=== PATIENT | female | born 1955 | race American Indian/Alaskan Native ===

== ENCOUNTER 2017-06-10 23:21 | Emergency (ER) | payer MEDICAID ==
[2017-06-11] MEDS ORDERED: Acetaminophen/HYDROcodone 325-5 MG Tab PO ONE (00:34)
[2017-06-11] MEDS ORDERED: predniSONE 10 MG Tab PO ONE (00:34)
[2017-06-11 00:56] VITALS: BP 113/67
--- NOTE | 2017-06-11 10:37 | ER ---
DATE SEEN: 06/10/2017 The patient was seen at 2330. HISTORY OF PRESENT ILLNESS: This is a 62-year-old woman, who is known to have a problem with alcohol, and has stopped drinking 3 months ago. She has also psoriatic arthritis involving the left hip and left knee with decreased extension of the left knee. MEDICATIONS: Currently takin. Oxybutynin for bladder problems. 2. Omeprazole for GERD. 3. Vitamins with minerals. ALLERGIES: She is allergic to chocolate flavor. PAST MEDICAL HISTORY: She has chronic neck discomfort and previously documented sigmoid diverticulosis. REVIEW OF SYSTEMS: Negative except for chronic low back discomfort which has gotten worse over the last 3 weeks. She never had an MRI. She notes the back pain is probably 8/10 in intensity. Back pain is worse if she sits too long or stands too long or finds herself bending or carrying her grandchild. She notes that the back pain is not worse with coughing, sneezing, or bowel movements. There are times that the pain radiates to her left anterior thigh. She has not been on any medicines, any DMARDs, methotrexate, or steroids, or other medicines for psoriatic arthritis. She has extensive psoriasis of extensor surfaces and left knee and left hip arthritis and pain with degenerative changes in the lower back. The patient denies shortness of breath, cough, chest pain, irregular heartbeat, swelling of ankles, or dyspnea on exertion. She denies gastrointestinal symptoms, abdominal pain, ulcers, or inflammation of the stomach, but she has reflux, denies diarrhea, blood in her stools, or black/tarry stools. She denies frequency, urgency, dysuria, or urinary tract infection. She is a 5, para 3-0-0-5. PAST SURGICAL HISTORY: Status post cholecystectomy. PHYSICAL EXAMINATION: VITAL SIGNS: Blood pressure 128/68, heart rate was 92, respirations were 18, oxygen saturation 98%, heart rate was regular, and temperature was 38.6 degrees centigrade. 75.2 kilos, 10 kilos down from previous weight in November 2016. HEENT: The patient is edentulous. TMs are negative. Hearing is good. Pharynx was without abnormality. No scleral icterus. NECK: Supple. No thyromegaly or masses in neck. No cervical adenopathy. No tenderness in neck. Mild tracheal tug was noted. No tracheal deviation. LUNGS: Clear to auscultation without rales, rhonchi, or wheezes. HEART: S1 and S2. No irregular rate or rhythm. ABDOMEN: Soft. Right liver rounded edge was palpable with deep inspiration below the right lower rib. No splenomegaly. Bowel sounds are hypoactive, but present and no abdominal tenderness. EXTREMITIES/NEUROLOGICAL: Straight leg raise is negative to left and right legs. Pressure to the lumbar area causes pain in lower back and mild in sacroiliac joint and no dysesthesia in lower extremities. Deep tendon reflexes, knee jerks and ankle jerks are present. Feeling is intact to lower extremities. MUSCULOSKELETAL: Moderate wasting in the thigh muscles. ASSESSMENT: Extensive psoriatic lesions in the extensor surfaces of the elbows and the knees and also in the fingers. 1. Low back pain. 2. Low back pain, probably secondary to psoriatic arthritis. 3. Extensive psoriatic arthritis. 4. History of chemical abuse - ethanolism. "stopped drinking alcohol 3 months ago." 5. She has petechial lesions . 6. Smoker. 7. Acid peptic disease, using omeprazole for gastroesophageal reflux disease. 8. The patient does not have dactylitis. The patient has extensive DIP joint swelling and nodularities reflecting an osteoarthritis - probably secondary to psoriatic arthritis. PLAN: 1. A trial of prednisone 10 mg daily for 10 tablets. 2. A trial of Vicodin 8 tablets q.4 hours p.r.n. pain. 3. The patient discussed possible use of DMARDs and/or methotrexate to treat her psoriatic arthritis. /[id number] TRISTIAN/ALEJANDRA SAVAGE
== END 2017-06-11 00:50 | disposition home or self-care (01) ==
LOC: FB.ED 23:21
DX: L40.50 Arthropathic psoriasis, unspecified (principal); M54.5 Low back pain; F17.200 Nicotine dependence, unspecified, uncomplicated; K30 Functional dyspepsia; Z90.49 Acquired absence of other specified parts of digestive tract; K21.9 Gastro-esophageal reflux disease without esophagitis
CPT/HCPCS: 99283; A9270-GY

== ENCOUNTER 2017-08-01 18:57 | Emergency (ER) | payer MEDICAID ==
[2017-08-01] MEDS ORDERED: Acetaminophen 500 MG Tab PO ONE (19:25)
--- NOTE | 2017-08-01 19:31 | EDM.PDOC ---
ED HPI GENERAL MEDICAL PROBLEM - General Chief Complaint: Back Pain or Injury Stated Complaint: LOWER BACK PAIN AND LEFT HIP Time Seen by Provider: 08/01/17 19:15 Source of Information: Reports: Patient History Limitations: Reports: No Limitations - History of Present Illness INITIAL COMMENTS - FREE TEXT/NARRATIVE: Clarissa comes to [facility] ED with sxs of L flank and lower back pain after daycare tasks with grandchildren and cleaning a toilet earlier today. There was no fall , misstep, overlifting or reaching, but she was very active. She has not self medicated today, and does not tolerated ASA or NSAIDs. Lower back & L lat lower rib Pain Score (Numeric/FACES): 8 - Related Data Allergies Allergy/AdvReac Type Severity Reaction Status Date / Time chocolate flavor Allergy Cannot Verified 08/01/17 19:06 Remember Home Meds: Home Meds Multivitamin with Minerals [Multiple Vitamin] 1 tab PO DAILY 05/18/16 [History] Omeprazole 20 mg PO DAILY 05/18/16 [History] Oxybutynin Chloride [Ditropan Xl] 10 mg PO DAILY 06/02/16 [History] Celecoxib [Celecoxib] 200 mg DAILY 08/01/17 [History] Clobetasol [Clobetasol 0.05%] 1 applic BID 08/01/17 [History] Past Medical History HEENT History: Reports: Cataract, Glaucoma, Impaired Vision, Other (See Below) Other HEENT History: almost blind L eye Cardiovascular History: Reports: None Respiratory History: Reports: None Gastrointestinal History: Reports: Cholelithiasis, GERD Genitourinary History: Reports: Urinary Incontinence LINOTYPIST History: Reports: Other OB/BYN History: Musculoskeletal History: Reports: Arthritis, Back Pain, Chronic, Fracture, Osteoarthritis Other Musculoskeletal History: hx fx L arm, L foot 4th toe fx Neurological History: Reports: Migraines Other Neuro History: H/O TEMPORAL ARTERITIS Psychiatric History: Reports: Addiction, Anxiety, Depression, Panic Attack, Other (See Below) Other Psychiatric History: hx ETOH abuse Endocrine/Metabolic History: Reports: None Hematologic History: Reports: Anemia Immunologic History: Reports: None Oncologic (Cancer) History: Reports: None Dermatologic History: Reports: Psoriasis - Infectious Disease History Infectious Disease History: Reports: Chicken Pox - Past Surgical History Head Surgeries/Procedures: Reports: None Cardiovascular Surgical History: Reports: None Respiratory Surgical History: Reports: None GI Surgical History: Reports: Cholecystectomy Musculoskeletal Surgical History: Reports: None Social & Family History - Family History Family Medical History: Noncontributory - Tobacco Use Smoking Status *Q: Current Every Day Smoker Years of Tobacco use: 20 Packs/Tins Daily: 0.3 Second Hand Smoke Exposure: Yes - Caffeine Use Caffeine Use: Reports: Soda - Alcohol Use Days Per Week of Alcohol Use: 7 Number of Drinks Per Day: 3 Total Drinks Per Week: 21 - Recreational Drug Use Recreational Drug Use: No ED ROS GENERAL - Review of Systems Review Of Systems: ROS reveals no pertinent complaints other than HPI. ED EXAM,LOWER BACK PAIN/INJURY - Physical Exam Exam: See Below Exam Limited By: No Limitations General Appearance: Alert, WD/WN, No Apparent Distress Head: Atraumatic, Normocephalic Neck: Normal Inspection, Supple, Non-Tender, Full Range of Motion Respiratory/Chest: Lungs Clear, Normal Breath Sounds, No Accessory Muscle Use, Chest Non-Tender Cardiovascular: Normal Peripheral Pulses, Regular Rate, Rhythm, No Murmur GI/Abdominal: Normal Bowel Sounds, Soft, No Organomegaly, No Distention, No Mass , Tender (mild L flank tenderness of lateral abdominal wall, sxs worse with movement) Rectal (Female) Exam: Deferred Back Exam: Normal Inspection, Decreased Range of Motion, Other (limited tenderness at the LS junction, neg SI tenderness, neg SN tenderness; SFB 75 deg; ) Extremities: Normal Inspection, Normal Range of Motion Neurological: Alert, Normal Mood/Affect Psychiatric: Normal Affect, Normal Mood Skin Exam: Warm, Dry Lymphatic: No Adenopathy Course - Vital Signs Text/Narrative:: Clarissa remained stable at the [facility] ED. She was adminsitered Tylenol 1000 mg po before discharge. Last Recorded V/S: Last Vital Signs Temp 37.1 C 08/01/17 19:02 Pulse 88 08/01/17 19:02 Resp 18 08/01/17 19:02 BP 139/87 08/01/17 19:02 Pulse Ox 100 08/01/17 19:02 - Orders/Labs/Meds Orders: Active Orders 24 hr Category Date Time Status Acetaminophen [Tylenol Extra Strength] Med 08/01/17 19:25 Once 1,000 mg PO ONETIME ONE Departure - Departure Time of Disposition: 19:31 Disposition: Home, Self-Care 01 Condition: Fair Clinical Impression: Low back pain Qualifiers: Chronicity: unspecified Back pain laterality: left Sciatica presence: without sciatica Qualified Code(s): M54.5 - Low back pain - Discharge Information Referrals: Hunter Marcos MD [Primary Care Provider] - - Problem List & Annotations (1) Low back pain SNOMED Code(s): 326446885 Code(s): M54.5 - LOW BACK PAIN Status: Acute Annotation/Comment:: Low back pain with musculoskeletal features of overuse. I suggested Tylenol, heat, massage, gentle ROM, and follow up if needed. Qualifiers: Chronicity: unspecified Back pain laterality: left Sciatica presence: without sciatica Qualified Code(s): M54.5 - Low back pain - Problem List Review Problem List Initiated/Reviewed/Updated: Yes - My Orders Last 24 Hours: My Active Orders 08/01/17 19:25 Acetaminophen [Tylenol Extra Strength] 1,000 mg PO ONETIME ONE - Assessment/Plan Last 24 Hours: My Active Orders 08/01/17 19:25 Acetaminophen [Tylenol Extra Strength] 1,000 mg PO ONETIME ONE Plan: Follow up with PCP if needed.
[2017-08-01 19:47] VITALS: BP 128/76
== END 2017-08-01 19:45 | disposition home or self-care (01) ==
LOC: FB.ED 18:57
DX: M54.5 Low back pain (principal); F17.210 Nicotine dependence, cigarettes, uncomplicated; Z79.899 Other long term (current) drug therapy
CPT/HCPCS: 99283; A9270

== ENCOUNTER 2017-12-05 18:47 | Emergency (ER) | payer MEDICAID ==
[2017-12-05] MEDS ORDERED: Ketorolac 30 MG/ML SDV IM ONE (18:59)
[2017-12-05] MEDS ORDERED: Ciprofloxacin 500 MG Tab PO STA (20:54)
[2017-12-05] MEDS ORDERED: Phenazopyridine 95 MG Tab PO STA (20:55)
--- NOTE | 2017-12-05 21:13 | EDM.PDOC ---
ED HPI GENERAL MEDICAL PROBLEM - General Chief Complaint: Lower Extremity Injury/Pain Stated Complaint: BACK PAIN Time Seen by Provider: 12/05/17 18:50 Source of Information: Reports: Patient, Family History Limitations: Reports: No Limitations - History of Present Illness INITIAL COMMENTS - FREE TEXT/NARRATIVE: 62 y.o.w.f with a h/p ETOH and tobacco use cam with her SO to the ed due to tana lower back pain. Pt states, she was carrying her grandson around a few days ago. No painfukk urination, no trauma. No N/V/D or any other acute medical issues BP 132/69 RR 18 Pulse ox 98% on RA temp 36.9 Onset: Gradual Onset Date: 12/01/17 Onset Time: 08:00 Duration: Day(s):, Intermittent Location: Reports: Back Quality: Reports: Ache, Burning, Dull Severity: Moderate Improves with: Reports: Rest Worsens with: Reports: Movement Context: Reports: Lifting Associated Symptoms: Reports: No Other Symptoms lower back Pain Score (Numeric/FACES): 5 - Related Data Allergies Allergy/AdvReac Type Severity Reaction Status Date / Time chocolate flavor Allergy Cannot Verified 12/05/17 18:57 Remember Home Meds: Home Meds Omeprazole 20 mg PO DAILY 05/18/16 [History] Oxybutynin Chloride [Ditropan Xl] 10 mg PO DAILY 06/02/16 [History] Celecoxib [Celecoxib] 200 mg DAILY 08/01/17 [History] Ciprofloxacin HCl [Cipro] 500 mg PO BID #20 tablet 12/05/17 [Rx] Phenazopyridine HCl [Pyridium] 100 mg PO Q8HR #9 tablet 12/05/17 [Rx] Past Medical History HEENT History: Reports: Cataract, Glaucoma, Impaired Vision, Other (See Below) Other HEENT History: almost blind L eye Cardiovascular History: Reports: None Respiratory History: Reports: None Gastrointestinal History: Reports: Cholelithiasis, Cirrhosis, GERD, Other (See Below) Genitourinary History: Reports: Urinary Incontinence 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 Endocrine/Metabolic History: Reports: None Hematologic History: Reports: Anemia Immunologic History: Reports: None Oncologic (Cancer) History: Reports: None Dermatologic History: Reports: Psoriasis - Infectious Disease History Infectious Disease History: Reports: Chicken Pox - Past Surgical History Head Surgeries/Procedures: Reports: None Cardiovascular Surgical History: Reports: None Respiratory Surgical History: Reports: None GI Surgical History: Reports: Cholecystectomy Musculoskeletal Surgical History: Reports: None Social & Family History - Family History Family Medical History: Noncontributory - Tobacco Use Smoking Status *Q: Current Every Day Smoker Years of Tobacco use: 20 Packs/Tins Daily: 0.5 Second Hand Smoke Exposure: Yes - Caffeine Use Caffeine Use: Reports: Coffee, Soda - Alcohol Use Days Per Week of Alcohol Use: 7 Number of Drinks Per Day: 3 Total Drinks Per Week: 21 - Recreational Drug Use Recreational Drug Use: No Review of Systems - Review of Systems Review Of Systems: See Below Constitutional: Reports: No Symptoms Eyes: Reports: No Symptoms Ears: Reports: No Symptoms Nose: Reports: No Symptoms Mouth/Throat: Reports: No Symptoms Respiratory: Reports: No Symptoms Cardiovascular: Reports: No Symptoms GI/Abdominal: Reports: No Symptoms Genitourinary: Reports: No Symptoms Musculoskeletal: Reports: Back Pain, Muscle Pain Skin: Reports: No Symptoms Neurological: Reports: No Symptoms Psychiatric: Reports: No Symptoms ED EXAM, GENERAL - Physical Exam Exam: See Below Exam Limited By: No Limitations General Appearance: Alert, WD/WN, Mild Distress, Thin Eye Exam: Bilateral Eye: Normal Inspection Ears: Normal External Exam Ear Exam: Bilateral Ear: Auricle Normal Nose: Normal Inspection Throat/Mouth: No Airway Compromise, Other (dry mucosal membrane) Head: Atraumatic, Normocephalic Neck: Normal Inspection, Supple, Non-Tender, Full Range of Motion Respiratory/Chest: No Respiratory Distress, Lungs Clear, Normal Breath Sounds Cardiovascular: Normal Peripheral Pulses, Regular Rate, Rhythm, No Edema, No Gallop Peripheral Pulses: 1+: Brachial (R) GI/Abdominal: Normal Bowel Sounds, Soft, Non-Tender (Female) Exam: Deferred Rectal (Female) Exam: Deferred Back Exam: Normal Inspection, Paraspinal Tenderness Extremities: Normal Inspection, Normal Range of Motion, Non-Tender, No Pedal Edema Neurological: Alert, Oriented, CN II-XII Intact, Normal Cognition, Normal Gait, No Motor/Sensory Deficits Psychiatric: Normal Affect, Normal Mood Skin Exam: Warm, Dry, Intact, Normal Color, No Rash Lymphatic: No Adenopathy Course - Vital Signs Text/Narrative:: 62 y.o.w.f with a h/p ETOH and tobacco use cam with her SO to the ed due to tana lower back pain. Pt states, she was carrying her grandson around a few days ago. No painfukk urination, no trauma. No N/V/D or any other acute medical issues BP 132/69 RR 18 Pulse ox 98% on RA temp 36.9 PE: Thin/cachectic 62 y.o.w.f with low back pain Labs: UA pos for UTI with hematuria Impression: UTI, Low back pain Tx: Cipro, Toradol, ice Reexam: Improved Plan: D/C with instruction Last Recorded V/S: Last Vital Signs Temp 36.9 C 12/05/17 18:50 Pulse 82 12/05/17 21:15 Resp 18 12/05/17 21:15 BP 135/81 12/05/17 21:15 Pulse Ox 98 12/05/17 21:15 - Orders/Labs/Meds Orders: Active Orders 24 hr Category Date Time Status CULTURE URINE [RM] Stat Lab 12/05/17 20:22 Received Labs: Laboratory Tests 12/05/17 Range/Units 20:22 Urine Color Yellow (YELLOW) Urine Appearance Cloudy (CLEAR) Urine pH 7.0 H (5.0-6.5) Ur Specific [place] 1.015 (1.010-1.025) Urine Protein Negative (NEGATIVE) mg/dL Urine Glucose (UA) Normal (NEGATIVE) mg/dL Urine Ketones Negative (NEGATIVE) mg/dL Urine Occult Blood Large H (NEGATIVE) Urine Nitrite Positive H (NEGATIVE) Urine Bilirubin Small H (NEGATIVE) Urine Urobilinogen >=12 H (NEGATIVE) mg/dL Ur Leukocyte Esterase Moderate H (NEGATIVE) Urine RBC 20-30 H (0) Urine WBC 10-20 H (0) Ur Squamous Epith Cells Moderate H (NS,R,O) Urine Bacteria Many H (NS) Urine Mucus Moderate H (NS) Meds: Medications Discontinued Medications Generic Name Dose Route Start Last Admin Trade Name Shawnee PRN Reason Stop Dose Admin Ciprofloxacin 500 mg 12/05/17 20:54 12/05/17 21:03 Ciprofloxacin Hcl PO 12/05/17 20:55 500 mg ONETIME STA Administration Ketorolac Tromethamine 60 mg 12/05/17 18:59 12/05/17 19:14 Toradol IM 12/05/17 19:00 60 mg ONETIME ONE Administration Phenazopyridine HCl 95 mg 12/05/17 20:55 12/05/17 21:03 Urinary Pain Relief PO 12/05/17 20:56 95 mg ONETIME STA Administration Departure - Departure Time of Disposition: 21:09 Disposition: Home, Self-Care 01 Condition: Good Clinical Impression: UTI (urinary tract infection) Qualifiers: Urinary tract infection type: acute cystitis Hematuria presence: with hematuria Qualified Code(s): N30.01 - Acute cystitis with hematuria - Discharge Information Prescriptions: Phenazopyridine HCl [Pyridium] 100 mg PO Q8HR #9 tablet Ciprofloxacin HCl [Cipro] 500 mg PO BID #20 tablet Instructions: Urinary Tract Infection, Adult, [id number] Referrals: Hunter Marcos MD [Primary Care Provider] - Forms: ED Department Discharge Additional Instructions: Please take Motrin for pain, increase water intake, no ETOH no Tobacco, please f /u in 3 days, come back to the ED if your symptoms get worse acutely - My Orders Last 24 Hours: My Active Orders 12/05/17 20:22 CULTURE URINE [RM] Stat - Assessment/Plan Last 24 Hours: My Active Orders 12/05/17 20:22 CULTURE URINE [RM] Stat
[2017-12-05 21:41] VITALS: BP 135/81
== END 2017-12-05 21:19 | disposition home or self-care (01) ==
LOC: FB.ED 18:47
DX: N30.01 Acute cystitis with hematuria (principal); M54.5 Low back pain; F17.210 Nicotine dependence, cigarettes, uncomplicated; Z79.899 Other long term (current) drug therapy
CPT/HCPCS: 81001; 87086; 87088; 87186; 96372; 99283; A9270-GY; J1885

== ENCOUNTER 2017-12-29 07:36 | Emergency (ER) | payer MEDICAID ==
[2017-12-29] MEDS ORDERED: Ibuprofen 600 MG Tab PO ONE (08:08)
--- NOTE | 2017-12-29 08:11 | EDM.PDOC ---
ED HPI GENERAL MEDICAL PROBLEM - General Chief Complaint: Upper Extremity Injury/Pain Stated Complaint: LEFT ARM PAIN Time Seen by Provider: 12/29/17 07:36 Source of Information: Reports: Patient, Family History Limitations: Reports: No Limitations - History of Present Illness INITIAL COMMENTS - FREE TEXT/NARRATIVE: 62 y.o.w.f came to the ED due to pain at her left upper arm, distal aspect. Pt woke up with pain at her lrgt biceps muscle, denied trauma, did not "sleep on left arm", no pain at rest, severe tender to palpation. No other acute medical issues BP 134/87 Pulse 78 RR 20 Pulse ox 100% temp 36.9 Onset Date: 12/29/17 Onset Time: 06:00 Duration: Hour(s): Location: Reports: Upper Extremity, Left Quality: Reports: Ache, Dull Severity: Mild Improves with: Reports: Rest Worsens with: Reports: Movement Context: Reports: Other Associated Symptoms: Reports: No Other Symptoms Left Arm Pain Score (Numeric/FACES): 7 - Related Data Allergies Allergy/AdvReac Type Severity Reaction Status Date / Time chocolate flavor Allergy Cannot Verified 12/29/17 08:04 Remember Home Meds: Home Meds Omeprazole 20 mg PO DAILY 05/18/16 [History] Oxybutynin Chloride [Ditropan Xl] 10 mg PO DAILY 06/02/16 [History] Celecoxib 200 mg DAILY 08/01/17 [History] Phenazopyridine HCl [Pyridium] 100 mg PO Q8HR #9 tablet 12/05/17 [Rx] Clobetasol [Clobetasol 0.05%] 1 applic TOP BID 12/29/17 [History] Past Medical History HEENT History: Reports: Cataract, Glaucoma, Impaired Vision, Other (See Below) Other HEENT History: almost blind L eye Cardiovascular History: Reports: None Respiratory History: Reports: None Gastrointestinal History: Reports: Cholelithiasis, Cirrhosis, GERD, Other (See Below) Genitourinary History: Reports: Urinary Incontinence 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 Endocrine/Metabolic History: Reports: Diabetes, Type II Hematologic History: Reports: Anemia Immunologic History: Reports: None Oncologic (Cancer) History: Reports: None Dermatologic History: Reports: Psoriasis - Infectious Disease History Infectious Disease History: Reports: Chicken Pox - Past Surgical History Head Surgeries/Procedures: Reports: None Cardiovascular Surgical History: Reports: None Respiratory Surgical History: Reports: None GI Surgical History: Reports: Cholecystectomy Musculoskeletal Surgical History: Reports: None Social & Family History - Family History Family Medical History: Noncontributory - Tobacco Use Smoking Status *Q: Current Every Day Smoker Years of Tobacco use: 20 Packs/Tins Daily: 0.5 Second Hand Smoke Exposure: Yes - Caffeine Use Caffeine Use: Reports: Coffee, Soda - Alcohol Use Days Per Week of Alcohol Use: 7 Number of Drinks Per Day: 3 Total Drinks Per Week: 21 - Recreational Drug Use Recreational Drug Use: No Review of Systems - Review of Systems Review Of Systems: See Below Constitutional: Reports: No Symptoms Eyes: Reports: No Symptoms Ears: Reports: No Symptoms Nose: Reports: No Symptoms Mouth/Throat: Reports: No Symptoms Respiratory: Reports: No Symptoms Cardiovascular: Reports: No Symptoms GI/Abdominal: Reports: No Symptoms Genitourinary: Reports: No Symptoms Musculoskeletal: Reports: Muscle Pain (left elbow) Skin: Reports: No Symptoms Neurological: Reports: No Symptoms Psychiatric: Reports: No Symptoms ED EXAM, GENERAL - Physical Exam Exam: See Below Exam Limited By: No Limitations General Appearance: Alert, WD/WN, Mild Distress Eye Exam: Bilateral Eye: Normal Inspection Ears: Normal External Exam, Normal Canal Ear Exam: Bilateral Ear: Auricle Normal Nose: Normal Inspection, Normal Mucosa Throat/Mouth: Normal Inspection, Normal Lips Head: Atraumatic, Normocephalic Neck: Normal Inspection, Supple, Non-Tender, Full Range of Motion Respiratory/Chest: No Respiratory Distress, Lungs Clear, Normal Breath Sounds, No Accessory Muscle Use, Chest Non-Tender Cardiovascular: Normal Peripheral Pulses, Regular Rate, Rhythm, No Edema Peripheral Pulses: 1+: Radial (R) GI/Abdominal: Normal Bowel Sounds, Soft, Non-Tender, No Organomegaly, No Abnormal Bruit, No Mass (Female) Exam: Deferred Rectal (Female) Exam: Deferred Back Exam: Normal Inspection, Full Range of Motion Extremities: Normal Inspection, Normal Range of Motion, Normal Capillary Refill , Arm Pain (tender left distal Bicepsmuscle) Neurological: Alert, Oriented, CN II-XII Intact Psychiatric: Normal Affect, Normal Mood Skin Exam: Warm, Dry, Intact, Normal Color, No Rash Lymphatic: No Adenopathy EKG INTERPRETATION EKG Date: 12/29/17 Time: 07:55 Rhythm: NSR Rate (Beats/Min): 81 [place]: Normal P-Wave: Present QRS: Normal ST-T: Normal QT: Normal Comparison: NA - No Prior EKG Course - Vital Signs Text/Narrative:: 62 y.o.w.f came to the ED due to pain at her left upper arm, distal aspect. Pt woke up with pain at her lrgt biceps muscle, denied trauma, did not "sleep on left arm", no pain at rest, severe tender to palpation. No other acute medical issues BP 134/87 Pulse 78 RR 20 Pulse ox 100% temp 36.9 PE: WNWD W F with tenderness left distal Biceps muscle. FROM Imaging: not indicated Impression: Biceps tendinitis Tx: Motrin, ICE Reexam: Improved Plan: D/C with instructions Last Recorded V/S: Last Vital Signs Temp 36.6 C 12/29/17 08:25 Pulse 82 12/29/17 08:25 Resp 20 12/29/17 08:25 BP 138/80 12/29/17 08:25 Pulse Ox 100 12/29/17 08:25 - Orders/Labs/Meds Meds: Medications Discontinued Medications Generic Name Dose Route Start Last Admin Trade Name Shawnee PRN Reason Stop Dose Admin Ibuprofen 600 mg 12/29/17 08:08 12/29/17 08:12 Motrin PO 12/29/17 08:09 600 mg ONETIME ONE Administration Departure - Departure Time of Disposition: 08:09 Disposition: Home, Self-Care 01 Condition: Good Clinical Impression: Biceps tendinitis on left - Discharge Information Instructions: Biceps Tendon Disruption (Proximal) Rehab-SportsMed Referrals: Hunter Marcos MD [Primary Care Provider] - Forms: ED Department Discharge Additional Instructions: Please take motrin of pain, please apply ice to the affected area, please f/u, come back if your symptoms get worse acutely
[2017-12-29 10:31] VITALS: BP 138/80
== END 2017-12-29 08:25 | disposition home or self-care (01) ==
LOC: FB.ED 07:36
DX: M75.22 Bicipital tendinitis, left shoulder (principal); E11.9 Type 2 diabetes mellitus without complications; F17.210 Nicotine dependence, cigarettes, uncomplicated; K21.9 Gastro-esophageal reflux disease without esophagitis; Z79.899 Other long term (current) drug therapy; Z91.018 Allergy to other foods
CPT/HCPCS: 99283; A9270

== ENCOUNTER 2018-02-27 15:10 | Emergency (ER) | payer MEDICAID ==
[2018-02-27] MEDS ORDERED: Ketorolac 10 MG Tab PO ONE (15:42)
[2018-02-27] MEDS ORDERED: Cyclobenzaprine 10 MG Tab PO ONE (15:42)
[2018-02-27 16:33] VITALS: BP 140/80
--- NOTE | 2018-02-28 01:07 | ER ---
DATE SEEN: 02/27/2018 REASON FOR VISIT: Back pain. HISTORY OF PRESENT ILLNESS: A 62-year-old with pain in the left flank and lower back, 3 days, insidious onset; believes that she was lifting with her hands mostly and favoring her knees; has taken some ibuprofen with no improvement. REVIEW OF SYSTEMS: No fever, systemic symptoms, or urinary symptoms but she complains of a rash that is chronic due to psoriasis. ALLERGIES: Chocolate flavor. PHYSICAL EXAMINATION: VITAL SIGNS: Blood pressure is 145/81, pulse is 101, or temperature is 98.9. BACK: Lower back: No obvious swelling. No tenderness to palpation of the spine but there is paraspinal muscle tenderness and spasm. ABDOMEN: Soft and benign. IMPRESSION: Back spasm. TREATMENT: 1. Ketorolac 10 mg q.6 h. 2. Flexeril 10 mg at bedtime. /[id number] JEANNETTE/ALEJANDRA
== END 2018-02-27 15:55 | disposition home or self-care (01) ==
LOC: FB.ED 15:10
DX: M62.830 Muscle spasm of back (principal)
CPT/HCPCS: 99283; A9270

== ENCOUNTER 2018-04-13 18:52 | Emergency (ER) | payer MEDICAID ==
[2018-04-13] MEDS ORDERED: Sodium Chloride 0.9% 1,000 ML IV ONE (20:16)
[2018-04-13] MEDS ORDERED: Pantoprazole 80 MG in Sodium Chloride 0.9% 100 ML IV ONE (20:16)
[2018-04-13] MEDS ORDERED: Lactated Ringers 1,000 ML IV SCH (20:30)
[2018-04-13 22:39] VITALS: BP 118/62
--- NOTE | 2018-04-14 09:07 | ER ---
DATE SEEN: 04/13/2018 TIME SEEN: The patient was seen at 1957 hours. HISTORY OF PRESENT ILLNESS: Clarissa is a 62-year-old woman, who had onset of abdominal discomfort at 1400 hours. At 1600 hours she had 3 episodes of vomiting at home and 1 episode here with dark brown hematemesis. She drinks four 100 mL bottles of cinnamon whiskey a day (13 ounces). She had alcohol treatment 2 years ago, but has been drinking alcohol for 18 years. This drinking started at age 44 when she was by her , became depressed, and her heart was broken. The patient is a 8, para 5, 3-0-5. With history of osteoarthritis, GERD, and psoriasis. She takes omeprazole 1 tablet daily. No history of hypertension, myocardial infarction, or asthma. ALLERGIES: She is allergic to chocolate flavor. CURRENT MEDICATIONS: 1. Naproxen 500 mg daily. 2. Ditropan. 3. Omeprazole. 4. Clobetasol cream 0.05%. 5. Multivitamins. PAST MEDICAL HISTORY: Previous history of colon polyps, diverticulosis, low back pain, biceps tendonitis, and urinary tract infection. REVIEW OF SYSTEMS: Otherwise negative. HEENT: She wears glasses. Hearing is appropriate. She has dentures. CARDIORESPIRATORY: As above. No recent onset of shortness of breath, cough, travel long distance, or lying in bed for more than 3 days. GASTROINTESTINAL: Vomiting with hematemesis today, but denies constipation or diarrhea. ABDOMEN: Denies abdominal pain. MUSCULOSKELETAL: She denies muscle pains, but has osteoarthritis. PHYSICAL EXAMINATION: VITAL SIGNS: Blood pressure 124/64, heart rate 128, respirations 24, oxygen saturation 96% on room air, and 36.9 degrees centigrade. GENERAL: This is an overweight, tanned woman who is in mild distress. She is vomiting repetitively and having dry heaves. HEENT: She wears glasses. Her hearing is slightly decreased. TMs are negative. Pharynx: Small amount of blood signs in her teeth. No bright red blood is noted. Nares are negative. No facial or sinus pressures or tenderness. NECK: Supple. No bruits in the neck. No thyromegaly or masses in the neck or cervical adenopathy. LUNGS: Clear without rales, rhonchi, or wheezes. HEART: S1 and S2. No murmur. She has sinus tachycardia of 128. ABDOMEN: Soft. No guarding. No abdominal discomfort. Moderate increased abdominal girth. No hepatosplenomegaly. Bowel sounds are present. EXTREMITIES: Without abnormality. She feels slightly lightheaded. SKIN: She has mild diaphoresis on palpation of her back dermis. NEUROLOGIC: Deep tendon reflexes are hypoactive. No tremor. No fasciculation of the tongue. LABORATORY FINDINGS: She is auto-anticoagulated with INR 1.78 and PTT 17.2. She has anemia with a hemoglobin of 10.9 and macrocytosis, MCV of 105; platelets, thrombocytopenia of 83,000 secondary to alcoholism. She has enzymes of liver-mediated hepatitis, alcoholic hepatitis, and enzyme elevation; AST 125, ALT 44, and alkaline phosphatase 205. Non-STEMI on the basis of the EKG shows a troponin of 0.881. BNP is 166. Albumin 1.9 with a calcium of 7.6 and a calculated calcium of 9.2. TSH is normal at 1.41. Blood alcohol is 0.14. The patient's status was discussed with Dr. Ramon at [facility]. The patient will be transferred by ground. DIAGNOSES: 1. [id number] myocardial infarction. 2. Alcoholic hepatitis and gastritis with hematemesis and probable esophagitis/possible esophageal varices. 3. Eighteen years of drinking approximately 400 mL of cinnamon whiskey a day. 4. Depressed. 5. Obese. 6. Gastroesophageal reflux disease. 7. Psoriasis. 8. Osteoarthritis. 9. The patient will be transferred by ground. 10.Anemia secondary to alcoholic gastritis. 11.Macrocytic anemia with large increased MCV. 12.Thrombocytopenia. Auto-anticoagulation. 13.Alcoholism. /[id number] TRISTIAN/MODL
--- NOTE | 2018-04-14 11:20 | CR ---
INDICATION: Chest pain. CHEST: AP upright portable view of the chest, 04/13/2018, was compared with 11/2015 and 02/03/2011, and revealed the heart to remain normal in size and shape. The aorta is tortuous with calcification in the arch. Interstitial markings appear somewhat prominent, which could be on the basis of pulmonary fibrosis or possibly infection or even lung edema. However, the upper lung field pulmonary vasculature was not significantly prominent to suggest CHF or vascular overload. No definite consolidating pneumonia or effusion was seen. However, there is some increased density in the lung bases relatively, and although this most likely is on the basis of overlying breast tissue, it is difficult to entirely exclude minimal patchy bronchopneumonia. Findings compatible with exogenous obesity are noted. IMPRESSION: 1. No definite acute process. However, interstitial markings are somewhat prominent and could be on the basis of an acute process, such as infection. Lung edema is felt to be less likely. Pulmonary fibrosis is felt to be most likely - correlate clinically. 2. ASD aorta. 3. Exogenous obesity. MTDD
== END 2018-04-13 23:00 ==
LOC: FB.ED 18:52
DX: I21.4 Non-ST elevation (NSTEMI) myocardial infarction (principal); K70.10 Alcoholic hepatitis without ascites; K29.20 Alcoholic gastritis without bleeding; D53.9 Nutritional anemia, unspecified; D69.6 Thrombocytopenia, unspecified; F10.229 Alcohol dependence with intoxication, unspecified; Y90.0 Blood alcohol level of less than 20 mg/100 ml; L40.9 Psoriasis, unspecified; F32.9 Major depressive disorder, single episode, unspecified; E66.9 Obesity, unspecified; K21.9 Gastro-esophageal reflux disease without esophagitis; Z91.018 Allergy to other foods; Z88.6 Allergy status to analgesic agent; Z88.8 Allergy status to other drugs, medicaments and biological substances
CPT/HCPCS: 36415; 71045; 80053; 80305; 82150; 82271; 83880; 84443; 84484; 85025; 85610; 86850; 86900; 86901; 86920; 86922; 93005; 96361; 96365; 99285; C9113; G0480; J7030

== ENCOUNTER 2018-04-23 14:27 | Emergency (ER) | payer MEDICAID ==
--- NOTE | 2018-04-23 15:16 | EDM.PDOC ---
ED HPI GENERAL MEDICAL PROBLEM - General Chief Complaint: Respiratory Problem Stated Complaint: DIFFICULTY BREATHING Time Seen by Provider: 04/23/18 14:55 Source of Information: Reports: Patient, Family, Old Records History Limitations: Reports: No Limitations - History of Present Illness INITIAL COMMENTS - FREE TEXT/NARRATIVE: Clarissa returns to [facility] ED following discharge from [facility] for management on nonSTEMI and complicatioins of ETOH liver disease including endoscopic closure of esophageal varices. She returned home 3 days ago without SOB, but this develped last pm, and seems to have progressed. She denies cough, fever, chills, sweats, chest pain, palpitations, orthopnea or pleurisy. She is audibly wheezing on expiration,without prior hx of COPD. There have been no choking spells. She has tried no meds. Admission Fi02 87% on RA, and improved to 92% on 2 L of 02 per sheriff deputy. - Related Data Allergies Allergy/AdvReac Type Severity Reaction Status Date / Time chocolate flavor Allergy Cannot Verified 04/23/18 14:33 Remember Home Meds: Home Meds Oxybutynin Chloride [Ditropan Xl] 10 mg PO DAILY 06/02/16 [History] Clobetasol [Clobetasol 0.05%] 1 applic TOP BID 12/29/17 [History] Multivitamin [Daily Multiple Vitamin] 1 tab PO DAILY 04/13/18 [History] Ciprofloxacin HCl [Cipro] 500 mg PO DAILY 04/23/18 [History] Ciprofloxacin [Ciloxan 0.3% Ophth Soln] 1 drop EYEBOTH TID 04/23/18 [History] Cyanocobalamin (Vitamin B-12) [B-12] 250 mcg PO DAILY 04/23/18 [History] Folic Acid 1 mg PO DAILY 04/23/18 [History] Lactulose 30 ml PO DAILY 04/23/18 [History] Magnesium Oxide 1,000 mg PO BID 04/23/18 [History] Pantoprazole [ProTONIX] 40 mg PO BIDAC 04/23/18 [History] Thiamine HCl [B-1] 100 mg PO DAILY 04/23/18 [History] Past Medical History HEENT History: Reports: Cataract, Glaucoma, Impaired Vision, Other (See Below) Other HEENT History: Almost blind L eye. 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 Musculoskeletal History: Reports: Arthritis, Back Pain, Chronic, Fracture, Osteoarthritis Other Musculoskeletal History: Hx fracture L arm. Hx fracture L foot 4th toe. Hx sprained left ankle. Uses a cane for support with ambulation. Neurological History: Reports: Migraines Other Neuro History: Hx temporal arteritis. Psychiatric History: Reports: Addiction, Anxiety, Depression, Panic Attack, Other (See Below) Other Psychiatric History: Hx ETOH abuse. Endocrine/Metabolic History: Reports: Diabetes, Type II Hematologic History: Reports: Anemia Immunologic History: Reports: None Oncologic (Cancer) History: Reports: None Dermatologic History: Reports: Psoriasis - Infectious Disease History Infectious Disease History: Reports: Chicken Pox - Past Surgical History GI Surgical History: Reports: Cholecystectomy Social & Family History - Family History Family Medical History: Noncontributory - Caffeine Use Caffeine Use: Reports: Coffee, Soda ED ROS GENERAL - Review of Systems Review Of Systems: See Below Constitutional: Reports: Malaise, Weakness, Fatigue, Decreased Appetite HEENT: Reports: No Symptoms Respiratory: Reports: Shortness of Breath, Wheezing Cardiovascular: Reports: Dyspnea on Exertion Endocrine: Reports: No Symptoms GI/Abdominal: Reports: Decreased Appetite : Reports: No Symptoms Musculoskeletal: Reports: No Symptoms Skin: Reports: No Symptoms Neurological: Reports: No Symptoms Psychiatric: Reports: No Symptoms Hematologic/Lymphatic: Reports: No Symptoms Immunologic: Reports: No Symptoms ED EXAM, GENERAL - Physical Exam Exam: See Below Exam Limited By: Physical Impairment General Appearance: Alert, WD/WN, Mild Distress Eye Exam: Bilateral Eye: EOMI, Normal Inspection, PERRL Ears: Normal External Exam Nose: Normal Inspection Throat/Mouth: Normal Inspection, Normal Lips, Normal Oropharynx, Normal Voice Head: Normocephalic Neck: Normal Inspection, Supple, Non-Tender Respiratory/Chest: Chest Non-Tender, Decreased Breath Sounds (R base), Crackles , Wheezing, Accessory Muscle Use, Prolonged Expiration Cardiovascular: Regular Rate, Rhythm, No Murmur GI/Abdominal: Normal Bowel Sounds, Soft, Non-Tender, No Organomegaly, No Distention, No Mass (Female) Exam: Deferred Rectal (Female) Exam: Deferred Back Exam: Normal Inspection Extremities: Normal Inspection Neurological: Alert, Oriented, CN II-XII Intact, No Motor/Sensory Deficits Psychiatric: Normal Affect, Normal Mood Skin Exam: Warm, Dry, Intact, No Rash Lymphatic: No Adenopathy Course - Vital Signs Text/Narrative:: Following assessment, patient was monitored while screeing labwork was completed : CBC noted Hgb 11.8 gm, WBC 17,300, plts 170,000; CMP baseline with elevated LFTs, Na 131, K 4.2: Troponin I .582; d-dimer 2.09; ekg sinus rhythm, no acute changes; chest CT angio: large R pleural effusion; [facility] for further medical managment. Last Recorded V/S: Last Vital Signs Temp 36.6 C 04/23/18 14:27 Pulse 67 04/23/18 14:27 Resp 20 04/23/18 14:27 BP 137/68 04/23/18 14:27 Pulse Ox 91 L 04/23/18 15:00 - Orders/Labs/Meds Orders: Active Orders 24 hr Category Date Time Status Ang Chest [CT] Stat Exams 04/23/18 15:08 Ordered INR,PT,PROTHROMBIN TIME [COAG] Stat Lab 04/23/18 15:57 Ordered LACTIC ACID [CHEM] Stat Lab 04/23/18 15:52 Ordered EKG 12 Lead [EK] Routine Ther 04/23/18 15:08 Ordered Labs: Laboratory Tests 04/23/18 04/23/18 04/23/18 Range/Units 15:21 15:21 15:21 WBC 17.3 H (4.5-12.0) X10-3/uL RBC 3.25 (3.23-5.20) x10(6)uL Hgb 11.8 (11.5-15.5) g/dL Hct 34.2 (30.0-51.3) % MCV 105.1 H (80-96) fL MCH 36.4 H (27.7-33.6) pg MCHC 34.6 (32.2-35.4) g/dL RDW 19.6 H (11.5-15.5) % Plt Count 170 (125-369) X10(3)uL MPV 8.6 (7.4-10.4) fL Add Manual Diff Yes Neutrophils % (Manual) 90 H (46-82) % Lymphocytes % (Manual) 5 L (13-37) % Monocytes % (Manual) 5 (4-12) % Anisocytosis Few Microcytosis Moderate H D-Dimer, Quantitative 2.09 H (0.0-0.59) mg/LFEU Sodium 131 L D (135-145) mmol/L Potassium 4.2 (3.5-5.3) mmol/L Chloride 98 L D (100-110) mmol/L Carbon Dioxide 26 (21-32) mmol/L BUN 11 (7-18) mg/dL Creatinine 0.5 L (0.55-1.02) mg/dL Est Cr Clr Drug Dosing TNP Estimated GFR (MDRD) > 60 (>60) BUN/Creatinine Ratio 22.0 H (9-20) Glucose 119 H (80-116) mg/dL Calcium 7.5 L (8.6-10.2) mg/dL Total Bilirubin 6.1 H (0.1-1.3) mg/dL AST 85 H D (5-25) IU/L ALT 50 H D (12-36) U/L Alkaline Phosphatase 164 H (56-112) IU/L Troponin I (<0.017-0.056) ng/mL C-Reactive Protein (0.5-0.9) mg/dL Total Protein 7.3 (6.0-8.0) g/dL Albumin 1.8 L (3.2-4.6) g/dL Globulin 5.5 g/dL Albumin/Globulin Ratio 0.3 18 18 Range/Units 15:21 15:21 WBC (4.5-12.0) X10-3/uL RBC (3.23-5.20) x10(6)uL Hgb (11.5-15.5) g/dL Hct (30.0-51.3) % MCV (80-96) fL MCH (27.7-33.6) pg MCHC (32.2-35.4) g/dL RDW (11.5-15.5) % Plt Count (125-369) X10(3)uL MPV (7.4-10.4) fL Add Manual Diff Neutrophils % (Manual) (46-82) % Lymphocytes % (Manual) (13-37) % Monocytes % (Manual) (4-12) % Anisocytosis Microcytosis D-Dimer, Quantitative (0.0-0.59) mg/LFEU Sodium (135-145) mmol/L Potassium (3.5-5.3) mmol/L Chloride (100-110) mmol/L Carbon Dioxide (21-32) mmol/L BUN (7-18) mg/dL Creatinine (0.55-1.02) mg/dL Est Cr Clr Drug Dosing Estimated GFR (MDRD) (>60) BUN/Creatinine Ratio (9-20) Glucose (80-116) mg/dL Calcium (8.6-10.2) mg/dL Total Bilirubin (0.1-1.3) mg/dL AST (5-25) IU/L ALT (12-36) U/L Alkaline Phosphatase (56-112) IU/L Troponin I 0.582 H* (<0.017-0.056) ng/mL C-Reactive Protein 10.9 H* (0.5-0.9) mg/dL Total Protein (6.0-8.0) g/dL Albumin (3.2-4.6) g/dL Globulin g/dL Albumin/Globulin Ratio Meds: Medications Discontinued Medications Generic Name Dose Route Start Last Admin Trade Name Freq PRN Reason Stop Dose Admin Iopamidol 100 ml 04/23/18 15:25 04/23/18 15:52 Isovue-370 (76%) IV 04/23/18 15:26 100 ml . DIRECTED ONE Administration Departure - Departure Time of Disposition: 16:23 Disposition: DC/Tfer to Other 70 Condition: Poor Clinical Impression: Pleural effusion on right - Discharge Information *PRESCRIPTION DRUG MONITORING PROGRAM REVIEWED*: Not Applicable *COPY OF PRESCRIPTION DRUG MONITORING REPORT IN PATIENT SALLY: Not Applicable Referrals: Hunter Marcos MD [Primary Care Provider] - Forms: ED Department Discharge - Problem List & Annotations (1) Pleural effusion on right SNOMED Code(s): 81990380 Code(s): J90 - PLEURAL EFFUSION, NOT ELSEWHERE CLASSIFIED Status: Acute Current Visit: Yes Annotation/Comment:: Patient will be transferred to [facility] for further managment. She is in agreement with this course of action. - Problem List Review Problem List Initiated/Reviewed/Updated: Yes - My Orders Last 24 Hours: My Active Orders 04/23/18 15:08 Ang Chest [CT] Stat EKG 12 Lead [EK] Routine 04/23/18 15:52 LACTIC ACID [CHEM] Stat 04/23/18 15:57 INR,PT,PROTHROMBIN TIME [COAG] Stat - Assessment/Plan Last 24 Hours: My Active Orders 04/23/18 15:08 Ang Chest [CT] Stat EKG 12 Lead [EK] Routine 04/23/18 15:52 LACTIC ACID [CHEM] Stat 04/23/18 15:57 INR,PT,PROTHROMBIN TIME [COAG] Stat Plan: Follow up with PCP upon return.
[2018-04-23] MEDS ORDERED: Iopamidol 755 Mg/ML 100 ML Bottle IV ONE (15:25)
[2018-04-23 16:36] VITALS: BP 127/63
== END 2018-04-23 16:50 | disposition other institution (70) ==
LOC: FB.ED 14:27
DX: J90 Pleural effusion, not elsewhere classified (principal); Z79.899 Other long term (current) drug therapy
CPT/HCPCS: 36415; 71275; 80053; 83605; 84484; 85025; 85379; 85610; 86140; 93005; 99285; Q9967

== ENCOUNTER 2018-12-10 18:56 | Emergency (ER) | payer MEDICAID ==
[2018-12-10] MEDS ORDERED: traMADol 50 MG Tab PO ONE (18:57)
--- NOTE | 2018-12-10 19:31 | EDM.PDOC ---
ED HPI GENERAL MEDICAL PROBLEM - General Stated Complaint: UPPER BACK PAIN, FATIGUE Time Seen by Provider: 12/10/18 19:28 Source of Information: Reports: Patient History Limitations: Reports: No Limitations - History of Present Illness INITIAL COMMENTS - FREE TEXT/NARRATIVE: We'll drinks a 63-year-old female complaining of upper back pain that started today. She describes a sharp pain with radiation at the back going to the right ; nothing makes it worse.Denies trauma ,no shortness of breath and no chest pain. She has a history of chronic low back pain, alcocol abuse in remission and depression that are well-controlled. Has not tried anything to relieve the pain. mid upper back Pain Score (Numeric/FACES): 8 - Related Data Allergies Allergy/AdvReac Type Severity Reaction Status Date / Time chocolate flavor Allergy Cannot Verified 12/10/18 19:20 Remember cyclobenzaprine AdvReac Nausea and Verified 12/10/18 19:20 Vomiting meloxicam AdvReac Nausea Verified 12/10/18 19:20 Home Meds: Home Meds Oxybutynin Chloride [Ditropan Xl] 10 mg PO DAILY 06/02/16 [History] Clobetasol [Clobetasol 0.05%] 1 applic TOP BID 12/29/17 [History] Multivitamin [Daily Multiple Vitamin] 1 tab PO DAILY 04/13/18 [History] Cyanocobalamin (Vitamin B-12) [B-12] 250 mcg PO DAILY 04/23/18 [History] Folic Acid 1 mg PO DAILY 04/23/18 [History] Lactulose 30 ml PO TID 04/23/18 [History] Magnesium Oxide 1,000 mg PO BID 04/23/18 [History] Pantoprazole [ProTONIX] 40 mg PO BIDAC 04/23/18 [History] Thiamine HCl [B-1] 100 mg PO DAILY 04/23/18 [History] Clotrimazole/Betamethasone Dip [Lotrisone Cream] 1 applic TP BID 09/07/18 [ History] Furosemide [Lasix] 40 mg PO BID 09/07/18 [History] Ketoconazole [Nizoral 2% Shampoo] 1 applic TOP BID 09/07/18 [History] Nadolol [Corgard] 20 mg PO BID 09/07/18 [History] Nystatin 1 applic TOP BID PRN 09/07/18 [History] Potassium Chloride [Klor-Con 10] 10 meq PO DAILY 09/07/18 [History] Spironolactone [Aldactone] 25 mg PO DAILY 09/07/18 [History] hydrOXYzine pamoate [Hydroxyzine Pamoate] 25 mg PO Q6H PRN 09/07/18 [History] Past Medical History HEENT History: Reports: Cataract, Glaucoma, Impaired Vision, Other (See Below) Other HEENT History: Almost blind L eye. Cardiovascular History: Reports: None, [place] Other Cardiovascular History: STATES [place]/ APRIL OR MAY 2018. Respiratory History: Reports: None, Bronchitis, Recurrent Other Respiratory History: HOSPITALIZED 05/2018. SIGNIFICANT STATES ON VENT FOR 9 DAYS. 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 Musculoskeletal History: Reports: Arthritis, Back Pain, Chronic, Fracture, Osteoarthritis Other Musculoskeletal History: Hx fracture L arm. Hx fracture L foot 4th toe. Hx sprained left ankle. Uses a cane for support with ambulation. Neurological History: Reports: Migraines Other Neuro History: Hx temporal arteritis. Psychiatric History: Reports: Addiction, Anxiety, Depression, Panic Attack, Other (See Below) Other Psychiatric History: Hx ETOH abuse. Endocrine/Metabolic History: Reports: None Hematologic History: Reports: Anemia Immunologic History: Reports: None Oncologic (Cancer) History: Dermatologic History: Reports: Psoriasis - Infectious Disease History Infectious Disease History: Reports: Chicken Pox - Past Surgical History Head Surgeries/Procedures: Reports: None HEENT Surgical History: Reports: None Cardiovascular Surgical History: Reports: None Respiratory Surgical History: Reports: None GI Surgical History: Reports: Cholecystectomy, Colonoscopy Musculoskeletal Surgical History: Reports: None Social & Family History - Family History Family Medical History: Unobtainable - Caffeine Use Caffeine Use: Reports: Coffee, Soda ED ROS GENERAL - Review of Systems Review Of Systems: ROS reveals no pertinent complaints other than HPI. ED EXAM, UPPER BACK/NECK PAIN - Physical Exam Exam: See Below Text/Narrative:: Rt parascapular muscle tenderness Exam Limited By: No Limitations General Appearance: Alert, WD/WN Ears Exam: Normal External Exam Nose Exam: Normal Inspection Head Exam: Atraumatic Neck Exam: Non-Tender Cardiovascular/Respiratory: Regular Rate, Rhythm EKG INTERPRETATION EKG Date: 12/10/18 Rhythm: NSR Buhl: Normal Course - Vital Signs Last Recorded V/S: Last Vital Signs Temp 98.3 F 12/10/18 18:56 Pulse 72 12/10/18 18:56 Resp 18 12/10/18 18:56 BP 102/70 12/10/18 18:56 Pulse Ox 98 12/10/18 18:56 - Orders/Labs/Meds Orders: Active Orders 24 hr Category Date Time Status EKG Documentation Completion [RC] ASDIRECTED Care 12/10/18 19:24 Active CXR [Chest 2V] [CR] Stat Exams 12/10/18 19:24 Taken EKG 12 Lead [EK] Routine Ther 12/10/18 19:24 Ordered Departure - Departure Time of Disposition: 19:54 Disposition: Home, Self-Care 01 Condition: Good Clinical Impression: Upper back pain - Discharge Information Referrals: Hunter Marcos MD [Primary Care Provider] - - Problem List & Annotations (1) Upper back pain SNOMED Code(s): 197644680 Code(s): M54.9 - DORSALGIA, UNSPECIFIED Status: Acute - Problem List Review Problem List Initiated/Reviewed/Updated: Yes - My Orders Last 24 Hours: My Active Orders 12/10/18 19:24 EKG Documentation Completion [RC] ASDIRECTED CXR [Chest 2V] [CR] Stat EKG 12 Lead [EK] Routine - Assessment/Plan Last 24 Hours: My Active Orders 12/10/18 19:24 EKG Documentation Completion [RC] ASDIRECTED CXR [Chest 2V] [CR] Stat EKG 12 Lead [EK] Routine Plan: Tramadol 50 mg tid prn. Xrtay ne and ECG neg
[2018-12-10 21:21] VITALS: BP 114/71
--- NOTE | 2018-12-11 11:23 | CR ---
INDICATION: Upper back pain. CHEST: PA and lateral views of the chest, 12/10/18, were compared with and 02/02/16. An old compression fracture is noted at lower middle thoracic level. Evidence of exogenous obesity is again seen. The aorta is tortuous with calcification in the arch. The heart appeared normal in size and shape. Markings appear similar to the previous examination and are somewhat heavy, compatible with pulmonary fibrosis - a definite active infiltrate or effusion was not seen. IMPRESSION: Fairly stable appearance of the chest with no definite acute process. MTDD
== END 2018-12-10 20:18 | disposition home or self-care (01) ==
LOC: FB.ED 18:56
DX: M54.6 Pain in thoracic spine (principal); I25.2 Old myocardial infarction; Z88.8 Allergy status to other drugs, medicaments and biological substances; Z79.899 Other long term (current) drug therapy
CPT/HCPCS: 71046; 93005; 99283; A9270

== ENCOUNTER 2019-01-17 17:14 | Inpatient (IN) | payer MEDICAID ==
--- NOTE | 2019-01-17 17:38 | EDM.PDOC ---
ED HPI GENERAL MEDICAL PROBLEM - General Stated Complaint: Polydipsia; polyuria; fatigue; feels hot at night Time Seen by Provider: 01/17/19 17:15 Source of Information: Reports: Patient History Limitations: Reports: No Limitations - History of Present Illness INITIAL COMMENTS - FREE TEXT/NARRATIVE: 63-year-old female with 2+ weeks of feeling hot, particularly at night with polydipsia and polyuria and fatigue. The symptoms have been progressively worsening. She was seen about 2 weeks ago by her primary doctor in this emergency department and was felt to have an infection and was placed on antibiotics. She reports that she seemed to get a little bit better after the antibiotics in regards to her feeling hot at night but the polydipsia and polyuria and fatigue have since developed and have worsened over time. She was seen in clinic today by her primary doctor and had blood and urine tests performed. The blood and urine tests came back after the patient had left the clinic and her blood sugar was noted to be 674 mg/dL. Her sodium was 127. Her creatinine was 1.5. She was told to come to the emergency department for further evaluation. The patient denies any fevers. She's had some nausea but no vomiting. She reports that she has been taking her medications as she was directed previously. She has had no dysuria just the increased frequency with urination. She has had no appetite but she has been drinking liquids well. No dizziness. No pass out spells. No abdominal pain. No chest pain. No shortness of breath. There are no other associated signs or symptoms. There are no other modifying factors. Onset: Other (As above) Duration: Getting Worse Location: Reports: Other (No pain; not applicable) Quality: Reports: Other (No pain; just polydipsia and polyuria and fatigue) Severity: Moderate Improves with: Reports: None Worsens with: Reports: None Context: Reports: Other (Not applicable) Associated Symptoms: Reports: Loss of Appetite, Malaise, Nausea/Vomiting ( Nausea but no vomiting), Other (Fatigue) Treatments PROCESS LABORATORY SPECIALIST: Reports: Other (see below) Other Treatments PROCESS LABORATORY SPECIALIST: Nothing - Related Data Allergies Allergy/AdvReac Type Severity Reaction Status Date / Time chocolate flavor Allergy Cannot Verified 12/10/18 19:20 Remember cyclobenzaprine AdvReac Nausea and Verified 12/10/18 19:20 Vomiting meloxicam AdvReac Nausea Verified 12/10/18 19:20 Home Meds: Home Meds Oxybutynin Chloride [Ditropan Xl] 10 mg PO DAILY 06/02/16 [History] Clobetasol [Clobetasol 0.05%] 1 applic TOP BID 12/29/17 [History] Multivitamin [Daily Multiple Vitamin] 1 tab PO DAILY 04/13/18 [History] Cyanocobalamin (Vitamin B-12) [B-12] 250 mcg PO DAILY 04/23/18 [History] Folic Acid 1 mg PO DAILY 04/23/18 [History] Lactulose 30 ml PO TID 04/23/18 [History] Magnesium Oxide 1,000 mg PO BID 04/23/18 [History] Pantoprazole [ProTONIX] 40 mg PO BIDAC 04/23/18 [History] Thiamine HCl [B-1] 100 mg PO DAILY 04/23/18 [History] Clotrimazole/Betamethasone Dip [Lotrisone Cream] 1 applic TP BID 09/07/18 [ History] Furosemide [Lasix] 40 mg PO BID 09/07/18 [History] Ketoconazole [Nizoral 2% Shampoo] 1 applic TOP BID 09/07/18 [History] Nadolol [Corgard] 20 mg PO BID 09/07/18 [History] Nystatin 1 applic TOP BID PRN 09/07/18 [History] Potassium Chloride [Klor-Con 10] 10 meq PO DAILY 09/07/18 [History] Spironolactone [Aldactone] 25 mg PO DAILY 09/07/18 [History] hydrOXYzine pamoate [Hydroxyzine Pamoate] 25 mg PO Q6H PRN 09/07/18 [History] Past Medical History HEENT History: Reports: Cataract, Glaucoma, Impaired Vision, Other (See Below) Other HEENT History: Almost blind L eye. Cardiovascular History: Reports: [place] Other Cardiovascular History: STATES / APRIL OR MAY 2018. Respiratory History: Reports: Bronchitis, Recurrent Other Respiratory History: HOSPITALIZED 05/2018. SIGNIFICANT STATES ON VENT FOR 9 DAYS. Gastrointestinal History: Reports: Cholelithiasis, Cirrhosis, Colon Polyp, GERD , Other (See Below) Other Gastrointestinal History: STATES TEAR OF ESOPHAGUS ET REPAIR 2017 Genitourinary History: Reports: Urinary Incontinence HIM MANAGER History: Reports: Other (See Below) LMP (Approximate): Menopausal Other HIM MANAGER History: . Musculoskeletal History: Reports: Arthritis, Back Pain, Chronic, Fracture, Osteoarthritis Other Musculoskeletal History: Hx fracture L arm. Hx fracture L foot 4th toe. Hx sprained left ankle. Uses a cane for support with ambulation. Neurological History: Reports: Migraines Other Neuro History: Hx temporal arteritis. Psychiatric History: Reports: Addiction, Anxiety, Depression, Panic Attack, Other (See Below) Other Psychiatric History: Hx ETOH abuse. Hematologic History: Reports: Anemia Oncologic (Cancer) History: Dermatologic History: Reports: Psoriasis - Infectious Disease History Infectious Disease History: Reports: Chicken Pox - Past Surgical History Head Surgeries/Procedures: Reports: None HEENT Surgical History: Reports: None Other HEENT Surgeries/Procedures: Eye surgery 2 Cardiovascular Surgical History: Reports: None Respiratory Surgical History: Reports: None GI Surgical History: Reports: Cholecystectomy, Colonoscopy, EGD Musculoskeletal Surgical History: Reports: None Social & Family History - Family History Endocrine/Metabolic: Reports: Diabetes, type II - Tobacco Use Smoking Status *Q: Current Every Day Smoker - Caffeine Use Caffeine Use: Reports: Coffee, Soda - Alcohol Use Alcohol Use History: Yes Alcohol Use in Last Twelve Months: Yes Alcohol Use Comment: Patient with alcoholism and sober for the past 9 months. - Living Situation & Occupation Occupation: Retired Social History Comment: Arrives with son via private vehicle. ED ROS GENERAL - Review of Systems Review Of Systems: See Below Constitutional: Reports: Malaise, Weakness, Fatigue HEENT: Reports: Other (Dry mouth; Thirsty) Respiratory: Reports: No Symptoms Cardiovascular: Reports: No Symptoms Endocrine: Reports: High Glucose, Polydypsia, Polyuria GI/Abdominal: Reports: Nausea : Reports: Frequency. Denies: Dysuria Musculoskeletal: Reports: Joint Pain (Chronic knee pains) Skin: Reports: No Symptoms Neurological: Reports: No Symptoms Psychiatric: Reports: No Symptoms Hematologic/Lymphatic: Reports: No Symptoms Immunologic: Reports: No Symptoms ED EXAM, GENERAL - Physical Exam Exam: See Below Exam Limited By: No Limitations General Appearance: Alert, WD/WN, No Apparent Distress Eye Exam: Left Eye: Abnormal EOM (Chronic strabismus of the left eye), Bilateral Eye: Abnormal Pupil (Chronic changes in both eyes) Ears: Normal External Exam, Hearing Grossly Normal Nose: Normal Inspection, Normal Mucosa, No Blood Throat/Mouth: Normal Voice, No Airway Compromise, Other (Dry mouth) Neck: Normal Inspection, Supple, Non-Tender, Full Range of Motion Respiratory/Chest: No Respiratory Distress, Lungs Clear, Normal Breath Sounds, No Accessory Muscle Use, Chest Non-Tender Cardiovascular: Normal Peripheral Pulses, Regular Rate, Rhythm, No Edema, No JVD Peripheral Pulses: 2+: Radial (L), Radial (R), Dorsalis Pedis (L), Dorsalis Pedis (R) GI/Abdominal: Normal Bowel Sounds, Soft, Non-Tender, No Organomegaly, No Mass Back Exam: Normal Inspection Extremities: Normal Inspection, Normal Range of Motion, Non-Tender, No Pedal Edema, Normal Capillary Refill Neurological: Alert, Oriented, No Motor/Sensory Deficits Psychiatric: Normal Affect, Normal Mood Skin Exam: Warm, Dry, Intact, Normal Color, No Rash, Ecchymosis (Scattered bruising) Lymphatic: No Adenopathy Course - Orders/Labs/Meds Orders: Active Orders 24 hr Category Date Time Status CULTURE URINE [RM] Stat Lab 01/17/19 17:45 Received Sodium Chloride 0.9% [Saline Flush] Med 01/17/19 17:43 Active 10 ml FLUSH ASDIRECTED PRN Peripheral IV Insertion Adult [OM.PC] Routine Oth 01/17/19 17:43 Ordered Medication Orders Sodium Chloride (Saline Flush) 10 ml FLUSH ASDIRECTED PRN PRN Reason: Keep Vein Open Last Admin: 01/17/19 17:50 Dose: 10 ml Labs: Laboratory Tests 01/17/19 01/17/19 01/17/19 Range/Units 17:18 17:24 17:24 PT (8.7-11.1) INR (0.89-1.13) APTT (24.4-33.2) SECONDS Glucose 670 H* D (80-116) mg/dL POC Glucose > 500 H* (80-116) mg/dL Total Bilirubin 1.5 H (0.1-1.3) mg/dL Direct Bilirubin 0.81 H (0.10-0.20) mg/dL AST 36 H D (5-25) IU/L ALT 23 D (12-36) U/L Alkaline Phosphatase 186 H (56-112) IU/L Total Protein 8.1 H (6.0-8.0) g/dL Albumin 2.7 L (3.2-4.6) g/dL Urine Color (YELLOW) Urine Appearance (CLEAR) Urine pH (5.0-6.5) Ur Specific [place] (1.010-1.025) Urine Protein (NEGATIVE) mg/dL Urine Glucose (UA) (NORMAL) mg/dL Urine Ketones (NEGATIVE) mg/dL Urine Occult Blood (NEGATIVE) Urine Nitrite (NEGATIVE) Urine Bilirubin (NEGATIVE) Urine Urobilinogen (NEGATIVE) mg/dL Ur Leukocyte Esterase (NEGATIVE) Urine RBC (0-5) Urine WBC (0-5) Ur Squamous Epith Cells (NS,R,O) Urine Bacteria (NS) Urine Mucus (NS) 01/17/19 01/17/19 01/17/19 Range/Units 17:24 17:45 18:39 PT 12.3 H (8.7-11.1) INR 1.27 H (0.89-1.13) APTT 24.4 (24.4-33.2) SECONDS Glucose (80-116) mg/dL POC Glucose > 500 H* (80-116) mg/dL Total Bilirubin (0.1-1.3) mg/dL Direct Bilirubin (0.10-0.20) mg/dL AST (5-25) IU/L ALT (12-36) U/L Alkaline Phosphatase (56-112) IU/L Total Protein (6.0-8.0) g/dL Albumin (3.2-4.6) g/dL Urine Color Yellow (YELLOW) Urine Appearance Cloudy (CLEAR) Urine pH 5.0 (5.0-6.5) Ur Specific [place] 1.010 (1.010-1.025) Urine Protein Negative (NEGATIVE) mg/dL Urine Glucose (UA) >1000 H (NORMAL) mg/dL Urine Ketones Negative (NEGATIVE) mg/dL Urine Occult Blood Large H (NEGATIVE) Urine Nitrite Negative (NEGATIVE) Urine Bilirubin Negative (NEGATIVE) Urine Urobilinogen Normal (NEGATIVE) mg/dL Ur Leukocyte Esterase Negative (NEGATIVE) Urine RBC 40-50 H (0-5) Urine WBC 0-5 (0-5) Ur Squamous Epith Cells Few H (NS,R,O) Urine Bacteria Many H (NS) Urine Mucus Few H (NS) Meds: Medications Generic Name Dose Route Start Last Admin Trade Name [place] PRN Reason Stop Dose Admin Sodium Chloride 10 ml 01/17/19 17:43 01/17/19 17:50 Saline Flush FLUSH 10 ml ASDIRECTED PRN Administration Keep Vein Open Discontinued Medications Generic Name Dose Route Start Last Admin Trade Name [place] PRN Reason Stop Dose Admin Sodium Chloride 1,000 mls @ 999 mls/hr 01/17/19 17:44 01/17/19 18:00 Normal Saline IV 01/17/19 18:44 999 mls/hr .BOLUS ONE Administration Insulin Human Regular 15 unit 01/17/19 17:44 01/17/19 18:09 Humulin R IV 01/17/19 17:45 15 unit ONETIME ONE Administration - Re-Assessments/Exams Free Text/Narrative Re-Assessment/Exam: 01/17/19 18:46: Blood sugar was 674 mg/dL (the patient has no prior history of diabetes mellitus). The patient's creatinine was 1.5 which is increased from previous. Her liver function tests are stable, however, she still has evidence of alcoholic cirrhosis. She is clinically dehydrated. She also has what appears to be a urinary tract infection. Patient has been given IV normal saline as a bolus, IV regular insulin and a catheterized urine specimen for culture. This patient will need admission for IV fluid hydration, IV antibiotics and control of her blood glucoses. This could not be safely accomplished as an outpatient. Due to her altered cirrhosis and the above factors, the patient is at significant risk for deterioration of status, morbidity and mortality and will need close monitoring and the above-mentioned therapies. I discussed this with the patient and she is in agreement with the plans for admission. Departure - Departure Time of Disposition: 18:50 Disposition: Admitted As Inpatient 65 Condition: Fair Clinical Impression: Diabetes mellitus, new onset, Acute kidney injury, Coagulopathy Urinary tract infection Qualifiers: Urinary tract infection type: site unspecified Hematuria presence: with hematuria Qualified Code(s): N39.0 - Urinary tract infection, site not specified ; R31.9 - Hematuria, unspecified Alcoholic cirrhosis Qualifiers: Ascites presence: without ascites Qualified Code(s): K70.30 - Alcoholic cirrhosis of liver without ascites - Discharge Information - My Orders Last 24 Hours: My Active Orders 01/17/19 17:43 Sodium Chloride 0.9% [Saline Flush] 10 ml FLUSH ASDIRECTED PRN Peripheral IV Insertion Adult [OM.PC] Routine 01/17/19 17:45 CULTURE URINE [RM] Stat - Assessment/Plan Last 24 Hours: My Active Orders 01/17/19 17:43 Sodium Chloride 0.9% [Saline Flush] 10 ml FLUSH ASDIRECTED PRN Peripheral IV Insertion Adult [OM.PC] Routine 01/17/19 17:45 CULTURE URINE [RM] Stat
[2019-01-17] MEDS ORDERED: Sodium Chloride 0.9% 1,000 ML IV ONE (17:44)
[2019-01-17] MEDS ORDERED: Insulin Regular, Human 100 Units/ML 3 ML Vial IV ONE ×3 (17:44→21:26)
[2019-01-17] MEDS: Sodium Chloride 0.9% 10 ML Syringe FLUSH PRN (17:50)
[2019-01-17] MEDS: Sodium Chloride 0.9% 1,000 ML IV SCH (19:05)
[2019-01-17] MEDS ORDERED: cefTRIAXone 1 GM in Sodium Chloride 0.9% 50 ML IV SCH (20:00)
[2019-01-17] MEDS ORDERED: Sodium Chloride 0.9% 0 ML ONE (20:37)
[2019-01-17] MEDS: cefTRIAXone 1 GM Vial IV SCH (20:49)
[2019-01-17] MEDS: Insulin Regular, Human 100 Units/ML 3 ML Vial SUBCUT SCH (21:15)
[2019-01-17] MEDS ORDERED: Insulin Regular, Human 100 Units/ML 3 ML Vial SUBCUT SCH ×3 (22:00→23:00)
[2019-01-17] MEDS ORDERED: Pneumococcal Polyvalent-23 Vaccine 0.5 ML SDV IM ONE (22:54)
[2019-01-17] MEDS ORDERED: Insulin Regular, Human 100 Units/ML 3 ML Vial SUBCUT STA (23:34)
[2019-01-18] MEDS: Insulin Lispro 100 Unit/ML 3 ML KwikPen SUBCUT SCH ×9 (01:38→20:57)
[2019-01-18] MEDS: Sodium Chloride 0.9% 1,000 ML IV SCH (03:30)
[2019-01-18] MEDS: Insulin Regular, Human 100 Units/ML 3 ML Vial SUBCUT SCH (03:34)
[2019-01-18] MEDS ORDERED: Potassium Chloride 20 MEQ Tab.ER PO ONE ×2 (07:40→09:45)
--- NOTE | 2019-01-18 08:27 | PCM.HP ---
<Elvira Cooper - Last Filed: 01/18/19 08:20> H&P History of Present Illness - General Date of Service: 01/18/19 Admit Problem/Dx: a 63 year old female with PMHx of Alcohol use in remission, Alcoholic liver disease, and Psoriasis who presents to outpatient clinic on 01/17 with fatigue, fever, polyuria, polydipsia for 2 weeks duration. Labs showed glucose of 674 and Cr of 1.5 with positive UA. Patient was send to the hospital for further management of hyperglycemia. Patient received IV insulin, her Glucose this morning is 149 and her Cr. back to normal. she was also started on Rocephin for UTI. Today patient is feeling better. she denies CP, SOB, or congestions. she reports nausea, no vomiting. tolerating diet well. last BM was yesterday. Source of Information: Patient denies Pain Score (Numeric/FACES): 0 - Related Data Allergies/Adverse Reactions: Allergies Allergy/AdvReac Type Severity Reaction Status Date / Time chocolate flavor Allergy Cannot Verified 01/17/19 19:09 Remember cyclobenzaprine AdvReac Nausea and Verified 01/17/19 19:09 Vomiting meloxicam AdvReac Nausea Verified 01/17/19 19:09 Home Medications: Home Meds Multivitamin [Daily Multiple Vitamin] 1 tab PO DAILY 04/13/18 [History] Folic Acid 1 mg PO DAILY 04/23/18 [History] Pantoprazole [ProTONIX] 40 mg PO BIDAC 04/23/18 [History] Furosemide [Lasix] 40 mg PO BID 09/07/18 [History] Potassium Chloride [Klor-Con 10] 10 meq PO DAILY 09/07/18 [History] Spironolactone [Aldactone] 25 mg PO DAILY 09/07/18 [History] Cyanocobalamin (Vitamin B-12) [Vitamin B-12] 1,000 mcg PO DAILY 01/18/19 [ History] Nadolol [Corgard] 20 mg PO BID 01/18/19 [History] Thiamine HCl 125 mg PO DAILY 01/18/19 [History] Past Medical History HEENT History: Reports: Cataract, Glaucoma, Impaired Vision, Other (See Below) Other HEENT History: Almost blind L eye. Cardiovascular History: Reports: [place] Other Cardiovascular History: STATES LA/ APRIL OR MAY 2018. Respiratory History: Reports: Bronchitis, Recurrent, Pneumonia, Recurrent Other Respiratory History: HOSPITALIZED 05/2018. SIGNIFICANT STATES ON VENT FOR 9 DAYS. 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 Musculoskeletal History: Reports: Arthritis, Back Pain, Chronic, Fracture, Osteoarthritis Other Musculoskeletal History: Hx fracture L arm. Hx fracture L foot 4th toe. Hx sprained left ankle. Uses a cane for support with ambulation. Neurological History: Reports: Migraines Other Neuro History: Hx temporal arteritis. Psychiatric History: Reports: Addiction, Anxiety, Depression, Panic Attack, Other (See Below) Other Psychiatric History: Hx ETOH abuse. Endocrine/Metabolic History: Reports: Diabetes, Type II Other Endocrine/Metabolic History: new diagnosis Hematologic History: Reports: Anemia Immunologic History: Reports: None Oncologic (Cancer) History: Dermatologic History: Reports: Psoriasis - Infectious Disease History Infectious Disease History: Reports: Chicken Pox - Past Surgical History Head Surgeries/Procedures: Reports: None HEENT Surgical History: Reports: None Other HEENT Surgeries/Procedures: Eye surgery 2 Cardiovascular Surgical History: Reports: None Respiratory Surgical History: Reports: None GI Surgical History: Reports: Cholecystectomy, Colonoscopy, EGD Female Surgical History: Reports: None Musculoskeletal Surgical History: Reports: None Social & Family History - Family History Family Medical History: Noncontributory Endocrine/Metabolic: Reports: Diabetes, type II - Tobacco Use Smoking Status *Q: Current Every Day Smoker Years of Tobacco use: 30 Packs/Tins Daily: 1 Used Tobacco, but Quit: No Month/Year Tobacco Last Used: 2017 Tobacco Use Comment: smokes 2 cigarettes per day Second Hand Smoke Exposure: No - Caffeine Use Caffeine Use: Reports: Coffee Other Caffeine Use: 1 cup daily - Alcohol Use Date of Last Drink: 04/05/18 Time of Last Drink: 21:00 - Recreational Drug Use Recreational Drug Use: No - Living Situation & Occupation Occupation: Retired H&P Review of Systems - Review of Systems: Review Of Systems: See Below General: Reports: Fever, Fatigue, Decreased Appetite, Weight Loss HEENT: Reports: No Symptoms Pulmonary: Reports: No Symptoms Cardiovascular: Reports: No Symptoms Gastrointestinal: Reports: Decreased Appetite, Nausea Genitourinary: Reports: Frequency Musculoskeletal: Reports: Joint Pain Skin: Reports: Rash, Lesions Psychiatric: Reports: No Symptoms Neurological: Reports: No Symptoms Exam - Exam Exam: See Below - Vital Signs Vital Signs: Last Vital Signs Temp 36.2 C 01/18/19 00:00 Pulse 67 01/18/19 00:00 Resp 16 01/18/19 00:00 BP 105/63 01/18/19 00:00 Pulse Ox 95 01/18/19 00:00 Weight: 166 lb 11.2 oz - Exam General: Alert, Oriented, Cooperative HEENT: PERRLA, Conjunctiva Clear Neck: Supple Lungs: Clear to Auscultation, Normal Respiratory Effort Cardiovascular: Regular Rate, Regular Rhythm GI/Abdominal Exam: Normal Bowel Sounds, Soft, Non-Tender (Female) Exam: Deferred Rectal (Female) Exam: Deferred Back Exam: Normal Inspection Extremities: Normal Inspection, Normal Range of Motion, Non-Tender, No Pedal Edema Skin: Rash, Other (psoriasis patches noticed over the elbows, and back ) Neuro Extensive - Mental Status: Alert, Oriented x3 Psychiatric: Alert, Normal Affect - Patient Data Lab Results Last 24 hrs: Laboratory Results - last 24 hr 01/17/19 01/17/19 01/17/19 Range/Units 17:18 17:24 17:24 WBC (4.5-12.0) X10-3/uL RBC (3.23-5.20) x10(6)uL Hgb (11.5-15.5) g/dL Hct (30.0-51.3) % MCV (80-96) fL MCH (27.7-33.6) pg MCHC (32.2-35.4) g/dL RDW (11.5-15.5) % Plt Count (125-369) X10(3)uL MPV (7.4-10.4) fL Neut % (Auto) (46-82) % Lymph % (Auto) (13-37) % [place] % (Auto) (4-12) % Eos % (Auto) (1.0-5.0) % Baso % (Auto) (0-2) % Neut # (Auto) (1.6-8.3) # Lymph # (Auto) (0.6-5.0) # [place] # (Auto) (0.0-1.3) # Eos # (Auto) (0.0-0.8) # Baso # (Auto) (0.0-0.2) # PT (8.7-11.1) INR (0.89-1.13) APTT (24.4-33.2) SECONDS Sodium (135-145) mmol/L Potassium (3.5-5.3) mmol/L Chloride (100-110) mmol/L Carbon Dioxide (21-32) mmol/L BUN (7-18) mg/dL Creatinine (0.55-1.02) mg/dL Est Cr Clr Drug Dosing mL/min Estimated GFR (MDRD) (>60) BUN/Creatinine Ratio (9-20) Glucose 670 H* D (80-116) mg/dL POC Glucose > 500 H* (80-116) mg/dL Calcium (8.6-10.2) mg/dL Total Bilirubin 1.5 H (0.1-1.3) mg/dL Direct Bilirubin 0.81 H (0.10-0.20) mg/dL AST 36 H D (5-25) IU/L ALT 23 D (12-36) U/L Alkaline Phosphatase 186 H (56-112) IU/L Total Protein 8.1 H (6.0-8.0) g/dL Albumin 2.7 L (3.2-4.6) g/dL Urine Color (YELLOW) Urine Appearance (CLEAR) Urine pH (5.0-6.5) Ur Specific Mallory (1.010-1.025) Urine Protein (NEGATIVE) mg/dL Urine Glucose (UA) (NORMAL) mg/dL Urine Ketones (NEGATIVE) mg/dL Urine Occult Blood (NEGATIVE) Urine Nitrite (NEGATIVE) Urine Bilirubin (NEGATIVE) Urine Urobilinogen (NEGATIVE) mg/dL Ur Leukocyte Esterase (NEGATIVE) Urine RBC (0-5) Urine WBC (0-5) Ur Squamous Epith Cells (NS,R,O) Urine Bacteria (NS) Urine Mucus (NS) 01/17/19 01/17/19 01/17/19 Range/Units 17:24 17:45 18:39 WBC (4.5-12.0) X10-3/uL RBC (3.23-5.20) x10(6)uL Hgb (11.5-15.5) g/dL Hct (30.0-51.3) % MCV (80-96) fL MCH (27.7-33.6) pg MCHC (32.2-35.4) g/dL RDW (11.5-15.5) % Plt Count (125-369) X10(3)uL MPV (7.4-10.4) fL Neut % (Auto) (46-82) % Lymph % (Auto) (13-37) % [place] % (Auto) (4-12) % Eos % (Auto) (1.0-5.0) % Baso % (Auto) (0-2) % Neut # (Auto) (1.6-8.3) # Lymph # (Auto) (0.6-5.0) # [place] # (Auto) (0.0-1.3) # Eos # (Auto) (0.0-0.8) # Baso # (Auto) (0.0-0.2) # PT 12.3 H (8.7-11.1) INR 1.27 H (0.89-1.13) APTT 24.4 (24.4-33.2) SECONDS Sodium (135-145) mmol/L Potassium (3.5-5.3) mmol/L Chloride (100-110) mmol/L Carbon Dioxide (21-32) mmol/L BUN (7-18) mg/dL Creatinine (0.55-1.02) mg/dL Est Cr Clr Drug Dosing mL/min Estimated GFR (MDRD) (>60) BUN/Creatinine Ratio (9-20) Glucose (80-116) mg/dL POC Glucose > 500 H* (80-116) mg/dL Calcium (8.6-10.2) mg/dL Total Bilirubin (0.1-1.3) mg/dL Direct Bilirubin (0.10-0.20) mg/dL AST (5-25) IU/L ALT (12-36) U/L Alkaline Phosphatase (56-112) IU/L Total Protein (6.0-8.0) g/dL Albumin (3.2-4.6) g/dL Urine Color Yellow (YELLOW) Urine Appearance Cloudy (CLEAR) Urine pH 5.0 (5.0-6.5) Ur Specific Mallory 1.010 (1.010-1.025) Urine Protein Negative (NEGATIVE) mg/dL Urine Glucose (UA) >1000 H (NORMAL) mg/dL Urine Ketones Negative (NEGATIVE) mg/dL Urine Occult Blood Large H (NEGATIVE) Urine Nitrite Negative (NEGATIVE) Urine Bilirubin Negative (NEGATIVE) Urine Urobilinogen Normal (NEGATIVE) mg/dL Ur Leukocyte Esterase Negative (NEGATIVE) Urine RBC 40-50 H (0-5) Urine WBC 0-5 (0-5) Ur Squamous Epith Cells Few H (NS,R,O) Urine Bacteria Many H (NS) Urine Mucus Few H (NS) 01/17/19 01/17/19 01/17/19 Range/Units 19:08 19:17 21:11 WBC (4.5-12.0) X10-3/uL RBC (3.23-5.20) x10(6)uL Hgb (11.5-15.5) g/dL Hct (30.0-51.3) % MCV (80-96) fL MCH (27.7-33.6) pg MCHC (32.2-35.4) g/dL RDW (11.5-15.5) % Plt Count (125-369) X10(3)uL MPV (7.4-10.4) fL Neut % (Auto) (46-82) % Lymph % (Auto) (13-37) % [place] % (Auto) (4-12) % Eos % (Auto) (1.0-5.0) % Baso % (Auto) (0-2) % Neut # (Auto) (1.6-8.3) # Lymph # (Auto) (0.6-5.0) # [place] # (Auto) (0.0-1.3) # Eos # (Auto) (0.0-0.8) # Baso # (Auto) (0.0-0.2) # PT (8.7-11.1) INR (0.89-1.13) APTT (24.4-33.2) SECONDS Sodium (135-145) mmol/L Potassium (3.5-5.3) mmol/L Chloride (100-110) mmol/L Carbon Dioxide (21-32) mmol/L BUN (7-18) mg/dL Creatinine (0.55-1.02) mg/dL Est Cr Clr Drug Dosing mL/min Estimated GFR (MDRD) (>60) BUN/Creatinine Ratio (9-20) Glucose 536 H* D (80-116) mg/dL POC Glucose > 500 H* 381 H D (80-116) mg/dL Calcium (8.6-10.2) mg/dL Total Bilirubin (0.1-1.3) mg/dL Direct Bilirubin (0.10-0.20) mg/dL AST (5-25) IU/L ALT (12-36) U/L Alkaline Phosphatase (56-112) IU/L Total Protein (6.0-8.0) g/dL Albumin (3.2-4.6) g/dL Urine Color (YELLOW) Urine Appearance (CLEAR) Urine pH (5.0-6.5) Ur Specific [place] (1.010-1.025) Urine Protein (NEGATIVE) mg/dL Urine Glucose (UA) (NORMAL) mg/dL Urine Ketones (NEGATIVE) mg/dL Urine Occult Blood (NEGATIVE) Urine Nitrite (NEGATIVE) Urine Bilirubin (NEGATIVE) Urine Urobilinogen (NEGATIVE) mg/dL Ur Leukocyte Esterase (NEGATIVE) Urine RBC (0-5) Urine WBC (0-5) Ur Squamous Epith Cells (NS,R,O) Urine Bacteria (NS) Urine Mucus (NS) 01/17/19 01/17/19 01/18/19 Range/Units 23:21 23:30 01:36 WBC (4.5-12.0) X10-3/uL RBC (3.23-5.20) x10(6)uL Hgb (11.5-15.5) g/dL Hct (30.0-51.3) % MCV (80-96) fL MCH (27.7-33.6) pg MCHC (32.2-35.4) g/dL RDW (11.5-15.5) % Plt Count (125-369) X10(3)uL MPV (7.4-10.4) fL Neut % (Auto) (46-82) % Lymph % (Auto) (13-37) % [place] % (Auto) (4-12) % Eos % (Auto) (1.0-5.0) % Baso % (Auto) (0-2) % Neut # (Auto) (1.6-8.3) # Lymph # (Auto) (0.6-5.0) # [place] # (Auto) (0.0-1.3) # Eos # (Auto) (0.0-0.8) # Baso # (Auto) (0.0-0.2) # PT (8.7-11.1) INR (0.89-1.13) APTT (24.4-33.2) SECONDS Sodium (135-145) mmol/L Potassium (3.5-5.3) mmol/L Chloride (100-110) mmol/L Carbon Dioxide (21-32) mmol/L BUN (7-18) mg/dL Creatinine (0.55-1.02) mg/dL Est Cr Clr Drug Dosing mL/min Estimated GFR (MDRD) (>60) BUN/Creatinine Ratio (9-20) Glucose 449 H* D (80-116) mg/dL POC Glucose 442 H* 360 H D (80-116) mg/dL Calcium (8.6-10.2) mg/dL Total Bilirubin (0.1-1.3) mg/dL Direct Bilirubin (0.10-0.20) mg/dL AST (5-25) IU/L ALT (12-36) U/L Alkaline Phosphatase (56-112) IU/L Total Protein (6.0-8.0) g/dL Albumin (3.2-4.6) g/dL Urine Color (YELLOW) Urine Appearance (CLEAR) Urine pH (5.0-6.5) Ur Specific [place] (1.010-1.025) Urine Protein (NEGATIVE) mg/dL Urine Glucose (UA) (NORMAL) mg/dL Urine Ketones (NEGATIVE) mg/dL Urine Occult Blood (NEGATIVE) Urine Nitrite (NEGATIVE) Urine Bilirubin (NEGATIVE) Urine Urobilinogen (NEGATIVE) mg/dL Ur Leukocyte Esterase (NEGATIVE) Urine RBC (0-5) Urine WBC (0-5) Ur Squamous Epith Cells (NS,R,O) Urine Bacteria (NS) Urine Mucus (NS) 01/18/19 01/18/19 01/18/19 Range/Units 03:25 05:36 06:25 WBC 4.3 L (4.5-12.0) X10-3/uL RBC 3.54 (3.23-5.20) x10(6)uL Hgb 11.8 (11.5-15.5) g/dL Hct 34.4 (30.0-51.3) % MCV 97.1 H (80-96) fL MCH 33.4 (27.7-33.6) pg MCHC 34.4 (32.2-35.4) g/dL RDW 14.1 (11.5-15.5) % Plt Count 70 L (125-369) X10(3)uL MPV 10.0 (7.4-10.4) fL Neut % (Auto) 40.5 L (46-82) % Lymph % (Auto) 44.5 H (13-37) % [place] % (Auto) 11.1 (4-12) % Eos % (Auto) 3 (1.0-5.0) % Baso % (Auto) 1 (0-2) % Neut # (Auto) 1.7 (1.6-8.3) # Lymph # (Auto) 2.0 (0.6-5.0) # [place] # (Auto) 0.5 (0.0-1.3) # Eos # (Auto) 0.1 (0.0-0.8) # Baso # (Auto) 0.0 (0.0-0.2) # PT (8.7-11.1) INR (0.89-1.13) APTT (24.4-33.2) SECONDS Sodium (135-145) mmol/L Potassium (3.5-5.3) mmol/L Chloride (100-110) mmol/L Carbon Dioxide (21-32) mmol/L BUN (7-18) mg/dL Creatinine (0.55-1.02) mg/dL Est Cr Clr Drug Dosing mL/min Estimated GFR (MDRD) (>60) BUN/Creatinine Ratio (9-20) Glucose (80-116) mg/dL POC Glucose 244 H D 172 H (80-116) mg/dL Calcium (8.6-10.2) mg/dL Total Bilirubin (0.1-1.3) mg/dL Direct Bilirubin (0.10-0.20) mg/dL AST (5-25) IU/L ALT (12-36) U/L Alkaline Phosphatase (56-112) IU/L Total Protein (6.0-8.0) g/dL Albumin (3.2-4.6) g/dL Urine Color (YELLOW) Urine Appearance (CLEAR) Urine pH (5.0-6.5) Ur Specific [place] (1.010-1.025) Urine Protein (NEGATIVE) mg/dL Urine Glucose (UA) (NORMAL) mg/dL Urine Ketones (NEGATIVE) mg/dL Urine Occult Blood (NEGATIVE) Urine Nitrite (NEGATIVE) Urine Bilirubin (NEGATIVE) Urine Urobilinogen (NEGATIVE) mg/dL Ur Leukocyte Esterase (NEGATIVE) Urine RBC (0-5) Urine WBC (0-5) Ur Squamous Epith Cells (NS,R,O) Urine Bacteria (NS) Urine Mucus (NS) 01/18/19 01/18/19 01/18/19 Range/Units 06:25 06:25 07:37 WBC (4.5-12.0) X10-3/uL RBC (3.23-5.20) x10(6)uL Hgb (11.5-15.5) g/dL Hct (30.0-51.3) % MCV (80-96) fL MCH (27.7-33.6) pg MCHC (32.2-35.4) g/dL RDW (11.5-15.5) % Plt Count (125-369) X10(3)uL MPV (7.4-10.4) fL Neut % (Auto) (46-82) % Lymph % (Auto) (13-37) % [place] % (Auto) (4-12) % Eos % (Auto) (1.0-5.0) % Baso % (Auto) (0-2) % Neut # (Auto) (1.6-8.3) # Lymph # (Auto) (0.6-5.0) # [place] # (Auto) (0.0-1.3) # Eos # (Auto) (0.0-0.8) # Baso # (Auto) (0.0-0.2) # PT 12.8 H (8.7-11.1) INR 1.32 H (0.89-1.13) APTT (24.4-33.2) SECONDS Sodium 139 (135-145) mmol/L Potassium 2.8 L* D (3.5-5.3) mmol/L Chloride 106 (100-110) mmol/L Carbon Dioxide 23 (21-32) mmol/L BUN 11 (7-18) mg/dL Creatinine 0.9 (0.55-1.02) mg/dL Est Cr Clr Drug Dosing 52.24 mL/min Estimated GFR (MDRD) > 60 (>60) BUN/Creatinine Ratio 12.2 (9-20) Glucose 149 H D (80-116) mg/dL POC Glucose 126 H (80-116) mg/dL Calcium 8.2 L (8.6-10.2) mg/dL Total Bilirubin (0.1-1.3) mg/dL Direct Bilirubin (0.10-0.20) mg/dL AST (5-25) IU/L ALT (12-36) U/L Alkaline Phosphatase (56-112) IU/L Total Protein (6.0-8.0) g/dL Albumin (3.2-4.6) g/dL Urine Color (YELLOW) Urine Appearance (CLEAR) Urine pH (5.0-6.5) Ur Specific [place] (1.010-1.025) Urine Protein (NEGATIVE) mg/dL Urine Glucose (UA) (NORMAL) mg/dL Urine Ketones (NEGATIVE) mg/dL Urine Occult Blood (NEGATIVE) Urine Nitrite (NEGATIVE) Urine Bilirubin (NEGATIVE) Urine Urobilinogen (NEGATIVE) mg/dL Ur Leukocyte Esterase (NEGATIVE) Urine RBC (0-5) Urine WBC (0-5) Ur Squamous Epith Cells (NS,R,O) Urine Bacteria (NS) Urine Mucus (NS) Result Diagrams: 01/18/19 06:25 01/18/19 06:25 - Problem List (1) Hyperglycemia SNOMED Code(s): 85930998 ICD Code: R73.9 - HYPERGLYCEMIA, UNSPECIFIED Status: Acute Current Visit : Yes (2) Psoriasis SNOMED Code(s): 2136033 ICD Code: L40.9 - PSORIASIS, UNSPECIFIED Status: Acute Current Visit: Yes (3) Thrombocytopenia SNOMED Code(s): 951000418 ICD Code: D69.6 - THROMBOCYTOPENIA, UNSPECIFIED Status: Acute Current Visit: Yes (4) Acute kidney injury SNOMED Code(s): 33854037 ICD Code: N17.9 - ACUTE KIDNEY FAILURE, UNSPECIFIED Status: Acute Current Visit: Yes (5) Alcoholic cirrhosis SNOMED Code(s): 635531750 ICD Code: K70.30 - ALCOHOLIC CIRRHOSIS OF LIVER WITHOUT ASCITES Status: Acute Current Visit: Yes Qualifiers: Ascites presence: without ascites Qualified Code(s): K70.30 - Alcoholic cirrhosis of liver without ascites (6) Diabetes mellitus, new onset SNOMED Code(s): 485524365, 978015846 ICD Code: E11.9 - TYPE 2 DIABETES MELLITUS WITHOUT COMPLICATIONS Status: Acute Current Visit: Yes (7) UTI (urinary tract infection) SNOMED Code(s): 68996658 ICD Code: N39.0 - URINARY TRACT INFECTION, SITE NOT SPECIFIED Status: Acute Current Visit: Yes Qualifiers: Urinary tract infection type: site unspecified Hematuria presence: with hematuria Qualified Code(s): N39.0 - Urinary tract infection, site not specified; R31.9 - Hematuria, unspecified (8) Hypokalemia SNOMED Code(s): 60800438 ICD Code: E87.6 - HYPOKALEMIA Status: Acute Current Visit: Yes Problem List Initiated/Reviewed/Updated: Yes Orders Last 24hrs: Active Orders 24 hr Category Date Time Status Admission Status [Patient Status] [ADT] Routine ADT 01/17/19 19:01 Active Accu Check [Blood Glucose Check, Bedside] [RC] Q2H Care 01/17/19 21:26 Active Ambulate [RC] PER UNIT ROUTINE Care 01/17/19 21:26 Active Antiembolic Devices [RC] .Routine Care 01/17/19 21:26 Active Height and Weight [RC] UPON Care 01/17/19 21:26 Active Intake and Output [RC] 22,06,14 Care 01/17/19 21:26 Active May Shower [RC] ASDIRECTED Care 01/17/19 21:26 Active Pulse Oximetry [RC] PRN Care 01/17/19 21:26 Active Up ad Najma [RC] ASDIRECTED Care 01/17/19 21:26 Active VTE/DVT Education [RC] Click to Edit Care 01/17/19 21:26 Active Vital Signs [RC] 00,04,08,12,16,20 Care 01/17/19 21:26 Active CULTURE URINE [RM] Stat Lab 01/17/19 17:45 Received GLYCOSYLATED HEMOGLOBIN,HGBA1C [CHEM] Routine Lab 01/18/19 06:25 Received LIPID PANEL [CHEM] Routine Lab 01/18/19 06:25 Received MICROALB/CREAT RATIO, RANDM UR Routine Lab 01/18/19 07:39 Ordered Cyanocobalamin (Vitamin B12) [Vitamin B12] Med 01/18/19 09:00 Ordered 250 mcg PO DAILY Folic Acid Med 01/18/19 09:00 Active 1 mg PO DAILY Insulin Lispro [HumaLOG] Med 01/18/19 01:30 Active See Protocol SUBCUT Q2H Multivitamins [Tab-A-Sage] Med 01/18/19 09:00 Active 1 tab PO DAILY Nadolol [Corgard] Med 01/18/19 09:00 Ordered 20 mg PO BID Pantoprazole [ProTONIX] Med 01/18/19 17:30 Ordered 40 mg PO BIDAC Potassium Chloride [KCL 20 MEQ in Water 100 ML] 20 meq Med 01/18/19 08:30 Active Premix Bag 1 bag IV Q2H Potassium Chloride [Klor-Con 10] Med 01/19/19 09:00 Active 10 meq PO DAILY Sodium Chloride 0.9% [Normal Saline] 1,000 ml Med 01/17/19 19:30 Active IV ASDIRECTED Sodium Chloride 0.9% [Saline Flush] Med 01/17/19 17:43 Active 10 ml FLUSH ASDIRECTED PRN Spironolactone [Aldactone] Med 01/18/19 09:00 Ordered 25 mg PO DAILY Thiamine [Vitamin B-1] Med 01/18/19 09:00 Ordered 100 mg PO DAILY cefTRIAXone [Rocephin] Med 01/17/19 21:00 Active 1 gm IV Q24H DVT/VTE Prophylaxis Reflex [OM.PC] Per Unit Routine Oth 01/17/19 21:26 Ordered Peripheral IV Insertion Adult [OM.PC] Routine Oth 01/17/19 17:43 Ordered Resuscitation Status Routine Resus Stat 01/17/19 19:07 Ordered Medication Orders Ceftriaxone Sodium (Rocephin) 1 gm IV Q24H HUMBERTO Last Admin: 01/17/19 20:49 Dose: 1 gm Cyanocobalamin (Vitamin B12) 250 mcg PO DAILY [facility]UM[facility]O Folic Acid (Folic Acid) 1 mg PO DAILY [facility] Sodium Chloride (Normal Saline) 1,000 mls @ 125 mls/hr IV ASDIRECTED HUMBERTO Last Admin: 01/18/19 03:30 Dose: 125 mls/hr Infusion: 01/18/19 03:05 Dose: 125 mls/hr Admin: 01/17/19 19:05 Dose: 125 mls/hr Potassium Chloride 20 meq/ (Premix) 100 mls @ 50 mls/hr IV Q2H HUMBERTO Stop: 01/18/19 12:29 Insulin Human Lispro (Humalog) 0 unit SUBCUT Q2H [facility]; Protocol Last Admin: 01/18/19 08:00 Dose: 2 units Admin: 01/18/19 05:37 Dose: 2 units Admin: 01/18/19 03:30 Dose: 4 units Admin: 01/18/19 01:38 Dose: 10 units Multivitamins/Minerals/Vitamin C (Tab-A-Sage) 1 tab PO DAILY [facility] Non-Formulary Medication (Nadolol [Corgard]) 20 mg PO BID HUMBERTO Pantoprazole Sodium (Protonix) 40 mg PO BIDAC [facility] Potassium Chloride (Klor-Con 10) 10 meq PO DAILY [facility] Sodium Chloride (Saline Flush) 10 ml FLUSH ASDIRECTED PRN PRN Reason: Keep Vein Open Last Admin: 01/17/19 17:50 Dose: 10 ml Spironolactone (Aldactone) 25 mg PO DAILY [facility] Thiamine HCl (Vitamin B-1) 100 mg PO DAILY [facility] Assessment/Plan Comment:: 63 years old female admitted for hyperglycemia and new diagnosed diabetes and UTI - Patient received IV insulin to correct hyperglycemia. Today BG is 149 will continue correction scale - Order A1C, Lipid panel, microalbumin - Replace K - Low Plt and WBC most likely due to alcoholic liver disease. will continue to monitor - Continue Rocephin for UTI. culture pending - nicu rn due to electrolytes abnormalities - Hold home dose of Lasix - Continue home medications <Jhon Lindo - Last Filed: 01/18/19 16:09> H&P History of Present Illness - General Admit Problem/Dx: Admission Diagnosis/Problem Admission Diagnosis/Problem Diabetes mellitus with hyperglycemia Exam - Vital Signs Vital Signs: Last Vital Signs Temp 97.9 F 01/18/19 14:49 Pulse 77 01/18/19 14:49 Resp 14 01/18/19 14:49 BP 94/57 L 01/18/19 14:49 Pulse Ox 96 01/18/19 14:49 - Patient Data Lab Results Last 24 hrs: Laboratory Results - last 24 hr 01/17/19 01/17/19 01/17/19 Range/Units 17:18 17:24 17:24 WBC (4.5-12.0) X10-3/uL RBC (3.23-5.20) x10(6)uL Hgb (11.5-15.5) g/dL Hct (30.0-51.3) % MCV (80-96) fL MCH (27.7-33.6) pg MCHC (32.2-35.4) g/dL RDW (11.5-15.5) % Plt Count (125-369) X10(3)uL MPV (7.4-10.4) fL Neut % (Auto) (46-82) % Lymph % (Auto) (13-37) % [place] % (Auto) (4-12) % Eos % (Auto) (1.0-5.0) % Baso % (Auto) (0-2) % Neut # (Auto) (1.6-8.3) # Lymph # (Auto) (0.6-5.0) # [place] # (Auto) (0.0-1.3) # Eos # (Auto) (0.0-0.8) # Baso # (Auto) (0.0-0.2) # PT (8.7-11.1) INR (0.89-1.13) APTT (24.4-33.2) SECONDS Sodium (135-145) mmol/L Potassium (3.5-5.3) mmol/L Chloride (100-110) mmol/L Carbon Dioxide (21-32) mmol/L BUN (7-18) mg/dL Creatinine (0.55-1.02) mg/dL Est Cr Clr Drug Dosing mL/min Estimated GFR (MDRD) (>60) BUN/Creatinine Ratio (9-20) Glucose 670 H* D (80-116) mg/dL POC Glucose > 500 H* (80-116) mg/dL Hemoglobin A1c (4.5-6.2) % Calcium (8.6-10.2) mg/dL Magnesium (1.8-2.5) mg/dL Total Bilirubin 1.5 H (0.1-1.3) mg/dL Direct Bilirubin 0.81 H (0.10-0.20) mg/dL AST 36 H D (5-25) IU/L ALT 23 D (12-36) U/L Alkaline Phosphatase 186 H (56-112) IU/L Total Protein 8.1 H (6.0-8.0) g/dL Albumin 2.7 L (3.2-4.6) g/dL Triglycerides (15-150) mg/dL Cholesterol (50-200) mg/dL LDL Cholesterol Direct (60-130) mg/dL HDL Cholesterol (40-75) mg/dL Cholesterol/HDL Ratio (0-5) Urine Color (YELLOW) Urine Appearance (CLEAR) Urine pH (5.0-6.5) Ur Specific [place] (1.010-1.025) Urine Protein (NEGATIVE) mg/dL Urine Glucose (UA) (NORMAL) mg/dL Urine Ketones (NEGATIVE) mg/dL Urine Occult Blood (NEGATIVE) Urine Nitrite (NEGATIVE) Urine Bilirubin (NEGATIVE) Urine Urobilinogen (NEGATIVE) mg/dL Ur Leukocyte Esterase (NEGATIVE) Urine RBC (0-5) Urine WBC (0-5) Ur Squamous Epith Cells (NS,R,O) Urine Bacteria (NS) Urine Mucus (NS) 01/17/19 01/17/19 01/17/19 Range/Units 17:24 17:45 18:39 WBC (4.5-12.0) X10-3/uL RBC (3.23-5.20) x10(6)uL Hgb (11.5-15.5) g/dL Hct (30.0-51.3) % MCV (80-96) fL MCH (27.7-33.6) pg MCHC (32.2-35.4) g/dL RDW (11.5-15.5) % Plt Count (125-369) X10(3)uL MPV (7.4-10.4) fL Neut % (Auto) (46-82) % Lymph % (Auto) (13-37) % [place] % (Auto) (4-12) % Eos % (Auto) (1.0-5.0) % Baso % (Auto) (0-2) % Neut # (Auto) (1.6-8.3) # Lymph # (Auto) (0.6-5.0) # [place] # (Auto) (0.0-1.3) # Eos # (Auto) (0.0-0.8) # Baso # (Auto) (0.0-0.2) # PT 12.3 H (8.7-11.1) INR 1.27 H (0.89-1.13) APTT 24.4 (24.4-33.2) SECONDS Sodium (135-145) mmol/L Potassium (3.5-5.3) mmol/L Chloride (100-110) mmol/L Carbon Dioxide (21-32) mmol/L BUN (7-18) mg/dL Creatinine (0.55-1.02) mg/dL Est Cr Clr Drug Dosing mL/min Estimated GFR (MDRD) (>60) BUN/Creatinine Ratio (9-20) Glucose (80-116) mg/dL POC Glucose > 500 H* (80-116) mg/dL Hemoglobin A1c (4.5-6.2) % Calcium (8.6-10.2) mg/dL Magnesium (1.8-2.5) mg/dL Total Bilirubin (0.1-1.3) mg/dL Direct Bilirubin (0.10-0.20) mg/dL AST (5-25) IU/L ALT (12-36) U/L Alkaline Phosphatase (56-112) IU/L Total Protein (6.0-8.0) g/dL Albumin (3.2-4.6) g/dL Triglycerides (15-150) mg/dL Cholesterol (50-200) mg/dL LDL Cholesterol Direct (60-130) mg/dL HDL Cholesterol (40-75) mg/dL Cholesterol/HDL Ratio (0-5) Urine Color Yellow (YELLOW) Urine Appearance Cloudy (CLEAR) Urine pH 5.0 (5.0-6.5) Ur Specific [place] 1.010 (1.010-1.025) Urine Protein Negative (NEGATIVE) mg/dL Urine Glucose (UA) >1000 H (NORMAL) mg/dL Urine Ketones Negative (NEGATIVE) mg/dL Urine Occult Blood Large H (NEGATIVE) Urine Nitrite Negative (NEGATIVE) Urine Bilirubin Negative (NEGATIVE) Urine Urobilinogen Normal (NEGATIVE) mg/dL Ur Leukocyte Esterase Negative (NEGATIVE) Urine RBC 40-50 H (0-5) Urine WBC 0-5 (0-5) Ur Squamous Epith Cells Few H (NS,R,O) Urine Bacteria Many H (NS) Urine Mucus Few H (NS) 01/17/19 01/17/19 01/17/19 Range/Units 19:08 19:17 21:11 WBC (4.5-12.0) X10-3/uL RBC (3.23-5.20) x10(6)uL Hgb (11.5-15.5) g/dL Hct (30.0-51.3) % MCV (80-96) fL MCH (27.7-33.6) pg MCHC (32.2-35.4) g/dL RDW (11.5-15.5) % Plt Count (125-369) X10(3)uL MPV (7.4-10.4) fL Neut % (Auto) (46-82) % Lymph % (Auto) (13-37) % [place] % (Auto) (4-12) % Eos % (Auto) (1.0-5.0) % Baso % (Auto) (0-2) % Neut # (Auto) (1.6-8.3) # Lymph # (Auto) (0.6-5.0) # [place] # (Auto) (0.0-1.3) # Eos # (Auto) (0.0-0.8) # Baso # (Auto) (0.0-0.2) # PT (8.7-11.1) INR (0.89-1.13) APTT (24.4-33.2) SECONDS Sodium (135-145) mmol/L Potassium (3.5-5.3) mmol/L Chloride (100-110) mmol/L Carbon Dioxide (21-32) mmol/L BUN (7-18) mg/dL Creatinine (0.55-1.02) mg/dL Est Cr Clr Drug Dosing mL/min Estimated GFR (MDRD) (>60) BUN/Creatinine Ratio (9-20) Glucose 536 H* D (80-116) mg/dL POC Glucose > 500 H* 381 H D (80-116) mg/dL Hemoglobin A1c (4.5-6.2) % Calcium (8.6-10.2) mg/dL Magnesium (1.8-2.5) mg/dL Total Bilirubin (0.1-1.3) mg/dL Direct Bilirubin (0.10-0.20) mg/dL AST (5-25) IU/L ALT (12-36) U/L Alkaline Phosphatase (56-112) IU/L Total Protein (6.0-8.0) g/dL Albumin (3.2-4.6) g/dL Triglycerides (15-150) mg/dL Cholesterol (50-200) mg/dL LDL Cholesterol Direct (60-130) mg/dL HDL Cholesterol (40-75) mg/dL Cholesterol/HDL Ratio (0-5) Urine Color (YELLOW) Urine Appearance (CLEAR) Urine pH (5.0-6.5) Ur Specific [place]ory (1.010-1.025) Urine Protein (NEGATIVE) mg/dL Urine Glucose (UA) (NORMAL) mg/dL Urine Ketones (NEGATIVE) mg/dL Urine Occult Blood (NEGATIVE) Urine Nitrite (NEGATIVE) Urine Bilirubin (NEGATIVE) Urine Urobilinogen (NEGATIVE) mg/dL Ur Leukocyte Esterase (NEGATIVE) Urine RBC (0-5) Urine WBC (0-5) Ur Squamous Epith Cells (NS,R,O) Urine Bacteria (NS) Urine Mucus (NS) 01/17/19 01/17/19 01/18/19 Range/Units 23:21 23:30 01:36 WBC (4.5-12.0) X10-3/uL RBC (3.23-5.20) x10(6)uL Hgb (11.5-15.5) g/dL Hct (30.0-51.3) % MCV (80-96) fL MCH (27.7-33.6) pg MCHC (32.2-35.4) g/dL RDW (11.5-15.5) % Plt Count (125-369) X10(3)uL MPV (7.4-10.4) fL Neut % (Auto) (46-82) % Lymph % (Auto) (13-37) % [place] % (Auto) (4-12) % Eos % (Auto) (1.0-5.0) % Baso % (Auto) (0-2) % Neut # (Auto) (1.6-8.3) # Lymph # (Auto) (0.6-5.0) # [place] # (Auto) (0.0-1.3) # Eos # (Auto) (0.0-0.8) # Baso # (Auto) (0.0-0.2) # PT (8.7-11.1) INR (0.89-1.13) APTT (24.4-33.2) SECONDS Sodium (135-145) mmol/L Potassium (3.5-5.3) mmol/L Chloride (100-110) mmol/L Carbon Dioxide (21-32) mmol/L BUN (7-18) mg/dL Creatinine (0.55-1.02) mg/dL Est Cr Clr Drug Dosing mL/min Estimated GFR (MDRD) (>60) BUN/Creatinine Ratio (9-20) Glucose 449 H* D (80-116) mg/dL POC Glucose 442 H* 360 H D (80-116) mg/dL Hemoglobin A1c (4.5-6.2) % Calcium (8.6-10.2) mg/dL Magnesium (1.8-2.5) mg/dL Total Bilirubin (0.1-1.3) mg/dL Direct Bilirubin (0.10-0.20) mg/dL AST (5-25) IU/L ALT (12-36) U/L Alkaline Phosphatase (56-112) IU/L Total Protein (6.0-8.0) g/dL Albumin (3.2-4.6) g/dL Triglycerides (15-150) mg/dL Cholesterol (50-200) mg/dL LDL Cholesterol Direct (60-130) mg/dL HDL Cholesterol (40-75) mg/dL Cholesterol/HDL Ratio (0-5) Urine Color (YELLOW) Urine Appearance (CLEAR) Urine pH (5.0-6.5) Ur Specific [place] (1.010-1.025) Urine Protein (NEGATIVE) mg/dL Urine Glucose (UA) (NORMAL) mg/dL Urine Ketones (NEGATIVE) mg/dL Urine Occult Blood (NEGATIVE) Urine Nitrite (NEGATIVE) Urine Bilirubin (NEGATIVE) Urine Urobilinogen (NEGATIVE) mg/dL Ur Leukocyte Esterase (NEGATIVE) Urine RBC (0-5) Urine WBC (0-5) Ur Squamous Epith Cells (NS,R,O) Urine Bacteria (NS) Urine Mucus (NS) 01/18/19 01/18/19 01/18/19 Range/Units 03:25 05:36 06:25 WBC 4.3 L (4.5-12.0) X10-3/uL RBC 3.54 (3.23-5.20) x10(6)uL Hgb 11.8 (11.5-15.5) g/dL Hct 34.4 (30.0-51.3) % MCV 97.1 H (80-96) fL MCH 33.4 (27.7-33.6) pg MCHC 34.4 (32.2-35.4) g/dL RDW 14.1 (11.5-15.5) % Plt Count 70 L (125-369) X10(3)uL MPV 10.0 (7.4-10.4) fL Neut % (Auto) 40.5 L (46-82) % Lymph % (Auto) 44.5 H (13-37) % [place] % (Auto) 11.1 (4-12) % Eos % (Auto) 3 (1.0-5.0) % Baso % (Auto) 1 (0-2) % Neut # (Auto) 1.7 (1.6-8.3) # Lymph # (Auto) 2.0 (0.6-5.0) # [place] # (Auto) 0.5 (0.0-1.3) # Eos # (Auto) 0.1 (0.0-0.8) # Baso # (Auto) 0.0 (0.0-0.2) # PT (8.7-11.1) INR (0.89-1.13) APTT (24.4-33.2) SECONDS Sodium (135-145) mmol/L Potassium (3.5-5.3) mmol/L Chloride (100-110) mmol/L Carbon Dioxide (21-32) mmol/L BUN (7-18) mg/dL Creatinine (0.55-1.02) mg/dL Est Cr Clr Drug Dosing mL/min Estimated GFR (MDRD) (>60) BUN/Creatinine Ratio (9-20) Glucose (80-116) mg/dL POC Glucose 244 H D 172 H (80-116) mg/dL Hemoglobin A1c (4.5-6.2) % Calcium (8.6-10.2) mg/dL Magnesium (1.8-2.5) mg/dL Total Bilirubin (0.1-1.3) mg/dL Direct Bilirubin (0.10-0.20) mg/dL AST (5-25) IU/L ALT (12-36) U/L Alkaline Phosphatase (56-112) IU/L Total Protein (6.0-8.0) g/dL Albumin (3.2-4.6) g/dL Triglycerides (15-150) mg/dL Cholesterol (50-200) mg/dL LDL Cholesterol Direct (60-130) mg/dL HDL Cholesterol (40-75) mg/dL Cholesterol/HDL Ratio (0-5) Urine Color (YELLOW) Urine Appearance (CLEAR) Urine pH (5.0-6.5) Ur Specific Mallory (1.010-1.025) Urine Protein (NEGATIVE) mg/dL Urine Glucose (UA) (NORMAL) mg/dL Urine Ketones (NEGATIVE) mg/dL Urine Occult Blood (NEGATIVE) Urine Nitrite (NEGATIVE) Urine Bilirubin (NEGATIVE) Urine Urobilinogen (NEGATIVE) mg/dL Ur Leukocyte Esterase (NEGATIVE) Urine RBC (0-5) Urine WBC (0-5) Ur Squamous Epith Cells (NS,R,O) Urine Bacteria (NS) Urine Mucus (NS) 01/18/19 01/18/19 01/18/19 Range/Units 06:25 06:25 06:25 WBC (4.5-12.0) X10-3/uL RBC (3.23-5.20) x10(6)uL Hgb (11.5-15.5) g/dL Hct (30.0-51.3) % MCV (80-96) fL MCH (27.7-33.6) pg MCHC (32.2-35.4) g/dL RDW (11.5-15.5) % Plt Count (125-369) X10(3)uL MPV (7.4-10.4) fL Neut % (Auto) (46-82) % Lymph % (Auto) (13-37) % [place] % (Auto) (4-12) % Eos % (Auto) (1.0-5.0) % Baso % (Auto) (0-2) % Neut # (Auto) (1.6-8.3) # Lymph # (Auto) (0.6-5.0) # [place] # (Auto) (0.0-1.3) # Eos # (Auto) (0.0-0.8) # Baso # (Auto) (0.0-0.2) # PT 12.8 H (8.7-11.1) INR 1.32 H (0.89-1.13) APTT (24.4-33.2) SECONDS Sodium 139 (135-145) mmol/L Potassium 2.8 L* D (3.5-5.3) mmol/L Chloride 106 (100-110) mmol/L Carbon Dioxide 23 (21-32) mmol/L BUN 11 (7-18) mg/dL Creatinine 0.9 (0.55-1.02) mg/dL Est Cr Clr Drug Dosing 52.24 mL/min Estimated GFR (MDRD) > 60 (>60) BUN/Creatinine Ratio 12.2 (9-20) Glucose 149 H D (80-116) mg/dL POC Glucose (80-116) mg/dL Hemoglobin A1c > 14.0 H (4.5-6.2) % Calcium 8.2 L (8.6-10.2) mg/dL Magnesium (1.8-2.5) mg/dL Total Bilirubin (0.1-1.3) mg/dL Direct Bilirubin (0.10-0.20) mg/dL AST (5-25) IU/L ALT (12-36) U/L Alkaline Phosphatase (56-112) IU/L Total Protein (6.0-8.0) g/dL Albumin (3.2-4.6) g/dL Triglycerides (15-150) mg/dL Cholesterol (50-200) mg/dL LDL Cholesterol Direct (60-130) mg/dL HDL Cholesterol (40-75) mg/dL Cholesterol/HDL Ratio (0-5) Urine Color (YELLOW) Urine Appearance (CLEAR) Urine pH (5.0-6.5) Ur Specific [place]ory (1.010-1.025) Urine Protein (NEGATIVE) mg/dL Urine Glucose (UA) (NORMAL) mg/dL Urine Ketones (NEGATIVE) mg/dL Urine Occult Blood (NEGATIVE) Urine Nitrite (NEGATIVE) Urine Bilirubin (NEGATIVE) Urine Urobilinogen (NEGATIVE) mg/dL Ur Leukocyte Esterase (NEGATIVE) Urine RBC (0-5) Urine WBC (0-5) Ur Squamous Epith Cells (NS,R,O) Urine Bacteria (NS) Urine Mucus (NS) 01/18/19 01/18/19 01/18/19 Range/Units 06:25 06:25 07:37 WBC (4.5-12.0) X10-3/uL RBC (3.23-5.20) x10(6)uL Hgb (11.5-15.5) g/dL Hct (30.0-51.3) % MCV (80-96) fL MCH (27.7-33.6) pg MCHC (32.2-35.4) g/dL RDW (11.5-15.5) % Plt Count (125-369) X10(3)uL MPV (7.4-10.4) fL Neut % (Auto) (46-82) % Lymph % (Auto) (13-37) % [place] % (Auto) (4-12) % Eos % (Auto) (1.0-5.0) % Baso % (Auto) (0-2) % Neut # (Auto) (1.6-8.3) # Lymph # (Auto) (0.6-5.0) # [place] # (Auto) (0.0-1.3) # Eos # (Auto) (0.0-0.8) # Baso # (Auto) (0.0-0.2) # PT (8.7-11.1) INR (0.89-1.13) APTT (24.4-33.2) SECONDS Sodium (135-145) mmol/L Potassium (3.5-5.3) mmol/L Chloride (100-110) mmol/L Carbon Dioxide (21-32) mmol/L BUN (7-18) mg/dL Creatinine (0.55-1.02) mg/dL Est Cr Clr Drug Dosing mL/min Estimated GFR (MDRD) (>60) BUN/Creatinine Ratio (9-20) Glucose (80-116) mg/dL POC Glucose 126 H (80-116) mg/dL Hemoglobin A1c (4.5-6.2) % Calcium (8.6-10.2) mg/dL Magnesium 1.9 (1.8-2.5) mg/dL Total Bilirubin (0.1-1.3) mg/dL Direct Bilirubin (0.10-0.20) mg/dL AST (5-25) IU/L ALT (12-36) U/L Alkaline Phosphatase (56-112) IU/L Total Protein (6.0-8.0) g/dL Albumin (3.2-4.6) g/dL Triglycerides 334 H (15-150) mg/dL Cholesterol 166 (50-200) mg/dL LDL Cholesterol Direct 90 (60-130) mg/dL HDL Cholesterol 13 L (40-75) mg/dL Cholesterol/HDL Ratio 12.8 H (0-5) Urine Color (YELLOW) Urine Appearance (CLEAR) Urine pH (5.0-6.5) Ur Specific [place] (1.010-1.025) Urine Protein (NEGATIVE) mg/dL Urine Glucose (UA) (NORMAL) mg/dL Urine Ketones (NEGATIVE) mg/dL Urine Occult Blood (NEGATIVE) Urine Nitrite (NEGATIVE) Urine Bilirubin (NEGATIVE) Urine Urobilinogen (NEGATIVE) mg/dL Ur Leukocyte Esterase (NEGATIVE) Urine RBC (0-5) Urine WBC (0-5) Ur Squamous Epith Cells (NS,R,O) Urine Bacteria (NS) Urine Mucus (NS) 01/18/19 01/18/19 01/18/19 Range/Units 09:24 11:24 14:44 WBC (4.5-12.0) X10-3/uL RBC (3.23-5.20) x10(6)uL Hgb (11.5-15.5) g/dL Hct (30.0-51.3) % MCV (80-96) fL MCH (27.7-33.6) pg MCHC (32.2-35.4) g/dL RDW (11.5-15.5) % Plt Count (125-369) X10(3)uL MPV (7.4-10.4) fL Neut % (Auto) (46-82) % Lymph % (Auto) (13-37) % [place] % (Auto) (4-12) % Eos % (Auto) (1.0-5.0) % Baso % (Auto) (0-2) % Neut # (Auto) (1.6-8.3) # Lymph # (Auto) (0.6-5.0) # [place] # (Auto) (0.0-1.3) # Eos # (Auto) (0.0-0.8) # Baso # (Auto) (0.0-0.2) # PT (8.7-11.1) INR (0.89-1.13) APTT (24.4-33.2) SECONDS Sodium (135-145) mmol/L Potassium (3.5-5.3) mmol/L Chloride (100-110) mmol/L Carbon Dioxide (21-32) mmol/L BUN (7-18) mg/dL Creatinine (0.55-1.02) mg/dL Est Cr Clr Drug Dosing mL/min Estimated GFR (MDRD) (>60) BUN/Creatinine Ratio (9-20) Glucose (80-116) mg/dL POC Glucose 165 H 264 H D 422 H* D (80-116) mg/dL Hemoglobin A1c (4.5-6.2) % Calcium (8.6-10.2) mg/dL Magnesium (1.8-2.5) mg/dL Total Bilirubin (0.1-1.3) mg/dL Direct Bilirubin (0.10-0.20) mg/dL AST (5-25) IU/L ALT (12-36) U/L Alkaline Phosphatase (56-112) IU/L Total Protein (6.0-8.0) g/dL Albumin (3.2-4.6) g/dL Triglycerides (15-150) mg/dL Cholesterol (50-200) mg/dL LDL Cholesterol Direct (60-130) mg/dL HDL Cholesterol (40-75) mg/dL Cholesterol/HDL Ratio (0-5) Urine Color (YELLOW) Urine Appearance (CLEAR) Urine pH (5.0-6.5) Ur Specific [place] (1.010-1.025) Urine Protein (NEGATIVE) mg/dL Urine Glucose (UA) (NORMAL) mg/dL Urine Ketones (NEGATIVE) mg/dL Urine Occult Blood (NEGATIVE) Urine Nitrite (NEGATIVE) Urine Bilirubin (NEGATIVE) Urine Urobilinogen (NEGATIVE) mg/dL Ur Leukocyte Esterase (NEGATIVE) Urine RBC (0-5) Urine WBC (0-5) Ur Squamous Epith Cells (NS,R,O) Urine Bacteria (NS) Urine Mucus (NS) 01/18/19 01/18/19 Range/Units 15:00 15:00 WBC (4.5-12.0) X10-3/uL RBC (3.23-5.20) x10(6)uL Hgb (11.5-15.5) g/dL Hct (30.0-51.3) % MCV (80-96) fL MCH (27.7-33.6) pg MCHC (32.2-35.4) g/dL RDW (11.5-15.5) % Plt Count (125-369) X10(3)uL MPV (7.4-10.4) fL Neut % (Auto) (46-82) % Lymph % (Auto) (13-37) % [place] % (Auto) (4-12) % Eos % (Auto) (1.0-5.0) % Baso % (Auto) (0-2) % Neut # (Auto) (1.6-8.3) # Lymph # (Auto) (0.6-5.0) # [place] # (Auto) (0.0-1.3) # Eos # (Auto) (0.0-0.8) # Baso # (Auto) (0.0-0.2) # PT (8.7-11.1) INR (0.89-1.13) APTT (24.4-33.2) SECONDS Sodium (135-145) mmol/L Potassium 4.1 D (3.5-5.3) mmol/L Chloride (100-110) mmol/L Carbon Dioxide (21-32) mmol/L BUN (7-18) mg/dL Creatinine (0.55-1.02) mg/dL Est Cr Clr Drug Dosing mL/min Estimated GFR (MDRD) (>60) BUN/Creatinine Ratio (9-20) Glucose 418 H* D (80-116) mg/dL POC Glucose (80-116) mg/dL Hemoglobin A1c (4.5-6.2) % Calcium (8.6-10.2) mg/dL Magnesium (1.8-2.5) mg/dL Total Bilirubin (0.1-1.3) mg/dL Direct Bilirubin (0.10-0.20) mg/dL AST (5-25) IU/L ALT (12-36) U/L Alkaline Phosphatase (56-112) IU/L Total Protein (6.0-8.0) g/dL Albumin (3.2-4.6) g/dL Triglycerides (15-150) mg/dL Cholesterol (50-200) mg/dL LDL Cholesterol Direct (60-130) mg/dL HDL Cholesterol (40-75) mg/dL Cholesterol/HDL Ratio (0-5) Urine Color (YELLOW) Urine Appearance (CLEAR) Urine pH (5.0-6.5) Ur Specific [place] (1.010-1.025) Urine Protein (NEGATIVE) mg/dL Urine Glucose (UA) (NORMAL) mg/dL Urine Ketones (NEGATIVE) mg/dL Urine Occult Blood (NEGATIVE) Urine Nitrite (NEGATIVE) Urine Bilirubin (NEGATIVE) Urine Urobilinogen (NEGATIVE) mg/dL Ur Leukocyte Esterase (NEGATIVE) Urine RBC (0-5) Urine WBC (0-5) Ur Squamous Epith Cells (NS,R,O) Urine Bacteria (NS) Urine Mucus (NS) Result Diagrams: 01/18/19 06:25 01/18/19 15:00 [place]ton Results Last 24 hrs: Microbiology 01/17/19 17:45 Urine Culture - Preliminary Urine, Catheterized Gram Negative Rods Orders Last 24hrs: Active Orders 24 hr Category Date Time Status Admission Status [Patient Status] [ADT] Routine ADT 01/18/19 09:27 Active Accu Check [Blood Glucose Check, Bedside] [RC] Q2H Care 01/17/19 21:26 Active Ambulate [RC] PER UNIT ROUTINE Care 01/17/19 21:26 Active Antiembolic Devices [RC] .Routine Care 01/17/19 21:26 Active Height and Weight [RC] UPON Care 01/17/19 21:26 Active Intake and Output [RC] 22,06,14 Care 01/17/19 21:26 Active May Shower [RC] ASDIRECTED Care 01/17/19 21:26 Active Pulse Oximetry [RC] PRN Care 01/17/19 21:26 Active Up ad Najma [RC] ASDIRECTED Care 01/17/19 21:26 Active VTE/DVT Education [RC] Click to Edit Care 01/17/19 21:26 Active Vital Signs [RC] 00,04,08,12,16,20 Care 01/17/19 21:26 Active Consistent Carbohydrate Diet [DIET] Diet 01/18/19 Dinner Active No Added Salt [DIET] Diet 01/18/19 Dinner Active CBC WITH AUTO DIFF [HEME] AM Lab 01/19/19 05:11 Ordered COMPREHENSIVE METABOLIC PN,CMP [CHEM] AM Lab 01/19/19 05:11 Ordered CULTURE URINE [RM] Stat Lab 01/17/19 17:45 Results MICROALB/CREAT RATIO, RANDM UR Routine Lab 01/18/19 07:39 Ordered Cyanocobalamin (Vitamin B12) [Vitamin B12] Med 01/18/19 09:00 Active 1,000 mcg PO DAILY Folic Acid Med 01/18/19 09:00 Active 1 mg PO DAILY Insulin Glarg,Human.Rec.Analog [LantUS Solostar] Med 01/18/19 21:00 Active 10 units SUBCUT BEDTIME Insulin Lispro [HumaLOG] Med 01/18/19 11:30 Active See Protocol SUBCUT QIDACANDBED Multivitamins [Tab-A-Sage] Med 01/18/19 09:00 Active 1 tab PO DAILY Nadolol [Naldol] Med 01/18/19 21:00 Active 20 mg PO BID Pantoprazole [ProTONIX] Med 01/18/19 08:30 Active 40 mg PO BIDAC Patient's Own Medication [Ptom] Med 01/18/19 09:00 Active 0.5 each PO DAILY Potassium Chloride [Klor-Con M20] Med 01/19/19 09:00 Active 20 meq PO DAILY Sodium Chloride 0.9% [Saline Flush] Med 01/17/19 17:43 Active 10 ml FLUSH ASDIRECTED PRN Spironolactone [Aldactone] Med 01/18/19 09:00 Active 25 mg PO DAILY cefTRIAXone [Rocephin] Med 01/17/19 21:00 Active 1 gm IV Q24H metFORMIN [Glucophage] Med 01/18/19 09:00 Active 500 mg PO BIDMEALS Convert IV to Saline Lock [OM.PC] Routine Oth 01/18/19 10:04 Ordered DVT/VTE Prophylaxis Reflex [OM.PC] Per Unit Routine Oth 01/17/19 21:26 Ordered Peripheral IV Insertion Adult [OM.PC] Routine Oth 01/17/19 17:43 Ordered Resuscitation Status Routine Resus Stat 01/17/19 19:07 Ordered Medication Orders Ceftriaxone Sodium (Rocephin) 1 gm IV Q24H [facility] Last Admin: 01/17/19 20:49 Dose: 1 gm Cyanocobalamin (Vitamin B12) 1,000 mcg PO DAILY [facility] Last Admin: 01/18/19 09:17 Dose: 1,000 mcg Folic Acid (Folic Acid) 1 mg PO DAILY [facility] Last Admin: 01/18/19 09:16 Dose: 1 mg Insulin Glargine (Lantus Solostar) 10 units SUBCUT BEDTIME [facility] Insulin Human Lispro (Humalog) 0 unit SUBCUT QIDACANDBED [facility]; Protocol Last Admin: 01/18/19 11:25 Dose: 6 units Metformin HCl (Glucophage) 500 mg PO BIDMEALS [facility] Last Admin: 01/18/19 09:16 Dose: 500 mg Multivitamins/Minerals/Vitamin C (Tab-A-Sage) 1 tab PO DAILY [facility] Last Admin: 01/18/19 09:17 Dose: 1 tab Nadolol (Naldol) 20 mg PO BID [facility] Pantoprazole Sodium (Protonix) 40 mg PO BIDAC [facility] Last Admin: 01/18/19 09:16 Dose: 40 mg Thiamine 250mg*Ptom 0.5 each PO DAILY [facility] Last Admin: 01/18/19 09:17 Dose: 0.5 each Potassium Chloride (Klor-Con M20) 20 meq PO DAILY [facility] Sodium Chloride (Saline Flush) 10 ml FLUSH ASDIRECTED PRN PRN Reason: Keep Vein Open Last Admin: 01/18/19 10:10 Dose: 10 ml Admin: 01/17/19 17:50 Dose: 10 ml Spironolactone (Aldactone) 25 mg PO DAILY [facility] Last Admin: 01/18/19 09:16 Dose: 25 mg Assessment/Plan Comment:: I attest that I have seen and examined this patient with the resident.
[2019-01-18] MEDS ORDERED: Potassium Chloride 20 MEQ in Premix Bag 1 BAG IV SCH (08:30)
[2019-01-18 08:57] LABS: HEMOGLOBIN A1C > 14.0 % (4.5-6.2)
[2019-01-18] MEDS ORDERED: THIAMINE 250 MG PO SCH (09:00)
[2019-01-18] MEDS ORDERED: NADOLOL 40 MG PO SCH (09:00)
[2019-01-18] MEDS: Pantoprazole 40 MG Tab.CR PO SCH ×2 (09:16→18:00)
[2019-01-18] MEDS: Folic Acid 1 MG Tab PO SCH (09:16)
[2019-01-18] MEDS: Spironolactone 25 MG Tab PO SCH (09:16)
[2019-01-18] MEDS: metFORMIN 500 MG Tab PO SCH ×2 (09:16→18:00)
[2019-01-18] MEDS: THIAMINE 250 MG PO SCH (09:17)
[2019-01-18] MEDS: Cyanocobalamin (Vitamin B12) 1,000 MCG Tab PO SCH (09:17)
[2019-01-18] MEDS: Multivitamin Tab PO SCH (09:17)
[2019-01-18] MEDS: Sodium Chloride 0.9% 10 ML Syringe FLUSH PRN (10:10)
[2019-01-18] MEDS ORDERED: Insulin Lispro 100 Unit/ML 3 ML KwikPen SUBCUT ONE (15:49)
[2019-01-18] MEDS ORDERED: Insulin Glargine,Human Rec. Analog 100 Units/ML 3 ML Pen SUBCUT SCH (21:00)
[2019-01-18] MEDS: cefTRIAXone 1 GM Vial IV SCH (21:03)
[2019-01-19] MEDS: Pantoprazole 40 MG Tab.CR PO SCH (06:30)
[2019-01-19] MEDS: Insulin Lispro 100 Unit/ML 3 ML KwikPen SUBCUT SCH (07:34)
[2019-01-19] MEDS: metFORMIN 500 MG Tab PO SCH (07:44)
[2019-01-19] MEDS: Cyanocobalamin (Vitamin B12) 1,000 MCG Tab PO SCH (08:25)
[2019-01-19] MEDS: Spironolactone 25 MG Tab PO SCH (08:26)
[2019-01-19] MEDS: Multivitamin Tab PO SCH (08:26)
[2019-01-19] MEDS: Folic Acid 1 MG Tab PO SCH (08:26)
[2019-01-19] MEDS: THIAMINE 250 MG PO SCH (08:27)
[2019-01-19 08:28] VITALS: BP 96/62
[2019-01-19] MEDS ORDERED: Potassium Chloride 10 MEQ Tab.ER PO SCH (09:00)
[2019-01-19] MEDS ORDERED: Potassium Chloride 20 MEQ Tab.ER PO SCH (09:00)
[2019-01-19] MEDS ORDERED: THIAMINE HCL PO SCH (09:00)
[2019-01-19] MEDS ORDERED: Insulin Lispro 100 Unit/ML 3 ML KwikPen SUBCUT ONE (11:45)
[2019-01-19] MEDS ORDERED: Insulin Isophane NPH, Human 100 Units/ML 10 ML Vial SUBCUT SCH ×2 (17:30)
--- NOTE | 2019-01-22 08:28 | DISCH ---
DISCHARGE DATE: 01/19/2019 PRIMARY FINAL DIAGNOSIS: New onset type 2 diabetes with hyperglycemia to 600 plus. OTHER DIAGNOSES: 1. Past history of alcoholic liver disease in remission. 2. Psoriasis. 3. Past myocardial infarction with coronary artery disease. 4. Osteoarthritis. 5. She has also had a history of anxiety, depression, and panic attacks. The patient was admitted for symptoms of urinary frequency, sweats, excessive water intake, and was found to have a glucose of greater than 670 on admission. She was started on sliding scale NovoLog and her blood sugars gradually came down over 36 hours. She was given teaching for insulin administration and checking her Accu-Cheks and seemed to understand this quite well. Her also has diabetes, so she is somewhat aware of it. By 01/19/2019, she was ready for discharge. She was sent home in stable condition to continue her medications as follows: 1. Thiamine 125 mg p.o. daily. 2. Potassium 10 mEq daily. 3. Nadolol 20 mg b.i.d. 4. Metformin 500 mg b.i.d. 5. NPH (Novolin N) 10 units b.i.d. 6. Furosemide 40 mg b.i.d. 7. Vitamin B12, 1000 mcg daily. 8. Aldactone 25 mg daily. 9. Protonix 40 mg b.i.d. 10.Multivitamin 1 daily. 11.Folic acid 1 mg daily. FOLLOWUP: The patient has an appointment later this afternoon with Dr. Marcos, and she is to set up an appointment to meet with our diabetic nurse specialist at [facility] [place]. /[phone] IVONNE/ALEJANDRA
== END 2019-01-19 12:20 | disposition home or self-care (01) | DRG 638 ==
LOC: FB.ED 17:14 → FB.MS 19:01 → OBSVTOIN 01-18 09:27
PROVIDERS: ADMIT Emergency Medicine; ATTEND Family Medicine
DX: E11.649 Type 2 diabetes mellitus with hypoglycemia without coma (principal); R73.9 Hyperglycemia, unspecified; R35.8 Other polyuria; R53.83 Other fatigue; N39.0 Urinary tract infection, site not specified; D68.9 Coagulation defect, unspecified; N17.9 Acute kidney failure, unspecified; K70.30 Alcoholic cirrhosis of liver without ascites; F17.210 Nicotine dependence, cigarettes, uncomplicated; E87.6 Hypokalemia; R31.9 Hematuria, unspecified; D69.6 Thrombocytopenia, unspecified; H40.9 Unspecified glaucoma; L40.9 Psoriasis, unspecified; I25.2 Old myocardial infarction; I25.10 Atherosclerotic heart disease of native coronary artery without angina pectoris; K21.9 Gastro-esophageal reflux disease without esophagitis; M19.90 Unspecified osteoarthritis, unspecified site; M54.9 Dorsalgia, unspecified; G89.29 Other chronic pain; F10.21 Alcohol dependence, in remission; F41.9 Anxiety disorder, unspecified; F32.9 Major depressive disorder, single episode, unspecified; F41.0 Panic disorder [episodic paroxysmal anxiety]; H54.7 Unspecified visual loss; Z91.018 Allergy to other foods; Z88.8 Allergy status to other drugs, medicaments and biological substances
CPT/HCPCS: 36415 ×2; 51701; 80048; 80061; 80076; 81001; 82947 ×3; 82962 ×10; 83036; 83735; 85025; 85610 ×2; 85730; 87086; 87088; 87186; 96361; 96374; 96376; 99284; A9270 ×7; J0696; J1815 ×3; J3480; J7030 ×3; 80053; 84132; 90732

== ENCOUNTER 2019-02-21 18:39 | Emergency (ER) | payer MEDICAID ==
--- NOTE | 2019-02-21 19:41 | EDM.PDOC ---
ED HPI GENERAL MEDICAL PROBLEM - General Chief Complaint: Gastrointestinal Problem Stated Complaint: VOMITING Time Seen by Provider: 02/21/19 19:38 Source of Information: Reports: Patient History Limitations: Reports: No Limitations - History of Present Illness INITIAL COMMENTS - FREE TEXT/NARRATIVE: Clarissa comes in room 201 ,complaining of vomiting brown vomitus x 3 today. No pain,no melena,no diarrhea. Feels fine now. Has a h/o GI bleed,ETOH,DM2 that is stable. - Related Data Allergies Allergy/AdvReac Type Severity Reaction Status Date / Time chocolate flavor Allergy Cannot Verified 02/21/19 18:56 Remember cyclobenzaprine AdvReac Nausea and Verified 02/21/19 18:56 Vomiting meloxicam AdvReac Nausea Verified 02/21/19 18:56 Home Meds: Home Meds Multivitamin [Daily Multiple Vitamin] 1 tab PO DAILY 04/13/18 [History] Pantoprazole [ProTONIX] 40 mg PO BIDAC 04/23/18 [History] Cyanocobalamin (Vitamin B-12) [Vitamin B-12] 1,000 mcg PO DAILY 01/18/19 [ History] metFORMIN [Glucophage] 500 mg PO BIDMEALS #60 tablet 01/19/19 [Rx] Aspirin [Lo-Dose Aspirin EC] 81 mg PO 02/21/19 [History] Insulin Isophane NPH, Human [NovoLIN N] 5 unit SUBCUT BIDAC 02/21/19 [History] atorvaSTATin [Lipitor] 10 mg PO BEDTIME 02/21/19 [History] Past Medical History HEENT History: Reports: Cataract, Glaucoma, Impaired Vision, Other (See Below) Other HEENT History: Almost blind L eye. Cardiovascular History: Reports: [place] Other Cardiovascular History: STATES [place]/ APRIL OR MAY 2018. Respiratory History: Reports: Bronchitis, Recurrent, Pneumonia, Recurrent Other Respiratory History: HOSPITALIZED 05/2018. SIGNIFICANT STATES ON VENT FOR 9 DAYS. Gastrointestinal History: Reports: Cholelithiasis, Cirrhosis, Colon Polyp, GERD , Other (See Below) Other Gastrointestinal History: STATES TEAR OF ESOPHAGUS ET REPAIR 2017 Genitourinary History: Reports: Urinary Incontinence DOCUMENTUM CONSULTANT History: Reports: Other (See Below) Other DOCUMENTUM CONSULTANT History: . Musculoskeletal History: Reports: Arthritis, Back Pain, Chronic, Fracture, Osteoarthritis Other Musculoskeletal History: Hx fracture L arm. Hx fracture L foot 4th toe. Hx sprained left ankle. Uses a cane for support with ambulation. Neurological History: Reports: Migraines Other Neuro History: Hx temporal arteritis. Psychiatric History: Reports: Addiction, Anxiety, Depression, Panic Attack, Other (See Below) Other Psychiatric History: Hx ETOH abuse. Endocrine/Metabolic History: Reports: Diabetes, Type II Other Endocrine/Metabolic History: new diagnosis Hematologic History: Reports: Anemia Immunologic History: Reports: None Oncologic (Cancer) History: Dermatologic History: Reports: Psoriasis - Infectious Disease History Infectious Disease History: Reports: Chicken Pox - Past Surgical History Head Surgeries/Procedures: Reports: None HEENT Surgical History: Reports: None Other HEENT Surgeries/Procedures: Eye surgery 2 Cardiovascular Surgical History: Reports: None Respiratory Surgical History: Reports: None GI Surgical History: Reports: Cholecystectomy, Colonoscopy, EGD Female Surgical History: Reports: None Musculoskeletal Surgical History: Reports: None Social & Family History - Family History Family Medical History: Noncontributory Endocrine/Metabolic: Reports: Diabetes, type II - Tobacco Use Smoking Status *Q: Current Every Day Smoker Years of Tobacco use: 50 Packs/Tins Daily: 0 - Caffeine Use Caffeine Use: Reports: Coffee Other Caffeine Use: 1 cup daily - Recreational Drug Use Recreational Drug Use: No - Living Situation & Occupation Occupation: Retired ED ROS GENERAL - Review of Systems Review Of Systems: ROS reveals no pertinent complaints other than HPI. ED EXAM, GI/ABD - Physical Exam Exam: See Below Exam Limited By: No Limitations General Appearance: Alert Eyes: Bilateral: Normal Appearance, EOMI Ears: Normal External Exam, Normal Canal, Hearing Grossly Normal, Normal TMs Throat/Mouth: Normal Inspection, Normal Lips, Normal Teeth, Normal Gums, Normal Oropharynx, Normal Voice, No Airway Compromise Cardiovascular: Normal Peripheral Pulses GI/Abdominal Exam: Normal Bowel Sounds, Soft, Non-Tender Course - Vital Signs Last Recorded V/S: Last Vital Signs Temp 99.1 F 02/21/19 18:51 Pulse 112 H 02/21/19 18:51 Resp 18 02/21/19 18:51 BP 133/76 02/21/19 18:51 Pulse Ox 96 02/21/19 18:51 - Orders/Labs/Meds Labs: Laboratory Tests 02/21/19 02/21/19 Range/Units 19:18 19:18 WBC 7.5 (4.5-12.0) X10-3/uL RBC 3.74 (3.23-5.20) x10(6)uL Hgb 12.5 (11.5-15.5) g/dL Hct 36.7 (30.0-51.3) % MCV 98.2 H (80-96) fL MCH 33.4 (27.7-33.6) pg MCHC 34.0 (32.2-35.4) g/dL RDW 15.4 (11.5-15.5) % Plt Count 140 (125-369) X10(3)uL MPV 8.8 (7.4-10.4) fL Neut % (Auto) 57.5 (46-82) % Lymph % (Auto) 27.2 (13-37) % Dunn % (Auto) 10.4 (4-12) % Eos % (Auto) 2 (1.0-5.0) % Baso % (Auto) 3 H (0-2) % Neut # (Auto) 4.3 (1.6-8.3) # Lymph # (Auto) 2.0 (0.6-5.0) # Dunn # (Auto) 0.8 (0.0-1.3) # Eos # (Auto) 0.2 (0.0-0.8) # Baso # (Auto) 0.2 (0.0-0.2) # Sodium 140 (135-145) mmol/L Potassium 3.9 (3.5-5.3) mmol/L Chloride 105 (100-110) mmol/L Carbon Dioxide 23 (21-32) mmol/L BUN 21 H D (7-18) mg/dL Creatinine 0.9 (0.55-1.02) mg/dL Est Cr Clr Drug Dosing 52.24 mL/min Estimated GFR (MDRD) > 60 (>60) BUN/Creatinine Ratio 23.3 H (9-20) Glucose 115 D (80-116) mg/dL Calcium 8.6 (8.6-10.2) mg/dL Total Bilirubin 0.7 (0.1-1.3) mg/dL AST 43 H (5-25) IU/L ALT 29 D (12-36) U/L Alkaline Phosphatase 148 H (56-112) IU/L Total Protein 7.5 (6.0-8.0) g/dL Albumin 2.8 L (3.2-4.6) g/dL Globulin 4.7 g/dL Albumin/Globulin Ratio 0.6 Departure - Departure Time of Disposition: 19:39 Disposition: Home, Self-Care 01 Condition: Good Clinical Impression: Vomiting - Discharge Information Referrals: Hunter Marcos MD [Primary Care Provider] - - Problem List & Annotations (1) Vomiting SNOMED Code(s): 871280748 Code(s): R11.10 - VOMITING, UNSPECIFIED Status: Acute Current Visit: Yes - Problem List Review Problem List Initiated/Reviewed/Updated: Yes - Assessment/Plan Plan: Reassurance. Normal labs. Follow up with me in 1 week.
[2019-02-21 22:15] VITALS: BP 127/83
== END 2019-02-21 19:55 | disposition home or self-care (01) ==
LOC: FB.ED 18:39
DX: R11.10 Vomiting, unspecified (principal); I25.2 Old myocardial infarction; E11.9 Type 2 diabetes mellitus without complications; F41.9 Anxiety disorder, unspecified; F32.9 Major depressive disorder, single episode, unspecified; F17.210 Nicotine dependence, cigarettes, uncomplicated; Z88.8 Allergy status to other drugs, medicaments and biological substances; Z79.899 Other long term (current) drug therapy; Z91.02 Food additives allergy status; Z79.82 Long term (current) use of aspirin; Z79.4 Long term (current) use of insulin
CPT/HCPCS: 36415; 80053; 85025; 99283

== ENCOUNTER 2019-02-22 16:38 | Emergency (ER) | payer MEDICAID ==
--- NOTE | 2019-02-22 17:08 | EDM.PDOC ---
ED HPI GENERAL MEDICAL PROBLEM - General Chief Complaint: Abdominal Pain Stated Complaint: BLACK STOOLS,FEVER,CRAMPING Time Seen by Provider: 02/22/19 16:45 Source of Information: Reports: Patient, Family History Limitations: Reports: No Limitations - History of Present Illness INITIAL COMMENTS - FREE TEXT/NARRATIVE: 63 y.o.f cam with her son to the ED after she noticed her stool is black and she had pain at her mid lower abd. This was the first time pt noticed the stool is black. No N/V/D, no H/O Stomach ulcers. No upper abd. pain. no trauma, Pt has painful urination, however. Pt is not able to deliver stool now, never ahd a endoscopic evaluation of her GI system. No other acute med issues. BP 129/91 RR 20 Pulse ox 100% on RA Temp 36.7 Pulse 113 Onset Date: 02/22/19 Onset Time: 07:00 Duration: Hour(s):, Getting Worse, Intermittent Location: Reports: Pelvis Quality: Reports: Ache, Burning Severity: Moderate Improves with: Reports: None Worsens with: Reports: None Context: Reports: Other (black stool, suprapubic pain) Associated Symptoms: Reports: No Other Symptoms Lower abdomen Pain Score (Numeric/FACES): 5 - Related Data Allergies Allergy/AdvReac Type Severity Reaction Status Date / Time chocolate flavor Allergy Cannot Verified 02/22/19 16:47 Remember cyclobenzaprine AdvReac Nausea and Verified 02/22/19 16:47 Vomiting meloxicam AdvReac Nausea Verified 02/22/19 16:47 Home Meds: Home Meds Multivitamin [Daily Multiple Vitamin] 1 tab PO DAILY 04/13/18 [History] Pantoprazole [ProTONIX] 40 mg PO BIDAC 04/23/18 [History] Cyanocobalamin (Vitamin B-12) [Vitamin B-12] 1,000 mcg PO DAILY 01/18/19 [ History] metFORMIN [Glucophage] 500 mg PO BIDMEALS #60 tablet 01/19/19 [Rx] Aspirin [Lo-Dose Aspirin EC] 81 mg PO DAILY 02/21/19 [History] atorvaSTATin [Lipitor] 10 mg PO BEDTIME 02/21/19 [History] Ciprofloxacin HCl [Cipro] 500 mg PO BID #20 tablet 02/22/19 [Rx] Insulin Aspart [NovoLOG] 5 units SQ BID 02/22/19 [History] Insulin Glargine,Hum.Rec.Anlog [Lantus Solostar] 20 units SQ BEDTIME 02/22/19 [ History] Phenazopyridine [Pyridium] 100 mg PO TID #9 tablet 02/22/19 [Rx] Past Medical History HEENT History: Reports: Cataract, Glaucoma, Impaired Vision, Other (See Below) Other HEENT History: Almost blind L eye. Cardiovascular History: Reports: [place] Other Cardiovascular History: STATES / APRIL OR MAY 2018. Respiratory History: Reports: Bronchitis, Recurrent, Pneumonia, Recurrent Other Respiratory History: HOSPITALIZED 05/2018. SIGNIFICANT STATES ON VENT FOR 9 DAYS. Gastrointestinal History: Reports: Cholelithiasis, Cirrhosis, Colon Polyp, GERD , Other (See Below) Other Gastrointestinal History: STATES TEAR OF ESOPHAGUS ET REPAIR 2017 Genitourinary History: Reports: Urinary Incontinence MANAGER CREATIVE History: Reports: Other (See Below) Other MANAGER CREATIVE History: . Musculoskeletal History: Reports: Arthritis, Back Pain, Chronic, Fracture, Osteoarthritis Other Musculoskeletal History: Hx fracture L arm. Hx fracture L foot 4th toe. Hx sprained left ankle. Uses a cane for support with ambulation. Neurological History: Reports: Migraines Other Neuro History: Hx temporal arteritis. Psychiatric History: Reports: Addiction, Anxiety, Depression, Panic Attack, Other (See Below) Other Psychiatric History: Hx ETOH abuse. Endocrine/Metabolic History: Reports: Diabetes, Type II Other Endocrine/Metabolic History: new diagnosis Hematologic History: Reports: Anemia Immunologic History: Reports: None Oncologic (Cancer) History: Dermatologic History: Reports: Psoriasis - Infectious Disease History Infectious Disease History: Reports: Chicken Pox - Past Surgical History Head Surgeries/Procedures: Reports: None HEENT Surgical History: Reports: None Other HEENT Surgeries/Procedures: Eye surgery 2 Cardiovascular Surgical History: Reports: None Respiratory Surgical History: Reports: None GI Surgical History: Reports: Cholecystectomy, Colonoscopy, EGD Female Surgical History: Reports: None Musculoskeletal Surgical History: Reports: None Social & Family History - Family History Family Medical History: Noncontributory Endocrine/Metabolic: Reports: Diabetes, type II - Caffeine Use Caffeine Use: Reports: Coffee Other Caffeine Use: 1 cup daily - Living Situation & Occupation Occupation: Retired ED ROS GENERAL - Review of Systems Review Of Systems: See Below Constitutional: Reports: No Symptoms HEENT: Reports: No Symptoms Respiratory: Reports: No Symptoms Cardiovascular: Reports: No Symptoms Endocrine: Reports: No Symptoms GI/Abdominal: Reports: Abdominal Pain (lower abd. pain) : Reports: Dysuria, Frequency Musculoskeletal: Reports: No Symptoms Skin: Reports: No Symptoms Neurological: Reports: No Symptoms Psychiatric: Reports: No Symptoms Hematologic/Lymphatic: Reports: No Symptoms Immunologic: Reports: No Symptoms ED EXAM, GI/ABD - Physical Exam Exam: See Below Exam Limited By: No Limitations General Appearance: Alert, WD/WN, Moderate Distress Eyes: Bilateral: Normal Appearance Ears: Normal External Exam, Normal Canal Nose: Normal Inspection, Normal Mucosa Throat/Mouth: Normal Lips, Normal Voice, No Airway Compromise, Other (poor dentition) Head: Atraumatic, Normocephalic Neck: Normal Inspection, Supple, Non-Tender, Full Range of Motion Respiratory/Chest: No Respiratory Distress, Lungs Clear, Normal Breath Sounds, No Accessory Muscle Use, Chest Non-Tender Cardiovascular: Normal Peripheral Pulses, Regular Rate, Rhythm, No Edema, No Gallop, No Rub GI/Abdominal Exam: Normal Bowel Sounds, Soft, Non-Tender, No Organomegaly, No Abnormal Bruit, No Mass, Pelvis Stable (Female) Exam: Deferred Rectal (Female) Exam: Deferred Back Exam: Normal Inspection, Full Range of Motion Extremities: Normal Inspection, Normal Range of Motion, Non-Tender, Normal Capillary Refill Neurological: Alert, Oriented, CN II-XII Intact, Normal Cognition, Normal Gait, No Motor/Sensory Deficits Psychiatric: Normal Affect, Normal Mood Skin Exam: Warm, Dry, Intact, Normal Color, Rash (psoriasis) Lymphatic: No Adenopathy Course - Vital Signs Text/Narrative:: 63 y.o.f cam with her son to the ED after she noticed her stool is black and she had pain at her mid lower abd. This was the first time pt noticed the stool is black. No N/V/D, no H/O Stomach ulcers. No upper abd. pain. no trauma, Pt has painful urination, however. Pt is not able to deliver stool now, never ahd a endoscopic evaluation of her GI system. No other acute med issues. BP 129/91 RR 20 Pulse ox 100% on RA Temp 36.7 Pulse 113 PE: WNWD f with lower abd. pain, blook stool Imaging: Abd flat and upright: mod constipation, H/O ETOH liver disease Labs: CBC nl BMP nl . INR 1.50 UA; UTI with hematuria Impression: UTI with hematuria Tx: Pyridium, Cipro Reexam: Improved. Pt was not able to give stool, relucted for rectal exam. Pt will bring stool tomorrow directly to the LAB at [facility] Plan: D/C with instructions Addendum 02/23/2019 6.47 pm [facility] stool came back positive today. I have called the Pt at her home, advising her, to make an appointment with Dr. Vicenta carpenter for upper/lower endoscopy. Pt understood the advise Last Recorded V/S: Last Vital Signs Temp 36.9 C 02/22/19 16:45 Pulse 104 H 02/22/19 18:55 Resp 18 02/22/19 18:55 BP 145/97 H 02/22/19 18:55 Pulse Ox 97 02/22/19 18:55 - Orders/Labs/Meds Labs: Laboratory Tests 02/22/19 02/22/19 02/22/19 Range/Units 17:31 17:31 17:31 WBC 7.5 (4.5-12.0) X10-3/uL RBC 3.96 (3.23-5.20) x10(6)uL Hgb 13.0 (11.5-15.5) g/dL Hct 39.0 (30.0-51.3) % MCV 98.3 H (80-96) fL MCH 32.9 (27.7-33.6) pg MCHC 33.4 (32.2-35.4) g/dL RDW 15.1 (11.5-15.5) % Plt Count 146 (125-369) X10(3)uL MPV 8.8 (7.4-10.4) fL Neut % (Auto) 64.9 (46-82) % Lymph % (Auto) 24.2 (13-37) % Nance % (Auto) 8.8 (4-12) % Eos % (Auto) 1 (1.0-5.0) % Baso % (Auto) 1 (0-2) % Neut # (Auto) 4.8 (1.6-8.3) # Lymph # (Auto) 1.8 (0.6-5.0) # Nance # (Auto) 0.7 (0.0-1.3) # Eos # (Auto) 0.1 (0.0-0.8) # Baso # (Auto) 0.1 (0.0-0.2) # PT 14.5 H (8.7-11.1) INR 1.50 H (0.89-1.13) Sodium 140 (135-145) mmol/L Potassium 3.9 (3.5-5.3) mmol/L Chloride 105 (100-110) mmol/L Carbon Dioxide 24 (21-32) mmol/L BUN 14 (7-18) mg/dL Creatinine 0.9 (0.55-1.02) mg/dL Est Cr Clr Drug Dosing 54.53 mL/min Estimated GFR (MDRD) > 60 (>60) BUN/Creatinine Ratio 15.6 (9-20) Glucose 112 (80-116) mg/dL Calcium 9.1 (8.6-10.2) mg/dL Urine Color (YELLOW) Urine Appearance (CLEAR) Urine pH (5.0-6.5) Ur Specific Hewlett (1.010-1.025) Urine Protein (NEGATIVE) mg/dL Urine Glucose (UA) (NORMAL) mg/dL Urine Ketones (NEGATIVE) mg/dL Urine Occult Blood (NEGATIVE) Urine Nitrite (NEGATIVE) Urine Bilirubin (NEGATIVE) Urine Urobilinogen (NEGATIVE) mg/dL Ur Leukocyte Esterase (NEGATIVE) Urine RBC (0-5) Urine WBC (0-5) Ur Squamous Epith Cells (NS,R,O) Urine Bacteria (NS) 02/22/19 Range/Units 18:08 WBC (4.5-12.0) X10-3/uL RBC (3.23-5.20) x10(6)uL Hgb (11.5-15.5) g/dL Hct (30.0-51.3) % MCV (80-96) fL MCH (27.7-33.6) pg MCHC (32.2-35.4) g/dL RDW (11.5-15.5) % Plt Count (125-369) X10(3)uL MPV (7.4-10.4) fL Neut % (Auto) (46-82) % Lymph % (Auto) (13-37) % Nance % (Auto) (4-12) % Eos % (Auto) (1.0-5.0) % Baso % (Auto) (0-2) % Neut # (Auto) (1.6-8.3) # Lymph # (Auto) (0.6-5.0) # Nance # (Auto) (0.0-1.3) # Eos # (Auto) (0.0-0.8) # Baso # (Auto) (0.0-0.2) # PT (8.7-11.1) INR (0.89-1.13) Sodium (135-145) mmol/L Potassium (3.5-5.3) mmol/L Chloride (100-110) mmol/L Carbon Dioxide (21-32) mmol/L BUN (7-18) mg/dL Creatinine (0.55-1.02) mg/dL Est Cr Clr Drug Dosing mL/min Estimated GFR (MDRD) (>60) BUN/Creatinine Ratio (9-20) Glucose (80-116) mg/dL Calcium (8.6-10.2) mg/dL Urine Color Yellow (YELLOW) Urine Appearance Slightly cloudy (CLEAR) Urine pH 6.0 (5.0-6.5) Ur Specific Hewlett 1.025 (1.010-1.025) Urine Protein Trace (NEGATIVE) mg/dL Urine Glucose (UA) Normal (NORMAL) mg/dL Urine Ketones Negative (NEGATIVE) mg/dL Urine Occult Blood Large H (NEGATIVE) Urine Nitrite Positive H (NEGATIVE) Urine Bilirubin Negative (NEGATIVE) Urine Urobilinogen 4 H (NEGATIVE) mg/dL Ur Leukocyte Esterase Large H (NEGATIVE) Urine RBC 5-10 H (0-5) Urine WBC 10-20 H (0-5) Ur Squamous Epith Cells Moderate H (NS,R,O) Urine Bacteria Moderate H (NS) Meds: Medications Discontinued Medications Generic Name Dose Route Start Last Admin Trade Name Freq PRN Reason Stop Dose Admin Ciprofloxacin 500 mg 02/22/19 18:26 02/22/19 18:54 Ciprofloxacin Hcl PO 02/22/19 18:27 500 mg ONETIME STA Administration Phenazopyridine HCl 95 mg 02/22/19 18:26 02/22/19 18:53 Urinary Pain Relief PO 02/22/19 18:27 95 mg TIDPC STA Administration Departure - Departure Time of Disposition: 18:32 Disposition: Home, Self-Care 01 Condition: Good Clinical Impression: UTI (urinary tract infection) Qualifiers: Urinary tract infection type: site unspecified Hematuria presence: with hematuria Qualified Code(s): N39.0 - Urinary tract infection, site not specified - Discharge Information Prescriptions: Ciprofloxacin HCl [Cipro] 500 mg PO BID #20 tablet Phenazopyridine [Pyridium] 100 mg PO TID #9 tablet Instructions: Phenazopyridine tablets, Urinary Tract Infection, Adult, Easy-to- Read, Ciprofloxacin tablets Referrals: Hunter Marcos MD [Primary Care Provider] - Forms: ED Department Discharge Additional Instructions: Please increase water intake, please drop your stool sample off at the Lab tomorrow, Please take Cipro and Pyridium as recommended, please follow up as needed, come back if your symptoms get worse acutely.
[2019-02-22] MEDS ORDERED: Ciprofloxacin 500 MG Tab PO STA (18:26)
[2019-02-22] MEDS ORDERED: Phenazopyridine 95 MG Tab PO STA (18:26)
[2019-02-22 18:56] VITALS: BP 145/97
--- NOTE | 2019-02-23 12:29 | CR ---
INDICATION: Abdominal pain. ABDOMEN, TWO VIEWS: Five images of the abdomen in supine and upright projections were obtained 02/22/19 - no comparisons. The upright views were limited in that the left diaphragm was not fully included on the study, making it difficult to entirely exclude a minimal amount of free air. No gross free air was seen. The pattern of gas and feces is nonspecific with gas extending through the bowel and gas and stool in the area of the rectum. No mechanically obstructive process is suggested. Clips compatible with cholecystectomy are noted. No organomegaly, mass lesions, or nonvascular pathologic calcifications were noted. Calcifications are noted in the abdominal aorta and iliac arteries. Dextroconcave rotoscoliosis of moderate degree is noted. Compression fracture is noted at T12 of indeterminate age; however, it appears to be present on 12/10 chest x-ray. IMPRESSION: Nonacute abdomen. MTDD
== END 2019-02-22 18:57 | disposition home or self-care (01) ==
LOC: FB.ED 16:38
DX: N39.0 Urinary tract infection, site not specified (principal); I25.2 Old myocardial infarction; F41.9 Anxiety disorder, unspecified; F32.9 Major depressive disorder, single episode, unspecified; E11.9 Type 2 diabetes mellitus without complications; Z79.899 Other long term (current) drug therapy; Z79.4 Long term (current) use of insulin
CPT/HCPCS: 36415; 74019; 80048; 81001; 85025; 85610; 87086; 87088; 87186; 99284; A9270

== ENCOUNTER 2019-03-20 07:51 | Day surgery (SDC) | payer MEDICAID ==
[2019-03-20] MEDS ORDERED: Midazolam 1 MG/ML 2 ML SDV IV ONE (07:52)
[2019-03-20] MEDS ORDERED: Lidocaine 2% 100 MG/5 ML Syringe IVPUSH ONE (07:52)
[2019-03-20] MEDS ORDERED: Propofol 200 MG/20 ML SDV IV ONE (07:52)
[2019-03-20] MEDS ORDERED: Lactated Ringers 1,000 ML IV SCH (08:00)
--- NOTE | 2019-03-20 09:06 | PCM.OPNOTE ---
- General Post-Op/Procedure Note Date of Surgery/Procedure: 03/20/19 Operative Procedure(s): egd with bx Findings: gastritis esophagitis Pre Op Diagnosis: melena Post-Op Diagnosis: gastritis. esophagitis Anesthesia Technique: MAC Primary Surgeon: Micheal Yadav Anesthesia Provider: Maria Guadalupe Johnson ([facility] CRNAS) Pathology: stomach esophagus Complications: None Condition: Good Free Text/Narrative:: see dictation
[2019-03-20 09:40] VITALS: BP 115/74
--- NOTE | 2019-03-20 09:56 | OR ---
DATE OF OPERATION: 03/20/2019 SURGEON: Micheal Yadav MD PROCEDURE PERFORMED: Esophagogastroduodenoscopy with cold forceps biopsy. PREOPERATIVE DIAGNOSIS: History of melena. POSTOPERATIVE DIAGNOSES: Gastritis, esophagitis. INDICATIONS FOR PROCEDURE: This is a 63-year-old female who has had a history of melena in the past. She also has a history of ulcer. She was offered and accepted an esophagogastroduodenoscopy as part of a workup. DESCRIPTION OF OPERATION: After an excellent IV sedation was administered, bite block was inserted. Flexible endoscope was passed without difficulty down the patient's esophagus into the stomach. Stomach was insufflated. Scope passed through the pylorus, second portion of duodenum and slowly withdrawn. Following findings were noted. Duodenum was unremarkable. Stomach demonstrated diffuse gastritis. Photos and multiple biopsies were taken. Esophagus, distal esophagus demonstrated some evidence suggestive of esophagitis. Biopsies were taken. Stomach was then deflated. The scope was removed. On removing the esophagus, remainder of the esophageal exam was notable for some prominent blood vessels. Interestingly, she did not appear to have any varices in her distal esophagus, so further workup apparently appears to be indicated. We will be ordering an ultrasound looking for evidence of portal hypertension. /[id number] KAJAL/ALEJANDRA
== END 2019-03-20 09:43 | disposition home or self-care (01) ==
LOC: FB.SDS 07:51
PROVIDERS: ATTEND Surgery
DX: K29.51 Unspecified chronic gastritis with bleeding (principal); K21.0 Gastro-esophageal reflux disease with esophagitis; K70.30 Alcoholic cirrhosis of liver without ascites; E11.39 Type 2 diabetes mellitus with other diabetic ophthalmic complication; H40.1190 Primary open-angle glaucoma, unspecified eye, stage unspecified; H42 Glaucoma in diseases classified elsewhere; F17.210 Nicotine dependence, cigarettes, uncomplicated; F32.9 Major depressive disorder, single episode, unspecified; F41.1 Generalized anxiety disorder; F10.20 Alcohol dependence, uncomplicated; Z88.6 Allergy status to analgesic agent; Z88.8 Allergy status to other drugs, medicaments and biological substances; Z91.02 Food additives allergy status; Z86.010 Personal history of colon polyps; Z87.11 Personal history of peptic ulcer disease; Z79.4 Long term (current) use of insulin; Z79.82 Long term (current) use of aspirin; Z79.899 Other long term (current) drug therapy
CPT/HCPCS: 82962; 88305; 88313; 88342; J2001; J2250; J2704; J7120

== ENCOUNTER 2019-10-04 15:14 | Emergency (ER) | payer MEDICARE, MEDICAID ==
[2019-10-04 15:29] VITALS: BP 118/70; PULSE 104
--- NOTE | 2019-10-04 16:24 | EDM.PDOC ---
ED HPI GENERAL MEDICAL PROBLEM - General Chief Complaint: ENT Problem Stated Complaint: NOSE BLEED Time Seen by Provider: 10/04/19 15:20 Source of Information: Reports: Patient, Family History Limitations: Reports: No Limitations - History of Present Illness INITIAL COMMENTS - FREE TEXT/NARRATIVE: Clarissa comes in with bilateral epistaxis since early this afternoon, primarily from the R nares. She has not had issues with nosebleeds in the past. She does take 1 81mg ASA daily. Efforts at control including pressure have been unsuccessful. - Related Data Allergies Allergy/AdvReac Type Severity Reaction Status Date / Time chocolate flavor Allergy Cannot Verified 02/22/19 16:47 Remember cyclobenzaprine AdvReac Nausea and Verified 02/22/19 16:47 Vomiting meloxicam AdvReac Nausea Verified 02/22/19 16:47 Home Meds: Home Meds Multivitamin [Daily Multiple Vitamin] 1 tab PO DAILY 04/13/18 [History] Pantoprazole [ProTONIX] 40 mg PO DAILY 04/23/18 [History] Cyanocobalamin (Vitamin B-12) [Vitamin B-12] 1,000 mcg PO DAILY 01/18/19 [ History] metFORMIN [Glucophage] 500 mg PO BIDMEALS #60 tablet 01/19/19 [Rx] Aspirin [Lo-Dose Aspirin EC] 81 mg PO DAILY 02/21/19 [History] atorvaSTATin [Lipitor] 10 mg PO BEDTIME 02/21/19 [History] Insulin Aspart [NovoLOG] 5 units SQ TID 02/22/19 [History] Insulin Glargine,Hum.Rec.Anlog [Lantus Solostar] 20 units SQ BEDTIME 02/22/19 [ History] Clobetasol Propionate [Temovate Cream] 1 applic TP BID 03/19/19 [History] Clotrimazole/Betamethasone Dip [Lotrisone Cream] 1 applic TP BID 03/19/19 [ History] Glucosam/Chond-MSM 2/C/D3/Cong [Zfewleueje-Rmwwzvdaduw-BJK] 1 each PO DAILY [History] Ketoconazole [Nizoral 2% Shampoo] 1 applic TOP WEEKLY 03/19/19 [History] Past Medical History HEENT History: Reports: Cataract, Glaucoma, Impaired Vision, Other (See Below) Other HEENT History: Almost blind L eye. Cardiovascular History: Reports: [place] Other Cardiovascular History: [place] / [place] OR MAY 2018. Respiratory History: Reports: Bronchitis, Recurrent, Pneumonia, Recurrent, Other (See Below) Other Respiratory History: RIGHT PLEURAL EFFUSION, HOSPITALIZED 05/2018. SIGNIFICANT STATES ON VENT FOR 9 DAYS. ARDS Gastrointestinal History: Reports: Cholelithiasis, Cirrhosis, Colon Polyp, GERD , Other (See Below) Other Gastrointestinal History: STATES TEAR OF ESOPHAGUS ET REPAIR 2018, ESOPHAGEAL VARICES Genitourinary History: Reports: Urinary Incontinence SALES REPRESENTATIVES History: Reports: Other (See Below) Other SALES REPRESENTATIVES History: . Musculoskeletal History: Reports: Arthritis, Back Pain, Chronic, Fracture, Osteoarthritis Other Musculoskeletal History: Hx fracture L arm. Hx fracture L foot 4th toe. Hx sprained left ankle. Uses a cane for support with ambulation. Neurological History: Reports: Migraines Other Neuro History: Hx temporal arteritis. Psychiatric History: Reports: Addiction, Anxiety, Depression, Panic Attack, Other (See Below) Other Psychiatric History: Hx ETOH abuse. Endocrine/Metabolic History: Reports: Diabetes, Type II Other Endocrine/Metabolic History: new diagnosis Hematologic History: Reports: Anemia Other Hematologic History: THROMBOCYTOPENIA Immunologic History: Reports: None Oncologic (Cancer) History: Dermatologic History: Reports: Psoriasis - Infectious Disease History Infectious Disease History: Reports: Chicken Pox - Past Surgical History Head Surgeries/Procedures: Reports: None HEENT Surgical History: Reports: None Other HEENT Surgeries/Procedures: Eye surgery 2 Cardiovascular Surgical History: Reports: None Respiratory Surgical History: Reports: None GI Surgical History: Reports: Cholecystectomy, Colonoscopy, EGD Female Surgical History: Reports: None Musculoskeletal Surgical History: Reports: None Social & Family History - Family History Family Medical History: Noncontributory Endocrine/Metabolic: Reports: Diabetes, type II - Caffeine Use Caffeine Use: Reports: Coffee Other Caffeine Use: 1 cup daily - Living Situation & Occupation Occupation: Retired ED ROS ENT - Review of Systems Review Of Systems: Comprehensive ROS is negative, except as noted in HPI. ED EXAM, ENT - Physical Exam Exam: See Below Exam Limited By: No Limitations General Appearance: Alert, WD/WN, No Apparent Distress Eye Exam: Bilateral Eye: EOMI, Normal Inspection, PERRL Ears: Normal External Exam, Normal TMs Nose: Active Bleeding (R anterior septum; dislocated septal cartilage R) Mouth/Throat: Normal Inspection, Normal Gums, Normal Lips, Normal Oropharynx Head: Normocephalic Neck: Supple Respiratory/Chest: Lungs Clear Cardiovascular: Regular Rate, Rhythm, No Murmur Back: Normal Inspection Extremities: Normal Inspection Neurological: Alert, Oriented, CN II-XII Intact, Normal Cognition, No Motor/ Sensory Deficits Psychiatric: Normal Affect, Normal Mood Skin: Warm, Dry, Intact, Normal Color, No Rash Lymphatic: No Adenopathy Course - Vital Signs Text/Narrative:: With patient consent, I initially stopped bleeding with cotton pledgets saturated with Afrin Soln. A bleeding site was located on the R nasal septum, and this was cauterized with AgN03 stik successfully. A cotton pledget with Bacitracin oint was reinserted for the next 4 hours. Patient tolerated procedure well. Last Recorded V/S: Last Vital Signs Temp 36.3 C 10/04/19 15:28 Pulse 104 H 10/04/19 15:28 Resp 17 10/04/19 15:28 BP 118/70 10/04/19 15:28 Pulse Ox 95 10/04/19 15:28 Departure - Departure Time of Disposition: 16:42 Disposition: Home, Self-Care 01 Condition: Good Clinical Impression: Acute anterior epistaxis - Discharge Information *PRESCRIPTION DRUG MONITORING PROGRAM REVIEWED*: Not Applicable *COPY OF PRESCRIPTION DRUG MONITORING REPORT IN PATIENT SALLY: Not Applicable Referrals: Hunter Marcos MD [Primary Care Provider] - Sepsis Event Note - Evaluation Sepsis Screening Result: No Definite Risk - Focused Exam Vital Signs: Vital Signs Temp Pulse Resp BP Pulse Ox 10/04/19 15:28 36.3 C 104 H 17 118/70 95 Date Exam was Performed: 10/04/19 Time Exam was Performed: 16:03 - Problem List & Annotations (1) Acute anterior epistaxis SNOMED Code(s): 679669432 Code(s): R04.0 - EPISTAXIS Status: Acute Current Visit: Yes Annotation/ Comment:: I suggested removal of Bacitracin packing in 4 hours, and sxs cares. - Problem List Review Problem List Initiated/Reviewed/Updated: Yes - Assessment/Plan Plan: Follow up with PCP if needed.
== END 2019-10-04 16:52 | disposition home or self-care (01) ==
LOC: FB.ED 15:14
DX: R04.0 Epistaxis (principal); E11.9 Type 2 diabetes mellitus without complications; I25.2 Old myocardial infarction; F41.9 Anxiety disorder, unspecified; F32.9 Major depressive disorder, single episode, unspecified; Z79.4 Long term (current) use of insulin; Z79.899 Other long term (current) drug therapy; Z88.8 Allergy status to other drugs, medicaments and biological substances
CPT/HCPCS: 30901; 99282; 99283

== ENCOUNTER 2019-10-05 05:02 | Emergency (ER) | payer MEDICARE, MEDICAID ==
[2019-10-05 05:26] VITALS: BP 136/78; PULSE 116
--- NOTE | 2019-10-05 05:42 | EDM.PDOC ---
ED HPI GENERAL MEDICAL PROBLEM - General Chief Complaint: ENT Problem Stated Complaint: NOSE BLEED Time Seen by Provider: 10/05/19 05:20 Source of Information: Reports: Patient, Family, Old Records History Limitations: Reports: No Limitations - History of Present Illness INITIAL COMMENTS - FREE TEXT/NARRATIVE: Clarissa returns to [facility] ED with a relapse of R anterior epistaxis, ED note from reviewed. She awoke coughing, and the bleeding resumed. Direct pressure has been ineffective so far. - Related Data Allergies Allergy/AdvReac Type Severity Reaction Status Date / Time chocolate flavor Allergy Cannot Verified 10/05/19 05:10 Remember cyclobenzaprine AdvReac Nausea and Verified 10/05/19 05:10 Vomiting meloxicam AdvReac Nausea Verified 10/05/19 05:10 Home Meds: Home Meds Multivitamin [Daily Multiple Vitamin] 1 tab PO DAILY 04/13/18 [History] Pantoprazole [ProTONIX] 40 mg PO DAILY 04/23/18 [History] Cyanocobalamin (Vitamin B-12) [Vitamin B-12] 1,000 mcg PO DAILY 01/18/19 [ History] metFORMIN [Glucophage] 500 mg PO BIDMEALS #60 tablet 01/19/19 [Rx] Aspirin [Lo-Dose Aspirin EC] 81 mg PO DAILY 02/21/19 [History] atorvaSTATin [Lipitor] 10 mg PO BEDTIME 02/21/19 [History] Insulin Aspart [NovoLOG] 5 units SQ TID 02/22/19 [History] Insulin Glargine,Hum.Rec.Anlog [Lantus Solostar] 20 units SQ BEDTIME 02/22/19 [ History] Clobetasol Propionate [Temovate Cream] 1 applic TP BID 03/19/19 [History] Clotrimazole/Betamethasone Dip [Lotrisone Cream] 1 applic TP BID 03/19/19 [ History] Glucosam/Chond-MSM 2/C/D3/Cong [Fehbubqwom-Gshuvykleud-VCV] 1 each PO DAILY [History] Ketoconazole [Nizoral 2% Shampoo] 1 applic TOP WEEKLY 03/19/19 [History] Past Medical History HEENT History: Reports: Cataract, Glaucoma, Impaired Vision, Other (See Below) Other HEENT History: Almost blind L eye. Cardiovascular History: Reports: [place] Other Cardiovascular History: STATES / [place] OR MAY 2018. Respiratory History: Reports: Bronchitis, Recurrent, Pneumonia, Recurrent, Other (See Below) Other Respiratory History: RIGHT PLEURAL EFFUSION, HOSPITALIZED 05/2018. SIGNIFICANT STATES ON VENT FOR 9 DAYS. ARDS Gastrointestinal History: Reports: Cholelithiasis, Cirrhosis, Colon Polyp, GERD , Other (See Below) Other Gastrointestinal History: STATES TEAR OF ESOPHAGUS ET REPAIR 2018, ESOPHAGEAL VARICES Genitourinary History: Reports: Urinary Incontinence YARDAGE CONTROL OPERATOR History: Reports: Other (See Below) Other YARDAGE CONTROL OPERATOR History: . Musculoskeletal History: Reports: Arthritis, Back Pain, Chronic, Fracture, Osteoarthritis Other Musculoskeletal History: Hx fracture L arm. Hx fracture L foot 4th toe. Hx sprained left ankle. Uses a cane for support with ambulation. Neurological History: Reports: Migraines Other Neuro History: Hx temporal arteritis. Psychiatric History: Reports: Addiction, Anxiety, Depression, Panic Attack, Other (See Below) Other Psychiatric History: Hx ETOH abuse. Endocrine/Metabolic History: Reports: Diabetes, Type II Other Endocrine/Metabolic History: new diagnosis Hematologic History: Reports: Anemia Other Hematologic History: THROMBOCYTOPENIA Immunologic History: Reports: None Oncologic (Cancer) History: Dermatologic History: Reports: Psoriasis - Infectious Disease History Infectious Disease History: Reports: Chicken Pox - Past Surgical History Head Surgeries/Procedures: Reports: None HEENT Surgical History: Reports: None Other HEENT Surgeries/Procedures: Eye surgery 2 Cardiovascular Surgical History: Reports: None Respiratory Surgical History: Reports: None GI Surgical History: Reports: Cholecystectomy, Colonoscopy, EGD Female Surgical History: Reports: None Musculoskeletal Surgical History: Reports: None Social & Family History - Family History Family Medical History: Noncontributory Endocrine/Metabolic: Reports: Diabetes, type II - Tobacco Use Smoking Status *Q: Current Every Day Smoker Years of Tobacco use: 50 Packs/Tins Daily: 1 Used Tobacco, but Quit: No Second Hand Smoke Exposure: Yes - Caffeine Use Caffeine Use: Reports: Coffee Other Caffeine Use: 1 cup daily - Recreational Drug Use Recreational Drug Use: No - Living Situation & Occupation Occupation: Retired ED ROS ENT - Review of Systems Review Of Systems: Comprehensive ROS is negative, except as noted in HPI. ED EXAM, ENT - Physical Exam Exam: See Below Exam Limited By: No Limitations General Appearance: Alert, WD/WN, No Apparent Distress, Anxious, Obese Eye Exam: Bilateral Eye: EOMI, Normal Inspection, PERRL Ears: Normal External Exam, Normal TMs Nose: Dried Blood, Other (bleeding point on R anterior septum with residual AgN03 present) Mouth/Throat: Normal Inspection, Normal Gums, Normal Lips, Normal Oropharynx, Normal Teeth Head: Normocephalic Neck: Normal Inspection, Supple, Non-Tender Respiratory/Chest: Lungs Clear Cardiovascular: Regular Rate, Rhythm, No Murmur Back: Normal Inspection Extremities: Normal Inspection Neurological: Alert, Oriented, CN II-XII Intact, Normal Cognition, No Motor/ Sensory Deficits Psychiatric: Normal Affect, Normal Mood Skin: Warm, Dry, Intact, Normal Color Lymphatic: No Adenopathy Course - Vital Signs Text/Narrative:: Following assessment, I reinserted a cotton pledget saturated with Afrin, and all bleeding ceased within minutes. Reinspection of bleeding site was negative. A new Bacitracin cotton pledget was inserted uneventfully. Patient tolerated procedure well. Last Recorded V/S: Last Vital Signs Temp 36.8 C 10/05/19 05:05 Pulse 116 H 10/05/19 05:05 Resp 18 10/05/19 05:05 BP 136/78 10/05/19 05:05 Pulse Ox 97 10/05/19 05:05 Departure - Departure Time of Disposition: 05:40 Disposition: Home, Self-Care 01 Condition: Fair Clinical Impression: Acute anterior epistaxis - Discharge Information *PRESCRIPTION DRUG MONITORING PROGRAM REVIEWED*: Not Applicable *COPY OF PRESCRIPTION DRUG MONITORING REPORT IN PATIENT SALLY: Not Applicable Referrals: Hunter Marcos MD [Primary Care Provider] - Sepsis Event Note - Evaluation Sepsis Screening Result: No Definite Risk - Focused Exam Vital Signs: Vital Signs Temp Pulse Resp BP Pulse Ox 10/05/19 05:05 36.8 C 116 H 18 136/78 97 Date Exam was Performed: 10/05/19 Time Exam was Performed: 05:36 - Problem List & Annotations (1) Acute anterior epistaxis SNOMED Code(s): 077344706 Code(s): R04.0 - EPISTAXIS Status: Acute Annotation/Comment:: I suggested removal of Bacitracin packing in 12 hours. Follow up if any issues. I suggested removal of Bacitracin packing in 4 hours, and sxs cares. - Problem List Review Problem List Initiated/Reviewed/Updated: Yes - Assessment/Plan Plan: Follow up with PCP if needed.
== END 2019-10-05 05:50 | disposition home or self-care (01) ==
LOC: FB.ED 05:02
DX: R04.0 Epistaxis (principal); F17.210 Nicotine dependence, cigarettes, uncomplicated; Z90.49 Acquired absence of other specified parts of digestive tract; E11.9 Type 2 diabetes mellitus without complications; K21.9 Gastro-esophageal reflux disease without esophagitis; Z79.899 Other long term (current) drug therapy; Z88.8 Allergy status to other drugs, medicaments and biological substances; Z79.82 Long term (current) use of aspirin; Z79.4 Long term (current) use of insulin; Z91.018 Allergy to other foods
CPT/HCPCS: 30901; 30903; 99283; 99283-25

== ENCOUNTER 2019-10-05 07:35 | Emergency (ER) | payer MEDICARE, MEDICAID ==
[2019-10-05 08:01] VITALS: BP 142/83; PULSE 115
== END 2019-10-05 08:15 | disposition home or self-care (01) ==
LOC: FB.ED 07:35
DX: R04.0 Epistaxis (principal); E11.9 Type 2 diabetes mellitus without complications; F17.210 Nicotine dependence, cigarettes, uncomplicated; Z79.899 Other long term (current) drug therapy; Z88.8 Allergy status to other drugs, medicaments and biological substances; Z79.4 Long term (current) use of insulin; Z88.5 Allergy status to narcotic agent; Z79.84 Long term (current) use of oral hypoglycemic drugs; Z91.018 Allergy to other foods
CPT/HCPCS: 30903; 99283-25

== ENCOUNTER 2019-10-07 08:23 | Emergency (ER) | payer MEDICARE, MEDICAID ==
--- NOTE | 2019-10-07 08:39 | EDM.PDOC ---
ED HPI GENERAL MEDICAL PROBLEM - General Stated Complaint: follow up nose bleed Time Seen by Provider: 10/07/19 08:25 Source of Information: Reports: Patient History Limitations: Reports: No Limitations - History of Present Illness INITIAL COMMENTS - FREE TEXT/NARRATIVE: Patient presented to the ED to recheck a rhino pack that was placed in the right nose 2 days ago. It's still bleeding and the nasal pack is stil loosening up. - Related Data Allergies Allergy/AdvReac Type Severity Reaction Status Date / Time chocolate flavor Allergy Cannot Verified 10/05/19 05:10 Remember cyclobenzaprine AdvReac Nausea and Verified 10/05/19 05:10 Vomiting meloxicam AdvReac Nausea Verified 10/05/19 05:10 Home Meds: Home Meds Multivitamin [Daily Multiple Vitamin] 1 tab PO DAILY 04/13/18 [History] Pantoprazole [ProTONIX] 40 mg PO DAILY 04/23/18 [History] Cyanocobalamin (Vitamin B-12) [Vitamin B-12] 1,000 mcg PO DAILY 01/18/19 [ History] metFORMIN [Glucophage] 500 mg PO BIDMEALS #60 tablet 01/19/19 [Rx] Aspirin [Lo-Dose Aspirin EC] 81 mg PO DAILY 02/21/19 [History] atorvaSTATin [Lipitor] 10 mg PO BEDTIME 02/21/19 [History] Insulin Aspart [NovoLOG] 5 units SQ TID 02/22/19 [History] Insulin Glargine,Hum.Rec.Anlog [Lantus Solostar] 20 units SQ BEDTIME 02/22/19 [ History] Clobetasol Propionate [Temovate Cream] 1 applic TP BID 03/19/19 [History] Clotrimazole/Betamethasone Dip [Lotrisone Cream] 1 applic TP BID 03/19/19 [ History] Glucosam/Chond-MSM 2/C/D3/Cong [Qmybkvoqjl-Xlcmfbxywyh-WJG] 1 each PO DAILY [History] Ketoconazole [Nizoral 2% Shampoo] 1 applic TOP WEEKLY 03/19/19 [History] Past Medical History HEENT History: Reports: Cataract, Glaucoma, Impaired Vision, Other (See Below) Other HEENT History: Almost blind L eye. Cardiovascular History: Reports: [place] Other Cardi[place] History: [place]. Respiratory History: Reports: Bronchitis, Recurrent, Pneumonia, Recurrent, Other (See Below) Other Respiratory History: RIGHT PLEURAL EFFUSION, HOSPITALIZED 05/2018. SIGNIFICANT STATES ON VENT FOR 9 DAYS. ARDS Gastrointestinal History: Reports: Cholelithiasis, Cirrhosis, Colon Polyp, GERD , Other (See Below) Other Gastrointestinal History: STATES TEAR OF ESOPHAGUS ET REPAIR 2018, ESOPHAGEAL VARICES Genitourinary History: Reports: Urinary Incontinence ROOM INSPECTOR History: Reports: Other (See Below) Other ROOM INSPECTOR History: . Musculoskeletal History: Reports: Arthritis, Back Pain, Chronic, Fracture, Osteoarthritis Other Musculoskeletal History: Hx fracture L arm. Hx fracture L foot 4th toe. Hx sprained left ankle. Uses a cane for support with ambulation. Neurological History: Reports: Migraines Other Neuro History: Hx temporal arteritis. Psychiatric History: Reports: Addiction, Anxiety, Depression, Panic Attack, Other (See Below) Other Psychiatric History: Hx ETOH abuse. Endocrine/Metabolic History: Reports: Diabetes, Type II Other Endocrine/Metabolic History: new diagnosis Hematologic History: Reports: Anemia Other Hematologic History: THROMBOCYTOPENIA Immunologic History: Reports: None Oncologic (Cancer) History: Dermatologic History: Reports: Psoriasis - Infectious Disease History Infectious Disease History: Reports: Chicken Pox - Past Surgical History Head Surgeries/Procedures: Reports: None HEENT Surgical History: Reports: None Other HEENT Surgeries/Procedures: Eye surgery 2 Cardiovascular Surgical History: Reports: None Respiratory Surgical History: Reports: None GI Surgical History: Reports: Cholecystectomy, Colonoscopy, EGD Female Surgical History: Reports: None Musculoskeletal Surgical History: Reports: None Social & Family History - Family History Family Medical History: Noncontributory Endocrine/Metabolic: Reports: Diabetes, type II - Caffeine Use Caffeine Use: Reports: Coffee Other Caffeine Use: 1 cup daily - Living Situation & Occupation Occupation: Retired ED ROS ENT - Review of Systems Review Of Systems: See Below Constitutional: Reports: No Symptoms HEENT: Reports: Other (nasal pack in place-right nose) Respiratory: Reports: No Symptoms Cardiovascular: Reports: No Symptoms Endocrine: Reports: No Symptoms GI/Abdominal: Reports: No Symptoms : Reports: No Symptoms Musculoskeletal: Reports: No Symptoms Skin: Reports: No Symptoms Neurological: Reports: No Symptoms Psychiatric: Reports: No Symptoms ED EXAM, ENT - Physical Exam Exam: See Below Exam Limited By: No Limitations General Appearance: Alert Ears: Normal External Exam Nose: Normal Inspection Mouth/Throat: Normal Inspection Head: Atraumatic, Normocephalic Neck: Normal Inspection, Supple Respiratory/Chest: No Respiratory Distress, Lungs Clear, Normal Breath Sounds GI/Abdominal: Normal Bowel Sounds, Soft, No Organomegaly (Female) Exam: Normal External Exam Back: Normal Inspection, Full Range of Motion Extremities: Normal Inspection, Normal Range of Motion Course - Vital Signs Text/Narrative:: The nasal pack was reinflated Departure - Departure Time of Disposition: 08:40 Disposition: Home, Self-Care 01 Condition: Good Clinical Impression: Epistaxis - Discharge Information Instructions: Nosebleed, [id number] Referrals: PCP,None [Primary Care Provider] - Forms: ED Department Discharge Additional Instructions: do not take your aspirin for 1 week add some air as instructed if you feel the rhino pack is loosening up you can remove the rhino pack tomorrow at 4 pm by deflating it as instructed then gently pull the nasal pack follow up as needed Sepsis Event Note - Focused Exam Date Exam was Performed: 10/07/19 Time Exam was Performed: 08:42
[2019-10-07 08:55] VITALS: BP 110/72; PULSE 106
== END 2019-10-07 08:46 | disposition home or self-care (01) ==
LOC: FB.ED 08:23
DX: R04.0 Epistaxis (principal); I25.2 Old myocardial infarction; E11.9 Type 2 diabetes mellitus without complications; K21.9 Gastro-esophageal reflux disease without esophagitis; Z86.2 Personal history of diseases of the blood and blood-forming organs and certain disorders involving the immune mechanism; Z90.49 Acquired absence of other specified parts of digestive tract; Z79.4 Long term (current) use of insulin; Z79.82 Long term (current) use of aspirin; Z79.899 Other long term (current) drug therapy; Z88.8 Allergy status to other drugs, medicaments and biological substances; Z91.018 Allergy to other foods
CPT/HCPCS: 99282; 99283

== ENCOUNTER 2019-10-09 11:53 | Emergency (ER) | payer MEDICARE, MEDICAID ==
[2019-10-09] MEDS ORDERED: Acetaminophen 500 MG Tab PO ONE (12:29)
--- NOTE | 2019-10-09 12:33 | EDM.PDOC ---
ED HPI GENERAL MEDICAL PROBLEM - General Chief Complaint: ENT Problem Stated Complaint: nose bleed Time Seen by Provider: 10/09/19 12:00 Source of Information: Reports: Patient History Limitations: Reports: No Limitations - History of Present Illness INITIAL COMMENTS - FREE TEXT/NARRATIVE: Patient was referred to the ED by Dr Marcos because of a right sided epistaxis. She was seen in the ED x2 and at the clinic today. There was a nasal pack that was inserted last Tuesday and Tuesday, however, there is still mild bleeding. She denies any profuse bleeding,dizziness or lightheadedness. - Related Data Allergies Allergy/AdvReac Type Severity Reaction Status Date / Time chocolate flavor Allergy Cannot Verified 10/05/19 05:10 Remember cyclobenzaprine AdvReac Nausea and Verified 10/05/19 05:10 Vomiting meloxicam AdvReac Nausea Verified 10/05/19 05:10 Home Meds: Home Meds Multivitamin [Daily Multiple Vitamin] 1 tab PO DAILY 04/13/18 [History] Pantoprazole [ProTONIX] 40 mg PO DAILY 04/23/18 [History] Cyanocobalamin (Vitamin B-12) [Vitamin B-12] 1,000 mcg PO DAILY 01/18/19 [ History] metFORMIN [Glucophage] 500 mg PO BIDMEALS #60 tablet 01/19/19 [Rx] Aspirin [Lo-Dose Aspirin EC] 81 mg PO DAILY 02/21/19 [History] atorvaSTATin [Lipitor] 10 mg PO BEDTIME 02/21/19 [History] Insulin Aspart [NovoLOG] 5 units SQ TID 02/22/19 [History] Insulin Glargine,Hum.Rec.Anlog [Lantus Solostar] 20 units SQ BEDTIME 02/22/19 [ History] Clobetasol Propionate [Temovate Cream] 1 applic TP BID 03/19/19 [History] Clotrimazole/Betamethasone Dip [Lotrisone Cream] 1 applic TP BID 03/19/19 [ History] Glucosam/Chond-MSM 2/C/D3/Cong [Pgsmisndkg-Ebcolcvoxzk-SOV] 1 each PO DAILY [History] Ketoconazole [Nizoral 2% Shampoo] 1 applic TOP WEEKLY 03/19/19 [History] Past Medical History HEENT History: Reports: Cataract, Glaucoma, Impaired Vision, Other (See Below) Other HEENT History: Almost blind L eye. Cardiovascular History: Reports: [place] Other Cardiovascular History: STATES / APRIL OR MAY 2018. Respiratory History: Reports: Bronchitis, Recurrent, Pneumonia, Recurrent, Other (See Below) Other Respiratory History: RIGHT PLEURAL EFFUSION, HOSPITALIZED 05/2018. SIGNIFICANT STATES ON VENT FOR 9 DAYS. 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 Musculoskeletal History: Reports: Arthritis, Back Pain, Chronic, Fracture, Osteoarthritis Other Musculoskeletal History: Hx fracture L arm. Hx fracture L foot 4th toe. Hx sprained left ankle. Uses a cane for support with ambulation. Neurological History: Reports: Migraines Other Neuro History: Hx temporal arteritis. Psychiatric History: Reports: Addiction, Anxiety, Depression, Panic Attack, Other (See Below) Other Psychiatric History: Hx ETOH abuse. Endocrine/Metabolic History: Reports: Diabetes, Type II Other Endocrine/Metabolic History: new diagnosis Hematologic History: Reports: Anemia Other Hematologic History: THROMBOCYTOPENIA Immunologic History: Reports: None Oncologic (Cancer) History: Dermatologic History: Reports: Psoriasis - Infectious Disease History Infectious Disease History: Reports: Chicken Pox - Past Surgical History Head Surgeries/Procedures: Reports: None HEENT Surgical History: Reports: None Other HEENT Surgeries/Procedures: Eye surgery 2 Cardiovascular Surgical History: Reports: None Respiratory Surgical History: Reports: None GI Surgical History: Reports: Cholecystectomy, Colonoscopy, EGD Female Surgical History: Reports: None Musculoskeletal Surgical History: Reports: None Social & Family History - Family History Family Medical History: Noncontributory Endocrine/Metabolic: Reports: Diabetes, type II - Caffeine Use Caffeine Use: Reports: Coffee Other Caffeine Use: 1 cup daily - Living Situation & Occupation Occupation: Retired ED ROS GENERAL - Review of Systems Review Of Systems: See Below Constitutional: Reports: No Symptoms HEENT: Reports: Nosebleed Respiratory: Reports: No Symptoms Cardiovascular: Reports: No Symptoms Endocrine: Reports: No Symptoms GI/Abdominal: Reports: No Symptoms : Reports: No Symptoms Musculoskeletal: Reports: No Symptoms Skin: Reports: No Symptoms ED EXAM, DIZZINESS - Physical Exam Exam: See Below Exam Limited By: No Limitations General Appearance: Alert, No Apparent Distress Nystagmus: worsens with head to L Ears: Normal External Exam, Normal Canal, Hearing Grossly Normal Nose: Normal Inspection, Other (mild nasal bleed) Head Exam: Atraumatic, Normocephalic Neck: Normal Inspection, Supple, Non-Tender, Full Range of Motion Respiratory/Chest: No Respiratory Distress, Lungs Clear, Normal Breath Sounds, No Accessory Muscle Use, Chest Non-Tender Cardiovascular: Normal Peripheral Pulses, Regular Rate, Rhythm, No Edema, No Gallop, No JVD, No Murmur, No Rub GI/Abdominal: Normal Bowel Sounds, Soft, Non-Tender, No Organomegaly, No Distention, No Abnormal Bruit, No Mass, Pelvis Stable (Female) Exam: Normal External Exam, Normal Speculum Exam Course - Vital Signs Text/Narrative:: A rhino pack was applied I did a consult with DR De Anda(ENT sap treasury consultant) who will schedule the patient to be seen as an outpatient in his clinic tomorrow vs going to the ED. I told the patient and her daughter that if they decided to go to the Ed that she might not see Dr De Anda because he is doing a procedure. Last Recorded V/S: Last Vital Signs Temp 36.9 C 10/09/19 12:39 Pulse 97 10/09/19 12:39 Resp 16 10/09/19 12:39 BP 139/79 10/09/19 12:39 Pulse Ox 98 10/09/19 12:39 - Orders/Labs/Meds Meds: Medications Discontinued Medications Generic Name Dose Route Start Last Admin Trade Name [place] PRN Reason Stop Dose Admin Acetaminophen 1,000 mg 10/09/19 12:29 10/09/19 12:36 Tylenol Extra Strength PO 10/09/19 12:30 1,000 mg ONETIME ONE Administration Departure - Departure Time of Disposition: 12:40 Disposition: Home, Self-Care 01 Condition: Good Clinical Impression: Epistaxis - Discharge Information Instructions: Nosebleed, [id number] Referrals: Hunter Marcos MD [Primary Care Provider] - Forms: ED Department Discharge Additional Instructions: Do not take your aspirin Dr Maldonado's office will call you today for your appoint to see him Sepsis Event Note - Evaluation Sepsis Screening Result: No Definite Risk - Focused Exam Date Exam was Performed: 10/11/19 Time Exam was Performed: 05:49
[2019-10-09 12:47] VITALS: BP 139/79; PULSE 97
== END 2019-10-09 12:40 | disposition home or self-care (01) ==
LOC: FB.ED 11:53
DX: R04.0 Epistaxis (principal); I25.2 Old myocardial infarction; E11.9 Type 2 diabetes mellitus without complications; K21.9 Gastro-esophageal reflux disease without esophagitis; Z79.4 Long term (current) use of insulin; Z88.6 Allergy status to analgesic agent; Z91.018 Allergy to other foods; Z88.8 Allergy status to other drugs, medicaments and biological substances; Z79.82 Long term (current) use of aspirin
CPT/HCPCS: 30901; 30903; 99282; 99283; A9270

== ENCOUNTER 2019-10-17 16:17 | Emergency (ER) | payer MEDICARE, MEDICAID ==
[2019-10-17] MEDS ORDERED: Sodium Chloride 0.9% 1,000 ML IV SCH ×2 (16:45→17:45)
[2019-10-17] MEDS ORDERED: Albuterol/Ipratropium 3.0-0.5 MG/3 ML Neb Soln NEB ONE (16:48)
[2019-10-17] MEDS ORDERED: Aspirin 81 MG Tab.Chew PO STA (16:49)
--- NOTE | 2019-10-17 17:13 | EDM.PDOC ---
ED HPI GENERAL MEDICAL PROBLEM - General Chief Complaint: Chest Pain Stated Complaint: CHEST PAIN Time Seen by Provider: 10/17/19 16:35 Source of Information: Reports: Patient, EMS, Family History Limitations: Reports: No Limitations - History of Present Illness INITIAL COMMENTS - FREE TEXT/NARRATIVE: states she has not been feeling well since this am ,so had taken a nap Woke up about 330 with pain in the chest: retrosternal , sharp radiating to he back , lasted about 5 mins , she could not catch her breath . She called EMS . By the time the EMs arrived , her pain had resolved on arrival here no CP, no sob, no palpitations, had been tachycardic on the monitor and remained so : HR > 100. states she has not been ill but has had a cough, non productive has history of GERD but states pain is different has history of ? 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 - Related Data Allergies Allergy/AdvReac Type Severity Reaction Status Date / Time chocolate flavor Allergy Cannot Verified 10/05/19 05:10 Remember cyclobenzaprine AdvReac Nausea and Verified 10/05/19 05:10 Vomiting meloxicam AdvReac Nausea Verified 10/05/19 05:10 Home Meds: Home Meds Multivitamin [Daily Multiple Vitamin] 1 tab PO DAILY 04/13/18 [History] Pantoprazole [ProTONIX] 40 mg PO DAILY 04/23/18 [History] Cyanocobalamin (Vitamin B-12) [Vitamin B-12] 1,000 mcg PO DAILY 01/18/19 [ History] metFORMIN [Glucophage] 500 mg PO BIDMEALS #60 tablet 01/19/19 [Rx] Aspirin [Lo-Dose Aspirin EC] 81 mg PO DAILY 02/21/19 [History] atorvaSTATin [Lipitor] 10 mg PO BEDTIME 02/21/19 [History] Insulin Aspart [NovoLOG] 5 units SQ TID 02/22/19 [History] Insulin Glargine,Hum.Rec.Anlog [Lantus Solostar] 20 units SQ BEDTIME 02/22/19 [ History] Clobetasol Propionate [Temovate Cream] 1 applic TP BID 03/19/19 [History] Clotrimazole/Betamethasone Dip [Lotrisone Cream] 1 applic TP BID 03/19/19 [ History] Glucosam/Chond-MSM 2/C/D3/Cong [Ubfloslrys-Tmncrxhlrpr-UIU] 1 each PO DAILY [History] Ketoconazole [Nizoral 2% Shampoo] 1 applic TOP WEEKLY 03/19/19 [History] Past Medical History HEENT History: Reports: Cataract, Epistaxis, Glaucoma, Impaired Vision, Other ( See Below) Other HEENT History: Almost blind L eye Cardiovascular History: Reports: [place] Other Cardiovascular History: STATES / APRIL OR MAY 2018. Respiratory History: Reports: Bronchitis, Recurrent, Pneumonia, Recurrent, Other (See Below) Other Respiratory History: RIGHT PLEURAL EFFUSION, HOSPITALIZED 05/2018. SIGNIFICANT STATES ON VENT FOR 9 DAYS. ARDS Gastrointestinal History: Reports: Cholelithiasis, Cirrhosis, Colon Polyp, GERD , Other (See Below) Other Gastrointestinal History: STATES TEAR OF ESOPHAGUS ET REPAIR 2017, ESOPHAGEAL VARICES Genitourinary History: Reports: Urinary Incontinence CLINICAL TEAM LEAD History: Reports: , Other (See Below) Other CLINICAL TEAM LEAD History: . Musculoskeletal History: Reports: Arthritis, Back Pain, Chronic, Fracture, Osteoarthritis Other Musculoskeletal History: Hx fracture L arm. Hx fracture L foot 4th toe. Hx sprained left ankle. Uses a cane for support with ambulation. Neurological History: Reports: Migraines Other Neuro History: Hx temporal arteritis. Psychiatric History: Reports: Addiction, Anxiety, Depression, Panic Attack, Other (See Below) Other Psychiatric History: Hx ETOH abuse. Endocrine/Metabolic History: Reports: Diabetes, Type II Other Endocrine/Metabolic History: new diagnosis Hematologic History: Reports: Anemia Other Hematologic History: THROMBOCYTOPENIA Immunologic History: Reports: None Oncologic (Cancer) History: Dermatologic History: Reports: Psoriasis - Infectious Disease History Infectious Disease History: Reports: Chicken Pox - Past Surgical History Head Surgeries/Procedures: Reports: None HEENT Surgical History: Reports: None Other HEENT Surgeries/Procedures: Eye surgery 2 Cardiovascular Surgical History: Reports: None Respiratory Surgical History: Reports: None GI Surgical History: Reports: Cholecystectomy, Colonoscopy, EGD Female Surgical History: Reports: None Musculoskeletal Surgical History: Reports: None Social & Family History - Family History Family Medical History: Noncontributory Endocrine/Metabolic: Reports: Diabetes, type II - Caffeine Use Caffeine Use: Reports: Coffee Other Caffeine Use: 1 cup daily - Living Situation & Occupation Occupation: Retired ED ROS GENERAL - Review of Systems Review Of Systems: See Below Constitutional: Reports: Weakness, Fatigue HEENT: Reports: No Symptoms Respiratory: Reports: Shortness of Breath, Wheezing, Cough. Denies: Sputum Cardiovascular: Reports: Chest Pain, Dyspnea on Exertion Endocrine: Reports: Fatigue GI/Abdominal: Reports: No Symptoms : Reports: No Symptoms Musculoskeletal: Reports: No Symptoms Skin: Reports: No Symptoms Neurological: Reports: No Symptoms. Denies: Headache, Numbness, Trouble Speaking, Difficulty Walking, Change in Speech, Gait Disturbance Psychiatric: Reports: No Symptoms Hematologic/Lymphatic: Reports: No Symptoms Immunologic: Reports: No Symptoms ED EXAM, GENERAL - Physical Exam Exam: See Below Free Text/Narrative:: Alert oriented Exam Limited By: No Limitations General Appearance: Alert, WD/WN, No Apparent Distress Eye Exam: Bilateral Eye: EOMI Ears: Normal External Exam Nose: Normal Inspection Throat/Mouth: Normal Inspection Head: Atraumatic, Normocephalic Neck: Normal Inspection, Supple, Non-Tender, Full Range of Motion Respiratory/Chest: Decreased Breath Sounds, Rales Cardiovascular: Regular Rate, Rhythm GI/Abdominal: Soft, Non-Tender Neurological: Alert, Oriented, CN II-XII Intact Psychiatric: Normal Affect Skin Exam: Warm EKG INTERPRETATION EKG Date: 10/24/19 Time: 16:31 Rhythm: NSR [place]: Normal P-Wave: Present QRS: Normal ST-T: Normal Course - Vital Signs Last Recorded V/S: Last Vital Signs Temp 37.1 C 10/17/19 16:20 Pulse 93 10/17/19 17:48 Resp 14 10/17/19 16:20 BP 139/71 10/17/19 17:48 Pulse Ox 95 10/17/19 16:20 - Orders/Labs/Meds Orders: Active Orders 24 hr Category Date Time Status EKG Documentation Completion [RC] ASDIRECTED Care 10/17/19 16:25 Active EKG Documentation Completion [RC] ASDIRECTED Care 10/17/19 17:16 Active RT Aerosol Therapy [RC] ASDIRECTED Care 10/17/19 16:48 Active Chest 2V [CR] Stat Exams 10/17/19 17:04 Taken Heparin Sodium/0.45% NaCl [Heparin 25,000 Units in 1/2 Med 10/17/19 17:30 Active NS 500 ML] 500 ml IV ASDIRECTED Sodium Chloride 0.9% [Normal Saline] 1,000 ml Med 10/17/19 16:45 Active IV ASDIRECTED Sodium Chloride 0.9% [Normal Saline] 1,000 ml Med 10/17/19 17:45 Active IV ASDIRECTED EKG 12 Lead [EK] Routine Ther 10/17/19 16:25 Ordered EKG 12 Lead [EK] Routine Ther 10/17/19 17:15 Ordered Medication Orders Sodium Chloride (Normal Saline) 1,000 mls @ 999 mls/hr IV ASDIRECTED HUMBERTO Last Admin: 10/17/19 16:44 Dose: 999 mls/hr Heparin Sodium/Sodium Chloride (Heparin 25,000 Units In 1/2 Ns 500 Ml) 500 mls @ 20 mls/hr IV ASDIRECTED HUMBERTO Last Admin: 10/17/19 17:50 Dose: 20 mls/hr Sodium Chloride (Normal Saline) 1,000 mls @ 150 mls/hr IV ASDIRECTED HUMBERTO Last Admin: 10/17/19 17:48 Dose: 150 mls/hr Labs: Laboratory Tests 10/17/19 10/17/19 10/17/19 Range/Units 16:35 16:35 16:35 WBC 6.8 (4.5-12.0) X10-3/uL RBC 4.01 (3.23-5.20) x10(6)uL Hgb 13.2 (11.5-15.5) g/dL Hct 39.0 (30.0-51.3) % MCV 97.1 H (80-96) fL MCH 33.0 (27.7-33.6) pg MCHC 34.0 (32.2-35.4) g/dL RDW 15.3 (11.5-15.5) % Plt Count 155 (125-369) X10(3)uL MPV 7.9 (7.4-10.4) fL Neut % (Auto) 55.8 (46-82) % Lymph % (Auto) 29.9 (13-37) % [place] % (Auto) 11.7 (4-12) % Eos % (Auto) 2 (1.0-5.0) % Baso % (Auto) 1 (0-2) % Neut # (Auto) 3.9 (1.6-8.3) # Lymph # (Auto) 2.0 (0.6-5.0) # [place] # (Auto) 0.8 (0.0-1.3) # Eos # (Auto) 0.1 (0.0-0.8) # Baso # (Auto) 0.0 (0.0-0.2) # Sodium 140 (135-145) mmol/L Potassium 3.9 (3.5-5.3) mmol/L Chloride 106 (100-110) mmol/L Carbon Dioxide 22 (21-32) mmol/L BUN 13 (7-18) mg/dL Creatinine 0.9 (0.55-1.02) mg/dL Est Cr Clr Drug Dosing TNP Estimated GFR (MDRD) > 60 (>60) BUN/Creatinine Ratio 14.4 (9-20) Glucose 118 H (80-116) mg/dL Calcium 9.0 (8.6-10.2) mg/dL Troponin I 0.233 H* (<0.017-0.056) ng/mL NT-Pro-B Natriuret Pep (<=125) pg/mL 10/17/19 Range/Units 16:35 WBC (4.5-12.0) X10-3/uL RBC (3.23-5.20) x10(6)uL Hgb (11.5-15.5) g/dL Hct (30.0-51.3) % MCV (80-96) fL MCH (27.7-33.6) pg MCHC (32.2-35.4) g/dL RDW (11.5-15.5) % Plt Count (125-369) X10(3)uL MPV (7.4-10.4) fL Neut % (Auto) (46-82) % Lymph % (Auto) (13-37) % [place] % (Auto) (4-12) % Eos % (Auto) (1.0-5.0) % Baso % (Auto) (0-2) % Neut # (Auto) (1.6-8.3) # Lymph # (Auto) (0.6-5.0) # [place] # (Auto) (0.0-1.3) # Eos # (Auto) (0.0-0.8) # Baso # (Auto) (0.0-0.2) # Sodium (135-145) mmol/L Potassium (3.5-5.3) mmol/L Chloride (100-110) mmol/L Carbon Dioxide (21-32) mmol/L BUN (7-18) mg/dL Creatinine (0.55-1.02) mg/dL Est Cr Clr Drug Dosing Estimated GFR (MDRD) (>60) BUN/Creatinine Ratio (9-20) Glucose (80-116) mg/dL Calcium (8.6-10.2) mg/dL Troponin I (<0.017-0.056) ng/mL NT-Pro-B Natriuret Pep 98 (<=125) pg/mL Meds: Medications Generic Name Dose Route Start Last Admin Trade Name Freq PRN Reason Stop Dose Admin Sodium Chloride 1,000 mls @ 999 mls/hr 10/17/19 16:45 10/17/19 16:44 Normal Saline IV 999 mls/hr ASDIRECTED HUMBERTO Administration Heparin Sodium/Sodium Chloride 500 mls @ 20 mls/hr 10/17/19 17:30 10/17/19 17 :50 Heparin 25,000 Units In 1/2 Ns 500 Ml IV 20 mls/hr ASDIRECTED HUMBERTO Administration Sodium Chloride 1,000 mls @ 150 mls/hr 10/17/19 17:45 10/17/19 17:48 Normal Saline IV 150 mls/hr ASDIRECTED HUMBERTO Administration Discontinued Medications Generic Name Dose Route Start Last Admin Trade Name Freq PRN Reason Stop Dose Admin Albuterol/Ipratropium 3 ml 10/17/19 16:48 10/17/19 17:13 Duoneb 3.0-0.5 Mg/3 Ml NEB 10/17/19 16:49 3 ml ONETIME ONE Administration Aspirin 162 mg 10/17/19 16:49 10/17/19 16:50 Aspirin PO 10/17/19 16:50 162 mg NOW STA Administration Heparin Sodium (Porcine) 5,000 units 10/17/19 17:31 10/17/19 17:49 Heparin Sodium IVPUSH 10/17/19 17:32 5,000 units ONETIME ONE Administration Metoprolol Succinate 25 mg 10/17/19 17:28 10/17/19 17:48 Toprol Xl PO 10/17/19 17:29 25 mg ONETIME ONE Administration - Re-Assessments/Exams Free Text/Narrative Re-Assessment/Exam: 10/17/19 17:17 pt remained chest pain free since admission labs reviewed and noted to have elevated troponin 10/17/19 17:32 Called made to [facility] in [place] and pt accepted for admission by hospitalist Heparin infusion set up for pt Departure - Departure Time of Disposition: 18:30 Disposition: DC/Tfer to Other 70 Reason for Transfer *Q: Other Condition: Fair Clinical Impression: Non-ST elevated myocardial infarction (non-STEMI), Chest pain due to CAD, Diabetes mellitus, new onset Referrals: Hunter Marcos MD [Primary Care Provider] - Forms: ED Department Discharge Sepsis Event Note - Focused Exam Vital Signs: Vital Signs Temp Pulse Pulse Resp BP BP Pulse Ox 10/17/19 17:48 93 139/71 10/17/19 16:20 37.1 C 102 H 14 124/71 95 Date Exam was Performed: 10/17/19 Time Exam was Performed: 18:42 - My Orders Last 24 Hours: My Active Orders 10/17/19 16:25 EKG Documentation Completion [RC] ASDIRECTED EKG 12 Lead [EK] Routine 10/17/19 16:45 Sodium Chloride 0.9% [Normal Saline] 1,000 ml IV ASDIRECTED 10/17/19 16:48 RT Aerosol Therapy [RC] ASDIRECTED 10/17/19 17:04 Chest 2V [CR] Stat 10/17/19 17:15 EKG 12 Lead [EK] Routine 10/17/19 17:16 EKG Documentation Completion [RC] ASDIRECTED 10/17/19 17:30 Heparin Sodium/0.45% NaCl [Heparin 25,000 Units in 1/2 NS 500 ML] 500 ml IV ASDIRECTED 10/17/19 17:45 Sodium Chloride 0.9% [Normal Saline] 1,000 ml IV ASDIRECTED - Assessment/Plan Last 24 Hours: My Active Orders 10/17/19 16:25 EKG Documentation Completion [RC] ASDIRECTED EKG 12 Lead [EK] Routine 10/17/19 16:45 Sodium Chloride 0.9% [Normal Saline] 1,000 ml IV ASDIRECTED 10/17/19 16:48 RT Aerosol Therapy [RC] ASDIRECTED 10/17/19 17:04 Chest 2V [CR] Stat 10/17/19 17:15 EKG 12 Lead [EK] Routine 10/17/19 17:16 EKG Documentation Completion [RC] ASDIRECTED 10/17/19 17:30 Heparin Sodium/0.45% NaCl [Heparin 25,000 Units in 1/2 NS 500 ML] 500 ml IV ASDIRECTED 10/17/19 17:45 Sodium Chloride 0.9% [Normal Saline] 1,000 ml IV ASDIRECTED
[2019-10-17] MEDS ORDERED: Metoprolol Succinate 25 MG Tab.ER PO ONE (17:28)
[2019-10-17] MEDS ORDERED: Heparin Sodium/0.45% NaCl 500 ML IV SCH (17:30)
[2019-10-17] MEDS ORDERED: Heparin Sodium 5,000 Units/ML Vial IVPUSH ONE (17:31)
[2019-10-17 19:21] VITALS: BP 141/67; PULSE 97
--- NOTE | 2019-10-18 16:01 | CR ---
INDICATION: Chest pain. CHEST, TWO VIEWS: PA and lateral views of the chest 10/17/19 were compared with 12/10/18 and 04/13/18. Overlying EKG leads are noted. The heart remains within normal limits in size. The aorta is tortuous in the arch area as previously. There is suggestion of mild dextroconcave scoliosis of the lower middle thoracic spine. No consolidating pneumonia or effusion was seen. Slightly prominent interstitial markings are again noted, compatible with mild pulmonary fibrosis. Evidence of exogenous obesity is again noted. IMPRESSION: Stable appearance of the chest - no definite acute process. MTDD
== END 2019-10-17 18:35 | disposition other institution (70) ==
LOC: FB.ED 16:17
DX: I21.4 Non-ST elevation (NSTEMI) myocardial infarction (principal); I25.10 Atherosclerotic heart disease of native coronary artery without angina pectoris; E11.9 Type 2 diabetes mellitus without complications; K21.9 Gastro-esophageal reflux disease without esophagitis; M19.90 Unspecified osteoarthritis, unspecified site; F41.0 Panic disorder [episodic paroxysmal anxiety]; F32.9 Major depressive disorder, single episode, unspecified; Z88.8 Allergy status to other drugs, medicaments and biological substances; Z91.018 Allergy to other foods; Z79.82 Long term (current) use of aspirin; Z79.4 Long term (current) use of insulin; Z79.899 Other long term (current) drug therapy
CPT/HCPCS: 36415; 71046; 80048; 83880; 84484; 85025; 93005; 94640; 96361; 96365; 99285; A9270; J1644; J7030; 93010; J7620-GY

== ENCOUNTER 2019-11-08 12:41 | Emergency (ER) | payer MEDICARE, MEDICAID ==
--- NOTE | 2019-11-08 13:16 | EDM.PDOC ---
ED HPI GENERAL MEDICAL PROBLEM - General Chief Complaint: Chest Pain Stated Complaint: HEAVY FEELING IN CHEAST,DIZZY Time Seen by Provider: 11/08/19 13:14 Source of Information: Reports: Patient History Limitations: Reports: No Limitations - History of Present Illness INITIAL COMMENTS - FREE TEXT/NARRATIVE: 64-year-old female who reports onset of chest pain on 11/06/2019. She reports the chest pain comes on at rest and lasts for about 30 minutes. It is associated with some nausea but no vomiting. She also has some left jaw pain associated with this. It is a discomfort in her left chest that is 5/10 and is worse. Nothing really seems to make it better. Nothing really seems to make it worse. She has had no cough. No back pain. Her last episode of pain was this morning and it lasted again for about a half an hour and then went away on its own. She just recently was at [facility] (2 weeks ago) where she had cardiac catheterization which showed no lesions which required stenting. She did have coronary artery disease but it was not amenable to angioplasty or stenting. She is currently pain-free. She rates her pain as a 0/10. There are no other associated signs or symptoms. There are no other modifying factors. 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 (see below) (Nothing) - Related Data Allergies Allergy/AdvReac Type Severity Reaction Status Date / Time chocolate flavor Allergy Cannot Verified 10/05/19 05:10 Remember cyclobenzaprine AdvReac Nausea and Verified 10/05/19 05:10 Vomiting meloxicam AdvReac Nausea Verified 10/05/19 05:10 Home Meds: Home Meds Multivitamin [Daily Multiple Vitamin] 1 tab PO DAILY 04/13/18 [History] Pantoprazole [ProTONIX] 40 mg PO DAILY 04/23/18 [History] Cyanocobalamin (Vitamin B-12) [Vitamin B-12] 1,000 mcg PO DAILY 01/18/19 [ History] Aspirin [Lo-Dose Aspirin EC] 81 mg PO DAILY 02/21/19 [History] atorvaSTATin [Lipitor] 10 mg PO BEDTIME 02/21/19 [History] Insulin Aspart [NovoLOG] 5 units SQ TID 02/22/19 [History] Clobetasol Propionate [Temovate Cream] 1 applic TP BID 03/19/19 [History] Clotrimazole/Betamethasone Dip [Lotrisone Cream] 1 applic TP BID 03/19/19 [ History] Glucosam/Chond-MSM 2/C/D3/Cong [Tekdbdowup-Quvrzscskwh-VGH] 1 each PO DAILY [History] Ketoconazole [Nizoral 2% Shampoo] 1 applic TOP WEEKLY 03/19/19 [History] Acetaminophen [Acetaminophen Extra Strength] 1,000 mg PO QID 11/08/19 [History] Diclofenac Sodium [Voltaren] 4 gram TOP QID PRN 11/08/19 [History] Insulin Detemir [Levemir] 20 unit SUBCUT BEDTIME 11/08/19 [History] Metoprolol Tartrate 25 mg PO BID 11/08/19 [History] Nicotine [Nicotine Patch] 14 mg TRDERM DAILY 11/08/19 [History] Ramipril [Altace] 5 mg PO DAILY 11/08/19 [History] Past Medical History HEENT History: Reports: Cataract, Epistaxis, Glaucoma, Impaired Vision, Other ( See Below) Other HEENT History: Almost blind L eye Cardiovascular History: Reports: CAD, [place] Other Cardiovascular History: STATES / APRIL OR MAY 2018. Respiratory History: Reports: Bronchitis, Recurrent, Pneumonia, Recurrent, Other (See Below) Other Respiratory History: RIGHT PLEURAL EFFUSION, HOSPITALIZED 05/2018. SIGNIFICANT STATES ON VENT FOR 9 DAYS. 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 Musculoskeletal History: Reports: Arthritis, Back Pain, Chronic, Fracture, Osteoarthritis Other Musculoskeletal History: Hx fracture L arm. Hx fracture L foot 4th toe. Hx sprained left ankle. Uses a cane for support with ambulation. Neurological History: Reports: Migraines Other Neuro History: Hx temporal arteritis. Psychiatric History: Reports: Addiction, Anxiety, Depression, Panic Attack, Other (See Below) Other Psychiatric History: Hx ETOH abuse. Endocrine/Metabolic History: Reports: Diabetes, Type II Other Endocrine/Metabolic History: new diagnosis Hematologic History: Reports: Anemia Other Hematologic History: THROMBOCYTOPENIA Dermatologic History: Reports: Psoriasis - Infectious Disease History Infectious Disease History: Reports: Chicken Pox - Past Surgical History HEENT Surgical History: Reports: Cataract Surgery Other HEENT Surgeries/Procedures: Eye surgery 2 Cardiovascular Surgical History: Reports: Other (See Below) (Cardiac catheterization) GI Surgical History: Reports: Cholecystectomy, Colonoscopy, EGD Social & Family History - Family History Endocrine/Metabolic: Reports: Diabetes, type II - Tobacco Use Smoking Status *Q: Former Smoker (States she quit on Tuesday of this week, 2019) Used Tobacco, but Quit: Yes Month/Year Tobacco Last Used: PAST WEEK - Caffeine Use Caffeine Use: Reports: Coffee Other Caffeine Use: 1 cup daily - Alcohol Use Alcohol Use History: Yes Days Per Week of Alcohol Use: 1 Number of Drinks Per Day: 1 Total Drinks Per Week: 1 - Recreational Drug Use Recreational Drug Use: No - Living Situation & Occupation Occupation: Retired ED ROS GENERAL - Review of Systems Review Of Systems: See Below Constitutional: Reports: No Symptoms HEENT: Reports: No Symptoms Respiratory: Reports: No Symptoms Cardiovascular: Reports: Chest Pain Endocrine: Reports: Fatigue GI/Abdominal: Reports: Nausea. Denies: Vomiting : Reports: No Symptoms Musculoskeletal: Reports: Other (Jaw pain off and on) Skin: Reports: No Symptoms Neurological: Reports: Dizziness (Off-and-on) Psychiatric: Reports: Anxiety Hematologic/Lymphatic: Reports: No Symptoms Immunologic: Reports: No Symptoms ED EXAM, GENERAL - Physical Exam Exam: See Below Exam Limited By: No Limitations General Appearance: Alert, No Apparent Distress, Anxious, Obese Eye Exam: Bilateral Eye: EOMI, Normal Inspection, PERRL Ears: Normal External Exam, Hearing Grossly Normal Ear Exam: Bilateral Ear: Auricle Normal Nose: Normal Inspection, Normal Mucosa, No Blood Throat/Mouth: Normal Inspection, Normal Oropharynx, Normal Voice, No Airway Compromise Head: Atraumatic, Normocephalic Neck: Normal Inspection, Supple, Non-Tender, Full Range of Motion Respiratory/Chest: No Respiratory Distress, Lungs Clear, Normal Breath Sounds, No Accessory Muscle Use, Chest Non-Tender Cardiovascular: Normal Peripheral Pulses, Regular Rate, Rhythm, No Edema, No JVD Peripheral Pulses: 2+: Radial (L), Radial (R), Dorsalis Pedis (L), Dorsalis Pedis (R) GI/Abdominal: Normal Bowel Sounds, Soft, Non-Tender, No Mass Back Exam: Normal Inspection Extremities: Normal Inspection, Normal Range of Motion, Non-Tender, No Pedal Edema, Normal Capillary Refill Neurological: Alert, Oriented, CN II-XII Intact, Normal Cognition, No Motor/ Sensory Deficits Skin Exam: Warm, Dry, Intact, Normal Color, No Rash EKG INTERPRETATION EKG Date: 11/08/19 Time: 13:12 Rhythm: NSR Rate (Beats/Min): 74 [place]: Normal P-Wave: Present QRS: Normal ST-T: Normal QT: Normal Comparison: No Change (No change from EKG performed on 10/17/2019.) Course - Vital Signs Last Recorded V/S: Last Vital Signs Temp 36.6 C 11/08/19 13:16 Pulse 72 11/08/19 15:09 Resp 16 11/08/19 15:09 BP 97/70 11/08/19 15:09 Pulse Ox 95 11/08/19 15:09 - Orders/Labs/Meds Orders: Active Orders 24 hr Category Date Time Status EKG Documentation Completion [RC] ASDIRECTED Care 11/08/19 13:31 Active Chest 1V Frontal [CR] Stat Exams 11/08/19 13:29 Taken Sodium Chloride 0.9% [Saline Flush] Med 11/08/19 13:29 Active 10 ml FLUSH ASDIRECTED PRN Peripheral IV Insertion Adult [OM.PC] Routine Oth 11/08/19 13:29 Ordered EKG 12 Lead [EK] Routine Ther 11/08/19 13:29 Ordered Medication Orders Sodium Chloride (Saline Flush) 10 ml FLUSH ASDIRECTED PRN PRN Reason: Keep Vein Open Last Admin: 11/08/19 13:53 Dose: 10 ml Labs: Laboratory Tests 11/08/19 11/08/19 11/08/19 Range/Units 13:45 13:45 13:45 WBC 6.7 (4.5-12.0) X10-3/uL RBC 3.93 (3.23-5.20) x10(6)uL Hgb 13.0 (11.5-15.5) g/dL Hct 38.4 (30.0-51.3) % MCV 97.6 H (80-96) fL MCH 33.0 (27.7-33.6) pg MCHC 33.8 (32.2-35.4) g/dL RDW 14.5 (11.5-15.5) % Plt Count 158 (125-369) X10(3)uL MPV 8.0 (7.4-10.4) fL Neut % (Auto) 47.9 (46-82) % Lymph % (Auto) 38.8 H (13-37) % [place] % (Auto) 8.9 (4-12) % Eos % (Auto) 3 (1.0-5.0) % Baso % (Auto) 2 (0-2) % Neut # (Auto) 3.2 (1.6-8.3) # Lymph # (Auto) 2.6 (0.6-5.0) # [place] # (Auto) 0.6 (0.0-1.3) # Eos # (Auto) 0.2 (0.0-0.8) # Baso # (Auto) 0.1 (0.0-0.2) # PT 11.3 H (8.7-11.1) INR 1.16 H (0.89-1.13) Sodium 137 (135-145) mmol/L Potassium 4.1 (3.5-5.3) mmol/L Chloride 104 (100-110) mmol/L Carbon Dioxide 23 (21-32) mmol/L BUN 18 (7-18) mg/dL Creatinine 0.7 (0.55-1.02) mg/dL Est Cr Clr Drug Dosing 69.19 mL/min Estimated GFR (MDRD) > 60 (>60) BUN/Creatinine Ratio 25.7 H (9-20) Glucose 79 L (80-116) mg/dL Calcium 9.1 (8.6-10.2) mg/dL Magnesium 1.9 (1.8-2.5) mg/dL Total Bilirubin 0.7 (0.1-1.3) mg/dL AST 52 H D (5-25) IU/L ALT 27 (12-36) U/L Alkaline Phosphatase 132 H (56-112) IU/L Troponin I (4.0-60.3) pg/mL Total Protein 7.7 (6.0-8.0) g/dL Albumin 3.0 L (3.2-4.6) g/dL Globulin 4.7 g/dL Albumin/Globulin Ratio 0.6 11/08/19 Range/Units 13:45 WBC (4.5-12.0) X10-3/uL RBC (3.23-5.20) x10(6)uL Hgb (11.5-15.5) g/dL Hct (30.0-51.3) % MCV (80-96) fL MCH (27.7-33.6) pg MCHC (32.2-35.4) g/dL RDW (11.5-15.5) % Plt Count (125-369) X10(3)uL MPV (7.4-10.4) fL Neut % (Auto) (46-82) % Lymph % (Auto) (13-37) % [place] % (Auto) (4-12) % Eos % (Auto) (1.0-5.0) % Baso % (Auto) (0-2) % Neut # (Auto) (1.6-8.3) # Lymph # (Auto) (0.6-5.0) # [place] # (Auto) (0.0-1.3) # Eos # (Auto) (0.0-0.8) # Baso # (Auto) (0.0-0.2) # PT (8.7-11.1) INR (0.89-1.13) Sodium (135-145) mmol/L Potassium (3.5-5.3) mmol/L Chloride (100-110) mmol/L Carbon Dioxide (21-32) mmol/L BUN (7-18) mg/dL Creatinine (0.55-1.02) mg/dL Est Cr Clr Drug Dosing mL/min Estimated GFR (MDRD) (>60) BUN/Creatinine Ratio (9-20) Glucose (80-116) mg/dL Calcium (8.6-10.2) mg/dL Magnesium (1.8-2.5) mg/dL Total Bilirubin (0.1-1.3) mg/dL AST (5-25) IU/L ALT (12-36) U/L Alkaline Phosphatase (56-112) IU/L Troponin I 139.0 H* (4.0-60.3) pg/mL Total Protein (6.0-8.0) g/dL Albumin (3.2-4.6) g/dL Globulin g/dL Albumin/Globulin Ratio Meds: Medications Generic Name Dose Route Start Last Admin Trade Name Freq PRN Reason Stop Dose Admin Sodium Chloride 10 ml 11/08/19 13:29 11/08/19 13:53 Saline Flush FLUSH 10 ml ASDIRECTED PRN Administration Keep Vein Open Discontinued Medications Generic Name Dose Route Start Last Admin Trade Name Freq PRN Reason Stop Dose Admin Aspirin 243 mg 11/08/19 14:28 11/08/19 14:33 Aspirin PO 11/08/19 14:29 243 mg ONETIME ONE Administration - Radiology Interpretation Free Text/Narrative:: Portable chest x-ray shows no acute disease. - Re-Assessments/Exams Free Text/Narrative Re-Assessment/Exam: 11/08/19 14:50: Patient remains chest pain free. Her blood pressure is still in the 90-100 systolic range but she has been stable with a rate in the 60s. Her troponin is elevated and 139 pg/mL which is a little more than twice the upper limit of normal. With her chest pain, jaw pain and nausea, I feel that this represents unstable angina and she will need admission with cardiology services which not available at [facility]. I will call and discussed the patient's case with the doctors at [facility] in [place]. 11/08/19 15:10: I discussed the patient's case with Dr. Black, hospitalist at [facility] in [place], and he has agreed to accept the patient in transfer. I discussed heparinization of the patient at this time and Dr. Black did not feel that it was necessary at this time. The patient will be transferred to [facility] in [place] via ambulance. The patient is in agreement with the plans for transfer. Departure - Departure Time of Disposition: 15:30 Disposition: DC/Tfer to Acute Hospital 02 Reason for Transfer *Q: Other (Patient with elevated troponin and history/ symptoms of unstable angina, may need repeat cardiac catheterization/ intervention.) Condition: Fair (Guarded) Clinical Impression: Unstable angina, Elevated troponin Referrals: Hunter Marcos MD [Primary Care Provider] - Forms: ED Department Discharge Sepsis Event Note - Focused Exam Vital Signs: Vital Signs Temp Pulse Resp BP Pulse Ox 11/08/19 15:09 72 16 97/70 95 11/08/19 14:30 74 16 129/53 L 98 11/08/19 14:15 74 16 125/55 L 95 11/08/19 14:07 72 108/57 L 94 L 11/08/19 13:45 72 16 106/58 L 92 L 11/08/19 13:16 36.6 C 76 18 112/54 L 93 L 11/08/19 13:15 77 16 101/50 L 94 L 11/08/19 13:00 77 87/52 L 94 L Date Exam was Performed: 11/08/19 Time Exam was Performed: 15:13 - My Orders Last 24 Hours: My Active Orders 11/08/19 13:29 Chest 1V Frontal [CR] Stat Sodium Chloride 0.9% [Saline Flush] 10 ml FLUSH ASDIRECTED PRN Peripheral IV Insertion Adult [OM.PC] Routine EKG 12 Lead [EK] Routine 11/08/19 13:31 EKG Documentation Completion [RC] ASDIRECTED - Assessment/Plan Last 24 Hours: My Active Orders 11/08/19 13:29 Chest 1V Frontal [CR] Stat Sodium Chloride 0.9% [Saline Flush] 10 ml FLUSH ASDIRECTED PRN Peripheral IV Insertion Adult [OM.PC] Routine EKG 12 Lead [EK] Routine 11/08/19 13:31 EKG Documentation Completion [RC] ASDIRECTED
[2019-11-08] MEDS ORDERED: Sodium Chloride 0.9% 10 ML Syringe FLUSH PRN (13:29)
[2019-11-08] MEDS ORDERED: Aspirin 81 MG Tab.Chew PO ONE (14:28)
[2019-11-08] MEDS ORDERED: Sodium Chloride 0.9% 1,000 ML IV SCH (15:30)
[2019-11-08 16:18] VITALS: BP 109/55; PULSE 70
--- NOTE | 2019-11-08 19:36 | CR ---
INDICATION: Chest pain. CHEST, ONE VIEW: An AP upright portable view of the chest 11/08/19 was compared with 10/17/19 and 12/10/18 revealing the heart to be mildly enlarged with tortuous calcified aorta. Upper lung field pulmonary vasculature appears slightly prominent. Interstitial markings are prominent. Findings may represent a mild degree of CHF with interstitial lung edema. Other etiologies such as unusual pneumonia would be a consideration. However, no consolidating pneumonia or effusion was seen. Dextroconvex scoliosis is noted at the thoracolumbar spine. IMPRESSION: ASHD with cardiomegaly, probable mild or early CHF and interstitial lung edema. MTDD
== END 2019-11-08 16:38 ==
LOC: FB.ED 12:41
DX: I25.110 Atherosclerotic heart disease of native coronary artery with unstable angina pectoris (principal); R79.0 Abnormal level of blood mineral; I25.2 Old myocardial infarction; E11.36 Type 2 diabetes mellitus with diabetic cataract; K21.9 Gastro-esophageal reflux disease without esophagitis; Z88.6 Allergy status to analgesic agent; Z91.018 Allergy to other foods; Z88.8 Allergy status to other drugs, medicaments and biological substances; Z79.82 Long term (current) use of aspirin; Z79.4 Long term (current) use of insulin; Z87.891 Personal history of nicotine dependence
CPT/HCPCS: 36415; 71045; 80053; 83735; 84484; 85025; 85610; 93005; 93010; 96360; 99285; 99285-25; A9270-GY; J7030

== ENCOUNTER 2019-11-25 20:30 | Emergency (ER) | payer MEDICARE, MEDICAID ==
--- NOTE | 2019-11-25 21:34 | EDM.PDOC ---
ED HPI GENERAL MEDICAL PROBLEM - General Chief Complaint: Genitourinary Problem Stated Complaint: POSSIBLE INFECTION Time Seen by Provider: 11/25/19 21:15 Source of Information: Reports: Patient History Limitations: Reports: No Limitations - History of Present Illness INITIAL COMMENTS - FREE TEXT/NARRATIVE: c/o freq and dysuria x 3d pt wanted to wait until tomorrow (Mon) to go to clinic, could not wait any longer inc'd dysuria, low grade temp h/o E coli UTI 02/18 with resistance to amp and moxifloxacin and intermediate amp /sulf h/o UC 08/21 with Klebsiella, resistant moxifloxacin, intermidate amox, TET, Zosyn Treatments 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 - Related Data Allergies Allergy/AdvReac Type Severity Reaction Status Date / Time chocolate flavor Allergy Cannot Verified 11/25/19 21:39 Remember cyclobenzaprine AdvReac Nausea and Verified 11/25/19 21:39 Vomiting meloxicam AdvReac Nausea Verified 11/25/19 21:39 Home Meds: Home Meds Multivitamin [Daily Multiple Vitamin] 1 tab PO DAILY 04/13/18 [History] Pantoprazole [ProTONIX] 40 mg PO DAILY 04/23/18 [History] Cyanocobalamin (Vitamin B-12) [Vitamin B-12] 1,000 mcg PO DAILY 01/18/19 [ History] Aspirin [Lo-Dose Aspirin EC] 81 mg PO DAILY 02/21/19 [History] atorvaSTATin [Lipitor] 10 mg PO BEDTIME 02/21/19 [History] Insulin Aspart [NovoLOG] 5 units SQ TID 02/22/19 [History] Clobetasol Propionate [Temovate Cream] 1 applic TP BID PRN 03/19/19 [History] Clotrimazole/Betamethasone Dip [Lotrisone Cream] 1 applic TP BID PRN 03/19/19 [ History] Glucosam/Chond-MSM 2/C/D3/Cong [Qjqbpaoaki-Dfrgshyewlj-CBZ] 1 each PO DAILY [History] Ketoconazole [Nizoral 2% Shampoo] 1 applic TOP TUTH 03/19/19 [History] Acetaminophen [Acetaminophen Extra Strength] 1,000 mg PO QID 11/08/19 [History] Diclofenac Sodium [Voltaren] 4 gram TOP QID PRN 11/08/19 [History] Insulin Detemir [Levemir] 20 unit SUBCUT BEDTIME 11/08/19 [History] Metoprolol Tartrate 25 mg PO BID 11/08/19 [History] Nicotine [Nicotine Patch] 14 mg TRDERM DAILY 11/08/19 [History] Ramipril [Altace] 5 mg PO DAILY 11/08/19 [History] Sulfamethoxazole/Trimethoprim [Bactrim Ds Tablet] 1 each PO BID #10 tablet 11/25 [Rx] Past Medical History HEENT History: Reports: Cataract, Epistaxis, Glaucoma, Impaired Vision, Other ( See Below) Other HEENT History: Almost blind L eye Cardiovascular History: Reports: CAD, [place] Other Cardiovascular History: STATES OR/ APRIL OR MAY 2018. Respiratory History: Reports: Bronchitis, Recurrent, Pneumonia, Recurrent, Other (See Below) Other Respiratory History: RIGHT PLEURAL EFFUSION, HOSPITALIZED 05/2018. SIGNIFICANT STATES ON VENT FOR 9 DAYS. 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 Musculoskeletal History: Reports: Arthritis, Back Pain, Chronic, Fracture, Osteoarthritis Other Musculoskeletal History: Hx fracture L arm. Hx fracture L foot 4th toe. Hx sprained left ankle. Uses a cane for support with ambulation. Neurological History: Reports: Migraines Other Neuro History: Hx temporal arteritis. Psychiatric History: Reports: Addiction, Anxiety, Depression, Panic Attack, Other (See Below) Other Psychiatric History: Hx ETOH abuse. Endocrine/Metabolic History: Reports: Diabetes, Type II Other Endocrine/Metabolic History: new diagnosis Hematologic History: Reports: Anemia Other Hematologic History: THROMBOCYTOPENIA Immunologic History: Reports: None Oncologic (Cancer) History: Dermatologic History: Reports: Psoriasis - Infectious Disease History Infectious Disease History: Reports: Chicken Pox - Past Surgical History HEENT Surgical History: Reports: Cataract Surgery Other HEENT Surgeries/Procedures: Eye surgery 2 Cardiovascular Surgical History: Reports: Other (See Below) (Cardiac catheterization) GI Surgical History: Reports: Cholecystectomy, Colonoscopy, EGD Social & Family History - Family History Family Medical History: Noncontributory Endocrine/Metabolic: Reports: Diabetes, type II - Caffeine Use Caffeine Use: Reports: Coffee Other Caffeine Use: 1 cup daily - Living Situation & Occupation Occupation: Retired ED ROS GENERAL - Review of Systems Review Of Systems: See Below Constitutional: Reports: No Symptoms HEENT: Reports: No Symptoms Respiratory: Reports: No Symptoms Cardiovascular: Reports: No Symptoms Endocrine: Reports: No Symptoms GI/Abdominal: Reports: No Symptoms : Reports: Dysuria, Frequency Musculoskeletal: Reports: No Symptoms Skin: Reports: No Symptoms Neurological: Reports: No Symptoms Psychiatric: Reports: No Symptoms Hematologic/Lymphatic: Reports: No Symptoms Immunologic: Reports: No Symptoms ED EXAM, GENERAL - Physical Exam Exam: See Below Exam Limited By: No Limitations General Appearance: Alert, WD/WN, No Apparent Distress, Other (ambulates with a walker, alert, conversant) Nose: Normal Inspection Throat/Mouth: Normal Inspection, Normal Voice, No Airway Compromise Head: Atraumatic Neck: Normal Inspection, Supple, Non-Tender Respiratory/Chest: No Respiratory Distress, Normal Breath Sounds Cardiovascular: Regular Rate, Rhythm Peripheral Pulses: 2+: Dorsalis Pedis (R) GI/Abdominal: Soft, Non-Tender Back Exam: Normal Inspection. No: CVA Tenderness (R), CVA Tenderness (L) Extremities: Normal Inspection Neurological: Alert, Oriented, CN II-XII Intact, Normal Cognition, No Motor/ Sensory Deficits Psychiatric: Normal Affect, Normal Mood Skin Exam: Warm, Dry, Intact, Normal Color, No Rash Lymphatic: No Adenopathy Course - Vital Signs Last Recorded V/S: Last Vital Signs Temp 36.9 C 11/25/19 20:35 Pulse 103 H 11/25/19 20:35 Resp 20 11/25/19 20:35 BP 109/74 11/25/19 20:35 Pulse Ox 97 11/25/19 20:35 - Orders/Labs/Meds Orders: Active Orders 24 hr Category Date Time Status CULTURE URINE [RM] Stat Lab 11/25/19 22:36 Ordered Labs: Laboratory Tests 11/25/19 Range/Units 22:20 Urine Color [place] (YELLOW) Urine Appearance Cloudy (CLEAR) Urine pH 5.0 (5.0-6.5) Ur Specific [place] 1.010 (1.010-1.025) Urine Protein 500 H (NEGATIVE) mg/dL Urine Glucose (UA) Normal (NORMAL) mg/dL Urine Ketones 15 H (NEGATIVE) mg/dL Urine Occult Blood Large H (NEGATIVE) Urine Nitrite Negative (NEGATIVE) Urine Bilirubin Small H (NEGATIVE) Urine Urobilinogen 4 H (NEGATIVE) mg/dL Ur Leukocyte Esterase Large H (NEGATIVE) Urine RBC >100 H (0-5) Urine WBC >100 H (0-5) Ur Squamous Epith Cells Occasional (NS,R,O) Urine Bacteria Many H (NS) Meds: Medications Discontinued Medications Generic Name Dose Route Start Last Admin Trade Name [place] PRN Reason Stop Dose Admin Ceftriaxone Sodium 1 gm 11/25/19 22:40 Rocephin IM 11/25/19 22:41 ONETIME ONE - Re-Assessments/Exams Free Text/Narrative Re-Assessment/Exam: 11/25/19 22:41 u/a positive for uti, pt denies back/abd pain, no f/c/d, no dysuria, did not want Pyridium, watching 2 grandchildren (dad goes to bed early) based on previous UTIs, should respond well to antbxs Departure - Departure Time of Disposition: 22:42 Disposition: Home, Self-Care 01 Condition: Good Clinical Impression: UTI, Urinary tract infectious disease - Discharge Information *PRESCRIPTION DRUG MONITORING PROGRAM REVIEWED*: Not Applicable *COPY OF PRESCRIPTION DRUG MONITORING REPORT IN PATIENT SALLY: Not Applicable Prescriptions: Sulfamethoxazole/Trimethoprim [Bactrim Ds Tablet] 1 each PO BID #10 tablet Instructions: Urinary Tract Infection, Adult Referrals: Hunter Marcos MD [Primary Care Provider] - Forms: ED Department Discharge Additional Instructions: Increase fluids. Get adequate rest. For infection, take trimethoprim-sulfamethoxazole DS 1 tab 2 times a day for 5 days. See your doctor in 8 days to recheck urine. Call your Physician or Return to Emergency Department if: * Your condition worsens in any way. * You develop fever greater than 100.4. * You have vomitting that does not stop with medications. * You have pain that is not controlled with medications. Sepsis Event Note - Evaluation Sepsis Screening Result: Possible Sepsis Risk - Focused Exam Vital Signs: Vital Signs Temp Pulse Resp BP Pulse Ox 11/25/19 20:35 36.9 C 103 H 20 109/74 97 Date Exam was Performed: 11/25/19 Time Exam was Performed: 22:41 - My Orders Last 24 Hours: My Active Orders 11/25/19 22:36 CULTURE URINE [RM] Stat - Assessment/Plan Last 24 Hours: My Active Orders 11/25/19 22:36 CULTURE URINE [RM] Stat
[2019-11-25] MEDS ORDERED: cefTRIAXone 1 GM Vial IM ONE (22:40)
[2019-11-25 23:58] VITALS: BP 120/68; PULSE 86
== END 2019-11-25 23:12 | disposition home or self-care (01) ==
LOC: FB.ED 20:30
DX: N39.0 Urinary tract infection, site not specified (principal); E11.9 Type 2 diabetes mellitus without complications; Z88.1 Allergy status to other antibiotic agents; Z88.8 Allergy status to other drugs, medicaments and biological substances; Z79.899 Other long term (current) drug therapy; Z79.4 Long term (current) use of insulin; Z79.82 Long term (current) use of aspirin
CPT/HCPCS: 81001; 87086; 87088; 87186; 96372; 99283; J0696

== ENCOUNTER 2019-12-25 08:05 | Emergency (ER) | payer MEDICARE, MEDICAID ==
--- NOTE | 2019-12-25 10:08 | EDM.PDOC ---
ED HPI GENERAL MEDICAL PROBLEM - General Chief Complaint: Chest Pain Stated Complaint: chest pain Time Seen by Provider: 12/25/19 08:14 Source of Information: Reports: Patient, Old Records History Limitations: Reports: No Limitations - History of Present Illness INITIAL COMMENTS - FREE TEXT/NARRATIVE: Clarissa returns to [facility] ED via EMS with a solitary episode of precordial chest pain about 0700 hrs. Pain lasted for 3 minutes and subsided gradually. She felt very apprehensive, as pain mimicked prior episode of November 08, 2019. There was no sweats, SOB, palpitations, dizziness, or heartburn. She was transferred to 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 Her last nicotine patch was removed yesterday HS. She remains asx. L upper anterior chest Pain Score (Numeric/FACES): 2 - Related Data Allergies Allergy/AdvReac Type Severity Reaction Status Date / Time chocolate flavor Allergy Cannot Verified 12/25/19 08:12 Remember cyclobenzaprine AdvReac Nausea and Verified 12/25/19 08:12 Vomiting meloxicam AdvReac Nausea Verified 12/25/19 08:12 Home Meds: Home Meds Multivitamin [Daily Multiple Vitamin] 1 tab PO DAILY 04/13/18 [History] Pantoprazole [ProTONIX] 40 mg PO DAILY 04/23/18 [History] Cyanocobalamin (Vitamin B-12) [Vitamin B-12] 1,000 mcg PO DAILY 01/18/19 [ History] Aspirin [Lo-Dose Aspirin EC] 81 mg PO DAILY 02/21/19 [History] atorvaSTATin [Lipitor] 10 mg PO BEDTIME 02/21/19 [History] Insulin Aspart [NovoLOG] 5 units SQ TID 02/22/19 [History] Clobetasol Propionate [Temovate Cream] 1 applic TP BID PRN 03/19/19 [History] Clotrimazole/Betamethasone Dip [Lotrisone Cream] 1 applic TP BID PRN 03/19/19 [ History] Ketoconazole [Nizoral 2% Shampoo] 1 applic TOP TUTH 03/19/19 [History] Acetaminophen [Acetaminophen Extra Strength] 1,000 mg PO QID 11/08/19 [History] Diclofenac Sodium [Voltaren] 4 gram TOP QID PRN 11/08/19 [History] Insulin Detemir [Levemir] 20 unit SUBCUT BEDTIME 11/08/19 [History] Metoprolol Tartrate 25 mg PO BID 11/08/19 [History] Nicotine [Nicotine Patch] 14 mg TRDERM DAILY 11/08/19 [History] Ramipril [Altace] 5 mg PO DAILY 11/08/19 [History] Ciprofloxacin HCl [Cipro] 500 mg PO BID #14 tablet 12/25/19 [Rx] Isosorbide Mononitrate [Imdur] 90 mg PO DAILY 12/25/19 [History] Nicotine [Nicotine Patch] 7 mg TD DAILY #1 box 12/25/19 [Rx] Nitroglycerin [Nitrostat] 0.4 mg SL ASDIRECTED PRN #30 tab.sl 12/25/19 [Rx] Past Medical History HEENT History: Reports: Cataract, Epistaxis, Glaucoma, Impaired Vision, Other ( See Below) Other HEENT History: Almost blind L eye Cardiovascular History: Reports: CAD, High Cholesterol, Hypertension, VA Other Cardiovascular History: STATES VA/ APRIL OR MAY 2018. Respiratory History: Reports: Bronchitis, Recurrent, Pneumonia, Recurrent, Other (See Below) Other Respiratory History: RIGHT PLEURAL EFFUSION, HOSPITALIZED 05/2018. SIGNIFICANT STATES ON VENT FOR 9 DAYS. 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 Musculoskeletal History: Reports: Arthritis, Back Pain, Chronic, Fracture, Osteoarthritis Other Musculoskeletal History: Hx fracture L arm. Hx fracture L foot 4th toe. Hx sprained left ankle. Uses a cane for support with ambulation. Neurological History: Reports: Migraines Other Neuro History: Hx temporal arteritis. Psychiatric History: Reports: Addiction, Anxiety, Depression, Panic Attack, Other (See Below) Other Psychiatric History: Hx ETOH abuse. Endocrine/Metabolic History: Reports: Diabetes, Type II, Obesity/BMI 30+ Other Endocrine/Metabolic History: new diagnosis Hematologic History: Reports: Anemia, Blood Transfusion(s) Other Hematologic History: THROMBOCYTOPENIA Immunologic History: Reports: None Oncologic (Cancer) History: Dermatologic History: Reports: Psoriasis - Infectious Disease History Infectious Disease History: Reports: Chicken Pox - Past Surgical History Head Surgeries/Procedures: Reports: None HEENT Surgical History: Reports: Cataract Surgery, Visual Other HEENT Surgeries/Procedures: Eye surgery 2 GI Surgical History: Reports: Cholecystectomy, Colonoscopy, EGD Musculoskeletal Surgical History: Reports: None Social & Family History - Family History Family Medical History: Noncontributory Endocrine/Metabolic: Reports: Diabetes, type II - Tobacco Use Smoking Status *Q: Former Smoker Years of Tobacco use: 35 Used Tobacco, but Quit: Yes Month/Year Tobacco Last Used: 2019 - Caffeine Use Caffeine Use: Reports: Soda Other Caffeine Use: 1 cup daily - Recreational Drug Use Recreational Drug Use: Yes - Living Situation & Occupation Occupation: Retired ED ROS GENERAL - Review of Systems Review Of Systems: See Below Constitutional: Reports: No Symptoms HEENT: Reports: No Symptoms Respiratory: Reports: No Symptoms Cardiovascular: Reports: Chest Pain Endocrine: Reports: No Symptoms GI/Abdominal: Reports: No Symptoms : Reports: No Symptoms Musculoskeletal: Reports: No Symptoms Skin: Reports: No Symptoms Neurological: Reports: No Symptoms Psychiatric: Reports: No Symptoms Immunologic: Reports: No Symptoms ED EXAM, GENERAL - Physical Exam Exam: See Below Exam Limited By: No Limitations General Appearance: Alert, WD/WN, No Apparent Distress, Obese Eye Exam: Bilateral Eye: EOMI, Normal Inspection, PERRL Ears: Normal External Exam Nose: Normal Inspection Throat/Mouth: Normal Lips, Normal Oropharynx, Normal Voice Head: Normocephalic Neck: Normal Inspection, Supple, Full Range of Motion Respiratory/Chest: No Respiratory Distress, Lungs Clear, No Accessory Muscle Use , Chest Non-Tender, Decreased Breath Sounds Cardiovascular: Regular Rate, Rhythm, No Edema, No Gallop, No JVD, No Rub GI/Abdominal: Normal Bowel Sounds, Soft, Non-Tender, No Organomegaly, No Distention, No Mass (Female) Exam: Deferred Rectal (Female) Exam: Deferred Back Exam: Normal Inspection Extremities: Normal Inspection Neurological: Alert, Oriented, CN II-XII Intact, No Motor/Sensory Deficits Psychiatric: Normal Affect, Normal Mood Skin Exam: Warm, Dry, Intact, Normal Color Lymphatic: No Adenopathy Course - Vital Signs Text/Narrative:: Clarissa remained stable during [facility] ED visit. A UTI was detected, and she was administered Cipro 500mg po. 2 ekgs noted NSR without changes. Troponin I levels : 150.4, 153.1, 150.3 were essentially unchanged over the next 8 hours of observation. I discussed case with Dr Marcum, systems applications programming lead cath laboratory technician with [facility], who suggested coronary sinus spasm as likely cause, and suggested decreasing the nicotine patches and adding nitrostat .4mg SL available at home. Clarissa expressed understanding of recommendations, and will be discharged home. Last Recorded V/S: Last Vital Signs Temp 36.6 C 12/25/19 08:05 Pulse 78 12/25/19 16:00 Resp 18 12/25/19 16:00 BP 109/67 12/25/19 16:00 Pulse Ox 97 12/25/19 16:00 - Orders/Labs/Meds Orders: Active Orders 24 hr Category Date Time Status CULTURE URINE [RM] Stat Lab 12/25/19 11:23 Received Sodium Chloride 0.9% [Saline Flush] Med 12/25/19 11:21 Active 10 ml FLUSH ASDIRECTED PRN Peripheral IV Insertion Adult [OM.PC] Routine Oth 12/25/19 11:21 Ordered EKG 12 Lead [EK] Routine Ther 12/25/19 08:51 Ordered EKG 12 Lead [EK] Routine Ther 12/25/19 12:00 Ordered Medication Orders Sodium Chloride (Saline Flush) 10 ml FLUSH ASDIRECTED PRN PRN Reason: Keep Vein Open Last Admin: 12/25/19 12:15 Dose: 10 ml Labs: Laboratory Tests 12/25/19 12/25/19 12/25/19 Range/Units 08:24 08:24 08:24 WBC 5.2 (4.5-12.0) X10-3/uL RBC 3.90 (3.23-5.20) x10(6)uL Hgb 12.9 (11.5-15.5) g/dL Hct 39.0 (30.0-51.3) % MCV 100.2 H (80-96) fL MCH 33.2 (27.7-33.6) pg MCHC 33.1 (32.2-35.4) g/dL RDW 15.5 (11.5-15.5) % Plt Count 141 (125-369) X10(3)uL MPV 8.1 (7.4-10.4) fL Neut % (Auto) 48.5 (46-82) % Lymph % (Auto) 38.8 H (13-37) % Reeves % (Auto) 8.3 (4-12) % Eos % (Auto) 4 (1.0-5.0) % Baso % (Auto) 1 (0-2) % Neut # (Auto) 2.6 (1.6-8.3) # Lymph # (Auto) 2.0 (0.6-5.0) # Reeves # (Auto) 0.4 (0.0-1.3) # Eos # (Auto) 0.2 (0.0-0.8) # Baso # (Auto) 0.0 (0.0-0.2) # Sodium 139 (135-145) mmol/L Potassium 4.0 (3.5-5.3) mmol/L Chloride 106 (100-110) mmol/L Carbon Dioxide 23 (21-32) mmol/L BUN 13 (7-18) mg/dL Creatinine 0.9 (0.55-1.02) mg/dL Est Cr Clr Drug Dosing 53.81 mL/min Estimated GFR (MDRD) > 60 (>60) BUN/Creatinine Ratio 14.4 (9-20) Glucose 101 (80-116) mg/dL Calcium 8.6 (8.6-10.2) mg/dL Total Bilirubin 0.7 (0.1-1.3) mg/dL AST 34 H D (5-25) IU/L ALT 23 D (12-36) U/L Alkaline Phosphatase 130 H (56-112) IU/L Troponin I 150.4 H* (4.0-60.3) pg/mL Total Protein 8.3 H (6.0-8.0) g/dL Albumin 3.1 L (3.2-4.6) g/dL Globulin 5.2 g/dL Albumin/Globulin Ratio 0.6 Urine Color (YELLOW) Urine Appearance (CLEAR) Urine pH (5.0-6.5) Ur Specific [place] (1.010-1.025) Urine Protein (NEGATIVE) mg/dL Urine Glucose (UA) (NORMAL) mg/dL Urine Ketones (NEGATIVE) mg/dL Urine Occult Blood (NEGATIVE) Urine Nitrite (NEGATIVE) Urine Bilirubin (NEGATIVE) Urine Urobilinogen (NEGATIVE) mg/dL Ur Leukocyte Esterase (NEGATIVE) Urine RBC (0-5) Urine WBC (0-5) Ur Squamous Epith Cells (NS,R,O) Urine Bacteria (NS) 12/25/19 12/25/19 12/25/19 Range/Units 11:24 12:02 16:05 WBC (4.5-12.0) X10-3/uL RBC (3.23-5.20) x10(6)uL Hgb (11.5-15.5) g/dL Hct (30.0-51.3) % MCV (80-96) fL MCH (27.7-33.6) pg MCHC (32.2-35.4) g/dL RDW (11.5-15.5) % Plt Count (125-369) X10(3)uL MPV (7.4-10.4) fL Neut % (Auto) (46-82) % Lymph % (Auto) (13-37) % Reeves % (Auto) (4-12) % Eos % (Auto) (1.0-5.0) % Baso % (Auto) (0-2) % Neut # (Auto) (1.6-8.3) # Lymph # (Auto) (0.6-5.0) # Reeves # (Auto) (0.0-1.3) # Eos # (Auto) (0.0-0.8) # Baso # (Auto) (0.0-0.2) # Sodium (135-145) mmol/L Potassium (3.5-5.3) mmol/L Chloride (100-110) mmol/L Carbon Dioxide (21-32) mmol/L BUN (7-18) mg/dL Creatinine (0.55-1.02) mg/dL Est Cr Clr Drug Dosing mL/min Estimated GFR (MDRD) (>60) BUN/Creatinine Ratio (9-20) Glucose (80-116) mg/dL Calcium (8.6-10.2) mg/dL Total Bilirubin (0.1-1.3) mg/dL AST (5-25) IU/L ALT (12-36) U/L Alkaline Phosphatase (56-112) IU/L Troponin I 153.1 H* 150.3 H* (4.0-60.3) pg/mL Total Protein (6.0-8.0) g/dL Albumin (3.2-4.6) g/dL Globulin g/dL Albumin/Globulin Ratio Urine Color Yellow (YELLOW) Urine Appearance Slightly cloudy (CLEAR) Urine pH 7.0 H (5.0-6.5) Ur Specific [place] 1.005 L (1.010-1.025) Urine Protein 30 H (NEGATIVE) mg/dL Urine Glucose (UA) Normal (NORMAL) mg/dL Urine Ketones Negative (NEGATIVE) mg/dL Urine Occult Blood Large H (NEGATIVE) Urine Nitrite Positive H (NEGATIVE) Urine Bilirubin Negative (NEGATIVE) Urine Urobilinogen 1 H (NEGATIVE) mg/dL Ur Leukocyte Esterase Small H (NEGATIVE) Urine RBC 20-30 H (0-5) Urine WBC 5-10 H (0-5) Ur Squamous Epith Cells Few H (NS,R,O) Urine Bacteria Many H (NS) Meds: Medications Generic Name Dose Route Start Last Admin Trade Name Freq PRN Reason Stop Dose Admin Sodium Chloride 10 ml 12/25/19 11:21 12/25/19 12:15 Saline Flush FLUSH 10 ml ASDIRECTED PRN Administration Keep Vein Open Discontinued Medications Generic Name Dose Route Start Last Admin Trade Name Freq PRN Reason Stop Dose Admin Aspirin 324 mg 12/25/19 11:20 12/25/19 11:39 Aspirin PO 12/25/19 11:21 324 mg ONETIME ONE Administration Ciprofloxacin 500 mg 12/25/19 14:38 12/25/19 14:47 Ciprofloxacin Hcl PO 12/25/19 14:39 500 mg ONETIME ONE Administration Insulin Human Lispro 5 unit 12/25/19 13:00 12/25/19 13:16 Humalog SUBCUT 12/25/19 13:01 5 units ONETIME ONE Administration Departure - Departure Time of Disposition: 17:00 Disposition: Home, Self-Care 01 Condition: Fair Clinical Impression: Chest pain due to CAD UTI (urinary tract infection) Qualifiers: Urinary tract infection type: site unspecified Hematuria presence: with hematuria Qualified Code(s): N39.0 - Urinary tract infection, site not specified Prescriptions: Ciprofloxacin HCl [Cipro] 500 mg PO BID #14 tablet Nicotine [Nicotine Patch] 7 mg TD DAILY #1 box Nitroglycerin [Nitrostat] 0.4 mg SL ASDIRECTED PRN #30 tab.sl PRN Reason: Chest Pain Instructions: Ciprofloxacin tablets, Coronary Artery Disease, Female Referrals: Hunter Marcos MD [Primary Care Provider] - Forms: ED Department Discharge Additional Instructions: Activity as tolerated. Continue regular medications except, but decrease Nicotine patch to 7mg daily. Ciprofloxin 500mg twice a day until gone. Nitroglycerin tablet as needed for chest pain. If having chest pain, make sure sitting, place 1 tablet under tongue. If after 5 minutes pain remains, may take another tablet. If after 5 minutes, pain remains, may take another tablet. If pain remains after 3rd tablet, call 911. Follow up with regular MD for recheck early next week before then end of the month, call for appt. Sepsis Event Note - Evaluation Sepsis Screening Result: No Definite Risk - Focused Exam Vital Signs: Vital Signs Temp Pulse Resp BP Pulse Ox 12/25/19 16:00 78 18 109/67 97 12/25/19 15:00 80 18 111/73 96 12/25/19 14:50 76 18 107/66 96 12/25/19 14:00 80 19 102/68 95 12/25/19 13:00 75 17 122/66 98 12/25/19 12:00 72 18 150/55 H 97 12/25/19 11:30 80 17 145/91 H 99 12/25/19 11:00 81 20 142/89 H 98 12/25/19 10:30 77 19 153/109 H 98 12/25/19 10:00 80 18 156/89 H 97 12/25/19 09:30 81 22 H 151/75 H 98 12/25/19 09:00 75 18 136/97 H 98 12/25/19 08:45 78 18 145/78 H 97 12/25/19 08:30 77 19 153/80 H 98 12/25/19 08:15 78 17 141/93 H 97 12/25/19 08:05 36.6 C 76 20 141/125 H 96 Date Exam was Performed: 12/25/19 Time Exam was Performed: 17:00 - Problem List & Annotations (1) Chest pain due to CAD SNOMED Code(s): 259231111, 864917400 Code(s): I25.119 - ATHSCL HEART DISEASE OF [place] COR ART W UNSP ANG PCTRS Status: Acute Current Visit: Yes Annotation/Comment:: Per cardiology suggestions, she was provided a new prescription for nicotine patch 7 mg as directed, and Nitrostat 0.4 mg sl as directed. (2) UTI, Urinary tract infectious disease SNOMED Code(s): 72147959 Code(s): N39.0 - URINARY TRACT INFECTION, SITE NOT SPECIFIED Status: Acute Current Visit: No Annotation/Comment:: Clarissa was dispensed Cipro 500 mg bid for a week. - Problem List Review Problem List Initiated/Reviewed/Updated: Yes - My Orders Last 24 Hours: My Active Orders 12/25/19 08:51 EKG 12 Lead [EK] Routine 12/25/19 11:21 Sodium Chloride 0.9% [Saline Flush] 10 ml FLUSH ASDIRECTED PRN Peripheral IV Insertion Adult [OM.PC] Routine 12/25/19 11:23 CULTURE URINE [RM] Stat 12/25/19 12:00 EKG 12 Lead [EK] Routine - Assessment/Plan Last 24 Hours: My Active Orders 12/25/19 08:51 EKG 12 Lead [EK] Routine 12/25/19 11:21 Sodium Chloride 0.9% [Saline Flush] 10 ml FLUSH ASDIRECTED PRN Peripheral IV Insertion Adult [OM.PC] Routine 12/25/19 11:23 CULTURE URINE [RM] Stat 12/25/19 12:00 EKG 12 Lead [EK] Routine Plan: Follow up with PCP before the end of the month.
--- NOTE | 2019-12-25 10:20 | CR ---
INDICATION: Atypical chest pain. CHEST, 1 VIEW: AP, portable upright view of the chest was obtained 12/25/19 and compared with 11/08/19 and 10/17/19. The heart appears enlarged. The aorta is tortuous with calcification in the arch. Overlying EKG leads are noted. A definite active infiltrate or effusion was not identified. Somewhat heavy interstitial markings are noted compatible with previous studies and a mild degree of pulmonary fibrosis. Evidence of exogenous obesity is noted. A dextroconvex scoliosis as noted at the lower thoracic spine. Overlying EKG leads are noted. IMPRESSION: 1. No acute process. 2. ASHD. 3. Exogenous obesity. 4. Heavy markings compatible with mild pulmonary fibrosis, unchanged from previous study. MTDD
[2019-12-25] MEDS ORDERED: Aspirin 81 MG Tab.Chew PO ONE (11:20)
[2019-12-25] MEDS ORDERED: Sodium Chloride 0.9% 10 ML Syringe FLUSH PRN (11:21)
[2019-12-25] MEDS ORDERED: Insulin Lispro 100 Unit/ML 3 ML KwikPen SUBCUT ONE (13:00)
[2019-12-25] MEDS ORDERED: Ciprofloxacin 500 MG Tab PO ONE (14:38)
[2019-12-25 17:48] VITALS: BP 104/57; PULSE 85
== END 2019-12-25 17:05 | disposition home or self-care (01) ==
LOC: FB.ED 08:05
DX: I25.119 Atherosclerotic heart disease of native coronary artery with unspecified angina pectoris (principal); N39.0 Urinary tract infection, site not specified; E78.00 Pure hypercholesterolemia, unspecified; I10 Essential (primary) hypertension; I25.2 Old myocardial infarction; E11.9 Type 2 diabetes mellitus without complications; E66.9 Obesity, unspecified; Z88.8 Allergy status to other drugs, medicaments and biological substances; Z79.82 Long term (current) use of aspirin; Z79.4 Long term (current) use of insulin; Z79.899 Other long term (current) drug therapy; Z87.891 Personal history of nicotine dependence
CPT/HCPCS: 36415; 71045; 80053; 81001; 84484; 85025; 87086; 87088; 87186; 93005; 99285; A9270; J1815

== ENCOUNTER 2020-11-07 09:18 | Emergency (ER) | payer MEDICARE, MEDICAID ==
--- NOTE | 2020-11-07 09:53 | EDM.PDOC ---
ED HPI GENERAL MEDICAL PROBLEM - General Stated Complaint: BLOODY NOSE Time Seen by Provider: 11/07/20 09:42 Source of Information: Reports: Patient History Limitations: Reports: No Limitations - History of Present Illness INITIAL COMMENTS - FREE TEXT/NARRATIVE: 65-year-old female who reports she has had problems with intermittent nosebleeds for the past year. She states that she did have a rhinoplasty about a year ago and she has followed with ENT. She had not really had any problems with nosebleeds for some time until Tuesday when she began having bleeding from her right nostril. It quickly resolved with direct pressure but she has had recurring nosebleeds since then with one on Tuesday that resolved with direct pressure and then one last night that also resolved with direct pressure and the n her nose began to bleed this morning from her right nostril and it was quite profuse. She did apply direct pressure but then took some Kleenex and stuffed it into her right nostril and came to the emergency department for evaluation. She has had no weakness or dizziness. She has had no pain. She would rate her pain as a 0/10. She has had no shortness of breath or chest pain. Some nausea this morning because she felt the blood draining down her throat. She has been able to eat and drink normally. She is on no chronic anticoagulation other than a baby aspirin every day. She has had no nasal congestion or sore throat. There has been no trauma to the area. No known inciting event. There are no other associated signs or symptoms. There are no other modifying factors. Onset: Other Duration: Intermittent (11/03/2020), Other (Worse today.) Location: Reports: Other (Right nostril bleeding. 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 Treatments (Direct pressure and with toilet tissue) - Related Data Allergies Allergy/AdvReac Type Severity Reaction Status Date / Time chocolate flavor Allergy Cannot Verified 12/25/19 08:12 Remember cyclobenzaprine AdvReac Nausea and Verified 12/25/19 08:12 Vomiting meloxicam AdvReac Nausea Verified 12/25/19 08:12 Home Meds: Home Meds Multivitamin [Daily Multiple Vitamin] 1 tab PO DAILY 04/13/18 [History] Pantoprazole [ProTONIX] 40 mg PO DAILY 04/23/18 [History] Cyanocobalamin (Vitamin B-12) [Vitamin B-12] 1,000 mcg PO DAILY 01/18/19 [History] Aspirin [Lo-Dose Aspirin EC] 81 mg PO DAILY 02/21/19 [History] atorvaSTATin [Lipitor] 10 mg PO BEDTIME 02/21/19 [History] Insulin Aspart [NovoLOG] 5 units SQ TID 02/22/19 [History] Clobetasol Propionate [Temovate Cream] 1 applic TP BID PRN 03/19/19 [History] Clotrimazole/Betamethasone Dip [Lotrisone Cream] 1 applic TP BID PRN 03/19/19 [History] Ketoconazole [Nizoral 2% Shampoo] 1 applic TOP TUTH 03/19/19 [History] Acetaminophen [Acetaminophen Extra Strength] 1,000 mg PO QID 11/08/19 [History] Diclofenac Sodium [Voltaren] 4 gram TOP QID PRN 11/08/19 [History] Insulin Detemir [Levemir] 20 unit SUBCUT BEDTIME 11/08/19 [History] Metoprolol Tartrate 25 mg PO BID 11/08/19 [History] Nicotine [Nicotine Patch] 14 mg TRDERM DAILY 11/08/19 [History] Ramipril [Altace] 5 mg PO DAILY 11/08/19 [History] Ciprofloxacin HCl [Cipro] 500 mg PO BID #14 tablet 12/25/19 [Rx] Isosorbide Mononitrate [Imdur] 90 mg PO DAILY 12/25/19 [History] Nicotine [Nicotine Patch] 7 mg TD DAILY #1 box 12/25/19 [Rx] Nitroglycerin [Nitrostat] 0.4 mg SL ASDIRECTED PRN #30 tab.sl 12/25/19 [Rx] Past Medical History HEENT History: Reports: Cataract, Epistaxis, Glaucoma, Impaired Vision, Other (See Below) Other HEENT History: Almost blind L eye Cardiovascular History: Reports: CAD, High Cholesterol, Hypertension, [place] Other Cardiovascular History: [place]/ APR[place] OR MAY 2018. Respiratory History: Reports: Bronchitis, Recurrent, Pneumonia, Recurrent, Other (See Below) Other Respiratory History: RIGHT PLEURAL EFFUSION, HOSPITALIZED 05/2018. SIGNIFICANT STATES ON VENT FOR 9 DAYS. ARDS Gastrointestinal History: Reports: Cholelithiasis, Cirrhosis, Colon Polyp, GERD, Other (See Below) Other Gastrointestinal History: STATES TEAR OF ESOPHAGUS ET REPAIR 2018, ESOPHAGEAL VARICES Genitourinary History: Reports: Urinary Incontinence BREAKER TENDER History: Reports: Other (See Below) Other BREAKER TENDER History: . Musculoskeletal History: Reports: Arthritis, Back Pain, Chronic, Fracture, Osteoarthritis Other Musculoskeletal History: Hx fracture L arm. Hx fracture L foot 4th toe. Hx sprained left ankle. Uses a cane for support with ambulation. Neurological History: Reports: Migraines Other Neuro History: Hx temporal arteritis. Psychiatric History: Reports: Addiction, Anxiety, Depression, Panic Attack, Other (See Below) Other Psychiatric History: Hx ETOH abuse. Endocrine/Metabolic History: Reports: Diabetes, Type II, Obesity/BMI 30+ Other Endocrine/Metabolic History: new diagnosis Hematologic History: Reports: Anemia, Blood Transfusion(s) Other Hematologic History: THROMBOCYTOPENIA Dermatologic History: Reports: Psoriasis - Infectious Disease History Infectious Disease History: Reports: Chicken Pox - Past Surgical History HEENT Surgical History: Reports: Cataract Surgery, Naso-Sinus Surgery (Rhinoplasty.), Visual Other HEENT Surgeries/Procedures: Eye surgery 2 GI Surgical History: Reports: Cholecystectomy, Colonoscopy, EGD Musculoskeletal Surgical History: Reports: Knee Replacement (Left total knee replacement) Social & Family History - Family History Endocrine/Metabolic: Reports: Diabetes, type II - Tobacco Use Tobacco Use Status *Q: Current Some Day Tobacco User - Caffeine Use Caffeine Use: Reports: Soda Other Caffeine Use: 1 cup daily - Alcohol Use Alcohol Use History: Yes Alcohol Use Frequency: Weekly (States she drinks some beer.) - Living Situation & Occupation Occupation: Retired ED ROS ENT - Review of Systems Review Of Systems: See Below Constitutional: Reports: No Symptoms HEENT: Reports: Nosebleed (Right nostril only.) Respiratory: Reports: No Symptoms Cardiovascular: Reports: No Symptoms Endocrine: Reports: No Symptoms GI/Abdominal: Reports: Nausea (This morning with a nosebleed but none now.) : Reports: No Symptoms Musculoskeletal: Reports: No Symptoms Skin: Reports: No Symptoms Neurological: Reports: No Symptoms Psychiatric: Reports: No Symptoms Hematologic/Lymphatic: Reports: Other (No chronic anticoagulation.) Immunologic: Reports: No Symptoms ED EXAM, ENT - Physical Exam Exam: See Below Exam Limited By: No Limitations General Appearance: Alert, WD/WN, No Apparent Distress Eye Exam: Left Eye: EOMI (There is some lateral exotropia in the left eye.), Bilateral Eye: Normal Inspection (The sclera are anicteric.) Ears: Normal External Exam, Hearing Grossly Normal Nose: Dried Blood, Other (The patient did have some clots in her naris on the right but no active bleeding after Zachary-Synephrine spray.) Mouth/Throat: Normal Lips, Normal Oropharynx, Other (No posterior pharyngeal bleeding.) Head: Atraumatic, Normocephalic Neck: Normal Inspection, Supple, Non-Tender, Full Range of Motion Respiratory/Chest: No Respiratory Distress, Lungs Clear, Normal Breath Sounds, No Accessory Muscle Use, Chest Non-Tender Cardiovascular: Normal Peripheral Pulses, No Edema, No JVD, Tachycardia, Systolic Murmur GI/Abdominal: Normal Bowel Sounds, Soft, Non-Tender, No Mass Back: Normal Inspection, Full Range of Motion Extremities: Normal Inspection, Normal Range of Motion, Non-Tender, No Pedal Edema, Normal Capillary Refill Neurological: Alert, Oriented, CN II-XII Intact, Normal Cognition, No Motor/Sensory Deficits Psychiatric: Normal Affect Skin: Warm, Dry, Intact, Normal Color, No Rash ED ENT PROCEDURES - Epistaxis Procedure Indication: Epistaxis, Controlled Recent anticoagulants/antiplatlets: No Uncontrolled HTN: No Recent septal/nasal surgery: No Site of bleeding: Right Nare, Anterior Clearing of clots: Patient Blew Nose Topical Meds: Other (Zachary-Synephrine. After patient had cleared clots and Zachary- Synephrine was sprayed into the right nostril, a nasal clamp was placed. It was left in place for 30 minutes and this, I removed the clamp and reevaluated the patient. She had no active bleeding. There was an area in the anterior naris on the right that was somewhat "raw" there was no active bleeding. There was no posterior pharyngeal bleeding as well. Her pulse rate which had been somewhat elevated when she came in is now in the 90s and she is hemodynamically stable.) Ice pack to area: No Chemical cautery: Other (None) Anterior Packing: Other (None) Posterior packing: Other (None) Complications: No #1 Interpretation EKG Date: 11/07/20 Time: 10:40 Rhythm: NSR Rate (Beats/Min): 91 Agency: Normal P-Wave: Present QRS: Normal ST-T: Other (Early R-wave progression. Normal ST-T's.) QT: Normal Comparison: No Change (No change compared to an EKG performed on 12/25/2019.) Course - Vital Signs Last Recorded V/S: Last Vital Signs Temp 36.6 C 11/07/20 09:18 Pulse 111 H 11/07/20 09:18 Resp 18 11/07/20 09:18 BP 130/75 11/07/20 09:18 Pulse Ox 97 11/07/20 09:18 - Orders/Labs/Meds Orders: Active Orders 24 hr Category Date Time Status EKG Documentation Completion [RC] ASDIRECTED Care 11/07/20 10:23 Active EKG 12 Lead [EK] Routine Ther 11/07/20 10:22 Ordered Labs: Laboratory Tests 11/07/20 11/07/20 11/07/20 Range/Units 10:15 10:15 10:15 WBC 6.9 (3.0-10.3) x10-3/uL RBC 4.19 (3.60-5.20) x10(6)uL Hgb 13.7 (11.4-15.5) g/dL Hct 41.1 (34.2-48.2) % MCV 98.0 (76.7-100.5) fL MCH 32.6 (23.9-33.9) pg MCHC 33.3 (31.9-34.8) g/dL RDW 13.6 (12.3-16.5) % Plt Count 147 L (151-488) x10(3)uL MPV 8.5 (7.1-12.4) fL Neut % (Auto) 66.9 (30.8-76.2) % Lymph % (Auto) 21.2 (18.4-52.1) % [place] % (Auto) 9.7 (4.4-15.7) % Eos % (Auto) 1.6 (0.6-8.1) % Baso % (Auto) 0.6 (0.2-1.5) % Neut # (Auto) 4.6 (1.5-6.3) x10-3/uL Lymph # (Auto) 1.5 (1.0-4.4) x10-3/uL [place] # (Auto) 0.7 (0.3-1.0) x10-3/uL Eos # (Auto) 0.1 (0.0-0.8) x10-3/uL Baso # (Auto) 0.0 (0.0-0.1) x10-3/uL PT 11.8 H (9.0-11.1) sec INR 1.10 (1.00-1.24) APTT 26.2 (24.4-33.2) SECONDS Sodium 136 (135-145) mmol/L Potassium 4.0 (3.5-5.3) mmol/L Chloride 99 L D (100-110) mmol/L Carbon Dioxide 24 (21-32) mmol/L BUN 12 (7-18) mg/dL Creatinine 0.9 (0.55-1.02) mg/dL Est Cr Clr Drug Dosing 50.86 mL/min Estimated GFR (MDRD) > 60 (>60) BUN/Creatinine Ratio 13.3 (9-20) Glucose 129 H (80-116) mg/dL Calcium 9.1 (8.6-10.2) mg/dL Total Bilirubin 1.0 (0.1-1.3) mg/dL AST 36 H (5-25) IU/L ALT 23 (12-36) U/L Alkaline Phosphatase 112 (56-112) IU/L Total Protein 8.6 H (6.0-8.0) g/dL Albumin 3.6 (3.2-4.6) g/dL Globulin 5.0 g/dL Albumin/Globulin Ratio 0.7 - Re-Assessments/Exams Free Text/Narrative Re-Assessment/Exam: 11/07/20 10:55: Patient reevaluated after nasal clamp had been place for 30 minutes. There was no active bleeding. There was no indication for nasal cautery at this point. The plan will be for the patient to take the Zachary-Synephrine spray home and if she has further bleeding she can apply several sprays to the right nostril, then she should clear her clots and apply an additional spray of Zachary-Synephrine and then apply the nasal clamp that we will also send home with t he patient. She also has her humidifiers operating and functioning appropriately now and I have told her to get some saline nasal spray to apply to her nostrils frequently during the day for the next few days. I have also told her to apply Vaseline/petroleum jelly to both nostrils at bedtime. Departure - Departure Time of Disposition: 11:03 Disposition: Home, Self-Care 01 Condition: Good (Improved.) Clinical Impression: Anterior epistaxis - Discharge Information Instructions: Nosebleed, [id number] Referrals: Hunter Marcos MD [Primary Care Provider] - Additional Instructions: Your blood tests were reassuringly normal. Your EKG was normal. There is a small spot in the front of your right nostril that appears to be the site of the bleeding. It is not bleeding at present. You need to get some saline nasal spray ([id number]) and apply that to both of your nostrils 3 to 4 times during the day. You should also get some Vaseline or petroleum jelly and apply that to both nostrils at bedtime. If you have another nosebleed, you should apply the long-acting nasal spray to the nostril with the bleeding and then we're the clots by blowing your nose and then apply another spray to the bleeding nostril and then apply the nasal clamp that we've provided you with. You should avoid any strenuous activity for the next 2-3 days. You should rest. You should increase your fluid intake. Follow-up with Dr. Marcos as needed. Back to the emergency department for nosebleed, trouble breathing, severe weakness or any other concerning sign or symptom. Sepsis Event Note (ED) - Evaluation Sepsis Screening Result: No Definite Risk - Focused Exam Vital Signs: Vital Signs Temp Pulse Resp BP Pulse Ox 11/07/20 09:18 36.6 C 111 H 18 130/75 97 - My Orders Last 24 Hours: My Active Orders 11/07/20 10:22 EKG 12 Lead [EK] Routine 11/07/20 10:23 EKG Documentation Completion [RC] ASDIRECTED - Assessment/Plan Last 24 Hours: My Active Orders 11/07/20 10:22 EKG 12 Lead [EK] Routine 11/07/20 10:23 EKG Documentation Completion [RC] ASDIRECTED
[2020-11-07 11:28] VITALS: BP 155/81; PULSE 86
== END 2020-11-07 11:18 | disposition home or self-care (01) ==
LOC: FB.ED 09:18
DX: R04.0 Epistaxis (principal); I25.10 Atherosclerotic heart disease of native coronary artery without angina pectoris; E78.00 Pure hypercholesterolemia, unspecified; I10 Essential (primary) hypertension; I25.2 Old myocardial infarction; K21.9 Gastro-esophageal reflux disease without esophagitis; M19.90 Unspecified osteoarthritis, unspecified site; E11.9 Type 2 diabetes mellitus without complications; E66.9 Obesity, unspecified; Z72.0 Tobacco use; Z68.31 Body mass index [BMI] 31.0-31.9, adult; Z91.018 Allergy to other foods; Z88.8 Allergy status to other drugs, medicaments and biological substances; Z79.82 Long term (current) use of aspirin; Z79.4 Long term (current) use of insulin; Z79.899 Other long term (current) drug therapy
CPT/HCPCS: 30903; 36415; 80053; 85025; 85610; 85730; 93005; 93010; 99283; 99283-25

== ENCOUNTER 2022-03-13 00:09 | Emergency (ER) | payer MEDICARE, MEDICAID ==
[2022-03-13] MEDS ORDERED: Azithromycin 250 MG Tab PO ONE (00:10)
[2022-03-13] MEDS ORDERED: predniSONE 20 MG Tab PO ONE (00:10)
[2022-03-13 00:12] VITALS: BP 134/79; PULSE 100
== END 2022-03-13 00:58 | disposition home or self-care (01) ==
LOC: FB.ED 00:09
DX: J20.9 Acute bronchitis, unspecified (principal)
CPT/HCPCS: 99281; 99284; A9270-GY; J7512

== ENCOUNTER 2022-05-06 19:50 | Emergency (ER) | payer MEDICARE, MEDICAID ==
[2022-05-06] MEDS ORDERED: cloNIDine 0.1 MG Tab PO ONE (20:08)
[2022-05-06 21:28] VITALS: BP 150/104; PULSE 99
== END 2022-05-06 20:55 | disposition home or self-care (01) ==
LOC: FB.ED 19:50
DX: F10.10 Alcohol abuse, uncomplicated (principal); I25.10 Atherosclerotic heart disease of native coronary artery without angina pectoris; I25.2 Old myocardial infarction; E11.9 Type 2 diabetes mellitus without complications; E66.9 Obesity, unspecified; Z68.32 Body mass index [BMI] 32.0-32.9, adult; Z91.048 Other nonmedicinal substance allergy status; Z88.8 Allergy status to other drugs, medicaments and biological substances; Z79.899 Other long term (current) drug therapy; Z79.82 Long term (current) use of aspirin; Z90.49 Acquired absence of other specified parts of digestive tract
CPT/HCPCS: 99283; A9270

== ENCOUNTER 2022-08-26 17:56 | Emergency (ER) | payer MEDICARE, MEDICAID ==
[2022-08-26 18:20] LABS: ESTIMATED GFR 61 mL/min (>60)
[2022-08-26] MEDS ORDERED: Ketorolac 30 MG/ML SDV IM ONE (18:28)
[2022-08-26] MEDS ORDERED: cloNIDine 0.1 MG Tab PO ONE (18:28)
[2022-08-26] MEDS ORDERED: hydrOXYzine HCl 50 MG/ML SDV IM ONE (18:28)
[2022-08-26] MEDS ORDERED: Morphine 10 MG/ML SDV IM ONE (19:29)
[2022-08-26 19:51] VITALS: BP 136/90; PULSE 92
== END 2022-08-26 19:58 | disposition home or self-care (01) ==
LOC: FB.ED 17:56
DX: E87.1 Hypo-osmolality and hyponatremia (principal); I25.10 Atherosclerotic heart disease of native coronary artery without angina pectoris; I10 Essential (primary) hypertension; I25.2 Old myocardial infarction; M19.90 Unspecified osteoarthritis, unspecified site; E11.9 Type 2 diabetes mellitus without complications; E66.9 Obesity, unspecified; Z68.30 Body mass index [BMI] 30.0-30.9, adult; Z72.0 Tobacco use; Z91.018 Allergy to other foods; Z88.8 Allergy status to other drugs, medicaments and biological substances; Z79.82 Long term (current) use of aspirin; Z79.899 Other long term (current) drug therapy
CPT/HCPCS: 36415; 80053; 80307; 85025; 96372; 99284; A9270; J1885; J2270; J3410

== ENCOUNTER 2022-12-22 23:36 | Emergency (ER) | payer MEDICARE, MEDICAID ==
[2022-12-23] MEDS ORDERED: Phenylephrine 0.5% Nasal Spray 15 ML Bot NASRT ONE
[2022-12-23] MEDS ORDERED: Bacitracin Oint 1 GM U/D Packet TOP ONE (00:01)
[2022-12-23 00:21] LABS: ESTIMATED GFR 80 mL/min (>60)
[2022-12-23 00:48] VITALS: BP 131/88; PULSE 119
== END 2022-12-23 01:15 | disposition home or self-care (01) ==
LOC: FB.ED 23:36
DX: R04.0 Epistaxis (principal); F41.9 Anxiety disorder, unspecified; I25.10 Atherosclerotic heart disease of native coronary artery without angina pectoris; E78.00 Pure hypercholesterolemia, unspecified; I10 Essential (primary) hypertension; I25.2 Old myocardial infarction; E11.9 Type 2 diabetes mellitus without complications; E66.9 Obesity, unspecified; Z68.33 Body mass index [BMI] 33.0-33.9, adult; Z91.018 Allergy to other foods; Z79.82 Long term (current) use of aspirin; Z72.0 Tobacco use; Z79.899 Other long term (current) drug therapy
CPT/HCPCS: 36415; 80053; 85025; 85610; 99284; A9270; 99283

== ENCOUNTER 2023-02-21 19:09 | Emergency (ER) | payer MEDICARE, MEDICAID ==
[2023-02-21 19:58] VITALS: BP 154/91; PULSE 97
== END 2023-02-21 19:57 | disposition home or self-care (01) ==
LOC: FB.ED 19:09
DX: R20.8 Other disturbances of skin sensation (principal); I25.10 Atherosclerotic heart disease of native coronary artery without angina pectoris; I10 Essential (primary) hypertension; I25.2 Old myocardial infarction; M19.90 Unspecified osteoarthritis, unspecified site; E11.9 Type 2 diabetes mellitus without complications; E66.9 Obesity, unspecified; Z68.35 Body mass index [BMI] 35.0-35.9, adult; Z79.82 Long term (current) use of aspirin; Z79.899 Other long term (current) drug therapy; Z88.6 Allergy status to analgesic agent; Z88.8 Allergy status to other drugs, medicaments and biological substances; Z91.02 Food additives allergy status
CPT/HCPCS: 99283

== ENCOUNTER 2023-02-22 16:11 | Emergency (ER) | payer MEDICARE, MEDICAID ==
[2023-02-22 16:29] VITALS: BP 144/84; PULSE 109
[2023-02-22 18:15] LABS: BASOPHILS ABSOLUTE AUTO 0.1 x10-3/uL (0.0-0.1); BASOPHILS PERCENT AUTO 0.8 % (0.2-1.5); EOSINOPHILS ABSOLUTE AUTO 0.2 x10-3/uL (0.0-0.8); EOSINOPHILS PERCENT AUTO 2.6 % (0.6-8.1); HEMATOCRIT 37.8 % (34.2-48.2); HEMOGLOBIN 12.6 g/dL (11.4-15.5); LYMPHOCYTES ABSOLUTE AUTO 1.4 x10-3/uL (1.0-4.4); LYMPHOCYTES PERCENT AUTO 21.1 % (18.4-52.1); MEAN CORPUSCULAR HEMOGLOBIN 28.5 pg (23.9-33.9); MEAN CORPUSCULAR HGB CONC 33.3 g/dL (31.9-34.8); MEAN CORPUSCULAR VOLUME 85.5 fL (76.7-100.5); MEAN PLATELET VOLUME 8.2 fL (7.1-12.4); MONOCYTES ABSOLUTE AUTO 0.8 x10-3/uL (0.3-1.0); MONOCYTES PERCENT AUTO 11.8 % (4.4-15.7); NEUTROPHILS ABSOLUTE AUTO 4.2 x10-3/uL (1.5-6.3); NEUTROPHILS PERCENT AUTO 63.7 % (30.8-76.2); PLATELET COUNT,PLT 176 x10(3)uL (151-488); RED BLOOD CELL COUNT 4.42 x10(6)uL (3.60-5.20); RED CELL DISTRIBUTION WIDTH 17.4 % (12.3-16.5); WHITE BLOOD CELL COUNT,WBC 6.6 x10-3/uL (3.0-10.3)
[2023-02-22 18:20] LABS: BLOOD UREA NITROGEN,BUN 10 mg/dL (7-18); BUN/CREATININE RATIO 14.3 (9-20); CALCIUM 9.1 mg/dL (8.6-10.2); CARBON DIOXIDE,CO2 23 mmol/L (21-32); CHLORIDE,CL 97 mmol/L (100-110); CREATININE 0.7 mg/dL (0.55-1.02); ESTIMATED GFR 94 mL/min (>60); GLUCOSE RANDOM 109 mg/dL (80-116); POTASSIUM,K 4.4 mmol/L (3.5-5.3); SODIUM,NA 129 mmol/L (135-145)
[2023-02-22 18:24] LABS: D-DIMER QUANTITATIVE 1.09 mg/LFEU (0.0-0.59); INR 1.09 (1.00-1.24); PROTHROMBIN TIME 11.2 sec (9.0-11.1)
[2023-02-22 18:26] LABS: A/G RATIO 0.5; ALANINE AMINOTRANSFERASE,ALT 35 U/L (12-36); ALBUMIN 2.7 g/dL (3.2-4.6); ALKALINE PHOSPHATASE 168 IU/L (56-112); ASPARTATE AMNIOTRANSFERASE,AST 66 IU/L (5-25); BILIRUBIN TOTAL 0.5 mg/dL (0.1-1.3); PROTEIN TOTAL,TP 7.7 g/dL (6.0-8.0)
[2023-02-22 18:31] LABS: C-REACTIVE PROTEIN < 0.2 mg/dL (0.5-0.9)
[2023-02-22] MEDS ORDERED: Acetaminophen 325 MG Tab PO ONE (19:56)
== END 2023-02-22 21:25 ==
LOC: FB.ED 16:11
DX: I21.4 Non-ST elevation (NSTEMI) myocardial infarction (principal); F10.10 Alcohol abuse, uncomplicated; R77.8 Other specified abnormalities of plasma proteins; K74.60 Unspecified cirrhosis of liver; R16.0 Hepatomegaly, not elsewhere classified; E87.1 Hypo-osmolality and hyponatremia; E88.09 Other disorders of plasma-protein metabolism, not elsewhere classified; R93.89 Abnormal findings on diagnostic imaging of other specified body structures; I25.2 Old myocardial infarction; E11.9 Type 2 diabetes mellitus without complications; I25.10 Atherosclerotic heart disease of native coronary artery without angina pectoris; E66.9 Obesity, unspecified; Z88.8 Allergy status to other drugs, medicaments and biological substances; Z79.82 Long term (current) use of aspirin; Z87.891 Personal history of nicotine dependence
CPT/HCPCS: 36415; 71046; 80053; 84484; 85025; 85379; 85610; 86140; 93005; 99285; A9270

== ENCOUNTER 2023-02-26 18:52 | Emergency (ER) | payer MEDICARE, MEDICAID ==
[2023-02-26] MEDS ORDERED: Sodium Chloride 0.9% 10 ML Syringe FLUSH PRN (19:00)
[2023-02-26 19:22] LABS: BASOPHILS PERCENT AUTO 0.7 % (0.2-1.5); EOSINOPHILS ABSOLUTE AUTO 0.2 x10-3/uL (0.0-0.8); HEMATOCRIT 35.5 % (34.2-48.2); HEMOGLOBIN 11.8 g/dL (11.4-15.5); LYMPHOCYTES ABSOLUTE AUTO 1.6 x10-3/uL (1.0-4.4); LYMPHOCYTES PERCENT AUTO 26.4 % (18.4-52.1); MEAN CORPUSCULAR HEMOGLOBIN 28.8 pg (23.9-33.9); MEAN CORPUSCULAR HGB CONC 33.2 g/dL (31.9-34.8); MEAN CORPUSCULAR VOLUME 86.8 fL (76.7-100.5); MEAN PLATELET VOLUME 8.2 fL (7.1-12.4); MONOCYTES ABSOLUTE AUTO 0.6 x10-3/uL (0.3-1.0); MONOCYTES PERCENT AUTO 10.7 % (4.4-15.7); NEUTROPHILS ABSOLUTE AUTO 3.5 x10-3/uL (1.5-6.3); NEUTROPHILS PERCENT AUTO 59.2 % (30.8-76.2); PLATELET COUNT,PLT 174 x10(3)uL (151-488); RED CELL DISTRIBUTION WIDTH 17.1 % (12.3-16.5); WHITE BLOOD CELL COUNT,WBC 5.9 x10-3/uL (3.0-10.3)
[2023-02-26 19:24] LABS: BLOOD UREA NITROGEN,BUN 16 mg/dL (7-18); BUN/CREATININE RATIO 17.8 (9-20); CALCIUM 8.3 mg/dL (8.6-10.2); CARBON DIOXIDE,CO2 26 mmol/L (21-32); CHLORIDE,CL 99 mmol/L (100-110); CREATININE 0.9 mg/dL (0.55-1.02); ESTIMATED GFR 70 mL/min (>60); GLUCOSE RANDOM 82 mg/dL (80-116); SODIUM,NA 132 mmol/L (135-145)
[2023-02-26 19:30] VITALS: BP 111/61; PULSE 77
[2023-02-26 19:30] LABS: A/G RATIO 0.6; ALANINE AMINOTRANSFERASE,ALT 34 U/L (12-36); ALBUMIN 2.7 g/dL (3.2-4.6); ALKALINE PHOSPHATASE 148 IU/L (56-112); ASPARTATE AMNIOTRANSFERASE,AST 71 IU/L (5-25); BILIRUBIN TOTAL 0.7 mg/dL (0.1-1.3); PROTEIN TOTAL,TP 7.2 g/dL (6.0-8.0)
[2023-02-26] MEDS: Ondansetron 4 MG/2 ML SDV IVPUSH ONE (20:33)
[2023-02-26] MEDS: LORazepam 2 MG/ML SDV IVPUSH ONE (20:33)
[2023-02-26] MEDS: Sodium Chloride 0.9% 500 ML IV ONE (20:34)
== END 2023-02-26 21:58 | disposition home or self-care (01) ==
LOC: FB.ED 18:52
DX: R11.2 Nausea with vomiting, unspecified (principal); I25.10 Atherosclerotic heart disease of native coronary artery without angina pectoris; I10 Essential (primary) hypertension; I25.2 Old myocardial infarction; M19.90 Unspecified osteoarthritis, unspecified site; E11.9 Type 2 diabetes mellitus without complications; E66.9 Obesity, unspecified; Z68.35 Body mass index [BMI] 35.0-35.9, adult; Z91.018 Allergy to other foods; Z88.8 Allergy status to other drugs, medicaments and biological substances; Z79.899 Other long term (current) drug therapy; Z79.82 Long term (current) use of aspirin
CPT/HCPCS: 36415; 80053; 80307; 85025; 96361; 96374; 99284; J2060; J2405; J7040

== ENCOUNTER 2023-04-18 01:43 | Emergency (ER) | payer MEDICARE, MEDICAID ==
[2023-04-18] MEDS: Sodium Chloride 0.9% 10 ML Syringe FLUSH PRN (02:15)
[2023-04-18 02:22] LABS: BASOPHILS PERCENT AUTO 0.4 % (0.2-1.5); EOSINOPHILS ABSOLUTE AUTO 0.2 x10-3/uL (0.0-0.8); EOSINOPHILS PERCENT AUTO 3.4 % (0.6-8.1); HEMATOCRIT 36.3 % (34.2-48.2); LYMPHOCYTES ABSOLUTE AUTO 0.7 x10-3/uL (1.0-4.4); LYMPHOCYTES PERCENT AUTO 14.1 % (18.4-52.1); MEAN CORPUSCULAR HEMOGLOBIN 29.5 pg (23.9-33.9); MEAN CORPUSCULAR HGB CONC 33.2 g/dL (31.9-34.8); MEAN CORPUSCULAR VOLUME 88.9 fL (76.7-100.5); MEAN PLATELET VOLUME 7.8 fL (7.1-12.4); MONOCYTES ABSOLUTE AUTO 0.6 x10-3/uL (0.3-1.0); MONOCYTES PERCENT AUTO 11.4 % (4.4-15.7); NEUTROPHILS ABSOLUTE AUTO 3.8 x10-3/uL (1.5-6.3); NEUTROPHILS PERCENT AUTO 70.7 % (30.8-76.2); PLATELET COUNT,PLT 122 x10(3)uL (151-488); RED BLOOD CELL COUNT 4.09 x10(6)uL (3.60-5.20); RED CELL DISTRIBUTION WIDTH 19.7 % (12.3-16.5); WHITE BLOOD CELL COUNT,WBC 5.3 x10-3/uL (3.0-10.3)
[2023-04-18 02:27] LABS: BLOOD UREA NITROGEN,BUN 16 mg/dL (7-18); BUN/CREATININE RATIO 14.5 (9-20); CALCIUM 7.5 mg/dL (8.6-10.2); CARBON DIOXIDE,CO2 24 mmol/L (21-32); CHLORIDE,CL 100 mmol/L (100-110); CREATININE 1.1 mg/dL (0.55-1.02); ESTIMATED GFR 55 mL/min (>60); GLUCOSE RANDOM 143 mg/dL (80-116); POTASSIUM,K 3.5 mmol/L (3.5-5.3); SODIUM,NA 134 mmol/L (135-145)
[2023-04-18 02:33] LABS: A/G RATIO 0.5; ALANINE AMINOTRANSFERASE,ALT 21 U/L (12-36); ALBUMIN 2.1 g/dL (3.2-4.6); ALKALINE PHOSPHATASE 143 IU/L (56-112); ASPARTATE AMNIOTRANSFERASE,AST 50 IU/L (5-25); BILIRUBIN TOTAL 0.5 mg/dL (0.1-1.3); PROTEIN TOTAL,TP 6.7 g/dL (6.0-8.0)
[2023-04-18] MEDS: Albuterol/Ipratropium 3.0-0.5 MG/3 ML Neb Soln NEB ONE (02:33)
[2023-04-18] MEDS: Ondansetron 4 MG/2 ML SDV IVPUSH ONE (02:35)
[2023-04-18] MEDS: methylPREDNISolone Sodium Succinate 125 MG/2 ML SDV IVPUSH ONE (02:37)
[2023-04-18 02:38] LABS: INR 1.06 (1.00-1.24); PROTHROMBIN TIME 10.9 sec (9.0-11.1); PTT,PARTIAL THROMBOPLSTIN TIME 26.5 SECONDS (24.4-33.2)
[2023-04-18] MEDS: hydrALAZINE 20 MG/ML SDV IVPUSH ONE (03:36)
[2023-04-18] MEDS: Aspirin 325 MG Tab.EC PO ONE (04:47)
[2023-04-18] MEDS: Metolazone 2.5 MG Tab PO ONE (04:48)
[2023-04-18] MEDS: Furosemide 40 MG/4 ML VIAL IVPUSH ONE (05:05)
[2023-04-18] MEDS: Heparin Sodium 5,000 Units/ML Vial IVPUSH ONE (05:10)
[2023-04-18] MEDS: Heparin Sodium/0.45% NaCl 500 ML IV SCH (05:13)
[2023-04-18 05:25] LABS: BILIRUBIN,URINE NEGATIVE (NEGATIVE); GLUCOSE,URINE NORMAL (NORMAL); KETONES,URINE 15 mg/dL (NEGATIVE); LEUKOCYTE ESTERASE,URINE NEGATIVE (NEGATIVE); NITRITE,URINE NEGATIVE (NEGATIVE); OCCULT BLOOD,URINE LARGE (NEGATIVE); PROTEIN,URINE 500 mg/dL (NEGATIVE); UROBILINOGEN,URINE NORMAL (NEGATIVE)
[2023-04-18 05:30] LABS: APPEARANCE,URINE CLOUDY (CLEAR); BACTERIA,URINE MODERATE (NS); COLOR,URINE YELLOW (YELLOW); RBC,URINE 20-30 (0-5); SQUAMOUS EPITHELIAL CELLS,UR FEW (NS,R,O); WBC,URINE 0-5 (0-5)
[2023-04-18 05:31] LABS: FINE GRANULAR CASTS,URINE FEW (NS); HYALINE CASTS,URINE FEW (NS)
[2023-04-18] MEDS: Metoprolol Tartrate 5 MG/5 ML SDV IVPUSH ONE (06:22)
[2023-04-18 07:40] VITALS: BP 191/98; PULSE 101
[2023-04-18] MEDS: Iopamidol 755 Mg/ML 100 ML Bottle IV SCH (10:36)
== END 2023-04-18 11:55 ==
LOC: FB.ED 01:43
DX: I21.4 Non-ST elevation (NSTEMI) myocardial infarction (principal); E87.1 Hypo-osmolality and hyponatremia; E88.09 Other disorders of plasma-protein metabolism, not elsewhere classified; C22.8 Malignant neoplasm of liver, primary, unspecified as to type; R77.8 Other specified abnormalities of plasma proteins; K70.30 Alcoholic cirrhosis of liver without ascites; I10 Essential (primary) hypertension; F10.10 Alcohol abuse, uncomplicated; R00.0 Tachycardia, unspecified; I25.10 Atherosclerotic heart disease of native coronary artery without angina pectoris; I25.2 Old myocardial infarction; M19.90 Unspecified osteoarthritis, unspecified site; E11.9 Type 2 diabetes mellitus without complications; E66.9 Obesity, unspecified; Z68.33 Body mass index [BMI] 33.0-33.9, adult; Z91.018 Allergy to other foods; Z88.8 Allergy status to other drugs, medicaments and biological substances; Z79.82 Long term (current) use of aspirin; Z79.899 Other long term (current) drug therapy
CPT/HCPCS: 36415; 51702; 71045; 71275; 80053; 81001; 83880; 84484; 85025; 85610; 85730; 93005; 94640; 96365; 96366; 96375; 99285; A9270; J0360; J1644; J1940; J2405; J2930; J3490; Q9967; J7620

== ENCOUNTER 2023-04-24 06:50 | Emergency (ER) | payer MEDICARE, MEDICAID ==
[2023-04-24] MEDS ORDERED: Albuterol/Ipratropium 3.0-0.5 MG/3 ML Neb Soln NEB ONE ×2 (07:36→10:31)
[2023-04-24 07:59] VITALS: PULSE 108
[2023-04-24 08:02] LABS: BASOPHILS PERCENT AUTO 0.4 % (0.2-1.5); EOSINOPHILS ABSOLUTE AUTO 0.2 x10-3/uL (0.0-0.8); EOSINOPHILS PERCENT AUTO 2.2 % (0.6-8.1); HEMATOCRIT 37.7 % (34.2-48.2); HEMOGLOBIN 12.5 g/dL (11.4-15.5); LYMPHOCYTES ABSOLUTE AUTO 0.8 x10-3/uL (1.0-4.4); LYMPHOCYTES PERCENT AUTO 11.6 % (18.4-52.1); MEAN CORPUSCULAR HEMOGLOBIN 29.8 pg (23.9-33.9); MEAN CORPUSCULAR HGB CONC 33.2 g/dL (31.9-34.8); MEAN CORPUSCULAR VOLUME 89.6 fL (76.7-100.5); MEAN PLATELET VOLUME 7.6 fL (7.1-12.4); MONOCYTES ABSOLUTE AUTO 0.8 x10-3/uL (0.3-1.0); NEUTROPHILS ABSOLUTE AUTO 5.5 x10-3/uL (1.5-6.3); NEUTROPHILS PERCENT AUTO 74.8 % (30.8-76.2); PLATELET COUNT,PLT 189 x10(3)uL (151-488); RED BLOOD CELL COUNT 4.21 x10(6)uL (3.60-5.20); RED CELL DISTRIBUTION WIDTH 20.2 % (12.3-16.5); WHITE BLOOD CELL COUNT,WBC 7.3 x10-3/uL (3.0-10.3)
[2023-04-24 08:06] LABS: BLOOD UREA NITROGEN,BUN 23 mg/dL (7-18); BUN/CREATININE RATIO 19.2 (9-20); CALCIUM 8.1 mg/dL (8.6-10.2); CARBON DIOXIDE,CO2 27 mmol/L (21-32); CHLORIDE,CL 101 mmol/L (100-110); CREATININE 1.2 mg/dL (0.55-1.02); EST CRCL DRUG DOSING (CG) 40.38 mL/min; ESTIMATED GFR 49 mL/min (>60); GLUCOSE RANDOM 138 mg/dL (80-116); SODIUM,NA 137 mmol/L (135-145)
[2023-04-24 08:12] LABS: A/G RATIO 0.5; ALANINE AMINOTRANSFERASE,ALT 54 U/L (12-36); ALBUMIN 2.2 g/dL (3.2-4.6); ALKALINE PHOSPHATASE 126 IU/L (56-112); ASPARTATE AMNIOTRANSFERASE,AST 85 IU/L (5-25); BILIRUBIN TOTAL 0.9 mg/dL (0.1-1.3); PROTEIN TOTAL,TP 6.6 g/dL (6.0-8.0)
[2023-04-24 08:17] LABS: C-REACTIVE PROTEIN 0.45 mg/dL (<0.33)
[2023-04-24 08:23] LABS: TROPONIN I 177.4 pg/mL (4.0-60.3)
[2023-04-24] MEDS ORDERED: Aspirin 81 MG Tab.Chew PO ONE (08:32)
[2023-04-24] MEDS ORDERED: Heparin Sodium 5,000 Units/ML Vial IVPUSH ONE (08:35)
[2023-04-24] MEDS ORDERED: Dexamethasone 4 MG/ML 5 ML MDV IVPUSH ONE (08:43)
[2023-04-24] MEDS: Sodium Chloride 0.9% 10 ML Syringe FLUSH PRN ×3 (09:45→11:43)
[2023-04-24] MEDS ORDERED: Heparin Sodium/0.45% NaCl 25,000 UNITS/500 ML BAG IV SCH (10:30)
[2023-04-24] MEDS ORDERED: Iopamidol 755 Mg/ML 100 ML Bottle IV SCH (10:30)
[2023-04-24] MEDS ORDERED: Nitroglycerin 0.4 MG Tab.SL SL ONE (11:24)
[2023-04-24] MEDS ORDERED: Ondansetron 4 MG/2 ML SDV IVPUSH ONE (11:28)
[2023-04-24 11:39] VITALS: BP 168/75
== END 2023-04-24 13:30 ==
LOC: FB.ED 06:50
DX: J44.1 Chronic obstructive pulmonary disease with (acute) exacerbation (principal); C22.0 Liver cell carcinoma; J96.01 Acute respiratory failure with hypoxia; J90 Pleural effusion, not elsewhere classified; K74.60 Unspecified cirrhosis of liver; I25.10 Atherosclerotic heart disease of native coronary artery without angina pectoris; I10 Essential (primary) hypertension; I25.2 Old myocardial infarction; M19.90 Unspecified osteoarthritis, unspecified site; E11.9 Type 2 diabetes mellitus without complications; E66.9 Obesity, unspecified; Z68.36 Body mass index [BMI] 36.0-36.9, adult; Z87.891 Personal history of nicotine dependence; Z88.8 Allergy status to other drugs, medicaments and biological substances; Z91.018 Allergy to other foods; Z79.82 Long term (current) use of aspirin; Z79.899 Other long term (current) drug therapy
CPT/HCPCS: 36415; 71275; 80053; 83880; 84484; 85025; 85379; 86140; 87070; 87077; 87205; 93005; 94640; 96365; 96366; 96375; 96376; 99285; A9270; J1100; J1644; J2405; J3490; Q9967; J7620

== ENCOUNTER 2023-05-02 00:04 | Emergency (ER) | payer MEDICARE, MEDICAID ==
[2023-05-02] MEDS ORDERED: Albuterol/Ipratropium 3.0-0.5 MG/3 ML Neb Soln NEB ONE (00:07)
[2023-05-02] MEDS ORDERED: methylPREDNISolone Sodium Succinate 125 MG/2 ML SDV IM ONE (00:08)
[2023-05-02] MEDS ORDERED: Azithromycin 500 MG Tab PO ONE (00:43)
[2023-05-02 00:50] VITALS: BP 143/77; PULSE 101
== END 2023-05-02 01:00 | disposition home or self-care (01) ==
LOC: FB.ED 00:04
DX: J44.1 Chronic obstructive pulmonary disease with (acute) exacerbation (principal); I25.10 Atherosclerotic heart disease of native coronary artery without angina pectoris; I10 Essential (primary) hypertension; I25.2 Old myocardial infarction; E11.9 Type 2 diabetes mellitus without complications; E66.9 Obesity, unspecified; Z68.36 Body mass index [BMI] 36.0-36.9, adult; Z87.891 Personal history of nicotine dependence; Z88.8 Allergy status to other drugs, medicaments and biological substances; Z91.018 Allergy to other foods; Z79.82 Long term (current) use of aspirin; Z79.899 Other long term (current) drug therapy
CPT/HCPCS: 71045; 96372; 99285; A9270; J2930; J7620

== ENCOUNTER 2023-05-08 21:49 | Emergency (ER) | payer MEDICARE, MEDICAID ==
[2023-05-08] MEDS ORDERED: Albuterol/Ipratropium 3.0-0.5 MG/3 ML Neb Soln NEB ONE ×2 (22:13→23:35)
[2023-05-08 22:33] LABS: HEMATOCRIT 36.4 % (34.2-48.2); HEMOGLOBIN 12.1 g/dL (11.4-15.5); MEAN CORPUSCULAR HEMOGLOBIN 29.9 pg (23.9-33.9); MEAN CORPUSCULAR HGB CONC 33.3 g/dL (31.9-34.8); MEAN CORPUSCULAR VOLUME 89.9 fL (76.7-100.5); MEAN PLATELET VOLUME 7.7 fL (7.1-12.4); PLATELET COUNT,PLT 95 x10(3)uL (151-488); RED BLOOD CELL COUNT 4.05 x10(6)uL (3.60-5.20); RED CELL DISTRIBUTION WIDTH 20.4 % (12.3-16.5); WHITE BLOOD CELL COUNT,WBC 10.3 x10-3/uL (3.0-10.3)
[2023-05-08 22:37] LABS: BLOOD UREA NITROGEN,BUN 15 mg/dL (7-18); BUN/CREATININE RATIO 13.6 (9-20); CARBON DIOXIDE,CO2 31 mmol/L (21-32); CHLORIDE,CL 101 mmol/L (100-110); CREATININE 1.1 mg/dL (0.55-1.02); ESTIMATED GFR 55 mL/min (>60); GLUCOSE RANDOM 131 mg/dL (80-116); POTASSIUM,K 3.8 mmol/L (3.5-5.3); SODIUM,NA 137 mmol/L (135-145)
[2023-05-08 22:43] LABS: A/G RATIO 0.6; ALANINE AMINOTRANSFERASE,ALT 53 U/L (12-36); ALBUMIN 2.1 g/dL (3.2-4.6); ALKALINE PHOSPHATASE 143 IU/L (56-112); ASPARTATE AMNIOTRANSFERASE,AST 48 IU/L (5-25); BILIRUBIN TOTAL 0.5 mg/dL (0.1-1.3); PROTEIN TOTAL,TP 5.9 g/dL (6.0-8.0)
[2023-05-08 22:47] LABS: EOSINOPHILS PERCENT MAN 3 % (0-5); LYMPHOCYTES PERCENT MAN 6 % (13-37); MONOCYTES PERCENT MAN 5 % (4-12); SEG NEUTROPHILS PERCENT MAN 86 % (46-82)
[2023-05-08 22:49] LABS: C-REACTIVE PROTEIN 1.58 mg/dL (<0.33)
[2023-05-08 22:52] LABS: TROPONIN I 106.8 pg/mL (4.0-60.3)
[2023-05-08] MEDS ORDERED: Dexamethasone 4 MG/ML 5 ML MDV PO ONE (23:48)
[2023-05-08] MEDS ORDERED: Levofloxacin 500 MG Tab PO ONE (23:49)
[2023-05-09] MEDS ORDERED: Ketorolac 30 MG/ML SDV IVPUSH ONE (01:39)
[2023-05-09 04:20] VITALS: BP 132/78; PULSE 110
== END 2023-05-09 03:40 | disposition home or self-care (01) ==
LOC: FB.ED 21:49
DX: J18.9 Pneumonia, unspecified organism (principal); J44.1 Chronic obstructive pulmonary disease with (acute) exacerbation; J90 Pleural effusion, not elsewhere classified; R77.8 Other specified abnormalities of plasma proteins; K21.9 Gastro-esophageal reflux disease without esophagitis; E78.00 Pure hypercholesterolemia, unspecified; I10 Essential (primary) hypertension; I25.2 Old myocardial infarction; I25.10 Atherosclerotic heart disease of native coronary artery without angina pectoris; E11.9 Type 2 diabetes mellitus without complications; E66.9 Obesity, unspecified; Z79.82 Long term (current) use of aspirin; Z79.899 Other long term (current) drug therapy; Z79.52 Long term (current) use of systemic steroids
CPT/HCPCS: 36415; 71046; 80053; 83605; 83880; 84484; 85025; 86140; 93005; 93010; 96374; 99284; 99285-25; A9270-GY; J1885; J7620; J8540

== ENCOUNTER 2023-05-11 17:24 | Emergency (ER) | payer MEDICARE, MEDICAID ==
[2023-05-11] MEDS ORDERED: Sodium Chloride 0.9% 10 ML Syringe FLUSH PRN (18:04)
[2023-05-11 18:20] LABS: HEMATOCRIT 38.9 % (34.2-48.2); HEMOGLOBIN 13.3 g/dL (11.4-15.5); MEAN CORPUSCULAR HEMOGLOBIN 30.7 pg (23.9-33.9); MEAN CORPUSCULAR HGB CONC 34.2 g/dL (31.9-34.8); MEAN CORPUSCULAR VOLUME 89.7 fL (76.7-100.5); MEAN PLATELET VOLUME 7.4 fL (7.1-12.4); PLATELET COUNT,PLT 97 x10(3)uL (151-488); RED BLOOD CELL COUNT 4.34 x10(6)uL (3.60-5.20); RED CELL DISTRIBUTION WIDTH 20.4 % (12.3-16.5); WHITE BLOOD CELL COUNT,WBC 7.5 x10-3/uL (3.0-10.3)
[2023-05-11 18:24] LABS: BLOOD UREA NITROGEN,BUN 15 mg/dL (7-18); CALCIUM 8.1 mg/dL (8.6-10.2); CARBON DIOXIDE,CO2 32 mmol/L (21-32); CHLORIDE,CL 99 mmol/L (100-110); ESTIMATED GFR 61 mL/min (>60); GLUCOSE RANDOM 191 mg/dL (80-116); POTASSIUM,K 4.2 mmol/L (3.5-5.3); SODIUM,NA 135 mmol/L (135-145)
[2023-05-11 18:30] LABS: A/G RATIO 0.5; ALANINE AMINOTRANSFERASE,ALT 59 U/L (12-36); ALKALINE PHOSPHATASE 150 IU/L (56-112); ASPARTATE AMNIOTRANSFERASE,AST 61 IU/L (5-25); BILIRUBIN TOTAL 0.9 mg/dL (0.1-1.3); CREATINE KINASE,CK 79 IU/L (60-160); PROTEIN TOTAL,TP 5.9 g/dL (6.0-8.0)
[2023-05-11 18:32] LABS: INR 1.1 (1.00-1.24); PROTHROMBIN TIME 11.3 sec (9.0-11.1)
[2023-05-11 18:34] LABS: LACTIC ACID 1.6 mmol/L (0.4-2.0)
[2023-05-11 18:42] LABS: TROPONIN I 122.8 pg/mL (4.0-60.3)
[2023-05-11] MEDS ORDERED: Morphine 4 MG/ML VIAL IVPUSH ONE (18:43)
[2023-05-11] MEDS ORDERED: Ketorolac 30 MG/ML SDV IVPUSH ONE (18:43)
[2023-05-11 18:50] LABS: LYMPHOCYTES PERCENT MAN 7 % (13-37); MONOCYTES PERCENT MAN 4 % (4-12); SEG NEUTROPHILS PERCENT MAN 89 % (46-82)
[2023-05-11 20:29] LABS: APPEARANCE,URINE CLEAR (CLEAR); BACTERIA,URINE FEW (NS); BILIRUBIN,URINE NEGATIVE (NEGATIVE); COLOR,URINE YELLOW (YELLOW); GLUCOSE,URINE NORMAL (NORMAL); KETONES,URINE NEGATIVE (NEGATIVE); LEUKOCYTE ESTERASE,URINE MODERATE (NEGATIVE); NITRITE,URINE NEGATIVE (NEGATIVE); OCCULT BLOOD,URINE LARGE (NEGATIVE); PROTEIN,URINE 100 mg/dL (NEGATIVE); SQUAMOUS EPITHELIAL CELLS,UR MODERATE (NS,R,O); UROBILINOGEN,URINE NORMAL (NEGATIVE); WBC,URINE 0-5 (0-5)
[2023-05-11 20:43] VITALS: BP 138/77; PULSE 90
== END 2023-05-11 20:36 | disposition home or self-care (01) ==
LOC: FB.ED 17:24
DX: S93.401A Sprain of unspecified ligament of right ankle, initial encounter (principal); E66.9 Obesity, unspecified; E11.9 Type 2 diabetes mellitus without complications; I25.10 Atherosclerotic heart disease of native coronary artery without angina pectoris; I10 Essential (primary) hypertension; I25.2 Old myocardial infarction; E78.00 Pure hypercholesterolemia, unspecified; J44.9 Chronic obstructive pulmonary disease, unspecified; M19.90 Unspecified osteoarthritis, unspecified site; Z79.82 Long term (current) use of aspirin; Z79.899 Other long term (current) drug therapy; Z88.8 Allergy status to other drugs, medicaments and biological substances; Z91.018 Allergy to other foods; Z68.20 Body mass index [BMI] 20.0-20.9, adult; X50.1XXA Overexertion from prolonged static or awkward postures, initial encounter
CPT/HCPCS: 36415; 71045; 73610; 80053; 81001; 82550; 83605; 83880; 84484; 85025; 85610; 85730; 93005; 96374; 96375; 99284; J1885; J2270

== ENCOUNTER 2023-05-24 13:54 | Inpatient (IN) | payer MEDICARE, MEDICAID ==
[2023-05-24] MEDS ORDERED: Ondansetron 4 MG/2 ML SDV IV PRN (14:12)
[2023-05-24 14:41] LABS: BASOPHILS ABSOLUTE AUTO 0.1 x10-3/uL (0.0-0.1); BASOPHILS PERCENT AUTO 1.4 % (0.2-1.5); EOSINOPHILS ABSOLUTE AUTO 0.2 x10-3/uL (0.0-0.8); EOSINOPHILS PERCENT AUTO 3.6 % (0.6-8.1); HEMATOCRIT 37.9 % (34.2-48.2); HEMOGLOBIN 12.7 g/dL (11.4-15.5); LYMPHOCYTES ABSOLUTE AUTO 1.6 x10-3/uL (1.0-4.4); LYMPHOCYTES PERCENT AUTO 30.6 % (18.4-52.1); MEAN CORPUSCULAR HEMOGLOBIN 29.7 pg (23.9-33.9); MEAN CORPUSCULAR HGB CONC 33.5 g/dL (31.9-34.8); MEAN CORPUSCULAR VOLUME 88.6 fL (76.7-100.5); MEAN PLATELET VOLUME 7.6 fL (7.1-12.4); MONOCYTES ABSOLUTE AUTO 0.6 x10-3/uL (0.3-1.0); MONOCYTES PERCENT AUTO 11.3 % (4.4-15.7); NEUTROPHILS ABSOLUTE AUTO 2.8 x10-3/uL (1.5-6.3); NEUTROPHILS PERCENT AUTO 53.1 % (30.8-76.2); PLATELET COUNT,PLT 148 x10(3)uL (151-488); RED BLOOD CELL COUNT 4.27 x10(6)uL (3.60-5.20); RED CELL DISTRIBUTION WIDTH 19.7 % (12.3-16.5); WHITE BLOOD CELL COUNT,WBC 5.3 x10-3/uL (3.0-10.3)
[2023-05-24 14:46] LABS: BLOOD UREA NITROGEN,BUN 13 mg/dL (7-18); BUN/CREATININE RATIO 9.3 (9-20); CARBON DIOXIDE,CO2 23 mmol/L (21-32); CHLORIDE,CL 104 mmol/L (100-110); CREATININE 1.4 mg/dL (0.55-1.02); ESTIMATED GFR 41 mL/min (>60); GLUCOSE RANDOM 104 mg/dL (80-116); POTASSIUM,K 3.9 mmol/L (3.5-5.3); SODIUM,NA 136 mmol/L (135-145)
[2023-05-24] MEDS: HYDROmorphone 2 MG/ML SDV IVPUSH PRN ×2 (14:49→18:46)
[2023-05-24] MEDS: Sodium Chloride 0.9% 10 ML Syringe FLUSH PRN ×2 (14:51→18:49)
[2023-05-24 14:52] LABS: A/G RATIO 0.5; ALANINE AMINOTRANSFERASE,ALT 29 U/L (12-36); ALBUMIN 2.2 g/dL (3.2-4.6); ALKALINE PHOSPHATASE 193 IU/L (56-112); ASPARTATE AMNIOTRANSFERASE,AST 48 IU/L (5-25); BILIRUBIN TOTAL 0.7 mg/dL (0.1-1.3); MAGNESIUM 1.7 mg/dL (1.8-2.5); PROTEIN TOTAL,TP 6.8 g/dL (6.0-8.0)
[2023-05-24] MEDS: Enoxaparin 40 MG/0.4 ML Syringe SUBCUT SCH (16:16)
[2023-05-24] MEDS ORDERED: Non-Formulary Medication 1 Each (Ketoconazole [Nizoral 2% Shampoo] 120 ML Bottle) TOP SCH (16:45)
[2023-05-24] MEDS ORDERED: Albuterol 8 GM Inhaler INH PRN (16:46)
[2023-05-24] MEDS: Clobetasol 0.05% Crm 15 GM Tube TOP SCH (21:00)
[2023-05-24] MEDS: atorvaSTATin 10 MG Tab PO SCH (21:33)
[2023-05-24] MEDS: diphenhydrAMINE 50 MG Cap PO PRN (23:15)
[2023-05-25] MEDS: HYDROmorphone 2 MG/ML SDV IVPUSH PRN ×4 (01:01→21:15)
[2023-05-25] MEDS: Sodium Chloride 0.9% 10 ML Syringe FLUSH PRN ×6 (01:02→21:18)
[2023-05-25] MEDS: Pantoprazole 40 MG Tab.CR PO SCH (06:13)
[2023-05-25] MEDS: Cyanocobalamin (Vitamin B12) 500 MCG Tab PO SCH (08:02)
[2023-05-25] MEDS: Folic Acid 1 MG Tab PO SCH (08:03)
[2023-05-25] MEDS: Aspirin 81 MG Tab.EC PO SCH (08:03)
[2023-05-25] MEDS: Furosemide 40 MG Tab PO SCH ×2 (08:03→14:01)
[2023-05-25] MEDS: Multivitamins with Iron/Calcium/Folic Acid/Minerals Tab PO SCH (08:03)
[2023-05-25] MEDS: Thiamine 100 MG Tab PO SCH (08:03)
[2023-05-25] MEDS ORDERED: Glucagon,Human Recombinant 1 MG Vial IM PRN (08:52)
[2023-05-25] MEDS ORDERED: 50% Dextrose in Water 50 ML Syringe IVPUSH PRN (08:52)
[2023-05-25] MEDS ORDERED: Aspirin 81 MG Tab.EC PO SCH (09:00)
[2023-05-25] MEDS ORDERED: Levofloxacin/Dextrose 5%-Water 500 MG in Premix Bag 1 BAG IV ONE (09:00)
[2023-05-25] MEDS: Tiotropium BR/Olodaterol HCL 4 GM Inhalation Spray 2.5mcg/1 dose; 10 doses INH SCH (09:08)
[2023-05-25] MEDS: Clobetasol 0.05% Crm 15 GM Tube TOP SCH ×2 (09:09→20:26)
[2023-05-25] MEDS: diphenhydrAMINE 50 MG Cap PO PRN ×2 (09:28→21:30)
[2023-05-25] MEDS: methylPREDNISolone Sodium Succinate 125 MG/2 ML SDV IVPUSH SCH ×2 (09:29→17:53)
[2023-05-25] MEDS: Albuterol/Ipratropium 3.0-0.5 MG/3 ML Neb Soln NEB SCH ×3 (10:45→20:26)
[2023-05-25] MEDS ORDERED: Insulin Lispro 100 Unit/ML 3 ML KwikPen SUBCUT ONE (11:52)
[2023-05-25] MEDS: Insulin Lispro 100 Unit/ML 3 ML KwikPen SUBCUT SCH ×2 (11:54→17:50)
[2023-05-25] MEDS: Enoxaparin 40 MG/0.4 ML Syringe SUBCUT SCH (17:53)
[2023-05-25] MEDS: atorvaSTATin 10 MG Tab PO SCH (20:26)
[2023-05-25] MEDS: guaiFENesin/Dextromethorphan 100-10 MG/5 ML Soln 5 ML Cup PO PRN (23:37)
[2023-05-26] MEDS: methylPREDNISolone Sodium Succinate 125 MG/2 ML SDV IVPUSH SCH ×3 (00:14→16:18)
[2023-05-26] MEDS: Sodium Chloride 0.9% 10 ML Syringe FLUSH PRN ×5 (00:18→20:48)
[2023-05-26] MEDS: Pantoprazole 40 MG Tab.CR PO SCH (06:04)
[2023-05-26] MEDS: Albuterol/Ipratropium 3.0-0.5 MG/3 ML Neb Soln NEB SCH ×4 (06:05→20:59)
[2023-05-26 06:30] LABS: BASOPHILS PERCENT AUTO 0.7 % (0.2-1.5); HEMOGLOBIN 10.8 g/dL (11.4-15.5); LYMPHOCYTES PERCENT AUTO 20.6 % (18.4-52.1); MEAN CORPUSCULAR HEMOGLOBIN 29.4 pg (23.9-33.9); MEAN CORPUSCULAR HGB CONC 32.7 g/dL (31.9-34.8); MEAN CORPUSCULAR VOLUME 89.9 fL (76.7-100.5); MEAN PLATELET VOLUME 8.2 fL (7.1-12.4); MONOCYTES ABSOLUTE AUTO 0.1 x10-3/uL (0.3-1.0); MONOCYTES PERCENT AUTO 1.5 % (4.4-15.7); NEUTROPHILS ABSOLUTE AUTO 3.7 x10-3/uL (1.5-6.3); NEUTROPHILS PERCENT AUTO 77.2 % (30.8-76.2); PLATELET COUNT,PLT 115 x10(3)uL (151-488); RED BLOOD CELL COUNT 3.67 x10(6)uL (3.60-5.20); WHITE BLOOD CELL COUNT,WBC 4.8 x10-3/uL (3.0-10.3)
[2023-05-26 07:07] LABS: A/G RATIO 0.5; ALANINE AMINOTRANSFERASE,ALT 26 U/L (12-36); ALKALINE PHOSPHATASE 159 IU/L (56-112); ASPARTATE AMNIOTRANSFERASE,AST 30 IU/L (5-25); BILIRUBIN TOTAL 0.5 mg/dL (0.1-1.3); BLOOD UREA NITROGEN,BUN 21 mg/dL (7-18); CALCIUM 7.7 mg/dL (8.6-10.2); CARBON DIOXIDE,CO2 24 mmol/L (21-32); CHLORIDE,CL 99 mmol/L (100-110); CREATININE 1.5 mg/dL (0.55-1.02); ESTIMATED GFR 38 mL/min (>60); GLUCOSE RANDOM 154 mg/dL (80-116); POTASSIUM,K 4.6 mmol/L (3.5-5.3); SODIUM,NA 129 mmol/L (135-145)
[2023-05-26] MEDS: Insulin Lispro 100 Unit/ML 3 ML KwikPen SUBCUT SCH ×3 (08:14→17:37)
[2023-05-26] MEDS: Clobetasol 0.05% Crm 15 GM Tube TOP SCH ×2 (08:15→20:59)
[2023-05-26] MEDS: Tiotropium BR/Olodaterol HCL 4 GM Inhalation Spray 2.5mcg/1 dose; 10 doses INH SCH (08:16)
[2023-05-26] MEDS: Furosemide 40 MG Tab PO SCH ×2 (08:16→13:31)
[2023-05-26] MEDS: Aspirin 81 MG Tab.EC PO SCH (08:16)
[2023-05-26] MEDS: Folic Acid 1 MG Tab PO SCH (08:16)
[2023-05-26] MEDS: Thiamine 100 MG Tab PO SCH (08:18)
[2023-05-26] MEDS: Multivitamins with Iron/Calcium/Folic Acid/Minerals Tab PO SCH (08:18)
[2023-05-26] MEDS: Cyanocobalamin (Vitamin B12) 500 MCG Tab PO SCH (08:19)
[2023-05-26] MEDS: HYDROmorphone 2 MG/ML SDV IVPUSH PRN ×3 (08:27→20:48)
[2023-05-26] MEDS: Levofloxacin/Dextrose 5%-Water 250 MG in Premix Bag 1 BAG IV SCH (08:28)
[2023-05-26] MEDS: diphenhydrAMINE 50 MG Cap PO PRN ×2 (11:10→20:57)
[2023-05-26] MEDS: guaiFENesin/Dextromethorphan 100-10 MG/5 ML Soln 5 ML Cup PO PRN ×2 (11:11→16:16)
[2023-05-26] MEDS: Acetaminophen 325 MG Tab PO PRN (12:29)
[2023-05-26] MEDS: Enoxaparin 40 MG/0.4 ML Syringe SUBCUT SCH (16:16)
[2023-05-26] MEDS: Benzonatate 100 MG Cap PO PRN (16:16)
[2023-05-26] MEDS: atorvaSTATin 10 MG Tab PO SCH (21:01)
[2023-05-27] MEDS: Sodium Chloride 0.9% 10 ML Syringe FLUSH PRN ×4 (01:06→14:33)
[2023-05-27] MEDS: methylPREDNISolone Sodium Succinate 125 MG/2 ML SDV IVPUSH SCH ×2 (01:07→09:03)
[2023-05-27] MEDS: Pantoprazole 40 MG Tab.CR PO SCH (06:46)
[2023-05-27] MEDS: Albuterol/Ipratropium 3.0-0.5 MG/3 ML Neb Soln NEB SCH ×4 (06:46→20:23)
[2023-05-27 06:48] LABS: HEMATOCRIT 33.4 % (34.2-48.2); HEMOGLOBIN 11.2 g/dL (11.4-15.5); MEAN CORPUSCULAR HEMOGLOBIN 30.3 pg (23.9-33.9); MEAN CORPUSCULAR HGB CONC 33.6 g/dL (31.9-34.8); MEAN PLATELET VOLUME 7.9 fL (7.1-12.4); PLATELET COUNT,PLT 140 x10(3)uL (151-488); RED BLOOD CELL COUNT 3.71 x10(6)uL (3.60-5.20); RED CELL DISTRIBUTION WIDTH 19.2 % (12.3-16.5); WHITE BLOOD CELL COUNT,WBC 7.7 x10-3/uL (3.0-10.3)
[2023-05-27 07:08] LABS: TROPONIN I 115.1 pg/mL (4.0-60.3)
[2023-05-27 07:14] LABS: ANISOCYTOSIS FEW; BAND PERCENT MAN 1 % (0-6); LYMPHOCYTES PERCENT MAN 8 % (13-37); MONOCYTES PERCENT MAN 1 % (4-12); SEG NEUTROPHILS PERCENT MAN 90 % (46-82)
[2023-05-27 07:18] LABS: BLOOD UREA NITROGEN,BUN 30 mg/dL (7-18); BUN/CREATININE RATIO 18.8 (9-20); CALCIUM 8.1 mg/dL (8.6-10.2); CARBON DIOXIDE,CO2 24 mmol/L (21-32); CHLORIDE,CL 96 mmol/L (100-110); CREATININE 1.6 mg/dL (0.55-1.02); EST CRCL DRUG DOSING (CG) 29.06 mL/min; ESTIMATED GFR 35 mL/min (>60); GLUCOSE RANDOM 160 mg/dL (80-116); POTASSIUM,K 4.7 mmol/L (3.5-5.3); SODIUM,NA 127 mmol/L (135-145)
[2023-05-27] MEDS: Acetaminophen 325 MG Tab PO PRN ×2 (07:40→19:35)
[2023-05-27] MEDS: diphenhydrAMINE 50 MG Cap PO PRN ×2 (07:41→20:23)
[2023-05-27] MEDS: Insulin Lispro 100 Unit/ML 3 ML KwikPen SUBCUT SCH ×3 (07:51→17:55)
[2023-05-27] MEDS: Clobetasol 0.05% Crm 15 GM Tube TOP SCH ×2 (08:54→20:22)
[2023-05-27] MEDS: Tiotropium BR/Olodaterol HCL 4 GM Inhalation Spray 2.5mcg/1 dose; 10 doses INH SCH (08:55)
[2023-05-27] MEDS: Furosemide 40 MG Tab PO SCH ×2 (08:55→14:34)
[2023-05-27] MEDS: Aspirin 81 MG Tab.EC PO SCH (08:55)
[2023-05-27] MEDS: Folic Acid 1 MG Tab PO SCH (08:55)
[2023-05-27] MEDS: Thiamine 100 MG Tab PO SCH (08:57)
[2023-05-27] MEDS: Multivitamins with Iron/Calcium/Folic Acid/Minerals Tab PO SCH (08:57)
[2023-05-27] MEDS: Cyanocobalamin (Vitamin B12) 500 MCG Tab PO SCH (08:57)
[2023-05-27] MEDS: Levofloxacin/Dextrose 5%-Water 250 MG in Premix Bag 1 BAG IV SCH (09:12)
[2023-05-27] MEDS: oxyCODONE 5 MG Tab PO PRN (13:24)
[2023-05-27] MEDS ORDERED: Nitroglycerin 0.4 MG Tab.SL SL PRN (14:00)
[2023-05-27] MEDS: Sennosides/Docusate Sodium 50-8.6 MG Tab PO SCH (14:03)
[2023-05-27] MEDS: Sodium Chloride 1 GM Tab PO SCH ×2 (14:03→20:24)
[2023-05-27] MEDS ORDERED: Morphine 2 MG/ML SYRINGE IVPUSH ONE (14:21)
[2023-05-27 14:45] LABS: BLOOD UREA NITROGEN,BUN 32 mg/dL (7-18); BUN/CREATININE RATIO 17.8 (9-20); CALCIUM 8.1 mg/dL (8.6-10.2); CARBON DIOXIDE,CO2 22 mmol/L (21-32); CHLORIDE,CL 94 mmol/L (100-110); CREATININE 1.8 mg/dL (0.55-1.02); EST CRCL DRUG DOSING (CG) 25.83 mL/min; ESTIMATED GFR 30 mL/min (>60); GLUCOSE RANDOM 214 mg/dL (80-116); POTASSIUM,K 4.8 mmol/L (3.5-5.3); SODIUM,NA 127 mmol/L (135-145)
[2023-05-27] MEDS: Enoxaparin 40 MG/0.4 ML Syringe SUBCUT SCH (16:45)
[2023-05-27] MEDS ORDERED: Iopamidol 755 Mg/ML 100 ML Bottle IV SCH (20:00)
[2023-05-27] MEDS: atorvaSTATin 10 MG Tab PO SCH (20:23)
[2023-05-27] MEDS ORDERED: Aluminum Hydroxide/Magnesium Hydroxide Susp 30 ML Cup PO PRN (21:16)
[2023-05-27] MEDS: guaiFENesin/Dextromethorphan 100-10 MG/5 ML Soln 5 ML Cup PO PRN (23:10)
[2023-05-28] MEDS: guaiFENesin/Dextromethorphan 100-10 MG/5 ML Soln 5 ML Cup PO PRN ×3 (04:00→18:07)
[2023-05-28] MEDS: Pantoprazole 40 MG Tab.CR PO SCH (06:13)
[2023-05-28] MEDS: Albuterol/Ipratropium 3.0-0.5 MG/3 ML Neb Soln NEB SCH ×4 (06:14→20:10)
[2023-05-28 06:42] LABS: BLOOD UREA NITROGEN,BUN 30 mg/dL (7-18); BUN/CREATININE RATIO 21.4 (9-20); CARBON DIOXIDE,CO2 24 mmol/L (21-32); CHLORIDE,CL 100 mmol/L (100-110); CREATININE 1.4 mg/dL (0.55-1.02); EST CRCL DRUG DOSING (CG) 33.21 mL/min; ESTIMATED GFR 41 mL/min (>60); GLUCOSE RANDOM 124 mg/dL (80-116); POTASSIUM,K 4.7 mmol/L (3.5-5.3); SODIUM,NA 129 mmol/L (135-145)
[2023-05-28 06:43] LABS: BASOPHILS PERCENT AUTO 0.3 % (0.2-1.5); EOSINOPHILS PERCENT AUTO 0.1 % (0.6-8.1); HEMATOCRIT 32.6 % (34.2-48.2); LYMPHOCYTES ABSOLUTE AUTO 0.7 x10-3/uL (1.0-4.4); MEAN CORPUSCULAR HEMOGLOBIN 30.4 pg (23.9-33.9); MEAN CORPUSCULAR HGB CONC 33.6 g/dL (31.9-34.8); MEAN CORPUSCULAR VOLUME 90.5 fL (76.7-100.5); MONOCYTES ABSOLUTE AUTO 0.6 x10-3/uL (0.3-1.0); MONOCYTES PERCENT AUTO 8.1 % (4.4-15.7); NEUTROPHILS ABSOLUTE AUTO 5.9 x10-3/uL (1.5-6.3); NEUTROPHILS PERCENT AUTO 82.5 % (30.8-76.2); PLATELET COUNT,PLT 135 x10(3)uL (151-488); RED CELL DISTRIBUTION WIDTH 19.4 % (12.3-16.5); WHITE BLOOD CELL COUNT,WBC 7.2 x10-3/uL (3.0-10.3)
[2023-05-28] MEDS: oxyCODONE 5 MG Tab PO PRN ×4 (06:47→20:52)
[2023-05-28] MEDS: Insulin Lispro 100 Unit/ML 3 ML KwikPen SUBCUT SCH ×3 (09:06→17:50)
[2023-05-28] MEDS: Clobetasol 0.05% Crm 15 GM Tube TOP SCH ×2 (09:19→20:10)
[2023-05-28] MEDS: Aspirin 81 MG Tab.EC PO SCH (09:20)
[2023-05-28] MEDS: Furosemide 40 MG Tab PO SCH ×2 (09:20→14:50)
[2023-05-28] MEDS: Folic Acid 1 MG Tab PO SCH (09:20)
[2023-05-28] MEDS: Levofloxacin 250 MG Tab PO SCH (09:20)
[2023-05-28] MEDS: Sodium Chloride 1 GM Tab PO SCH ×2 (09:21→20:11)
[2023-05-28] MEDS: Tiotropium BR/Olodaterol HCL 4 GM Inhalation Spray 2.5mcg/1 dose; 10 doses INH SCH (09:21)
[2023-05-28] MEDS: Sennosides/Docusate Sodium 50-8.6 MG Tab PO SCH (09:21)
[2023-05-28] MEDS: Cyanocobalamin (Vitamin B12) 500 MCG Tab PO SCH (09:22)
[2023-05-28] MEDS: Thiamine 100 MG Tab PO SCH (09:22)
[2023-05-28] MEDS: Multivitamins with Iron/Calcium/Folic Acid/Minerals Tab PO SCH (11:45)
[2023-05-28] MEDS: Enoxaparin 40 MG/0.4 ML Syringe SUBCUT SCH (16:10)
[2023-05-28] MEDS: atorvaSTATin 10 MG Tab PO SCH (20:10)
[2023-05-28] MEDS: Benzonatate 100 MG Cap PO PRN (23:57)
[2023-05-29] MEDS: oxyCODONE 5 MG Tab PO PRN ×6 (00:11→20:40)
[2023-05-29] MEDS: Pantoprazole 40 MG Tab.CR PO SCH (06:35)
[2023-05-29] MEDS: Albuterol/Ipratropium 3.0-0.5 MG/3 ML Neb Soln NEB SCH ×4 (06:35→20:40)
[2023-05-29 06:56] LABS: HEMATOCRIT 35.9 % (34.2-48.2); HEMOGLOBIN 11.9 g/dL (11.4-15.5); MEAN CORPUSCULAR HEMOGLOBIN 29.9 pg (23.9-33.9); MEAN CORPUSCULAR HGB CONC 33.2 g/dL (31.9-34.8); MEAN CORPUSCULAR VOLUME 90.3 fL (76.7-100.5); MEAN PLATELET VOLUME 7.7 fL (7.1-12.4); PLATELET COUNT,PLT 148 x10(3)uL (151-488); RED BLOOD CELL COUNT 3.98 x10(6)uL (3.60-5.20); RED CELL DISTRIBUTION WIDTH 19.7 % (12.3-16.5); WHITE BLOOD CELL COUNT,WBC 5.2 x10-3/uL (3.0-10.3)
[2023-05-29 07:05] LABS: A/G RATIO 0.6; ALANINE AMINOTRANSFERASE,ALT 40 U/L (12-36); ALBUMIN 2.5 g/dL (3.2-4.6); ALKALINE PHOSPHATASE 155 IU/L (56-112); ASPARTATE AMNIOTRANSFERASE,AST 56 IU/L (5-25); BILIRUBIN TOTAL 0.6 mg/dL (0.1-1.3); BLOOD UREA NITROGEN,BUN 27 mg/dL (7-18); BUN/CREATININE RATIO 20.8 (9-20); CARBON DIOXIDE,CO2 27 mmol/L (21-32); CHLORIDE,CL 101 mmol/L (100-110); CREATININE 1.3 mg/dL (0.55-1.02); EST CRCL DRUG DOSING (CG) 35.27 mL/min; ESTIMATED GFR 45 mL/min (>60); GLUCOSE RANDOM 120 mg/dL (80-116); POTASSIUM,K 4.6 mmol/L (3.5-5.3); PROTEIN TOTAL,TP 6.6 g/dL (6.0-8.0); SODIUM,NA 134 mmol/L (135-145)
[2023-05-29 07:31] LABS: EOSINOPHILS PERCENT MAN 1 % (0-5); LYMPHOCYTES PERCENT MAN 23 % (13-37); MONOCYTES PERCENT MAN 8 % (4-12); SEG NEUTROPHILS PERCENT MAN 68 % (46-82)
[2023-05-29] MEDS: Insulin Lispro 100 Unit/ML 3 ML KwikPen SUBCUT SCH ×3 (08:07→18:07)
[2023-05-29] MEDS: Clobetasol 0.05% Crm 15 GM Tube TOP SCH ×2 (09:24→20:40)
[2023-05-29] MEDS: Folic Acid 1 MG Tab PO SCH (09:25)
[2023-05-29] MEDS: Aspirin 81 MG Tab.EC PO SCH (09:25)
[2023-05-29] MEDS: Furosemide 40 MG Tab PO SCH ×2 (09:26→14:12)
[2023-05-29] MEDS: Levofloxacin 250 MG Tab PO SCH (09:26)
[2023-05-29] MEDS: Sennosides/Docusate Sodium 50-8.6 MG Tab PO SCH (09:27)
[2023-05-29] MEDS: Thiamine 100 MG Tab PO SCH (09:27)
[2023-05-29] MEDS: Tiotropium BR/Olodaterol HCL 4 GM Inhalation Spray 2.5mcg/1 dose; 10 doses INH SCH (09:27)
[2023-05-29] MEDS: Sodium Chloride 1 GM Tab PO SCH ×2 (09:27→20:40)
[2023-05-29] MEDS: Cyanocobalamin (Vitamin B12) 500 MCG Tab PO SCH (09:28)
[2023-05-29] MEDS: Multivitamins with Iron/Calcium/Folic Acid/Minerals Tab PO SCH (11:51)
[2023-05-29] MEDS: Enoxaparin 40 MG/0.4 ML Syringe SUBCUT SCH (16:14)
[2023-05-29] MEDS: atorvaSTATin 10 MG Tab PO SCH (20:40)
[2023-05-29] MEDS: guaiFENesin/Dextromethorphan 100-10 MG/5 ML Soln 5 ML Cup PO PRN (20:41)
[2023-05-30] MEDS: Pantoprazole 40 MG Tab.CR PO SCH (06:18)
[2023-05-30] MEDS: Albuterol/Ipratropium 3.0-0.5 MG/3 ML Neb Soln NEB SCH ×4 (06:18→21:09)
[2023-05-30] MEDS: oxyCODONE 5 MG Tab PO PRN ×5 (06:22→21:14)
[2023-05-30 07:11] LABS: HEMOGLOBIN 11.5 g/dL (11.4-15.5); MEAN CORPUSCULAR HEMOGLOBIN 29.9 pg (23.9-33.9); MEAN CORPUSCULAR HGB CONC 32.9 g/dL (31.9-34.8); MEAN CORPUSCULAR VOLUME 90.8 fL (76.7-100.5); MEAN PLATELET VOLUME 7.5 fL (7.1-12.4); PLATELET COUNT,PLT 120 x10(3)uL (151-488); RED BLOOD CELL COUNT 3.85 x10(6)uL (3.60-5.20)
[2023-05-30 07:14] LABS: BLOOD UREA NITROGEN,BUN 25 mg/dL (7-18); BUN/CREATININE RATIO 20.8 (9-20); CALCIUM 8.1 mg/dL (8.6-10.2); CARBON DIOXIDE,CO2 29 mmol/L (21-32); CHLORIDE,CL 103 mmol/L (100-110); CREATININE 1.2 mg/dL (0.55-1.02); EST CRCL DRUG DOSING (CG) 38.21 mL/min; ESTIMATED GFR 49 mL/min (>60); GLUCOSE RANDOM 115 mg/dL (80-116); POTASSIUM,K 4.2 mmol/L (3.5-5.3); SODIUM,NA 136 mmol/L (135-145)
[2023-05-30] MEDS: Insulin Lispro 100 Unit/ML 3 ML KwikPen SUBCUT SCH ×3 (07:25→17:19)
[2023-05-30 07:32] LABS: EOSINOPHILS PERCENT MAN 8 % (0-5); LYMPHOCYTES PERCENT MAN 25 % (13-37); MONOCYTES PERCENT MAN 5 % (4-12); SEG NEUTROPHILS PERCENT MAN 62 % (46-82)
[2023-05-30] MEDS: Folic Acid 1 MG Tab PO SCH (08:06)
[2023-05-30] MEDS: Furosemide 40 MG Tab PO SCH ×2 (08:06→13:18)
[2023-05-30] MEDS: Levofloxacin 250 MG Tab PO SCH (08:06)
[2023-05-30] MEDS: Sodium Chloride 1 GM Tab PO SCH ×2 (08:07→21:08)
[2023-05-30] MEDS: Cyanocobalamin (Vitamin B12) 500 MCG Tab PO SCH (08:07)
[2023-05-30] MEDS: Sennosides/Docusate Sodium 50-8.6 MG Tab PO SCH (08:08)
[2023-05-30] MEDS: Aspirin 81 MG Tab.EC PO SCH (08:08)
[2023-05-30] MEDS: Thiamine 100 MG Tab PO SCH (08:08)
[2023-05-30] MEDS: Clobetasol 0.05% Crm 15 GM Tube TOP SCH ×2 (08:09→21:07)
[2023-05-30] MEDS: Tiotropium BR/Olodaterol HCL 4 GM Inhalation Spray 2.5mcg/1 dose; 10 doses INH SCH (08:09)
[2023-05-30] MEDS: Acetaminophen 325 MG Tab PO PRN ×2 (09:07→16:36)
[2023-05-30] MEDS ORDERED: Albuterol 90 MCG/6.7 GM Inhaler INH PRN (09:15)
[2023-05-30] MEDS ORDERED: Lidocaine 4% 1 each Patch TOP SCH (09:30)
[2023-05-30] MEDS: Lidocaine 4% 1 each Patch TOP SCH (10:31)
[2023-05-30] MEDS: Multivitamins with Iron/Calcium/Folic Acid/Minerals Tab PO SCH (12:00)
[2023-05-30] MEDS: guaiFENesin/Dextromethorphan 100-10 MG/5 ML Soln 5 ML Cup PO PRN (16:35)
[2023-05-30] MEDS: Benzonatate 100 MG Cap PO PRN (16:36)
[2023-05-30] MEDS: Enoxaparin 40 MG/0.4 ML Syringe SUBCUT SCH (16:43)
[2023-05-30] MEDS: diphenhydrAMINE 50 MG Cap PO PRN (18:28)
[2023-05-30] MEDS ORDERED: LIDOCAINE PATCH TRDERM SCH (21:00)
[2023-05-30] MEDS: atorvaSTATin 10 MG Tab PO SCH (21:09)
[2023-05-31] MEDS: Pantoprazole 40 MG Tab.CR PO SCH (05:58)
[2023-05-31] MEDS: Albuterol/Ipratropium 3.0-0.5 MG/3 ML Neb Soln NEB SCH (05:59)
[2023-05-31] MEDS: oxyCODONE 5 MG Tab PO PRN (06:16)
[2023-05-31] MEDS: Insulin Lispro 100 Unit/ML 3 ML KwikPen SUBCUT SCH (07:38)
[2023-05-31] MEDS: Clobetasol 0.05% Crm 15 GM Tube TOP SCH (08:03)
[2023-05-31] MEDS: Cyanocobalamin (Vitamin B12) 500 MCG Tab PO SCH (08:03)
[2023-05-31] MEDS: Thiamine 100 MG Tab PO SCH (08:04)
[2023-05-31] MEDS: Sennosides/Docusate Sodium 50-8.6 MG Tab PO SCH (08:04)
[2023-05-31] MEDS: Folic Acid 1 MG Tab PO SCH (08:04)
[2023-05-31] MEDS: Furosemide 40 MG Tab PO SCH (08:04)
[2023-05-31] MEDS: Sodium Chloride 1 GM Tab PO SCH (08:04)
[2023-05-31] MEDS: Levofloxacin 250 MG Tab PO SCH (08:05)
[2023-05-31] MEDS: Aspirin 81 MG Tab.EC PO SCH (08:05)
[2023-05-31] MEDS: Tiotropium BR/Olodaterol HCL 4 GM Inhalation Spray 2.5mcg/1 dose; 10 doses INH SCH (08:06)
[2023-05-31] MEDS: Lidocaine 4% 1 each Patch TOP SCH (08:07)
[2023-05-31] MEDS: Acetaminophen 325 MG Tab PO PRN (09:24)
[2023-05-31 09:53] VITALS: BP 123/65; PULSE 99
== END 2023-05-31 10:01 | DRG 190 ==
LOC: FB.MS 14:10
PROVIDERS: ADMIT Family Medicine; ATTEND Student in an Organized Health Care Education/Training Program
DX: J44.0 Chronic obstructive pulmonary disease with (acute) lower respiratory infection (principal); J18.9 Pneumonia, unspecified organism; E87.1 Hypo-osmolality and hyponatremia; M48.54XA Collapsed vertebra, not elsewhere classified, thoracic region, initial encounter for fracture; J44.1 Chronic obstructive pulmonary disease with (acute) exacerbation; E11.9 Type 2 diabetes mellitus without complications; R77.8 Other specified abnormalities of plasma proteins; K70.30 Alcoholic cirrhosis of liver without ascites; F41.9 Anxiety disorder, unspecified; F17.200 Nicotine dependence, unspecified, uncomplicated; D69.6 Thrombocytopenia, unspecified; Z20.822 Contact with and (suspected) exposure to COVID-19; I11.0 Hypertensive heart disease with heart failure; F10.10 Alcohol abuse, uncomplicated; I50.9 Heart failure, unspecified; I25.10 Atherosclerotic heart disease of native coronary artery without angina pectoris; H40.9 Unspecified glaucoma; H54.7 Unspecified visual loss; G43.909 Migraine, unspecified, not intractable, without status migrainosus; E66.9 Obesity, unspecified; F32.A Depression, unspecified; Z79.82 Long term (current) use of aspirin; Z79.899 Other long term (current) drug therapy; Z91.018 Allergy to other foods; Z88.8 Allergy status to other drugs, medicaments and biological substances; I25.2 Old myocardial infarction; Z79.51 Long term (current) use of inhaled steroids; Z98.49 Cataract extraction status, unspecified eye; Z98.890 Other specified postprocedural states
CPT/HCPCS: 36415; 71045; 71275; 74174; 80048; 80053; 82306; 82947; 83735; 83880; 84484; 85025; 93005; 93010; 94150; 94640; 97161-GP; 97165-GO; 97530-GO; 97530-GP; 97535-GO; 99222; 99232; 99239; A9270-GY; J1170; J1650; J1815; J1956; J2270; J2930; J3490; J7620; Q9967; U0002

== ENCOUNTER 2023-07-11 11:22 | Inpatient (IN) | payer MEDICARE, MEDICAID ==
[2023-07-11] MEDS ORDERED: Sodium Chloride 0.9% 10 ML Syringe FLUSH PRN (11:54)
[2023-07-11] MEDS ORDERED: Sodium Chloride 0.9% 500 ML IV ONE (11:54)
[2023-07-11 12:25] LABS: BASOPHILS PERCENT AUTO 0.5 % (0.2-1.5); EOSINOPHILS ABSOLUTE AUTO 0.4 x10-3/uL (0.0-0.8); HEMATOCRIT 36.4 % (34.2-48.2); HEMOGLOBIN 11.9 g/dL (11.4-15.5); LYMPHOCYTES ABSOLUTE AUTO 1.3 x10-3/uL (1.0-4.4); LYMPHOCYTES PERCENT AUTO 25.5 % (18.4-52.1); MEAN CORPUSCULAR HEMOGLOBIN 28.9 pg (23.9-33.9); MEAN CORPUSCULAR HGB CONC 32.7 g/dL (31.9-34.8); MEAN CORPUSCULAR VOLUME 88.4 fL (76.7-100.5); MEAN PLATELET VOLUME 8.4 fL (7.1-12.4); MONOCYTES ABSOLUTE AUTO 0.5 x10-3/uL (0.3-1.0); PLATELET COUNT,PLT 140 x10(3)uL (151-488); RED BLOOD CELL COUNT 4.12 x10(6)uL (3.60-5.20); RED CELL DISTRIBUTION WIDTH 18.3 % (12.3-16.5); WHITE BLOOD CELL COUNT,WBC 5.2 x10-3/uL (3.0-10.3)
[2023-07-11 12:28] LABS: BLOOD UREA NITROGEN,BUN 27 mg/dL (7-18); BUN/CREATININE RATIO 24.5 (9-20); CALCIUM 8.7 mg/dL (8.6-10.2); CARBON DIOXIDE,CO2 28 mmol/L (21-32); CHLORIDE,CL 104 mmol/L (100-110); CREATININE 1.1 mg/dL (0.55-1.02); EST CRCL DRUG DOSING (CG) 41.68 mL/min; ESTIMATED GFR 54 mL/min (>60); GLUCOSE RANDOM 143 mg/dL (80-116); POTASSIUM,K 3.8 mmol/L (3.5-5.3); SODIUM,NA 140 mmol/L (135-145)
[2023-07-11 12:30] LABS: BASE EXCESS VENOUS,POC 3 mmol/L (-2 - 3+); PCO2 VENOUS,POC 31 mmHg (41-51); PH VENOUS,POC 7.51 pH Units (7.32-7.43)
[2023-07-11 12:34] LABS: A/G RATIO 0.5; ALANINE AMINOTRANSFERASE,ALT 23 U/L (12-36); ALBUMIN 2.4 g/dL (3.2-4.6); ALKALINE PHOSPHATASE 138 IU/L (56-112); ASPARTATE AMNIOTRANSFERASE,AST 38 IU/L (5-25); BILIRUBIN TOTAL 0.9 mg/dL (0.1-1.3); PROTEIN TOTAL,TP 7.5 g/dL (6.0-8.0)
[2023-07-11 12:37] LABS: C-REACTIVE PROTEIN 0.56 mg/dL (<0.33)
[2023-07-11 12:38] LABS: INR 1.13 (1.00-1.24); PROTHROMBIN TIME 11.6 sec (9.0-11.1)
[2023-07-11 12:39] LABS: ETHANOL BLOOD MEDICAL < 0.03 % (<0.03); TROPONIN I 86.6 pg/mL (4.0-60.3)
[2023-07-11 13:04] LABS: BILIRUBIN,URINE NEGATIVE (NEGATIVE); GLUCOSE,URINE NORMAL (NORMAL); KETONES,URINE NEGATIVE (NEGATIVE); LEUKOCYTE ESTERASE,URINE LARGE (NEGATIVE); NITRITE,URINE POSITIVE (NEGATIVE); OCCULT BLOOD,URINE LARGE (NEGATIVE); PROTEIN,URINE 30 mg/dL (NEGATIVE); UROBILINOGEN,URINE NORMAL (NEGATIVE)
[2023-07-11 13:05] LABS: APPEARANCE,URINE CLOUDY (CLEAR); COLOR,URINE YELLOW (YELLOW)
[2023-07-11 13:07] LABS: RBC,URINE 0-5 (0-5)
[2023-07-11 13:08] LABS: BACTERIA,URINE MANY (NS); SQUAMOUS EPITHELIAL CELLS,UR NOT SEEN (NS,R,O)
[2023-07-11 13:09] LABS: BARBITURATE SCREEN,URINE NEGATIVE (NEGATIVE); BENZODIAZEPINES SCREEN,URINE NEGATIVE (NEGATIVE); METHADONE SCREEN, URINE NEGATIVE (NEGATIVE); METHAMPHETAMINE SCREEN, URINE NEGATIVE (NEGATIVE); OXYCODONE SCREEN,URINE POSITIVE (NEGATIVE); PROPOXYPHENE SCREEN,URINE NEGATIVE (NEGATIVE); THC SCREEN,URINE NEGATIVE (NEGATIVE)
[2023-07-11 13:11] LABS: BUPRENORPHINE SCREEN,URINE NEGATIVE (NEGATIVE)
[2023-07-11 13:15] LABS: AMPHETAMINES SCREEN, URINE NEGATIVE (NEGATIVE)
[2023-07-11] MEDS ORDERED: cefTRIAXone 2 GM Vial IVPUSH ONE (13:58)
[2023-07-11] MEDS ORDERED: Ondansetron 4 MG Tab.DIS PO PRN (15:51)
[2023-07-11] MEDS ORDERED: Polyethylene Glycol 3350 Powder 17 GM Packet PO PRN (15:51)
[2023-07-11] MEDS ORDERED: Benzonatate 100 MG Cap PO PRN (15:56)
[2023-07-11] MEDS ORDERED: Albuterol 6.7 GM Inhaler INH PRN (16:24)
[2023-07-11] MEDS: NS + KCl 20mEq/L 1,000 ML IV SCH (16:28)
[2023-07-11] MEDS: Enoxaparin 40 MG/0.4 ML Syringe SUBCUT SCH (16:28)
[2023-07-11] MEDS: Sodium Chloride 1 GM Tab PO SCH (20:56)
[2023-07-11] MEDS: Carvedilol 3.125 MG Tab PO SCH (20:56)
[2023-07-11] MEDS: atorvaSTATin 10 MG Tab PO SCH (20:56)
[2023-07-12] MEDS: NS + KCl 20mEq/L 1,000 ML IV SCH ×3 (02:26→23:17)
[2023-07-12] MEDS: Pantoprazole 40 MG Tab.CR PO SCH (06:02)
[2023-07-12 06:56] LABS: BASOPHILS PERCENT AUTO 0.8 % (0.2-1.5); EOSINOPHILS ABSOLUTE AUTO 0.5 x10-3/uL (0.0-0.8); EOSINOPHILS PERCENT AUTO 10.2 % (0.6-8.1); HEMATOCRIT 36.1 % (34.2-48.2); HEMOGLOBIN 12.3 g/dL (11.4-15.5); LYMPHOCYTES ABSOLUTE AUTO 1.3 x10-3/uL (1.0-4.4); LYMPHOCYTES PERCENT AUTO 26.5 % (18.4-52.1); MEAN CORPUSCULAR HEMOGLOBIN 30.2 pg (23.9-33.9); MEAN CORPUSCULAR HGB CONC 33.9 g/dL (31.9-34.8); MEAN CORPUSCULAR VOLUME 89.2 fL (76.7-100.5); MEAN PLATELET VOLUME 8.5 fL (7.1-12.4); MONOCYTES ABSOLUTE AUTO 0.6 x10-3/uL (0.3-1.0); MONOCYTES PERCENT AUTO 11.5 % (4.4-15.7); NEUTROPHILS ABSOLUTE AUTO 2.5 x10-3/uL (1.5-6.3); PLATELET COUNT,PLT 129 x10(3)uL (151-488); RED BLOOD CELL COUNT 4.05 x10(6)uL (3.60-5.20); RED CELL DISTRIBUTION WIDTH 18.9 % (12.3-16.5)
[2023-07-12 07:00] LABS: A/G RATIO 0.5; ALANINE AMINOTRANSFERASE,ALT 21 U/L (12-36); ALBUMIN 2.2 g/dL (3.2-4.6); ALKALINE PHOSPHATASE 128 IU/L (56-112); ASPARTATE AMNIOTRANSFERASE,AST 32 IU/L (5-25); BILIRUBIN TOTAL 0.6 mg/dL (0.1-1.3); BLOOD UREA NITROGEN,BUN 16 mg/dL (7-18); BUN/CREATININE RATIO 17.8 (9-20); CALCIUM 8.3 mg/dL (8.6-10.2); CARBON DIOXIDE,CO2 24 mmol/L (21-32); CHLORIDE,CL 109 mmol/L (100-110); CREATININE 0.9 mg/dL (0.55-1.02); EST CRCL DRUG DOSING (CG) 50.94 mL/min; ESTIMATED GFR 69 mL/min (>60); GLUCOSE RANDOM 89 mg/dL (80-116); POTASSIUM,K 4.3 mmol/L (3.5-5.3); PROTEIN TOTAL,TP 7.1 g/dL (6.0-8.0); SODIUM,NA 143 mmol/L (135-145)
[2023-07-12] MEDS: Furosemide 40 MG Tab PO SCH ×2 (09:02→14:49)
[2023-07-12] MEDS: Aspirin 81 MG Tab.EC PO SCH (09:03)
[2023-07-12] MEDS: Lisinopril 2.5 MG Tab PO SCH (09:03)
[2023-07-12] MEDS: Carvedilol 3.125 MG Tab PO SCH ×2 (09:03→20:15)
[2023-07-12] MEDS: Folic Acid 0.8 MG Tab PO SCH (09:03)
[2023-07-12] MEDS: Sodium Chloride 1 GM Tab PO SCH ×2 (09:04→20:15)
[2023-07-12] MEDS: Thiamine 100 MG Tab PO SCH (09:04)
[2023-07-12] MEDS: Multivitamin Tab PO SCH (09:04)
[2023-07-12] MEDS: Tiotropium BR/Olodaterol HCL 4 GM Inhalation Spray 2.5mcg/1 dose; 10 doses INH SCH (09:04)
[2023-07-12] MEDS ORDERED: Nystatin Topical Powder 15 GM Bottle TOP SCH (10:00)
[2023-07-12] MEDS: Clobetasol 0.05% Crm 15 GM Tube TOP SCH ×2 (11:02→20:16)
[2023-07-12] MEDS: Cetirizine 10 MG Tab PO SCH (11:02)
[2023-07-12] MEDS: Nystatin Topical Powder 15 GM Bottle TOP SCH ×2 (11:03→20:15)
[2023-07-12] MEDS ORDERED: cefTRIAXone 1 GM Vial IVPUSH SCH (13:00)
[2023-07-12] MEDS ORDERED: cefTRIAXone 1 GM in Sodium Chloride 0.9% 50 ML IV SCH (13:00)
[2023-07-12] MEDS: oxyCODONE 5 MG Tab PO PRN ×2 (13:45→22:37)
[2023-07-12] MEDS: Enoxaparin 40 MG/0.4 ML Syringe SUBCUT SCH (16:43)
[2023-07-12] MEDS: atorvaSTATin 10 MG Tab PO SCH (20:15)
[2023-07-12] MEDS: Ibuprofen 400 MG Tab PO PRN (20:21)
[2023-07-13] MEDS: Ibuprofen 400 MG Tab PO PRN (03:23)
[2023-07-13] MEDS: Pantoprazole 40 MG Tab.CR PO SCH (05:21)
[2023-07-13 06:54] LABS: BASOPHILS ABSOLUTE AUTO 0.1 x10-3/uL (0.0-0.1); BASOPHILS PERCENT AUTO 0.8 % (0.2-1.5); EOSINOPHILS ABSOLUTE AUTO 0.6 x10-3/uL (0.0-0.8); EOSINOPHILS PERCENT AUTO 8.2 % (0.6-8.1); HEMATOCRIT 33.6 % (34.2-48.2); LYMPHOCYTES ABSOLUTE AUTO 1.6 x10-3/uL (1.0-4.4); LYMPHOCYTES PERCENT AUTO 24.4 % (18.4-52.1); MEAN CORPUSCULAR HEMOGLOBIN 29.5 pg (23.9-33.9); MEAN CORPUSCULAR HGB CONC 32.9 g/dL (31.9-34.8); MEAN CORPUSCULAR VOLUME 89.7 fL (76.7-100.5); MEAN PLATELET VOLUME 8.2 fL (7.1-12.4); MONOCYTES ABSOLUTE AUTO 0.8 x10-3/uL (0.3-1.0); MONOCYTES PERCENT AUTO 12.5 % (4.4-15.7); NEUTROPHILS ABSOLUTE AUTO 3.7 x10-3/uL (1.5-6.3); NEUTROPHILS PERCENT AUTO 54.1 % (30.8-76.2); PLATELET COUNT,PLT 126 x10(3)uL (151-488); RED BLOOD CELL COUNT 3.75 x10(6)uL (3.60-5.20); RED CELL DISTRIBUTION WIDTH 18.4 % (12.3-16.5); WHITE BLOOD CELL COUNT,WBC 6.8 x10-3/uL (3.0-10.3)
[2023-07-13 07:14] LABS: A/G RATIO 0.5; ALANINE AMINOTRANSFERASE,ALT 18 U/L (12-36); ALBUMIN 2.1 g/dL (3.2-4.6); ALKALINE PHOSPHATASE 125 IU/L (56-112); ASPARTATE AMNIOTRANSFERASE,AST 40 IU/L (5-25); BILIRUBIN TOTAL 0.6 mg/dL (0.1-1.3); BLOOD UREA NITROGEN,BUN 9 mg/dL (7-18); CALCIUM 7.7 mg/dL (8.6-10.2); CARBON DIOXIDE,CO2 23 mmol/L (21-32); CHLORIDE,CL 101 mmol/L (100-110); CREATININE 0.9 mg/dL (0.55-1.02); EST CRCL DRUG DOSING (CG) 50.94 mL/min; ESTIMATED GFR 69 mL/min (>60); GLUCOSE RANDOM 84 mg/dL (80-116); POTASSIUM,K 4.1 mmol/L (3.5-5.3); PROTEIN TOTAL,TP 6.8 g/dL (6.0-8.0); SODIUM,NA 131 mmol/L (135-145)
[2023-07-13] MEDS: Clobetasol 0.05% Crm 15 GM Tube TOP SCH (08:30)
[2023-07-13] MEDS: Nystatin Topical Powder 15 GM Bottle TOP SCH (08:40)
[2023-07-13] MEDS: Furosemide 40 MG Tab PO SCH (08:41)
[2023-07-13] MEDS: Carvedilol 3.125 MG Tab PO SCH (08:42)
[2023-07-13] MEDS: Aspirin 81 MG Tab.EC PO SCH (08:43)
[2023-07-13] MEDS: Folic Acid 0.8 MG Tab PO SCH (08:43)
[2023-07-13] MEDS: Lisinopril 2.5 MG Tab PO SCH (08:43)
[2023-07-13] MEDS: Sodium Chloride 1 GM Tab PO SCH (08:44)
[2023-07-13] MEDS: Tiotropium BR/Olodaterol HCL 4 GM Inhalation Spray 2.5mcg/1 dose; 10 doses INH SCH (08:44)
[2023-07-13] MEDS: Multivitamin Tab PO SCH (08:45)
[2023-07-13] MEDS: Thiamine 100 MG Tab PO SCH (08:48)
[2023-07-13] MEDS: Cetirizine 10 MG Tab PO SCH (08:48)
[2023-07-13] MEDS: NS + KCl 20mEq/L 1,000 ML IV SCH (09:35)
[2023-07-13] MEDS: oxyCODONE 5 MG Tab PO PRN (10:43)
[2023-07-13] MEDS ORDERED: cefTRIAXone 1 GM Vial IVPUSH SCH (11:00)
[2023-07-13 12:21] VITALS: BP 120/75; PULSE 81
== END 2023-07-13 12:50 | DRG 871 ==
LOC: FB.ED 11:22 → FB.MS 15:01
PROVIDERS: ADMIT Family Medicine; ATTEND Family Medicine
DX: A41.9 Sepsis, unspecified organism (principal); G93.41 Metabolic encephalopathy; I21.A1 Myocardial infarction type 2; N39.0 Urinary tract infection, site not specified; J98.11 Atelectasis; R65.20 Severe sepsis without septic shock; E11.9 Type 2 diabetes mellitus without complications; R31.9 Hematuria, unspecified; J44.9 Chronic obstructive pulmonary disease, unspecified; E86.0 Dehydration; K70.30 Alcoholic cirrhosis of liver without ascites; D69.6 Thrombocytopenia, unspecified; L40.9 Psoriasis, unspecified; E87.5 Hyperkalemia; H40.9 Unspecified glaucoma; I25.10 Atherosclerotic heart disease of native coronary artery without angina pectoris; H54.40 Blindness, one eye, unspecified eye; E78.00 Pure hypercholesterolemia, unspecified; M19.90 Unspecified osteoarthritis, unspecified site; G89.29 Other chronic pain; M54.9 Dorsalgia, unspecified; G43.909 Migraine, unspecified, not intractable, without status migrainosus; F41.9 Anxiety disorder, unspecified; F32.A Depression, unspecified; F10.10 Alcohol abuse, uncomplicated; E66.9 Obesity, unspecified; Z96.659 Presence of unspecified artificial knee joint; I12.9 Hypertensive chronic kidney disease with stage 1 through stage 4 chronic kidney disease, or unspecified chronic kidney disease; N18.31 Chronic kidney disease, stage 3a; E11.22 Type 2 diabetes mellitus with diabetic chronic kidney disease; Z88.8 Allergy status to other drugs, medicaments and biological substances; Z98.890 Other specified postprocedural states; Z79.82 Long term (current) use of aspirin; Z79.899 Other long term (current) drug therapy; Z98.49 Cataract extraction status, unspecified eye; Z90.49 Acquired absence of other specified parts of digestive tract; Z83.3 Family history of diabetes mellitus; Z87.891 Personal history of nicotine dependence; Z68.33 Body mass index [BMI] 33.0-33.9, adult
CPT/HCPCS: 36415; 51702; 70450; 71045; 74176; 80053; 80307; 81001; 83605; 84484; 85025; 85610; 85730; 86140; 87040; 87086; 87088; 87186; 93005; 93010; 94150; 96361; 96374; 96376; 97165-GO; 99223; 99232; 99238; 99285; 99285-25; A9270-GY; J0696; J1650; J3480; J3490; J7040; Q0162

== ENCOUNTER 2023-09-11 20:30 | Emergency (ER) | payer MEDICARE, MEDICAID ==
[2023-09-11] MEDS ORDERED: Morphine 4 MG/ML VIAL IVPUSH ONE (21:28)
[2023-09-11] MEDS ORDERED: Naloxone 0.4 MG/ML SDV IVPUSH PRN (21:28)
[2023-09-11] MEDS ORDERED: Sodium Chloride 0.9% 500 ML IV ONE (21:28)
[2023-09-11] MEDS ORDERED: Ondansetron 4 MG/2 ML SDV IVPUSH ONE (21:28)
[2023-09-11 21:49] LABS: BASOPHILS PERCENT AUTO 0.7 % (0.2-1.5); EOSINOPHILS ABSOLUTE AUTO 0.3 x10-3/uL (0.0-0.8); EOSINOPHILS PERCENT AUTO 4.1 % (0.6-8.1); HEMATOCRIT 33.9 % (34.2-48.2); HEMOGLOBIN 11.2 g/dL (11.4-15.5); LYMPHOCYTES ABSOLUTE AUTO 1.5 x10-3/uL (1.0-4.4); LYMPHOCYTES PERCENT AUTO 24.5 % (18.4-52.1); MEAN CORPUSCULAR HEMOGLOBIN 28.8 pg (23.9-33.9); MEAN CORPUSCULAR HGB CONC 32.9 g/dL (31.9-34.8); MEAN CORPUSCULAR VOLUME 87.5 fL (76.7-100.5); MEAN PLATELET VOLUME 8.2 fL (7.1-12.4); MONOCYTES ABSOLUTE AUTO 0.8 x10-3/uL (0.3-1.0); MONOCYTES PERCENT AUTO 13.5 % (4.4-15.7); NEUTROPHILS ABSOLUTE AUTO 3.6 x10-3/uL (1.5-6.3); NEUTROPHILS PERCENT AUTO 57.2 % (30.8-76.2); PLATELET COUNT,PLT 130 x10(3)uL (151-488); RED BLOOD CELL COUNT 3.88 x10(6)uL (3.60-5.20); RED CELL DISTRIBUTION WIDTH 17.5 % (12.3-16.5); WHITE BLOOD CELL COUNT,WBC 6.2 x10-3/uL (3.0-10.3)
[2023-09-11 21:52] LABS: BLOOD UREA NITROGEN,BUN 10 mg/dL (7-18); BUN/CREATININE RATIO 8.3 (9-20); CALCIUM 8.7 mg/dL (8.6-10.2); CARBON DIOXIDE,CO2 29 mmol/L (21-32); CHLORIDE,CL 99 mmol/L (100-110); CREATININE 1.2 mg/dL (0.55-1.02); ESTIMATED GFR 49 mL/min (>60); GLUCOSE RANDOM 90 mg/dL (80-116); POTASSIUM,K 3.4 mmol/L (3.5-5.3); SODIUM,NA 131 mmol/L (135-145)
[2023-09-11 22:04] LABS: A/G RATIO 0.4; ALANINE AMINOTRANSFERASE,ALT 28 U/L (12-36); ALBUMIN 2.4 g/dL (3.2-4.6); ALKALINE PHOSPHATASE 123 IU/L (56-112); ASPARTATE AMNIOTRANSFERASE,AST 53 IU/L (5-25); BILIRUBIN TOTAL 0.6 mg/dL (0.1-1.3); MAGNESIUM 1.8 mg/dL (1.8-2.5); PROTEIN TOTAL,TP 7.8 g/dL (6.0-8.0)
[2023-09-11] MEDS: Sodium Chloride 0.9% 10 ML Syringe FLUSH PRN (22:05)
[2023-09-11 23:29] LABS: BILIRUBIN,URINE NEGATIVE (NEGATIVE); GLUCOSE,URINE NORMAL (NORMAL); KETONES,URINE NEGATIVE (NEGATIVE); LEUKOCYTE ESTERASE,URINE LARGE (NEGATIVE); NITRITE,URINE NEGATIVE (NEGATIVE); OCCULT BLOOD,URINE LARGE (NEGATIVE); PROTEIN,URINE 100 mg/dL (NEGATIVE); UROBILINOGEN,URINE NORMAL (NEGATIVE)
[2023-09-11 23:31] LABS: COLOR,URINE YELLOW (YELLOW)
[2023-09-11 23:32] LABS: APPEARANCE,URINE CLOUDY (CLEAR); BACTERIA,URINE MANY (NS); RBC,URINE 0-5 (0-5); SQUAMOUS EPITHELIAL CELLS,UR OCCASIONAL (NS,R,O); TRIPLE PHOSPHATE CRYSTALS,UR FEW (NS); WBC,URINE 0-5 (0-5)
[2023-09-12] MEDS ORDERED: Ketorolac 30 MG/ML SDV IVPUSH ONE (00:41)
[2023-09-12] MEDS ORDERED: cefTRIAXone 2 GM Vial IVPUSH ONE (00:56)
[2023-09-12] MEDS: Sodium Chloride 0.9% 10 ML Syringe FLUSH PRN (01:04)
[2023-09-12 02:11] VITALS: BP 140/77; PULSE 85
== END 2023-09-12 02:22 ==
LOC: FB.ED 20:30
DX: N39.0 Urinary tract infection, site not specified (principal); M54.6 Pain in thoracic spine; E86.0 Dehydration; E11.9 Type 2 diabetes mellitus without complications; E66.9 Obesity, unspecified; I25.10 Atherosclerotic heart disease of native coronary artery without angina pectoris; I10 Essential (primary) hypertension; I25.2 Old myocardial infarction; J44.9 Chronic obstructive pulmonary disease, unspecified; E78.00 Pure hypercholesterolemia, unspecified; K21.9 Gastro-esophageal reflux disease without esophagitis; M19.90 Unspecified osteoarthritis, unspecified site; Z87.891 Personal history of nicotine dependence; Z79.82 Long term (current) use of aspirin; Z79.899 Other long term (current) drug therapy; Z88.6 Allergy status to analgesic agent; Z88.8 Allergy status to other drugs, medicaments and biological substances; Z91.018 Allergy to other foods
CPT/HCPCS: 36415; 74176; 80053; 81001; 83735; 85025; 86140; 87086; 87088; 87186; 96374; 96375; 99284; J0696; J1885; J2270; J2405; J3490; J7040

== ENCOUNTER 2023-12-27 13:51 | Emergency (ER) | payer MEDICARE, MEDICAID ==
[2023-12-27 14:40] LABS: BLOOD UREA NITROGEN,BUN 15 mg/dL (7-18); BUN/CREATININE RATIO 13.6 (9-20); CARBON DIOXIDE,CO2 27 mmol/L (21-32); CHLORIDE,CL 98 mmol/L (100-110); CREATININE 1.1 mg/dL (0.55-1.02); EST CRCL DRUG DOSING (CG) 41.68 mL/min; ESTIMATED GFR 54 mL/min (>60); GLUCOSE RANDOM 107 mg/dL (80-116); POTASSIUM,K 3.7 mmol/L (3.5-5.3); SODIUM,NA 133 mmol/L (135-145)
[2023-12-27 14:41] LABS: BASOPHILS PERCENT AUTO 0.6 % (0.2-1.5); EOSINOPHILS ABSOLUTE AUTO 0.2 x10-3/uL (0.0-0.8); EOSINOPHILS PERCENT AUTO 2.9 % (0.6-8.1); HEMATOCRIT 33.2 % (34.2-48.2); HEMOGLOBIN 10.9 g/dL (11.4-15.5); LYMPHOCYTES ABSOLUTE AUTO 1.1 x10-3/uL (1.0-4.4); LYMPHOCYTES PERCENT AUTO 20.1 % (18.4-52.1); MEAN CORPUSCULAR HEMOGLOBIN 27.4 pg (23.9-33.9); MEAN CORPUSCULAR HGB CONC 32.9 g/dL (31.9-34.8); MEAN CORPUSCULAR VOLUME 83.4 fL (76.7-100.5); MEAN PLATELET VOLUME 8.1 fL (7.1-12.4); MONOCYTES ABSOLUTE AUTO 0.5 x10-3/uL (0.3-1.0); MONOCYTES PERCENT AUTO 9.3 % (4.4-15.7); NEUTROPHILS ABSOLUTE AUTO 3.6 x10-3/uL (1.5-6.3); NEUTROPHILS PERCENT AUTO 67.1 % (30.8-76.2); PLATELET COUNT,PLT 154 x10(3)uL (151-488); RED CELL DISTRIBUTION WIDTH 17.3 % (12.3-16.5); WHITE BLOOD CELL COUNT,WBC 5.4 x10-3/uL (3.0-10.3)
[2023-12-27 14:46] LABS: A/G RATIO 0.5; ALANINE AMINOTRANSFERASE,ALT 25 U/L (12-36); ALBUMIN 2.6 g/dL (3.2-4.6); ALKALINE PHOSPHATASE 148 IU/L (56-112); ASPARTATE AMNIOTRANSFERASE,AST 51 IU/L (5-25)
[2023-12-27 14:55] LABS: RED BLOOD CELL COUNT 3.98 x10(6)uL (3.60-5.20)
[2023-12-27] MEDS: Ketorolac 30 MG/ML SDV IVPUSH ONE (16:12)
[2023-12-27] MEDS: traMADol 50 MG Tab PO ONE (17:31)
[2023-12-27 18:58] VITALS: BP 128/72; PULSE 96
== END 2023-12-27 18:58 | disposition home or self-care (01) ==
LOC: FB.ED 13:51
DX: M17.11 Unilateral primary osteoarthritis, right knee (principal); I48.91 Unspecified atrial fibrillation; I25.10 Atherosclerotic heart disease of native coronary artery without angina pectoris; E78.00 Pure hypercholesterolemia, unspecified; I10 Essential (primary) hypertension; I25.2 Old myocardial infarction; J44.9 Chronic obstructive pulmonary disease, unspecified; K21.9 Gastro-esophageal reflux disease without esophagitis; E11.9 Type 2 diabetes mellitus without complications; E66.9 Obesity, unspecified; Z88.8 Allergy status to other drugs, medicaments and biological substances; Z91.018 Allergy to other foods; Z79.82 Long term (current) use of aspirin; Z79.899 Other long term (current) drug therapy; Z86.19 Personal history of other infectious and parasitic diseases; Z68.33 Body mass index [BMI] 33.0-33.9, adult
CPT/HCPCS: 36415; 73562-RT; 80053; 83735; 84550; 85025; 86140; 96374; 99283; 99284-25; A9270-GY; J1885

== ENCOUNTER 2024-01-01 05:37 | Emergency (ER) | payer MEDICARE, MEDICAID ==
[2024-01-01] MEDS ORDERED: Sodium Chloride 0.9% 10 ML Syringe FLUSH PRN (05:45)
[2024-01-01 06:08] LABS: HEMATOCRIT 31.7 % (34.2-48.2); HEMOGLOBIN 10.4 g/dL (11.4-15.5); MEAN CORPUSCULAR HEMOGLOBIN 27.7 pg (23.9-33.9); MEAN CORPUSCULAR HGB CONC 32.9 g/dL (31.9-34.8); MEAN CORPUSCULAR VOLUME 84.3 fL (76.7-100.5); MEAN PLATELET VOLUME 8.4 fL (7.1-12.4); PLATELET COUNT,PLT 113 x10(3)uL (151-488); RED BLOOD CELL COUNT 3.76 x10(6)uL (3.60-5.20); RED CELL DISTRIBUTION WIDTH 17.5 % (12.3-16.5); WHITE BLOOD CELL COUNT,WBC 6.9 x10-3/uL (3.0-10.3)
[2024-01-01 06:20] VITALS: BP 103/54; PULSE 103
[2024-01-01 06:21] LABS: A/G RATIO 0.5; ALANINE AMINOTRANSFERASE,ALT 28 U/L (12-36); ALBUMIN 2.3 g/dL (3.2-4.6); ALKALINE PHOSPHATASE 115 IU/L (56-112); ASPARTATE AMNIOTRANSFERASE,AST 65 IU/L (5-25); BILIRUBIN TOTAL 0.5 mg/dL (0.1-1.3); BLOOD UREA NITROGEN,BUN 59 mg/dL (7-18); BUN/CREATININE RATIO 20.3 (9-20); CALCIUM 8.9 mg/dL (8.6-10.2); CARBON DIOXIDE,CO2 27 mmol/L (21-32); CHLORIDE,CL 98 mmol/L (100-110); ESTIMATED GFR 17 mL/min (>60); GLUCOSE RANDOM 95 mg/dL (80-116); POTASSIUM,K 5.2 mmol/L (3.5-5.3); PROTEIN TOTAL,TP 7.3 g/dL (6.0-8.0); SODIUM,NA 130 mmol/L (135-145)
[2024-01-01 06:23] LABS: INR 1.25 (1.00-1.24); PROTHROMBIN TIME 12.8 sec (9.0-11.1)
[2024-01-01 06:23] LABS: BILIRUBIN,URINE NEGATIVE (NEGATIVE); GLUCOSE,URINE NORMAL (NORMAL); KETONES,URINE NEGATIVE (NEGATIVE); LEUKOCYTE ESTERASE,URINE LARGE (NEGATIVE); NITRITE,URINE NEGATIVE (NEGATIVE); OCCULT BLOOD,URINE LARGE (NEGATIVE); PROTEIN,URINE 30 mg/dL (NEGATIVE); UROBILINOGEN,URINE NORMAL (NEGATIVE)
[2024-01-01 06:26] LABS: LACTIC ACID 0.8 mmol/L (0.4-2.0)
[2024-01-01 06:29] LABS: APPEARANCE,URINE SLIGHTLY CLOUDY (CLEAR); BACTERIA,URINE MODERATE (NS); COLOR,URINE YELLOW (YELLOW); SQUAMOUS EPITHELIAL CELLS,UR FEW (NS,R,O); WBC,URINE 20-30 (0-5)
[2024-01-01 06:32] LABS: CREATININE 2.9 mg/dL (0.55-1.02)
[2024-01-01 06:33] LABS: BAND PERCENT MAN 3 % (0-6); LYMPHOCYTES PERCENT MAN 11 % (13-37); MONOCYTES PERCENT MAN 6 % (4-12); SEG NEUTROPHILS PERCENT MAN 80 % (46-82)
[2024-01-01 06:59] LABS: INFLUENZA A NAA NEGATIVE (NEGATIVE); INFLUENZA B NAA NEGATIVE (NEGATIVE); RESPIRATORY SYNCYTIAL VIR NAA NEGATIVE (NEGATIVE)
[2024-01-01 07:01] LABS: CORONAVIRUS COVID-19 NAA NEGATIVE (NEGATIVE)
[2024-01-01] MEDS: Heparin Sodium 5,000 Units/ML Vial IVPUSH ONE (07:03)
[2024-01-01] MEDS: cefTRIAXone 1 GM Vial IVPUSH STA (07:05)
[2024-01-01] MEDS: Acetaminophen 500 MG Tab PO ONE (07:05)
[2024-01-01] MEDS: Heparin Sodium/0.45% NaCl 500 ML IV SCH (07:16)
[2024-01-01] MEDS: Acetaminophen/oxyCODONE 325-5 MG Tab PO STA (07:45)
[2024-01-01] MEDS: Sodium Chloride 0.9% 500 ML IV ONE (08:50)
[2024-01-01] MEDS: Sodium Chloride 0.9% 1,000 ML IV SCH (09:30)
[2024-01-01 09:41] LABS: AMMONIA, PLASMA 16
== END 2024-01-01 10:35 ==
LOC: FB.ED 05:37
DX: J44.9 Chronic obstructive pulmonary disease, unspecified (principal); I21.4 Non-ST elevation (NSTEMI) myocardial infarction; K70.30 Alcoholic cirrhosis of liver without ascites; E11.9 Type 2 diabetes mellitus without complications; N39.0 Urinary tract infection, site not specified; E80.6 Other disorders of bilirubin metabolism; D68.9 Coagulation defect, unspecified; C22.0 Liver cell carcinoma; I10 Essential (primary) hypertension; I25.10 Atherosclerotic heart disease of native coronary artery without angina pectoris; I48.91 Unspecified atrial fibrillation; K21.9 Gastro-esophageal reflux disease without esophagitis; E66.9 Obesity, unspecified; Z79.82 Long term (current) use of aspirin; Z79.899 Other long term (current) drug therapy; Z79.84 Long term (current) use of oral hypoglycemic drugs; Z88.8 Allergy status to other drugs, medicaments and biological substances
CPT/HCPCS: 0241U; 36415; 71045; 73502; 73560; 73600; 73620; 80053; 81001; 82140; 82550; 83605; 83880; 84484; 85025; 85610; 85730; 86140; 87040; 87086; 87088; 87186; 93005; 93010; 96365; 96366; 96375; 99285; A9270; J0696; J1644; J3370; J7030; J7040; J7050

== ENCOUNTER 2024-02-17 15:03 | Emergency (ER) | payer MEDICARE, MEDICAID ==
[2024-02-17] MEDS ORDERED: Sodium Chloride 0.9% 10 ML Syringe FLUSH PRN (15:31)
[2024-02-17 15:55] LABS: BASOPHILS PERCENT AUTO 0.7 % (0.2-1.5); EOSINOPHILS ABSOLUTE AUTO 0.2 x10-3/uL (0.0-0.8); EOSINOPHILS PERCENT AUTO 3.9 % (0.6-8.1); HEMATOCRIT 35.1 % (34.2-48.2); HEMOGLOBIN 11.3 g/dL (11.4-15.5); LYMPHOCYTES ABSOLUTE AUTO 1.6 x10-3/uL (1.0-4.4); MEAN CORPUSCULAR HEMOGLOBIN 28.3 pg (23.9-33.9); MEAN CORPUSCULAR HGB CONC 32.3 g/dL (31.9-34.8); MEAN CORPUSCULAR VOLUME 87.7 fL (76.7-100.5); MEAN PLATELET VOLUME 8.3 fL (7.1-12.4); MONOCYTES ABSOLUTE AUTO 0.6 x10-3/uL (0.3-1.0); MONOCYTES PERCENT AUTO 10.2 % (4.4-15.7); NEUTROPHILS ABSOLUTE AUTO 3.4 x10-3/uL (1.5-6.3); NEUTROPHILS PERCENT AUTO 58.2 % (30.8-76.2); PLATELET COUNT,PLT 111 x10(3)uL (151-488); RED CELL DISTRIBUTION WIDTH 20.6 % (12.3-16.5); WHITE BLOOD CELL COUNT,WBC 5.8 x10-3/uL (3.0-10.3)
[2024-02-17 15:58] LABS: BLOOD UREA NITROGEN,BUN 19 mg/dL (7-18); CALCIUM 8.2 mg/dL (8.6-10.2); CARBON DIOXIDE,CO2 26 mmol/L (21-32); CHLORIDE,CL 103 mmol/L (100-110); ESTIMATED GFR 61 mL/min (>60); GLUCOSE RANDOM 101 mg/dL (80-116); POTASSIUM,K 3.8 mmol/L (3.5-5.3); SODIUM,NA 137 mmol/L (135-145)
[2024-02-17] MEDS: traMADol 50 MG Tab PO ONE (15:58)
[2024-02-17 16:02] LABS: RED BLOOD CELL COUNT 4.01 x10(6)uL (3.60-5.20)
[2024-02-17 16:04] LABS: A/G RATIO 0.5; ALANINE AMINOTRANSFERASE,ALT 23 U/L (12-36); ALBUMIN 2.4 g/dL (3.2-4.6); ALKALINE PHOSPHATASE 114 IU/L (56-112); ASPARTATE AMNIOTRANSFERASE,AST 42 IU/L (5-25); BILIRUBIN TOTAL 0.6 mg/dL (0.1-1.3); MAGNESIUM 2.1 mg/dL (1.8-2.5)
[2024-02-17 16:11] LABS: TROPONIN I 182.1 pg/mL (4.0-60.3)
[2024-02-17] MEDS: LORazepam 2 MG/ML SDV IVPUSH ONE (18:01)
[2024-02-17 18:37] VITALS: BP 144/74; PULSE 93
[2024-02-17] MEDS: Aspirin 81 MG Tab.Chew PO ONE ×2 (18:45)
== END 2024-02-17 20:06 ==
LOC: FB.ED 15:03
DX: I11.9 Hypertensive heart disease without heart failure (principal); I24.9 Acute ischemic heart disease, unspecified; E78.00 Pure hypercholesterolemia, unspecified; K21.9 Gastro-esophageal reflux disease without esophagitis; E11.40 Type 2 diabetes mellitus with diabetic neuropathy, unspecified; E66.9 Obesity, unspecified; Z90.49 Acquired absence of other specified parts of digestive tract; Z87.891 Personal history of nicotine dependence; Z79.82 Long term (current) use of aspirin; Z79.899 Other long term (current) drug therapy; Z91.018 Allergy to other foods; Z88.8 Allergy status to other drugs, medicaments and biological substances; Z88.6 Allergy status to analgesic agent; Z79.2 Long term (current) use of antibiotics
CPT/HCPCS: 36415; 71045; 80053; 83735; 83880; 84484; 85025; 93005; 99285; A9270-GY

== ENCOUNTER 2024-06-03 18:26 | Emergency (ER) | payer MEDICARE, MEDICAID ==
[2024-06-03] MEDS ORDERED: Sodium Chloride 0.9% 10 ML Syringe FLUSH PRN (18:52)
[2024-06-03 19:13] LABS: BASOPHILS ABSOLUTE AUTO 0.1 x10-3/uL (0.0-0.1); BASOPHILS PERCENT AUTO 1.2 % (0.2-1.5); EOSINOPHILS ABSOLUTE AUTO 0.1 x10-3/uL (0.0-0.8); EOSINOPHILS PERCENT AUTO 2.5 % (0.6-8.1); HEMATOCRIT 38.5 % (34.2-48.2); LYMPHOCYTES ABSOLUTE AUTO 1.2 x10-3/uL (1.0-4.4); LYMPHOCYTES PERCENT AUTO 20.5 % (18.4-52.1); MEAN CORPUSCULAR HGB CONC 33.7 g/dL (31.9-34.8); MEAN PLATELET VOLUME 7.6 fL (7.1-12.4); MONOCYTES ABSOLUTE AUTO 0.6 x10-3/uL (0.3-1.0); MONOCYTES PERCENT AUTO 9.9 % (4.4-15.7); NEUTROPHILS ABSOLUTE AUTO 3.8 x10-3/uL (1.5-6.3); NEUTROPHILS PERCENT AUTO 65.9 % (30.8-76.2); PLATELET COUNT,PLT 151 x10(3)uL (151-488); RED BLOOD CELL COUNT 4.32 x10(6)uL (3.60-5.20); RED CELL DISTRIBUTION WIDTH 18.8 % (12.3-16.5); WHITE BLOOD CELL COUNT,WBC 5.8 x10-3/uL (3.0-10.3)
[2024-06-03 19:15] LABS: BLOOD UREA NITROGEN,BUN 8 mg/dL (7-18); CALCIUM 7.6 mg/dL (8.6-10.2); CARBON DIOXIDE,CO2 25 mmol/L (21-32); CHLORIDE,CL 101 mmol/L (100-110); CREATININE 0.8 mg/dL (0.55-1.02); ESTIMATED GFR 79 mL/min (>60); GLUCOSE RANDOM 121 mg/dL (80-116); POTASSIUM,K 3.9 mmol/L (3.5-5.3); SODIUM,NA 133 mmol/L (135-145)
[2024-06-03 19:20] LABS: A/G RATIO 0.3; ALANINE AMINOTRANSFERASE,ALT 32 U/L (12-36); ALKALINE PHOSPHATASE 164 IU/L (56-112); ASPARTATE AMNIOTRANSFERASE,AST 56 IU/L (5-25); BILIRUBIN TOTAL 0.5 mg/dL (0.1-1.3); PROTEIN TOTAL,TP 6.3 g/dL (6.0-8.0)
[2024-06-03 19:26] LABS: C-REACTIVE PROTEIN 0.55 mg/dL (<0.50)
[2024-06-03 19:33] LABS: LACTIC ACID 0.9 mmol/L (0.4-2.0)
[2024-06-03] MEDS: Ondansetron 4 MG Tab.DIS PO ONE (19:34)
[2024-06-03] MEDS: Ondansetron 4 MG/2 ML SDV IVPUSH ONE (19:34)
[2024-06-03 19:37] LABS: ALBUMIN 1.6 g/dL (3.2-4.6)
[2024-06-03] MEDS: Albuterol/Ipratropium 3.0-0.5 MG/3 ML Neb Soln NEB ONE (19:59)
[2024-06-03] MEDS: Furosemide 40 MG/4 ML VIAL IVPUSH ONE (19:59)
[2024-06-03 23:02] VITALS: BP 132/77; PULSE 96
== END 2024-06-03 21:52 | disposition home or self-care (01) ==
LOC: FB.ED 18:26
DX: I11.0 Hypertensive heart disease with heart failure (principal); I50.9 Heart failure, unspecified; E88.09 Other disorders of plasma-protein metabolism, not elsewhere classified; I25.2 Old myocardial infarction; K21.9 Gastro-esophageal reflux disease without esophagitis; M19.90 Unspecified osteoarthritis, unspecified site; E78.00 Pure hypercholesterolemia, unspecified; E66.9 Obesity, unspecified; E11.9 Type 2 diabetes mellitus without complications; Z91.018 Allergy to other foods; Z88.8 Allergy status to other drugs, medicaments and biological substances; Z79.82 Long term (current) use of aspirin; Z79.899 Other long term (current) drug therapy; Z90.49 Acquired absence of other specified parts of digestive tract
CPT/HCPCS: 71046; 80053; 83036; 83605; 83880; 85025; 86140; 93005; 96374; 99285; J1940; Q0162; 93010; 99284; J7620

== ENCOUNTER 2024-06-10 13:42 | Emergency (ER) | payer MEDICARE, MEDICAID ==
[2024-06-10] MEDS: Sodium Chloride 0.9% 10 ML Syringe FLUSH PRN (14:15)
[2024-06-10 14:27] LABS: BASOPHILS PERCENT AUTO 0.8 % (0.2-1.5); EOSINOPHILS ABSOLUTE AUTO 0.1 x10-3/uL (0.0-0.8); EOSINOPHILS PERCENT AUTO 2.7 % (0.6-8.1); HEMATOCRIT 37.5 % (34.2-48.2); HEMOGLOBIN 12.4 g/dL (11.4-15.5); LYMPHOCYTES ABSOLUTE AUTO 1.2 x10-3/uL (1.0-4.4); MEAN CORPUSCULAR HEMOGLOBIN 29.9 pg (23.9-33.9); MEAN CORPUSCULAR HGB CONC 33.2 g/dL (31.9-34.8); MEAN CORPUSCULAR VOLUME 90.1 fL (76.7-100.5); MEAN PLATELET VOLUME 7.7 fL (7.1-12.4); MONOCYTES ABSOLUTE AUTO 0.7 x10-3/uL (0.3-1.0); MONOCYTES PERCENT AUTO 12.5 % (4.4-15.7); NEUTROPHILS ABSOLUTE AUTO 3.3 x10-3/uL (1.5-6.3); PLATELET COUNT,PLT 149 x10(3)uL (151-488); RED BLOOD CELL COUNT 4.16 x10(6)uL (3.60-5.20); RED CELL DISTRIBUTION WIDTH 20.2 % (12.3-16.5); WHITE BLOOD CELL COUNT,WBC 5.4 x10-3/uL (3.0-10.3)
[2024-06-10 14:30] LABS: BLOOD UREA NITROGEN,BUN 14 mg/dL (7-18); BUN/CREATININE RATIO 12.7 (9-20); CALCIUM 7.5 mg/dL (8.6-10.2); CARBON DIOXIDE,CO2 25 mmol/L (21-32); CHLORIDE,CL 107 mmol/L (100-110); CREATININE 1.1 mg/dL (0.55-1.02); EST CRCL DRUG DOSING (CG) 41.09 mL/min; ESTIMATED GFR 54 mL/min (>60); GLUCOSE RANDOM 131 mg/dL (80-116); POTASSIUM,K 3.5 mmol/L (3.5-5.3); SODIUM,NA 139 mmol/L (135-145)
[2024-06-10 14:36] LABS: A/G RATIO 0.3; ALANINE AMINOTRANSFERASE,ALT 26 U/L (12-36); ALKALINE PHOSPHATASE 173 IU/L (56-112); ASPARTATE AMNIOTRANSFERASE,AST 42 IU/L (5-25); BILIRUBIN TOTAL 0.5 mg/dL (0.1-1.3); MAGNESIUM 1.8 mg/dL (1.8-2.5); PROTEIN TOTAL,TP 6.1 g/dL (6.0-8.0)
[2024-06-10 14:39] LABS: ALBUMIN 1.5 g/dL (3.2-4.6)
[2024-06-10] MEDS: Magnesium Oxide 400 MG Tab PO ONE (15:09)
[2024-06-10] MEDS: Calcium Gluconate 10% 1 GM/10 ML SDV IVPUSH ONE (15:11)
[2024-06-10 17:12] VITALS: BP 126/60; PULSE 89
== END 2024-06-10 16:18 | disposition home or self-care (01) ==
LOC: FB.ED 13:42
DX: I11.0 Hypertensive heart disease with heart failure (principal); I50.9 Heart failure, unspecified; E83.51 Hypocalcemia; I25.10 Atherosclerotic heart disease of native coronary artery without angina pectoris; I25.2 Old myocardial infarction; I48.91 Unspecified atrial fibrillation; J44.9 Chronic obstructive pulmonary disease, unspecified; E11.9 Type 2 diabetes mellitus without complications; R25.2 Cramp and spasm; Z91.018 Allergy to other foods; Z88.8 Allergy status to other drugs, medicaments and biological substances; Z79.82 Long term (current) use of aspirin; Z79.899 Other long term (current) drug therapy; Z90.49 Acquired absence of other specified parts of digestive tract; F17.210 Nicotine dependence, cigarettes, uncomplicated
CPT/HCPCS: 36415; 80053; 83735; 83880; 85025; 96374; 99284; A9270; J0612; J3490

== ENCOUNTER 2024-07-15 18:25 | Emergency (ER) | payer MEDICARE, MEDICAID ==
[2024-07-15] MEDS ORDERED: Ondansetron 4 MG Tab.DIS PO ONE (18:26)
[2024-07-15] MEDS ORDERED: Sulfamethoxazole/Trimethoprim 800-160 MG Tab PO ONE (18:26)
[2024-07-15] MEDS ORDERED: Sodium Chloride 0.9% 10 ML Syringe FLUSH PRN (18:55)
[2024-07-15] MEDS: Sodium Chloride 0.9% 1,000 ML IV SCH (19:14)
[2024-07-15] MEDS: Ondansetron 4 MG/2 ML SDV IVPUSH ONE (19:14)
[2024-07-15 19:25] LABS: BLOOD UREA NITROGEN,BUN 14 mg/dL (7-18); CALCIUM 7.8 mg/dL (8.6-10.2); CARBON DIOXIDE,CO2 28 mmol/L (21-32); CHLORIDE,CL 103 mmol/L (100-110); ESTIMATED GFR 61 mL/min (>60); GLUCOSE RANDOM 115 mg/dL (80-116); POTASSIUM,K 4.4 mmol/L (3.5-5.3); SODIUM,NA 137 mmol/L (135-145)
[2024-07-15 19:26] LABS: BASOPHILS PERCENT AUTO 0.7 % (0.2-1.5); EOSINOPHILS ABSOLUTE AUTO 0.1 x10-3/uL (0.0-0.8); HEMATOCRIT 35.9 % (34.2-48.2); LYMPHOCYTES ABSOLUTE AUTO 1.1 x10-3/uL (1.0-4.4); MEAN CORPUSCULAR HEMOGLOBIN 30.8 pg (23.9-33.9); MEAN CORPUSCULAR HGB CONC 33.4 g/dL (31.9-34.8); MEAN CORPUSCULAR VOLUME 92.2 fL (76.7-100.5); MEAN PLATELET VOLUME 8.3 fL (7.1-12.4); MONOCYTES ABSOLUTE AUTO 0.6 x10-3/uL (0.3-1.0); MONOCYTES PERCENT AUTO 14.4 % (4.4-15.7); NEUTROPHILS ABSOLUTE AUTO 2.5 x10-3/uL (1.5-6.3); NEUTROPHILS PERCENT AUTO 57.9 % (30.8-76.2); PLATELET COUNT,PLT 109 x10(3)uL (151-488); RED CELL DISTRIBUTION WIDTH 19.8 % (12.3-16.5); WHITE BLOOD CELL COUNT,WBC 4.3 x10-3/uL (3.0-10.3)
[2024-07-15 19:31] LABS: A/G RATIO 0.3; ALANINE AMINOTRANSFERASE,ALT 32 U/L (12-36); ALKALINE PHOSPHATASE 133 IU/L (56-112); ASPARTATE AMNIOTRANSFERASE,AST 47 IU/L (5-25); BILIRUBIN TOTAL 0.4 mg/dL (0.1-1.3); PROTEIN TOTAL,TP 6.1 g/dL (6.0-8.0)
[2024-07-15 19:37] LABS: LACTIC ACID 1.1 mmol/L (0.4-2.0)
[2024-07-15 19:40] LABS: C-REACTIVE PROTEIN 0.9 mg/dL (<0.50)
[2024-07-15 19:41] LABS: ALBUMIN 1.5 g/dL (3.2-4.6)
[2024-07-15 19:47] LABS: BILIRUBIN,URINE NEGATIVE (NEGATIVE); GLUCOSE,URINE NORMAL (NORMAL); KETONES,URINE NEGATIVE (NEGATIVE); LEUKOCYTE ESTERASE,URINE MODERATE (NEGATIVE); NITRITE,URINE POSITIVE (NEGATIVE); OCCULT BLOOD,URINE LARGE (NEGATIVE); PH,URINE 6.5 (5.0-6.5); PROTEIN,URINE 500 mg/dL (NEGATIVE); UROBILINOGEN,URINE NORMAL (NEGATIVE)
[2024-07-15 19:49] LABS: COLOR,URINE YELLOW (YELLOW)
[2024-07-15 19:50] LABS: APPEARANCE,URINE SLIGHTLY CLOUDY (CLEAR); BACTERIA,URINE MANY (NS); SQUAMOUS EPITHELIAL CELLS,UR OCCASIONAL (NS,R,O)
[2024-07-15 21:25] VITALS: BP 142/83; PULSE 89
== END 2024-07-15 21:26 | disposition home or self-care (01) ==
LOC: FB.ED 18:25
DX: N39.0 Urinary tract infection, site not specified (principal); K70.31 Alcoholic cirrhosis of liver with ascites; E83.51 Hypocalcemia; R19.7 Diarrhea, unspecified; R31.9 Hematuria, unspecified; I11.0 Hypertensive heart disease with heart failure; I50.9 Heart failure, unspecified; I48.91 Unspecified atrial fibrillation; I25.10 Atherosclerotic heart disease of native coronary artery without angina pectoris; I25.2 Old myocardial infarction; E78.00 Pure hypercholesterolemia, unspecified; J44.9 Chronic obstructive pulmonary disease, unspecified; E11.40 Type 2 diabetes mellitus with diabetic neuropathy, unspecified; E66.9 Obesity, unspecified; K21.9 Gastro-esophageal reflux disease without esophagitis; Z68.33 Body mass index [BMI] 33.0-33.9, adult; Z79.899 Other long term (current) drug therapy; Z91.018 Allergy to other foods; Z88.8 Allergy status to other drugs, medicaments and biological substances; Z88.1 Allergy status to other antibiotic agents; Z79.82 Long term (current) use of aspirin
CPT/HCPCS: 36415; 71101-LT; 80053; 81001; 83605; 83690; 83735; 83880; 85025; 86140; 96361; 96374; 99284; 99284-25; A9270-GY; J2405; J7030; Q0162

== ENCOUNTER 2024-08-10 15:55 | Inpatient (IN) | payer MEDICARE, MEDICAID ==
[2024-08-10] MEDS ORDERED: Glucagon,Human Recombinant 1 MG Vial IM PRN (16:36)
[2024-08-10] MEDS ORDERED: 50% Dextrose in Water 50 ML Syringe IVPUSH PRN (16:36)
[2024-08-10 17:04] LABS: C-REACTIVE PROTEIN 0.97 mg/dL (<0.50)
[2024-08-10 17:05] LABS: LACTIC ACID 0.8 mmol/L (0.4-2.0); TROPONIN I 148.1 pg/mL (4.0-60.3)
[2024-08-10] MEDS: methylPREDNISolone Sodium Succinate 125 MG/2 ML SDV IVPUSH SCH (17:08)
[2024-08-10] MEDS: Furosemide 40 MG/4 ML VIAL IVPUSH ONE (17:08)
[2024-08-10] MEDS: Ondansetron 4 MG/2 ML SDV IV PRN (17:08)
[2024-08-10] MEDS: Morphine 2 MG/ML SYRINGE IVPUSH PRN (17:08)
[2024-08-10] MEDS: Levofloxacin/Dextrose 5%-Water 750 MG in Premix Bag 1 BAG IV SCH (17:09)
[2024-08-10] MEDS: Insulin Lispro 100 Unit/ML 3 ML KwikPen SUBCUT SCH (18:25)
[2024-08-10] MEDS: Albuterol/Ipratropium 3.0-0.5 MG/3 ML Neb Soln NEB SCH (20:08)
[2024-08-10] MEDS: Sodium Chloride 0.9% 10 ML Syringe FLUSH PRN (22:57)
[2024-08-11 06:25] LABS: A/G RATIO 0.3; ALANINE AMINOTRANSFERASE,ALT 25 U/L (12-36); ALKALINE PHOSPHATASE 153 IU/L (56-112); ASPARTATE AMNIOTRANSFERASE,AST 36 IU/L (5-25); BILIRUBIN TOTAL 0.4 mg/dL (0.1-1.3); BLOOD UREA NITROGEN,BUN 16 mg/dL (7-18); BUN/CREATININE RATIO 13.3 (9-20); CALCIUM 7.7 mg/dL (8.6-10.2); CARBON DIOXIDE,CO2 29 mmol/L (21-32); CHLORIDE,CL 103 mmol/L (100-110); CREATININE 1.2 mg/dL (0.55-1.02); EST CRCL DRUG DOSING (CG) 36.09 mL/min; ESTIMATED GFR 49 mL/min (>60); GLUCOSE RANDOM 156 mg/dL (80-116); POTASSIUM,K 4.2 mmol/L (3.5-5.3); PROTEIN TOTAL,TP 6.1 g/dL (6.0-8.0); SODIUM,NA 137 mmol/L (135-145)
[2024-08-11 06:36] LABS: ALBUMIN 1.3 g/dL (3.2-4.6)
[2024-08-11] MEDS ORDERED: Insulin Lispro 100 Unit/ML 3 ML KwikPen SUBCUT ONE (07:57)
[2024-08-11] MEDS ORDERED: Furosemide 40 MG Tab PO PRN (09:22)
[2024-08-11] MEDS: Iopamidol 755 Mg/ML 100 ML Bottle IV ONE (09:50)
[2024-08-11] MEDS: HYDROCORTISONE 2.5% TOP SCH (10:03)
[2024-08-11] MEDS: Escitalopram 10 MG Tab PO SCH (10:05)
[2024-08-11] MEDS: Potassium Chloride 20 MEQ Tab.ER PO SCH (10:05)
[2024-08-11] MEDS: Nicotine 21 MG/24 Hr Patch TRDERM SCH (10:05)
[2024-08-11] MEDS: Pantoprazole 40 MG Tab.CR PO SCH (10:05)
[2024-08-11] MEDS: Metoprolol Succinate 25 MG Tab.ER PO SCH (10:05)
[2024-08-11] MEDS: Formoterol/Mometasone 200-5 MCG 8.8 GM Inhaler INH SCH (10:05)
[2024-08-11] MEDS: Furosemide 40 MG Tab PO SCH (10:06)
[2024-08-11 12:17] LABS: HEMATOCRIT 35.6 % (34.2-48.2); HEMOGLOBIN 11.4 g/dL (11.4-15.5); MEAN CORPUSCULAR HEMOGLOBIN 29.9 pg (23.9-33.9); MEAN CORPUSCULAR HGB CONC 32.1 g/dL (31.9-34.8); MEAN PLATELET VOLUME 7.8 fL (7.1-12.4); PLATELET COUNT,PLT 161 x10(3)uL (151-488); RED BLOOD CELL COUNT 3.82 x10(6)uL (3.60-5.20); RED CELL DISTRIBUTION WIDTH 17.6 % (12.3-16.5); WHITE BLOOD CELL COUNT,WBC 5.9 x10-3/uL (3.0-10.3)
[2024-08-11 13:03] LABS: LYMPHOCYTES PERCENT MAN 5 % (13-37); MONOCYTES PERCENT MAN 5 % (4-12); SEG NEUTROPHILS PERCENT MAN 90 % (46-82)
[2024-08-11] MEDS: Enoxaparin 40 MG/0.4 ML Syringe SUBCUT SCH (13:04)
[2024-08-11] MEDS: Acetaminophen 500 MG Tab PO SCH (13:04)
[2024-08-11 13:09] LABS: TOXIC GRANULATION MODERATE (NOT SEEN)
[2024-08-11 13:10] LABS: ANISOCYTOSIS MODERATE
[2024-08-11] MEDS ORDERED: Piperacillin/Tazobactam 3.375 GM in Sodium Chloride 0.9% 50 ML IV SCH (14:15)
[2024-08-11] MEDS: Piperacillin/Tazobactam 4.5 GM in Sodium Chloride 0.9% 100 ML IV ONE (14:33)
[2024-08-11] MEDS: Piperacillin/Tazobactam 4.5 GM in Sodium Chloride 0.9% 100 ML IV SCH (17:43)
[2024-08-11] MEDS: [UNRECOGNIZED DRUG - OTHER] TOP SCH (20:41)
[2024-08-11] MEDS: Saccharomyces Boulardii (Probiotic) 250 MG Cap PO SCH (20:41)
[2024-08-11] MEDS: ASPERCREME TOP SCH (20:41)
[2024-08-11] MEDS: Mineral Oil/White Petrolatum Crm 113 GM Jar TOP SCH (20:59)
[2024-08-11] MEDS ORDERED: TRETINOIN TP SCH (21:00)
[2024-08-12] MEDS: Albuterol 6.7 GM Inhaler INH PRN (02:00)
[2024-08-12 06:13] LABS: HEMATOCRIT 34.9 % (34.2-48.2); HEMOGLOBIN 11.3 g/dL (11.4-15.5); MEAN CORPUSCULAR HEMOGLOBIN 29.9 pg (23.9-33.9); MEAN CORPUSCULAR HGB CONC 32.4 g/dL (31.9-34.8); MEAN CORPUSCULAR VOLUME 92.3 fL (76.7-100.5); PLATELET COUNT,PLT 146 x10(3)uL (151-488); RED BLOOD CELL COUNT 3.78 x10(6)uL (3.60-5.20); RED CELL DISTRIBUTION WIDTH 17.6 % (12.3-16.5); WHITE BLOOD CELL COUNT,WBC 8.3 x10-3/uL (3.0-10.3)
[2024-08-12 06:33] LABS: TROPONIN I 115.2 pg/mL (4.0-60.3)
[2024-08-12 06:44] LABS: ANISOCYTOSIS MODERATE; LYMPHOCYTES PERCENT MAN 9 % (13-37); MONOCYTES PERCENT MAN 3 % (4-12); SEG NEUTROPHILS PERCENT MAN 88 % (46-82); TOXIC GRANULATION MODERATE (NOT SEEN)
[2024-08-12] MEDS: traMADol 50 MG Tab PO SCH (09:57)
[2024-08-12] MEDS: Benzonatate 100 MG Cap PO PRN (16:06)
[2024-08-12] MEDS: Levofloxacin/Dextrose 5%-Water 750 MG in Premix Bag 1 BAG IV SCH (16:06)
[2024-08-12] MEDS: Gabapentin 300 MG Cap PO SCH (20:31)
[2024-08-12] MEDS: traMADol 50 MG Tab PO PRN (20:50)
[2024-08-13 06:23] LABS: HEMATOCRIT 35.4 % (34.2-48.2); HEMOGLOBIN 11.4 g/dL (11.4-15.5); MEAN CORPUSCULAR HEMOGLOBIN 29.7 pg (23.9-33.9); MEAN CORPUSCULAR HGB CONC 32.2 g/dL (31.9-34.8); MEAN CORPUSCULAR VOLUME 92.1 fL (76.7-100.5); PLATELET COUNT,PLT 140 x10(3)uL (151-488); RED BLOOD CELL COUNT 3.84 x10(6)uL (3.60-5.20); RED CELL DISTRIBUTION WIDTH 17.8 % (12.3-16.5); WHITE BLOOD CELL COUNT,WBC 7.4 x10-3/uL (3.0-10.3)
[2024-08-13 06:35] LABS: A/G RATIO 0.4; ALANINE AMINOTRANSFERASE,ALT 28 U/L (12-36); ALKALINE PHOSPHATASE 116 IU/L (56-112); ASPARTATE AMNIOTRANSFERASE,AST 34 IU/L (5-25); BILIRUBIN TOTAL 0.6 mg/dL (0.1-1.3); BLOOD UREA NITROGEN,BUN 30 mg/dL (7-18); BUN/CREATININE RATIO 18.8 (9-20); CALCIUM 7.6 mg/dL (8.6-10.2); CARBON DIOXIDE,CO2 30 mmol/L (21-32); CHLORIDE,CL 101 mmol/L (100-110); CREATININE 1.6 mg/dL (0.55-1.02); EST CRCL DRUG DOSING (CG) 27.06 mL/min; ESTIMATED GFR 34 mL/min (>60); GLUCOSE RANDOM 164 mg/dL (80-116); POTASSIUM,K 5.4 mmol/L (3.5-5.3); PROTEIN TOTAL,TP 6.2 g/dL (6.0-8.0); SODIUM,NA 133 mmol/L (135-145)
[2024-08-13 06:39] LABS: BAND PERCENT MAN 1 % (0-6); LYMPHOCYTES PERCENT MAN 6 % (13-37); MONOCYTES PERCENT MAN 1 % (4-12); PRO B-TYPE NATRIUR PEPT,BNPPRO 649 pg/mL (<=125); SEG NEUTROPHILS PERCENT MAN 92 % (46-82)
[2024-08-13 06:41] LABS: ANISOCYTOSIS MODERATE
[2024-08-13 06:42] LABS: TOXIC GRANULATION FEW (NOT SEEN)
[2024-08-13 06:43] LABS: ALBUMIN 1.6 g/dL (3.2-4.6); C-REACTIVE PROTEIN < 0.50 mg/dL (<0.50)
[2024-08-13] MEDS ORDERED: Albuterol 6.7 GM Inhaler INH PRN (08:15)
[2024-08-13] MEDS: Metolazone 2.5 MG Tab PO ONE (10:12)
[2024-08-13] MEDS: [UNRECOGNIZED DRUG - OTHER] TOP SCH (10:25)
[2024-08-13] MEDS: ASPERCREME TOP SCH (10:25)
[2024-08-13] MEDS: Formoterol/Mometasone 200-5 MCG 8.8 GM Inhaler INH SCH (10:27)
[2024-08-13] MEDS: Furosemide 40 MG/4 ML VIAL IVPUSH SCH (10:35)
[2024-08-13] MEDS: Gabapentin 300 MG Cap PO SCH (10:39)
[2024-08-14] MEDS: Magnesium Hydroxide 400 MG/5 ML Susp 30 ML Cup PO PRN (00:16)
[2024-08-14] MEDS: Pantoprazole 40 MG Tab.CR PO SCH (05:51)
[2024-08-14 06:27] LABS: HEMATOCRIT 35.1 % (34.2-48.2); HEMOGLOBIN 11.3 g/dL (11.4-15.5); MEAN CORPUSCULAR HEMOGLOBIN 29.6 pg (23.9-33.9); MEAN CORPUSCULAR HGB CONC 32.2 g/dL (31.9-34.8); PLATELET COUNT,PLT 122 x10(3)uL (151-488); RED BLOOD CELL COUNT 3.81 x10(6)uL (3.60-5.20); RED CELL DISTRIBUTION WIDTH 17.7 % (12.3-16.5); WHITE BLOOD CELL COUNT,WBC 5.2 x10-3/uL (3.0-10.3)
[2024-08-14 06:36] LABS: A/G RATIO 0.4; ALANINE AMINOTRANSFERASE,ALT 31 U/L (12-36); ALKALINE PHOSPHATASE 102 IU/L (56-112); ASPARTATE AMNIOTRANSFERASE,AST 35 IU/L (5-25); BILIRUBIN TOTAL 0.4 mg/dL (0.1-1.3); BLOOD UREA NITROGEN,BUN 31 mg/dL (7-18); BUN/CREATININE RATIO 20.7 (9-20); CALCIUM 7.7 mg/dL (8.6-10.2); CARBON DIOXIDE,CO2 31 mmol/L (21-32); CHLORIDE,CL 99 mmol/L (100-110); CREATININE 1.5 mg/dL (0.55-1.02); EST CRCL DRUG DOSING (CG) 28.87 mL/min; ESTIMATED GFR 37 mL/min (>60); GLUCOSE RANDOM 227 mg/dL (80-116); POTASSIUM,K 4.1 mmol/L (3.5-5.3); PROTEIN TOTAL,TP 5.8 g/dL (6.0-8.0); SODIUM,NA 135 mmol/L (135-145)
[2024-08-14 06:43] LABS: BAND PERCENT MAN 4 % (0-6); LYMPHOCYTES PERCENT MAN 12 % (13-37); MONOCYTES PERCENT MAN 5 % (4-12); SEG NEUTROPHILS PERCENT MAN 79 % (46-82)
[2024-08-14 06:46] LABS: ALBUMIN 1.5 g/dL (3.2-4.6)
[2024-08-14] MEDS: Furosemide 40 MG Tab PO SCH (09:31)
[2024-08-14] MEDS: Levofloxacin 750 MG Tab PO SCH (16:45)
[2024-08-15] MEDS: Melatonin 3 MG Tab PO PRN (01:27)
[2024-08-15 02:02] LABS: A/G RATIO 0.4; ALANINE AMINOTRANSFERASE,ALT 34 U/L (12-36); ALKALINE PHOSPHATASE 106 IU/L (56-112); ASPARTATE AMNIOTRANSFERASE,AST 34 IU/L (5-25); BILIRUBIN TOTAL 0.3 mg/dL (0.1-1.3); BLOOD UREA NITROGEN,BUN 33 mg/dL (7-18); BUN/CREATININE RATIO 18.3 (9-20); CALCIUM 7.5 mg/dL (8.6-10.2); CARBON DIOXIDE,CO2 33 mmol/L (21-32); CHLORIDE,CL 97 mmol/L (100-110); CREATININE 1.8 mg/dL (0.55-1.02); EST CRCL DRUG DOSING (CG) 24.06 mL/min; ESTIMATED GFR 30 mL/min (>60); GLUCOSE RANDOM 215 mg/dL (80-116); POTASSIUM,K 4.1 mmol/L (3.5-5.3); PROTEIN TOTAL,TP 5.8 g/dL (6.0-8.0); SODIUM,NA 136 mmol/L (135-145)
[2024-08-15 02:08] LABS: ALBUMIN 1.5 g/dL (3.2-4.6); HEMATOCRIT 35.7 % (34.2-48.2); HEMOGLOBIN 11.7 g/dL (11.4-15.5); MEAN CORPUSCULAR HEMOGLOBIN 29.9 pg (23.9-33.9); MEAN CORPUSCULAR HGB CONC 32.9 g/dL (31.9-34.8); PLATELET COUNT,PLT 131 x10(3)uL (151-488); RED BLOOD CELL COUNT 3.92 x10(6)uL (3.60-5.20); WHITE BLOOD CELL COUNT,WBC 5.9 x10-3/uL (3.0-10.3)
[2024-08-15] MEDS: Diltiazem 25 MG/5 ML SDV IVPUSH ONE (02:13)
[2024-08-15 02:24] LABS: LYMPHOCYTES PERCENT MAN 1 % (13-37); METAMYELOCYTE PERCENT MAN 1 % (0-0); MONOCYTES PERCENT MAN 6 % (4-12); SEG NEUTROPHILS PERCENT MAN 92 % (46-82)
[2024-08-15 02:25] LABS: ANISOCYTOSIS FEW; POIKILOCYTOSIS OCCASIONAL
[2024-08-15] MEDS: Sodium Chloride 0.9% 500 ML IV ONE (02:36)
[2024-08-15 03:15] LABS: INR 1.34 (1.00-1.24); PROTHROMBIN TIME 13.6 sec (9.0-11.1)
[2024-08-15] MEDS: Metoprolol Succinate 25 MG Tab.ER PO SCH (03:48)
[2024-08-15] MEDS: Bumetanide 1 MG/4 ML MDV IV SCH (09:00)
[2024-08-15] MEDS: Apixaban 5 MG Tab PO SCH (09:49)
[2024-08-15] MEDS: Lidocaine 4% 1 each Patch TOP SCH (09:51)
[2024-08-16 06:35] LABS: HEMATOCRIT 36.2 % (34.2-48.2); HEMOGLOBIN 11.9 g/dL (11.4-15.5); MEAN CORPUSCULAR HEMOGLOBIN 29.9 pg (23.9-33.9); MEAN CORPUSCULAR HGB CONC 32.9 g/dL (31.9-34.8); MEAN PLATELET VOLUME 8.1 fL (7.1-12.4); PLATELET COUNT,PLT 139 x10(3)uL (151-488); RED BLOOD CELL COUNT 3.98 x10(6)uL (3.60-5.20); RED CELL DISTRIBUTION WIDTH 16.8 % (12.3-16.5); WHITE BLOOD CELL COUNT,WBC 6.3 x10-3/uL (3.0-10.3)
[2024-08-16 06:44] LABS: A/G RATIO 0.4; ALANINE AMINOTRANSFERASE,ALT 39 U/L (12-36); ALKALINE PHOSPHATASE 104 IU/L (56-112); ASPARTATE AMNIOTRANSFERASE,AST 43 IU/L (5-25); BILIRUBIN TOTAL 0.5 mg/dL (0.1-1.3); BLOOD UREA NITROGEN,BUN 35 mg/dL (7-18); BUN/CREATININE RATIO 21.9 (9-20); CALCIUM 7.9 mg/dL (8.6-10.2); CARBON DIOXIDE,CO2 33 mmol/L (21-32); CHLORIDE,CL 99 mmol/L (100-110); CREATININE 1.6 mg/dL (0.55-1.02); EST CRCL DRUG DOSING (CG) 27.06 mL/min; ESTIMATED GFR 34 mL/min (>60); GLUCOSE RANDOM 176 mg/dL (80-116); POTASSIUM,K 4.4 mmol/L (3.5-5.3); SODIUM,NA 136 mmol/L (135-145)
[2024-08-16 06:46] LABS: ALBUMIN 1.7 g/dL (3.2-4.6)
[2024-08-16 06:48] LABS: ANISOCYTOSIS FEW; BAND PERCENT MAN 1 % (0-6); LYMPHOCYTES PERCENT MAN 2 % (13-37); MONOCYTES PERCENT MAN 2 % (4-12); SEG NEUTROPHILS PERCENT MAN 95 % (46-82)
[2024-08-16] MEDS: Metolazone 2.5 MG Tab PO SCH (09:17)
[2024-08-16] MEDS: Levalbuterol HCl 1.25 MG/3 ML Neb NEB SCH (09:17)
[2024-08-16] MEDS: Potassium Chloride 20 MEQ Tab.ER PO SCH (09:17)
[2024-08-17 06:52] LABS: HEMATOCRIT 34.7 % (34.2-48.2); HEMOGLOBIN 11.4 g/dL (11.4-15.5); MEAN CORPUSCULAR HEMOGLOBIN 29.8 pg (23.9-33.9); MEAN CORPUSCULAR HGB CONC 32.7 g/dL (31.9-34.8); MEAN CORPUSCULAR VOLUME 91.1 fL (76.7-100.5); PLATELET COUNT,PLT 136 x10(3)uL (151-488); RED BLOOD CELL COUNT 3.82 x10(6)uL (3.60-5.20); WHITE BLOOD CELL COUNT,WBC 6.2 x10-3/uL (3.0-10.3)
[2024-08-17 06:56] LABS: BLOOD UREA NITROGEN,BUN 36 mg/dL (7-18); CALCIUM 7.7 mg/dL (8.6-10.2); CARBON DIOXIDE,CO2 34 mmol/L (21-32); CHLORIDE,CL 98 mmol/L (100-110); CREATININE 1.5 mg/dL (0.55-1.02); EST CRCL DRUG DOSING (CG) 28.87 mL/min; ESTIMATED GFR 37 mL/min (>60); GLUCOSE RANDOM 200 mg/dL (80-116); POTASSIUM,K 4.1 mmol/L (3.5-5.3); SODIUM,NA 135 mmol/L (135-145)
[2024-08-17 07:23] LABS: LYMPHOCYTES PERCENT MAN 4 % (13-37); MONOCYTES PERCENT MAN 3 % (4-12); SEG NEUTROPHILS PERCENT MAN 93 % (46-82)
[2024-08-17 07:24] LABS: ANISOCYTOSIS FEW
[2024-08-17] MEDS ORDERED: Non-Formulary Medication 1 Each (Ketoconazole [Nizoral 2% Shampoo] 120 ML Bottle) TOP SCH (09:22)
[2024-08-17] MEDS: Menthol 10%/Methyl Salicylate 30% 85 GM Tube TOP SCH (11:22)
[2024-08-17] MEDS: Metoprolol Succinate 25 MG Tab.ER PO ONE (11:23)
[2024-08-17] MEDS: Bumetanide 1 MG/4 ML MDV IV SCH (13:44)
[2024-08-18 06:29] LABS: HEMATOCRIT 36.1 % (34.2-48.2); HEMOGLOBIN 11.9 g/dL (11.4-15.5); MEAN CORPUSCULAR HEMOGLOBIN 30.1 pg (23.9-33.9); MEAN CORPUSCULAR HGB CONC 33.1 g/dL (31.9-34.8); MEAN CORPUSCULAR VOLUME 90.8 fL (76.7-100.5); MEAN PLATELET VOLUME 7.7 fL (7.1-12.4); PLATELET COUNT,PLT 137 x10(3)uL (151-488); RED BLOOD CELL COUNT 3.97 x10(6)uL (3.60-5.20); RED CELL DISTRIBUTION WIDTH 16.6 % (12.3-16.5); WHITE BLOOD CELL COUNT,WBC 9.5 x10-3/uL (3.0-10.3)
[2024-08-18 06:35] LABS: INR 1.5 (1.00-1.24); PROTHROMBIN TIME 15.1 sec (9.0-11.1)
[2024-08-18 06:39] LABS: A/G RATIO 0.5; ALANINE AMINOTRANSFERASE,ALT 44 U/L (12-36); ALBUMIN 1.8 g/dL (3.2-4.6); ALKALINE PHOSPHATASE 96 IU/L (56-112); ASPARTATE AMNIOTRANSFERASE,AST 47 IU/L (5-25); BILIRUBIN TOTAL 0.7 mg/dL (0.1-1.3); BLOOD UREA NITROGEN,BUN 39 mg/dL (7-18); CALCIUM 7.8 mg/dL (8.6-10.2); CARBON DIOXIDE,CO2 37 mmol/L (21-32); CHLORIDE,CL 98 mmol/L (100-110); CREATININE 1.5 mg/dL (0.55-1.02); EST CRCL DRUG DOSING (CG) 28.87 mL/min; ESTIMATED GFR 37 mL/min (>60); GLUCOSE RANDOM 148 mg/dL (80-116); POTASSIUM,K 3.4 mmol/L (3.5-5.3); PROTEIN TOTAL,TP 5.6 g/dL (6.0-8.0); SODIUM,NA 137 mmol/L (135-145)
[2024-08-18 06:57] LABS: ANISOCYTOSIS FEW; LYMPHOCYTES PERCENT MAN 7 % (13-37); MONOCYTES PERCENT MAN 5 % (4-12); SEG NEUTROPHILS PERCENT MAN 88 % (46-82)
[2024-08-18] MEDS ORDERED: HYDROCORTISONE 2.5% TOP SCH (09:00)
[2024-08-18] MEDS: Spironolactone 25 MG Tab PO SCH (09:42)
[2024-08-18] MEDS: Metoprolol Succinate 50 MG Tab.ER PO SCH (09:52)
[2024-08-18] MEDS: Hydrocortisone 2.5% Crm 30 GM Tube TOP SCH (10:20)
[2024-08-19 06:37] LABS: HEMATOCRIT 37.3 % (34.2-48.2); HEMOGLOBIN 12.4 g/dL (11.4-15.5); MEAN CORPUSCULAR HEMOGLOBIN 29.7 pg (23.9-33.9); MEAN CORPUSCULAR HGB CONC 33.2 g/dL (31.9-34.8); MEAN CORPUSCULAR VOLUME 89.5 fL (76.7-100.5); MEAN PLATELET VOLUME 7.6 fL (7.1-12.4); PLATELET COUNT,PLT 124 x10(3)uL (151-488); RED BLOOD CELL COUNT 4.16 x10(6)uL (3.60-5.20); RED CELL DISTRIBUTION WIDTH 16.9 % (12.3-16.5); WHITE BLOOD CELL COUNT,WBC 9.4 x10-3/uL (3.0-10.3)
[2024-08-19 06:49] LABS: A/G RATIO 0.5; ALANINE AMINOTRANSFERASE,ALT 49 U/L (12-36); ALKALINE PHOSPHATASE 97 IU/L (56-112); ASPARTATE AMNIOTRANSFERASE,AST 58 IU/L (5-25); BILIRUBIN TOTAL 0.9 mg/dL (0.1-1.3); BLOOD UREA NITROGEN,BUN 38 mg/dL (7-18); BUN/CREATININE RATIO 27.1 (9-20); CALCIUM 7.8 mg/dL (8.6-10.2); CARBON DIOXIDE,CO2 39 mmol/L (21-32); CHLORIDE,CL 96 mmol/L (100-110); CREATININE 1.4 mg/dL (0.55-1.02); EST CRCL DRUG DOSING (CG) 30.93 mL/min; ESTIMATED GFR 40 mL/min (>60); GLUCOSE RANDOM 129 mg/dL (80-116); PROTEIN TOTAL,TP 5.4 g/dL (6.0-8.0); SODIUM,NA 137 mmol/L (135-145)
[2024-08-19 06:50] LABS: ANISOCYTOSIS FEW; LYMPHOCYTES PERCENT MAN 10 % (13-37); MONOCYTES PERCENT MAN 7 % (4-12); SEG NEUTROPHILS PERCENT MAN 83 % (46-82)
[2024-08-19 06:54] LABS: ALBUMIN 1.7 g/dL (3.2-4.6)
[2024-08-19] MEDS: Potassium Chloride 20 MEQ Tab.ER PO SCH (09:16)
[2024-08-20 09:01] LABS: BASOPHILS PERCENT AUTO 0.1 % (0.2-1.5); EOSINOPHILS ABSOLUTE AUTO 0.1 x10-3/uL (0.0-0.8); EOSINOPHILS PERCENT AUTO 0.8 % (0.6-8.1); HEMATOCRIT 40.2 % (34.2-48.2); HEMOGLOBIN 13.2 g/dL (11.4-15.5); LYMPHOCYTES ABSOLUTE AUTO 0.9 x10-3/uL (1.0-4.4); LYMPHOCYTES PERCENT AUTO 8.2 % (18.4-52.1); MEAN CORPUSCULAR HEMOGLOBIN 29.9 pg (23.9-33.9); MEAN CORPUSCULAR HGB CONC 32.9 g/dL (31.9-34.8); MEAN CORPUSCULAR VOLUME 90.7 fL (76.7-100.5); MEAN PLATELET VOLUME 7.8 fL (7.1-12.4); MONOCYTES ABSOLUTE AUTO 0.9 x10-3/uL (0.3-1.0); MONOCYTES PERCENT AUTO 8.4 % (4.4-15.7); NEUTROPHILS ABSOLUTE AUTO 8.8 x10-3/uL (1.5-6.3); NEUTROPHILS PERCENT AUTO 82.5 % (30.8-76.2); PLATELET COUNT,PLT 139 x10(3)uL (151-488); RED BLOOD CELL COUNT 4.43 x10(6)uL (3.60-5.20); RED CELL DISTRIBUTION WIDTH 16.9 % (12.3-16.5); WHITE BLOOD CELL COUNT,WBC 10.7 x10-3/uL (3.0-10.3)
[2024-08-20 09:13] LABS: A/G RATIO 0.5; ALANINE AMINOTRANSFERASE,ALT 52 U/L (12-36); ALBUMIN 1.8 g/dL (3.2-4.6); ALKALINE PHOSPHATASE 115 IU/L (56-112); ASPARTATE AMNIOTRANSFERASE,AST 56 IU/L (5-25); BILIRUBIN TOTAL 0.9 mg/dL (0.1-1.3); BLOOD UREA NITROGEN,BUN 35 mg/dL (7-18); BUN/CREATININE RATIO 23.3 (9-20); CALCIUM 7.8 mg/dL (8.6-10.2); CHLORIDE,CL 97 mmol/L (100-110); CREATININE 1.5 mg/dL (0.55-1.02); EST CRCL DRUG DOSING (CG) 28.87 mL/min; ESTIMATED GFR 37 mL/min (>60); GLUCOSE RANDOM 172 mg/dL (80-116); MAGNESIUM 1.7 mg/dL (1.8-2.5); POTASSIUM,K 3.5 mmol/L (3.5-5.3); PROTEIN TOTAL,TP 5.7 g/dL (6.0-8.0); SODIUM,NA 139 mmol/L (135-145)
[2024-08-20 09:15] LABS: CARBON DIOXIDE,CO2 40 mmol/L (21-32)
[2024-08-20] MEDS: Magnesium Sulfate/Water Premix 2 GM in Premix Bag 1 BAG IV ONE (10:08)
[2024-08-20 11:40] VITALS: BP 109/62; PULSE 86
[2024-08-20] MEDS: FLU (Fluarix Triv) TS24-25(6MOS UP)/PF 45 MCG/0.5 ML Syringe IM ONE (12:34)
== END 2024-08-20 13:25 | disposition home health service (06) | DRG 291 ==
LOC: FB.MS 15:55
PROVIDERS: ADMIT Family Medicine; ATTEND Family Medicine
DX: I11.0 Hypertensive heart disease with heart failure (principal); I50.43 Acute on chronic combined systolic (congestive) and diastolic (congestive) heart failure; J96.01 Acute respiratory failure with hypoxia; J18.9 Pneumonia, unspecified organism; S22.020A Wedge compression fracture of second thoracic vertebra, initial encounter for closed fracture; J44.1 Chronic obstructive pulmonary disease with (acute) exacerbation; R78.81 Bacteremia; N17.9 Acute kidney failure, unspecified; C22.0 Liver cell carcinoma; J44.0 Chronic obstructive pulmonary disease with (acute) lower respiratory infection; Z66 Do not resuscitate; E11.9 Type 2 diabetes mellitus without complications; F32.A Depression, unspecified; G89.4 Chronic pain syndrome; H54.7 Unspecified visual loss; I25.10 Atherosclerotic heart disease of native coronary artery without angina pectoris; E78.00 Pure hypercholesterolemia, unspecified; F41.9 Anxiety disorder, unspecified; K21.9 Gastro-esophageal reflux disease without esophagitis; Z96.659 Presence of unspecified artificial knee joint; F17.210 Nicotine dependence, cigarettes, uncomplicated; R16.0 Hepatomegaly, not elsewhere classified; W19.XXXA Unspecified fall, initial encounter; M79.601 Pain in right arm; I48.0 Paroxysmal atrial fibrillation; F10.10 Alcohol abuse, uncomplicated; K72.10 Chronic hepatic failure without coma; M17.11 Unilateral primary osteoarthritis, right knee; E88.09 Other disorders of plasma-protein metabolism, not elsewhere classified; Z88.8 Allergy status to other drugs, medicaments and biological substances; Z79.51 Long term (current) use of inhaled steroids; Z79.899 Other long term (current) drug therapy; I25.2 Old myocardial infarction; Z86.0100 Personal history of colon polyps, unspecified; Z68.34 Body mass index [BMI] 34.0-34.9, adult; Z98.49 Cataract extraction status, unspecified eye; Z98.890 Other specified postprocedural states; Z90.49 Acquired absence of other specified parts of digestive tract
CPT/HCPCS: 36415; 71045; 71046; 71260; 73560-RT; 73610-RT; 80048; 80053; 82947; 83605; 83735; 83880; 84443; 84484; 85025; 85610; 86140; 87040; 87077; 87186; 90656; 93005; 93010; 94150; 94640; 97110-GP; 97161-GP; 97165-GO; 97530-GP; 99223; 99232; 99238; A9270-GY; G0008; J1650; J1815; J1940; J1956; J2270; J2405; J2543; J2919; J3475; J3490; J7040; J7612-GY; J7620; Q9967; U0002

== ENCOUNTER 2024-09-12 20:12 | Inpatient (IN) | payer MEDICARE, MEDICAID ==
[2024-09-12] MEDS: Morphine 4 MG/ML VIAL IVPUSH ONE (20:24)
[2024-09-12] MEDS: Albuterol/Ipratropium 3.0-0.5 MG/3 ML Neb Soln NEB ONE (20:27)
[2024-09-12] MEDS: Sodium Chloride 0.9% 1,000 ML IV ONE (20:28)
[2024-09-12 20:31] LABS: HEMOGLOBIN 13.3 g/dL (11.4-15.5); RED BLOOD CELL COUNT 4.31 x10(6)uL (3.60-5.20); WHITE BLOOD CELL COUNT,WBC 16.9 x10-3/uL (3.0-10.3)
[2024-09-12 20:31] LABS: BASE EXCESS VENOUS,POC -3 mmol/L (-2 - 3+); PCO2 VENOUS,POC 46 mmHg (41-51); PH VENOUS,POC 7.32 pH Units (7.32-7.43)
[2024-09-12 20:33] LABS: HEMATOCRIT 40.7 % (34.2-48.2); MEAN CORPUSCULAR HEMOGLOBIN 30.8 pg (23.9-33.9); MEAN CORPUSCULAR HGB CONC 32.6 g/dL (31.9-34.8); MEAN CORPUSCULAR VOLUME 94.5 fL (76.7-100.5); PLATELET COUNT,PLT 322 x10(3)uL (151-488); RED CELL DISTRIBUTION WIDTH 19.6 % (12.3-16.5)
[2024-09-12] MEDS: Metoprolol Tartrate 5 MG/5 ML SDV IVPUSH ONE ×2 (20:33→23:49)
[2024-09-12 20:39] LABS: INR 2.25 (1.00-1.24); PROTHROMBIN TIME 21.8 sec (9.0-11.1)
[2024-09-12 20:42] LABS: PTT,PARTIAL THROMBOPLSTIN TIME 29.2 SECONDS (24.4-33.2)
[2024-09-12 20:47] LABS: ANISOCYTOSIS FEW; BAND PERCENT MAN 3 % (0-6); LYMPHOCYTES PERCENT MAN 4 % (13-37); MONOCYTES PERCENT MAN 3 % (4-12); SEG NEUTROPHILS PERCENT MAN 90 % (46-82)
[2024-09-12 20:48] LABS: A/G RATIO 0.3; ALANINE AMINOTRANSFERASE,ALT 81 U/L (12-36); ALKALINE PHOSPHATASE 239 IU/L (56-112); BILIRUBIN TOTAL 1.7 mg/dL (0.1-1.3); BLOOD UREA NITROGEN,BUN 84 mg/dL (7-18); BUN/CREATININE RATIO 17.9 (9-20); CALCIUM 9.2 mg/dL (8.6-10.2); CARBON DIOXIDE,CO2 24 mmol/L (21-32); CHLORIDE,CL 110 mmol/L (100-110); ESTIMATED GFR 9 mL/min (>60); GLUCOSE RANDOM 75 mg/dL (80-116); PROTEIN TOTAL,TP 7.1 g/dL (6.0-8.0); SODIUM,NA 147 mmol/L (135-145)
[2024-09-12 20:52] LABS: ALBUMIN 1.7 g/dL (3.2-4.6); ASPARTATE AMNIOTRANSFERASE,AST 326 IU/L (5-25); CREATININE 4.7 mg/dL (0.55-1.02); LACTIC ACID 8.7 mmol/L (0.4-2.0); POTASSIUM,K 6.6 mmol/L (3.5-5.3)
[2024-09-12 20:53] LABS: TROPONIN I 114.7 pg/mL (4.0-60.3)
[2024-09-12] MEDS ORDERED: Glucagon,Human Recombinant 1 MG Vial IM PRN (21:03)
[2024-09-12] MEDS: Calcium Gluconate 10% 1 GM/10 ML SDV IVPUSH ONE ×2 (21:12→21:21)
[2024-09-12] MEDS: Insulin Lispro 100 Unit/ML 3 ML KwikPen SUBCUT STA (21:13)
[2024-09-12] MEDS: 50% Dextrose in Water 50 ML Syringe IVPUSH ONE (21:14)
[2024-09-12] MEDS: Sodium Bicarbonate 8.4% 50 MEQ/50 ML Syringe IVPUSH ONE (21:20)
[2024-09-12] MEDS: 50% Dextrose in Water 50 ML Syringe IVPUSH PRN (21:21)
[2024-09-12] MEDS: Piperacillin/Tazobactam 4.5 GM in Sodium Chloride 0.9% 100 ML IV STA (21:21)
[2024-09-12] MEDS ORDERED: LORazepam 2 MG/ML SDV IVPUSH PRN (22:05)
[2024-09-12] MEDS: VANCOmycin 1.5 GM/300 ML 1.5 GM in Premix Bag 1 BAG IV ONE (22:12)
[2024-09-12] MEDS: Morphine 2 MG/ML SYRINGE IVPUSH PRN (22:37)
[2024-09-12] MEDS: Sodium Chloride 0.9% 10 ML Syringe FLUSH PRN (22:38)
[2024-09-12] MEDS: Norepinephrine Bit/D5W Premix 4 MG in Premix Bag 1 BAG IV SCH (22:38)
[2024-09-12] MEDS ORDERED: Atropine 1% Ophth Soln 5 ML Bottle SL PRN (22:56)
[2024-09-12 23:19] VITALS: BP 95/54; PULSE 155
[2024-09-12] MEDS: Atropine 1% Ophth Soln 5 ML Bottle SL PRN (23:33)
[2024-09-12] MEDS: Metoprolol Tartrate 5 MG/5 ML SDV ONE (23:48)
[2024-09-12] MEDS: Norepinephrine Bit/D5W Premix 250 ML ONE (23:48)
[2024-09-12] MEDS: Calcium Gluconate 10% 1 GM/10 ML SDV ONE (23:48)
== END 2024-09-13 04:02 | disposition expired | DRG 951 ==
LOC: FB.ED 20:12 → FB.MS 22:31
PROVIDERS: ADMIT Emergency Medicine; ATTEND Internal Medicine
DX: Z51.5 Encounter for palliative care (principal); A41.9 Sepsis, unspecified organism; J96.01 Acute respiratory failure with hypoxia; I48.20 Chronic atrial fibrillation, unspecified; Z66 Do not resuscitate; I50.9 Heart failure, unspecified; J44.9 Chronic obstructive pulmonary disease, unspecified; H54.7 Unspecified visual loss; I25.10 Atherosclerotic heart disease of native coronary artery without angina pectoris; I11.0 Hypertensive heart disease with heart failure; K21.9 Gastro-esophageal reflux disease without esophagitis; Z96.659 Presence of unspecified artificial knee joint; I95.9 Hypotension, unspecified; K70.30 Alcoholic cirrhosis of liver without ascites; Z88.8 Allergy status to other drugs, medicaments and biological substances; Z79.51 Long term (current) use of inhaled steroids; Z79.899 Other long term (current) drug therapy; Z79.01 Long term (current) use of anticoagulants; I25.2 Old myocardial infarction; Z86.0100 Personal history of colon polyps, unspecified; Z98.49 Cataract extraction status, unspecified eye; Z98.890 Other specified postprocedural states; Z90.49 Acquired absence of other specified parts of digestive tract
CPT/HCPCS: 36415; 71045; 80053; 83605; 83880; 84484; 85025; 85610; 85730; 93005; 94640; J0612 ×2; J1815 ×2; J2543; J3490 ×2; J7030; 51702; 93010; 96365; 96367; 96375; 99285; 99285-25; A9270-GY; J2270; J7620